=== PATIENT | female | born 1960 | race Caucasian/White ===

== ENCOUNTER 2019-04-25 14:38 | Emergency (ER) | payer BC, SELFPAY ==
[2019-04-25] VITALS (9 sets, daily range): BP systolic 90–115; BP diastolic 60–79; PULSE 54–77; RESP 15–20; TEMP 36.2; O2SAT 97–99
--- NOTE | 2019-04-25 15:04 | ED.OVERDOSE ---
HPI - Overdose General Chief Complaint: Overdose Stated Complaint: od Time Seen by Provider: 04/25/19 14:47 Source: patient Mode of arrival: EMS Limitations: no limitations History of Present Illness HPI Narrative: A 59 y/o female pt presents to the ED, via EMS, with c/o intentional overdose. Approximately 12 hours ago pt notes taking a handful of Xanax x 0.5mg, and Losartan x 15. Pt states that she has been from her since July 2018 and now lives with her mother. She states that her would frequently call her overweight and state that he is no longer attracted to her . Pt notes having depression on and off since her separation from her . She reports that last night her began texting her, stating that he wants to be single . She notes that she felt tired of it and attempted to to take her life today by overdosing on her medications. Pt denies wanting to hurt others, hearing voices, or any other self harm. She notes having suicidal ideation in the past, but denies every having a suicide attempt prior to today. Pt reports having some wine while watching a movie on [employer] last night, but denies alcohol abuse. She notes a PMHx of depression, anxiety, and HTN. Pt denies hx of smoking or drug use. Pt denies CP, ABD or SOB. lt ovary removed, tubal lit, lumpectomy on melinda breast. complaint: intentional overdose Onset (ago): hour(s) (12) Intent: suicide attempt How Overdose Was Discovered: called 911 Context: Intentional Overdose: relationship problems Associated symptoms: depression and other (anxiety) Related Data Allergies Allergy/AdvReac Type Severity Reaction Status Date / Time Penicillins Allergy Mild HIVES, Unverified 02/23/12 18:10 SWELLING Review of Systems Review of Systems: All systems reviewed & are unremarkable except as noted in HPI and below Cardiovascular: Cardiovascular: Denies chest pain and Denies dyspnea Gastrointestinal: Gastrointestinal: Denies abdominal pain Psychiatric: Psychiatric: Reports anxiety, Reports depression, Denies auditory hallucinations, Reports homicidal ideation, Reports suicidal ideation and Reports other (suicide attempt by overdose) [facility] Past Medical History Medical History (Updated 04/25/19 @ 22:08 by Tucker Marie, [facility]) Anxiety Arthritis Degenerative disc disease Depression Hypertension Surgical History Surgical History (Updated 04/25/19 @ 22:08 by JESSICA Lyons) History of tubal ligation Social History Social History (Updated 04/25/19 @ 22:08 by JESSICA Lyons) Substance use: never Living arrangements: with family Exam Narrative: Exam Narrative: GENERAL: Anxious-appearing, well-nourished, and in no acute distress. HEAD: Normocephalic, atraumatic. EYES: PERRL and EOMI. ENT: Mucous membranes moist. CHEST: Clear to auscultation. No respiratory distress. HEART: Regular rate and rhythm. Normal peripheral pulses. ABDOMEN: Soft, nontender, nondistended. EXTREMITIES: Normal range of motion. No edema. SKIN: Warm, dry, no rash. NEURO: No focal deficits. Alert and oriented x3. PSYCH: Depressed and tearful, suicidal. Not homicidal. Not responding to internal stimuli. Course Reevaluation(s) Reevaluation #1: Patient medically cleared. CRISIS here evaluating the patient. Poison control says patient is outside the window of toxicity from medications. Date: 04/25/19 Time: 19:51 Reevaluation #2: Accepted by Dr. Bassett to dick. Date: 04/25/19 Time: 21:17 Reevaluation #3: Patient's been resting comfortably throughout the ER stay. She has had some low blood pressures in the low 90s manually taken. The psych facility has been made aware this are of no concern. Patient has been up and ambulatory without issue and is asymptomatic. She is received 2 L of IV fluid. She is outside of the window for any toxicity from the hypertensive medications that she is taken. Date: 04/25/19 Time: 22:52 Vital Signs Vital s
[2019-04-25 15:06] LABS: Basophils Percent Auto 0.9 % (0.2-1.2); Eosinophils Absolute Auto 0.1 K/mm3 (0-0.3); Eosinophils Percent Auto 1.6 % (0-4.4); Hematocrit 38.7 % (37.0-47.0); Hemoglobin 12.8 g/dL (12.0-15.0); Immature Granulocyte Absolute 0.02 K/mm3 (0.00-0.031); Immature Granulocyte Percent A 0.5 % (0-0.5); Lymphocytes Absolute Auto 1.52 K/mm3 (0.9-3.2); Lymphocytes Percent Auto 34.4 % (18.3-44.2); Mean Corpuscular HGB Conc 33.1 g/dl (32-36); Mean Corpuscular Hemoglobin 26.8 pg (26-34); Mean Platelet Volume 10.2 fl (7.4-10.4); Monocytes Absolute Auto 0.4 K/mm3 (0.1-0.6); Neutrophils Absolute Auto 2.3 K/mm3 (1.3-6.7); Neutrophils Percent Auto 52.6 % (45.5-73.1); Platelet Count Result 313 k/mm3 (150-375); Red Blood Count 4.78 M/mm3 (4.2-5.4); Red Cell Distribution Width 12.1 % (11.5-14.5); White Blood Count 4.4 K/mm3 (4.5-10.0)
[2019-04-25 15:20] LABS: Alanine Aminotransferase 36 U/L (4-35); Albumin Level 4.4 g/dL (3.5-5.1); Alkaline Phosphatase 81 U/L (38-126); Aspartate Amino Transferase 33 U/L (14-36); Bilirubin,Total 0.8 mg/dL (0.2-1.3); Blood Urea Nitrogen 19 mg/dL (7-17); Calcium 9.5 mg/dL (8.4-10.2); Carbon Dioxide 28 mmol/L (22-30); Chloride 98 mmol/L (98-107); Estimated CRCL calculation 40 ml/min; Estimated Glomerular Filt Rate 46; Ethanol < 10 mg/dL (<10); Glucose 98 mg/dL (65-105); Potassium 3.1 mmol/L (3.4-5.0); Sodium 136 mmol/L (137-145)
--- NOTE | 2019-04-25 15:54 | PC.NURSE ---
Poison Control contacted, spoke with Bernie - - who stated that the pt is not at high risk for complications of overdose currently and Bernie advises to have an acetaminophen and salicylate level drawn. Levels ordered.
--- NOTE | 2019-04-25 16:13 | ECG_ITS ---
Measurements Intervals [place] Rate: 63 P: 52 HI: 149 QRS: 16 QRSD: 103 T: -14 QT: 456 QTc: 468 Interpretive Statements SINUS RHYTHM NONSPECIFIC ST & T-WAVE ABNORMALITY- ANT/INF LEADS BASELINE WANDER- I, III, AVR BORDERLINE ECG Electronically Signed On 04-26-2019 6:55:09 GLASS BULB SILVERER by Emmanuel Wise D.O.
[2019-04-25 16:42] LABS: Add Urine Microscopic? YES; Appearance Urine Clear (Clear); Bilirubin Urine Negative (Negative); Blood Urine 1+ (Negative); Color Urine Straw (Yellow); Glucose Urine UA Negative (Negative); Ketones Urine Negative (Negative); Leukocyte Esterase Ur 2+ LEU/UL (Negative); Nitrate Urine Negative (Negative); Protein Urine Negative (Negative); RBC Urine 0-2 /hpf (0-2); Specific Grav Ur 1.005 (1.001-1.035); Urobilinogen Urine Negative mg/dL (<2.0); WBC Urine 21-30 /hpf
[2019-04-25 16:51] LABS: Amphetamine Screen Urine Negative (Negative); Barbiturate Screen Urine Negative (Negative); Benzodiazepines Screen Urine Positive (Negative); Cannabinoid Screen Urine Negative (Negative); Cocaine Screen Urine Negative (Negative); Methadone Screen Urine Negative (Negative); Opiate Screen Urine Negative (Negative); Phencyclidine Screen Urine Negative (Negative)
[2019-04-25 16:58] LABS: Salicylate < 1.0 mg/dL (2-20)
[2019-04-25 16:59] LABS: Acetaminophen < 10 ug/mL (10-30)
[2019-04-25] MEDS: SODIUM CHLORIDE 0.9% IV 1,000 ML 999 ML IV CONT (16:59)
--- NOTE | 2019-04-25 17:58 | PC.NURSE ---
Talked with Bernie at Poison Control who stated that they had no further recommendations or concerns about pt, other than continuing to monitor vital signs and neuro status, after reviewing vital signs and pt condition and labs.
--- NOTE | 2019-04-25 18:06 | PC.NURSE ---
Talked to Bria, with crisis ([phone]) about pt and Bria stated that someone would be dispatched to evaluate the pt.
--- NOTE | 2019-04-25 21:44 | PC.NURSE ---
CALL RECEIVED POISON CONTROL. UPDATES GIVEN. NO FURTHER RECOMMENDATIONS
[2019-04-25] MEDS: SODIUM CHLORIDE 0.9% IV 1,000 ML 1000 ML (21:50)
--- NOTE | 2019-04-25 21:51 | PC.NURSE ---
PT BLOOD PRESSURE 90/[address] BEAVERS NOTIFIED. PT ASYMPTOMATIC. VRBO 1L NS PER DR BEAVERS. IVF INFUSING IN PATENT IV. PT TOLERATING WELL
--- NOTE | 2019-04-25 22:07 | PC.NURSE ---
CALL RECEIVED FROM NIKKI AT [facility]. REPORT GIVEN. STATES PT ROOM NUMBER IS [id number]. CALL WHEN EMS EN ROUTE
--- NOTE | 2019-04-25 22:52 | PC.NURSE ---
Called [facility] to transport patient to [facility]. ETA [phone]
[2019-04-26 00:05] VITALS: BP 93/62; PULSE 58; RESP 20; O2SAT 98
--- NOTE | 2019-04-26 01:08 | PC.NURSE ---
[facility] called to update ETA to 0230. Called [facility] to request transport. [facility] declined.
[2019-04-26 01:25] VITALS: BP 95/64; PULSE 59; RESP 18
[2019-04-26 02:39] VITALS: BP 90/58; PULSE 64; RESP 20; O2SAT 98
[2019-04-26 03:04] VITALS: BP 111/71; PULSE 66; RESP 20; O2SAT 99
[2019-04-26 03:19] VITALS: BP 111/64; PULSE 64; RESP 20; O2SAT 99
== END 2019-04-26 03:21 ==
PROVIDERS: Emergency Provider Emergency Medicine
DX: T42.4X2A Poisoning by benzodiazepines, intentional self-harm, initial encounter (principal); T46.5X2A Poisoning by other antihypertensive drugs, intentional self-harm, initial encounter; I10 Essential (primary) hypertension; M19.90 Unspecified osteoarthritis, unspecified site; F41.9 Anxiety disorder, unspecified; F32.9 Major depressive disorder, single episode, unspecified
CPT/HCPCS: 36415; 80053; 80307; 81001; 81025; 84443; 85025; 87077; 87086; 87088; 87186; 93005; 96360; 96361; 99285; J7030

== ENCOUNTER 2020-02-01 13:43 | Outpatient (CLI) | payer BC, SELFPAY ==
--- NOTE | ~2020-02-01 | US_ITS ---
EXAMINATION: US thyroid DATE: 02/01/2020 14:54 INDICATION: Thyroid nodule. TECHNIQUE: Multiple ultrasound images of the thyroid were obtained. COMPARISON: None. FINDINGS: The right thyroid lobe measures 5.0 x 1.6 x 1.3 cm. The left thyroid lobe measures 4.8 x 1.6 x 1.0 c m. In the right thyroid lobe, there is a 3 mm nodule. In the left thyroid lobe, there is a 3 mm nodu le. IMPRESSION: 1. Small thyroid nodules, likely not clinically significant. No follow-up is needed. Reviewed, dictated and finalized at location B. USION MANAGER IMPRESSION: 1. Small thyroid nodules, likely not clinically significant. No follow-up is ne eded.
== END 2020-02-01 13:44 | disposition home or self-care (01) ==
LOC: ANHIMG 13:56
PROVIDERS: PCP Family Medicine; Visit Provider Nurse Practitioner
DX: E04.2 Nontoxic multinodular goiter (principal)
CPT/HCPCS: 76536

== ENCOUNTER 2021-10-18 10:39 | Outpatient (CLI) | payer OTHER, SELFPAY ==
[2021-10-18 12:02] LABS: Basophils Absolute Auto 0.1 K/mm3 (0.0-0.1); Basophils Percent Auto 1.1 % (0.2-1.2); Eosinophils Absolute Auto 0.1 K/mm3 (0-0.3); Eosinophils Percent Auto 2.4 % (0-4.4); Immature Granulocyte Absolute 0.01 K/mm3 (0.00-0.031); Immature Granulocyte Percent A 0.2 % (0-0.5); Lymphocytes Absolute Auto 1.92 K/mm3 (0.9-3.2); Lymphocytes Percent Auto 35.6 % (18.3-44.2); Mean Corpuscular HGB Conc 32.5 g/dl (32-36); Mean Corpuscular Hemoglobin 26.9 pg (26-34); Mean Corpuscular Volume 82.6 fl (80-100); Mean Platelet Volume 10.4 fl (7.4-10.4); Monocytes Absolute Auto 0.4 K/mm3 (0.1-0.6); Neutrophils Absolute Auto 2.9 K/mm3 (1.3-6.7); Neutrophils Percent Auto 53.7 % (45.5-73.1); Platelet Count Result 294 k/mm3 (150-375); Red Blood Count 4.84 M/mm3 (4.2-5.4); Red Cell Distribution Width 12.4 % (11.5-14.5); White Blood Count 5.4 K/mm3 (4.5-10.0)
[2021-10-18 12:03] LABS: Appearance Urine Clear (Clear); Bilirubin Urine Negative (Negative); Color Urine Yellow (Yellow); Glucose Urine UA Negative (Negative); Ketones Urine Negative (Negative); Leukocyte Esterase Ur 1+ LEU/UL (Negative); Nitrate Urine Negative (Negative); Protein Urine Negative (Negative); Urobilinogen Urine 0.2 mg/dL (<2.0)
[2021-10-18 12:09] LABS: Mucus Urine Rare /lpf; Squamous Epithelial Cell Urine Occasional /hpf (Few); Transitional Epi Cells Urine Rare /hpf (None Seen); WBC Urine 0-3 /hpf
[2021-10-18 12:17] LABS: Alanine Aminotransferase 37 U/L (6-35); Albumin Level 4.6 g/dL (3.5-5.1); Alkaline Phosphatase 68 U/L (38-126); Anion Gap 8 mmol/L (8-16); Aspartate Amino Transferase 40 U/L (14-36); Bilirubin,Total 0.6 mg/dL (0.2-1.3); Blood Urea Nitrogen 18 mg/dL (7-17); Calcium 9.6 mg/dL (8.4-10.2); Carbon Dioxide 30 mmol/L (22-30); Chloride 95 mmol/L (98-107); Cholesterol 202 mg/dL (0-200); Estimated Glomerular Filt Rate > 60; Glucose 97 mg/dL (65-110); HDL Direct 46 mg/dL; Potassium 3.4 mmol/L (3.4-5.0); Sodium 133 mmol/L (137-145); Triglycerides 122 mg/dL (<150)
[2021-10-18 12:30] LABS: Add Urine Microscopic? YES; Blood Urine Trace-Intact (Negative)
[2021-10-18 12:43] LABS: LDL Cholesterol Direct 106 mg/dL
[2021-10-18 12:46] LABS: Vitamin D 25 Hydroxy 43.1 ng/mL
== END 2021-10-18 10:40 | disposition home or self-care (01) ==
LOC: ANHLAB 10:43
PROVIDERS: PCP Family Medicine; Visit Provider Family Medicine
DX: Z00.00 Encounter for general adult medical examination without abnormal findings (principal); E55.9 Vitamin D deficiency, unspecified; Z13.1 Encounter for screening for diabetes mellitus; I10 Essential (primary) hypertension; E78.5 Hyperlipidemia, unspecified; E04.1 Nontoxic single thyroid nodule; Z79.899 Other long term (current) drug therapy
CPT/HCPCS: 36415; 80048; 80061; 80076; 81001; 82306; 84443; 85025

== ENCOUNTER 2021-12-10 00:40 | Day surgery (SDC) | payer OTHER, SELFPAY ==
[2021-11-26 13:51] VITALS: BMI 25.0
--- NOTE | 2021-12-08 10:03 | PM.HPGS ---
History of Present Illness History of Present Illness Consent: Risks, benefits, and alternatives have been discussed and questions answered. Patient agrees to proceed with procedure. Chief complaint: neoplasm screening Narrative: Josee Taylor is a 61 year old female Who was referred for colon cancer screening. She has a family history of colon cancer. Her father and paternal grandmother had colon cancer. Review of Systems Review of Systems: All systems reviewed & are unremarkable except as noted in HPI and below PMFSH Past Medical History Medical History Anxiety Arthritis Degenerative disc disease Depression Hyperlipidemia Hypertension Surgical History Surgical History History of tubal ligation Social History Social History Smoking status: Never smoker Alcohol intake: current Drinks per week: 2 Substance use: never Substance use type: does not use Living arrangements: with family Spiritual care concerns: No Meds Home Medications and Allergies Home Medications Medication Instructions Recorded Confirmed Type alprazolam 0.5 mg tablet 0.5 mg PO DAILY 11/26/21 12/10/21 History escitalopram oxalate 20 mg tablet 20 mg PO DAILY 11/26/21 12/10/21 History losartan 100 1 tablet PO DAILY 11/26/21 12/10/21 History mg-hydrochlorothiazide 25 mg tablet simvastatin 20 mg tablet 20 mg PO DAILY 11/26/21 12/10/21 History Allergies Allergy/AdvReac Type Severity Reaction Status Date / Time Penicillins Allergy Mild HIVES, Verified 12/10/21 09:09 SWELLING Exam Const: General: alert Orientation/consciousness: patient oriented x3 Resp: Auscultation: clear to auscultation bilaterally Cardio: Rhythm: regular rhythm GI: GI Palp: Yes Soft to palpation and No Tenderness to palpation present (GI) Neuro: General: patient oriented x3 Assessment and Plan Assessment and plan (1) Colon cancer screening: Code(s): Z12.11 - Encounter for screening for malignant neoplasm of colon Status: Acute Assessment and Plan: Colonoscopy with possible biopsy or polypectomy or cautery or injection of substances.
--- NOTE | 2021-12-10 09:05 | WPDANESEPPF ---
Anes - Initial Pre Proc Eval Procedure: Operation Date: 12/10/21 10:00 Proposed Procedures p Screening Colonoscopy - Juan Luis Reyna MD Date/Time: 12/10/21 09:05 Surgeon: Juan Luis Reyna MD Pre Op Diagnosis: neoplasm screening Patient Data Age: 61 Gender: F Height: 1.63 m Weight: 66 kg Allergies Allergy/AdvReac Type Severity Reaction Status Date / Time Penicillins Allergy Mild HIVES, Verified 12/10/21 09:09 SWELLING Home Medications Medication Instructions Recorded Confirmed Type alprazolam 0.5 mg tablet 0.5 mg PO DAILY 11/26/21 12/10/21 History escitalopram oxalate 20 mg tablet 20 mg PO DAILY 11/26/21 12/10/21 History losartan 100 1 tablet PO DAILY 11/26/21 12/10/21 History mg-hydrochlorothiazide 25 mg tablet simvastatin 20 mg tablet 20 mg PO DAILY 11/26/21 12/10/21 History Patient hx anesthesia problems: none Family hx anesthesia problems: none Results Review: All pre-operative results and documents have been reviewed as part of the pre-operative evaluation. [facility] Past Medical History Medical History (Updated 12/10/21 @ 09:06 by John Redmond DO) Anxiety Arthritis Degenerative disc disease Depression Hyperlipidemia Hypertension Surgical History Surgical History (Updated 04/25/19 @ 22:08 by JESSICA Lyons) History of tubal ligation Social History Social History (Updated 04/25/19 @ 22:08 by JESSICA Lyons) Smoking status: Never smoker Alcohol intake: current Drinks per week: 2 Substance use: never Substance use type: does not use Living arrangements: with family Spiritual care concerns: No Anes - Eval Final PreProcedure Day of Procedure 12/10/21 09:05 Patient weight: normal Heart: regular rate and rhythm Lungs: clear to auscultation and normal air movement Airway: Mallampati scale class II Neurological: alert and oriented Last oral intake: >/= 8 hours ASA classification: II Emergent: no Anesthetic plan: proceed Anesthesia type and monitoring: general GIVS and standard monitoring Results Review: All pre-operative results and documents have been reviewed as part of the pre-operative evaluation. Informed Consent: The patient's anesthetic plan and its attendant risks and benefits were discussed with the patient/family/POA. Questions were solicited and answers provided to the satisfaction of the patient/family/POA.
[2021-12-10 09:11] VITALS: BP 125/89; PULSE 77; RESP 20; TEMP 36.1; O2SAT 100; BMI 24.3
[2021-12-10] MEDS: LACTATED RINGERS 1,000 ML 150 ML IV CONT (09:14)
[2021-12-10 10:07] VITALS: BP 105/69; PULSE 66; RESP 17; O2SAT 99
[2021-12-10 10:17] VITALS: BP 113/77; PULSE 61; RESP 18; O2SAT 100
[2021-12-10 10:27] VITALS: BP 131/89; PULSE 58; RESP 15; O2SAT 100
== END 2021-12-10 10:32 | disposition home or self-care (01) ==
PROVIDERS: PCP Family Medicine; Visit Provider Internal Medicine Gastroenterology
PROC: 0DJD8ZZ Inspection of Lower Intestinal Tract, Via Natural or Artificial Opening Endoscopic (ICD-10-PCS; CPT 45378; principal; 2021-12-10 10:00)
DX: Z12.11 Encounter for screening for malignant neoplasm of colon (principal); F41.9 Anxiety disorder, unspecified; M19.90 Unspecified osteoarthritis, unspecified site; F32.A Depression, unspecified; I10 Essential (primary) hypertension; E78.5 Hyperlipidemia, unspecified
CPT/HCPCS: 45378; J2704; J7120

== ENCOUNTER 2022-01-22 13:17 | Outpatient (CLI) | payer OTHER, SELFPAY ==
--- NOTE | ~2022-01-22 | XR_ITS ---
EXAMINATION: XR chest 2V 01/22/2022 13:40 INDICATION: Left chest wall pain PROCEDURE: 2 view chest COMPARISON: 10/05/2020 FINDINGS: The lungs are clear. The cardiomediastinal silhouette is within normal limits. There are no pleural effusions. There is no pneumothorax suspected. IMPRESSION: 1: NO ACUTE CARDIOPULMONARY DISEASE. Reviewed, dictated and finalized at location A. S ASSEMBLER
== END 2022-01-22 13:18 | disposition home or self-care (01) ==
LOC: ANHIMG 13:29
PROVIDERS: PCP Family Medicine
DX: R07.89 Other chest pain (principal)
CPT/HCPCS: 71046

== ENCOUNTER 2022-05-10 10:49 | Outpatient (CLI) | payer OTHER, SELFPAY | END 2022-05-10 10:50 | disposition home or self-care (01) | LOC: ANHAUDIO 10:50 | PROVIDERS: PCP Family Medicine; Visit Provider Otolaryngology | DX: H90.3 Sensorineural hearing loss, bilateral (principal); H93.A2 Pulsatile tinnitus, left ear | CPT/HCPCS: 92557; 92567 ==

== ENCOUNTER 2022-05-17 10:21 | Outpatient (CLI) | payer OTHER, SELFPAY ==
--- NOTE | ~2022-05-17 | CT_ITS ---
EXAMINATION: CTA brain DATE: 05/17/2022 10:53 INDICATION: Left-sided pulsatile tinnitus. TECHNIQUE: Computed tomographic angiography (CTA) of the head was performed without and with 100 mL O mnipaque-350 intravenous contrast. Automated exposure control and iterative reconstruction technique were employed. The dose-length product was 1041.41 mGy-cm. Maximum intensity projection 3D reconstru ctions were created. Volume-rendered 3D reconstructions of the intracranial arteries were created by the technologist on a separate workstation. COMPARISON: None. FINDINGS: There are scattered areas of low attenuation in the cerebral white matter. There is no intr acranial hemorrhage, acute infarction, or abnormal intracranial mass lesion. The ventricles are bucky l in size. The orbits are normal. The mastoid air cells are normal. The bilateral jugular bulbs are h igh riding. The paranasal sinuses are clear. Left vertebral artery is dominant. There is no significa nt stenosis of basilar artery or the posterior cerebral arteries. The posterior communicating arterie s are normal. There is no significant stenosis of the intracranial arterial internal carotid arteries or anterior or middle cerebral arteries. Anterior communicating artery is normal. There is no aneury sm. IMPRESSION: 1. Mild nonspecific cerebral white matter disease, which likely represents chronic small vessel ische antonieta disease. 2. High riding bilateral jugular bulbs. 3. No aneurysm or significant intracranial arterial stenosis. Reviewed, dictated and finalized at location E. IMPRESSION: 1. Mild nonspecific cerebral white matter disease, which likely represents tube dispatcher melani small vessel ischemic disease. 2. High riding bilateral jugular bulbs. 3. No aneurysm or significant intracranial arterial stenosis.
[2022-05-17 10:46] LABS: Estimated Glomerular Filt Rate > 60
== END 2022-05-17 10:22 | disposition home or self-care (01) ==
PROVIDERS: PCP Family Medicine; Visit Provider Otolaryngology
DX: H93.A2 Pulsatile tinnitus, left ear (principal); R90.82 White matter disease, unspecified
CPT/HCPCS: 70496; Q9967

== ENCOUNTER 2022-07-11 15:59 | Emergency (ER) | payer OTHER, SELFPAY ==
--- NOTE | 2022-07-11 16:08 | ED.FEMALEGU ---
HPI - Female Genitourinary General Chief complaint: Urogenital-Female Stated complaint: Poss UTI Time Seen by Provider: 07/11/22 16:56 Source: patient and RN notes reviewed Mode of arrival: ambulatory Limitations: no limitations History of Present Illness HPI Narrative: 62-year-old female presents with concern for urinary tract infection. She reports 1 week history of burning with urination, cloudy urine, malodorous urine, frequency. She reports she has a history of urinary tract infections and was hospitalized a year and a half ago for a kidney infection. She reports chills, suprapubic pressure. MD elicited complaint: UTI Related Data Home Medications Medication Instructions Recorded Confirmed alprazolam 0.5 mg tablet 0.5 mg PO PRN PRN anxiety 11/26/21 07/11/22 escitalopram oxalate 20 mg tablet 20 mg PO DAILY 11/26/21 07/11/22 losartan 100 1 tablet PO DAILY 11/26/21 07/11/22 mg-hydrochlorothiazide 25 mg tablet simvastatin 20 mg tablet 20 mg PO DAILY 11/26/21 07/11/22 Allergies Allergy/AdvReac Type Severity Reaction Status Date / Time Penicillins Allergy Mild HIVES, Verified 07/11/22 16:42 SWELLING Sulfa (Sulfonamide Allergy Mild Hives Verified 07/11/22 16:42 Antibiotics) Review of Systems Review of Systems: CONSTITUTIONAL: Denies malaise, chills, sweats, or fever. CARDIOVASCULAR: Denies chest pain, palpitations, or edema. RESPIRATORY: Denies cough or dyspnea. GASTROINTESTINAL: Denies abdominal pain, nausea, vomiting, diarrhea GENITOURINARY: Reports dysuria, frequency, urgency, suprapubic pressure. Denies flank pain or hematuria. SKIN: Denies rash or itching. MUSCULOSKELETAL: Denies back pain or myalgia. All systems reviewed & are unremarkable except as noted in HPI and below PMFSH Past Medical History Medical History Anxiety Arthritis Degenerative disc disease Depression Hyperlipidemia Hypertension Surgical History Surgical History History of tubal ligation Social History Social History Smoking status: Never smoker Alcohol intake: current Drinks per week: 2 Substance use: never Substance use type: does not use Lack of Transportation: No Lack of Food: Never True Current Housing: I Have Housing Concerned About Future Housing: No Difficulty Paying Gas/Electric Bills: No Difficulty Paying for Meds: No Currently Unemployed: No Education: High School Diploma/GED Difficulty w/ Childcare or Family Care: No Living arrangements: with family Spiritual care concerns: No Comments At time of signature, agree with nursing past medical, surgical, social and family history. There is no relevant family history pertinent to the presenting complaint Exam Narrative: GENERAL: Well-appearing, well-nourished, and in no acute distress. HEAD: Normocephalic. EYES: PERRLA, conjunctivae clear. NECK: Supple. No lymphadenopathy CHEST: Clear to auscultation. No respiratory distress. HEART: Regular rate and rhythm. ABDOMEN: Soft, nontender upon palpation, nondistended, normal active bowel sounds, no palpable or pulsatile masses, no guarding. No CVA tenderness SKIN: Warm, dry, no rash. NEURO: Alert and oriented x3. PSYCH: Normal mood and affect Course Course Emergency Course: Patient is aware of diagnosis, understands and agrees to treatment plan. Anticipatory guidance given. Patient agrees to follow-up as directed and is aware of reasons to seek care at the emergency department. Portions of this record may have been created with voice recognition software Level of Care: Express Care Visit Vital Signs Vital signs: Vital Signs Temperature 97.6 F 07/11/22 16:10 Pulse Rate 73 07/11/22 16:10 Respiratory Rate 18 07/11/22 16:10 Blood Pressure 126/75 07/11/22 16:10 Pulse Oximetry 100
[2022-07-11 16:10] VITALS: BP 126/75; PULSE 73; RESP 18; TEMP 36.4; O2SAT 100
== END 2022-07-11 17:03 | disposition home or self-care (01) ==
PROVIDERS: Emergency Provider Nurse Practitioner; PCP Family Medicine
DX: N39.0 Urinary tract infection, site not specified (principal); M19.90 Unspecified osteoarthritis, unspecified site; E78.5 Hyperlipidemia, unspecified; I10 Essential (primary) hypertension; F41.9 Anxiety disorder, unspecified; F32.A Depression, unspecified
CPT/HCPCS: 81003; 87077; 87086; 87186; 99213; G0463

== ENCOUNTER 2022-12-15 19:10 | Emergency (ER) | payer OTHER, SELFPAY ==
[2022-12-15 19:14] VITALS: BP 148/82; PULSE 78; RESP 14; TEMP 36.4; O2SAT 100
[2022-12-15 19:36] LABS: Appearance Urine Clear (Clear); Bilirubin Urine Negative (Negative); Blood Urine Negative (Negative); Color Urine Yellow (Yellow); Glucose Urine UA Negative (Negative); Ketones Urine Negative (Negative); Leukocyte Esterase Ur Negative LEU/UL (Negative); Nitrate Urine Negative (Negative); Protein Urine Negative (Negative); Specific Grav Ur 1.005 (1.001-1.035); Urobilinogen Urine 0.2 mg/dL (<2.0)
[2022-12-15 19:38] LABS: Add Urine Microscopic? NO
[2022-12-15 19:42] LABS: Basophils Absolute Auto 0.1 K/mm3 (0.0-0.1); Basophils Percent Auto 0.8 % (0.2-1.2); Eosinophils Absolute Auto 0.1 K/mm3 (0-0.3); Hematocrit 41.6 % (37.0-47.0); Hemoglobin 13.5 g/dL (12.0-15.0); Immature Granulocyte Absolute 0.02 K/mm3 (0.00-0.031); Immature Granulocyte Percent A 0.3 % (0-0.5); Lymphocytes Absolute Auto 2.24 K/mm3 (0.9-3.2); Lymphocytes Percent Auto 34.5 % (18.3-44.2); Mean Corpuscular HGB Conc 32.5 g/dl (32-36); Mean Corpuscular Hemoglobin 26.8 pg (26-34); Mean Corpuscular Volume 82.7 fl (80-100); Mean Platelet Volume 9.7 fl (7.4-10.4); Monocytes Absolute Auto 0.5 K/mm3 (0.1-0.6); Monocytes Percent Auto 7.4 % (2.6-8.5); Neutrophils Absolute Auto 3.6 K/mm3 (1.3-6.7); Platelet Count Result 327 k/mm3 (150-375); Red Blood Count 5.03 M/mm3 (4.2-5.4); Red Cell Distribution Width 12.3 % (11.5-14.5); White Blood Count 6.5 K/mm3 (4.5-10.0)
[2022-12-15 19:52] LABS: Anion Gap 7 mmol/L (8-16); Blood Urea Nitrogen 17 mg/dL (7-17); Calcium 9.9 mg/dL (8.4-10.2); Carbon Dioxide 31 mmol/L (22-30); Chloride 98 mmol/L (98-107); Estimated CRCL calculation 56 ml/min; Estimated Glomerular Filt Rate > 60; Glucose 89 mg/dL (65-110); Potassium 3.5 mmol/L (3.4-5.0); Sodium 136 mmol/L (137-145)
--- NOTE | 2022-12-15 19:53 | ED.FEMALEGU ---
HPI - Female Genitourinary General Chief complaint: Urogenital-Female Stated complaint: possible uti Time Seen by Provider: 12/15/22 19:25 Source: patient Mode of arrival: ambulatory Limitations: no limitations History of Present Illness HPI Narrative: This is a 62-year-old female that presents to the emergency department for low back pain. Ongoing over the last week. Associated with intermittent dysuria. Reports history of UTIs and was concerned that she possibly had 1 today. Denies fevers or vomiting. Related Data Home Medications Medication Instructions Recorded Confirmed alprazolam 0.5 mg tablet 0.5 mg PO PRN PRN anxiety 11/26/21 07/11/22 escitalopram oxalate 20 mg tablet 20 mg PO DAILY 11/26/21 07/11/22 losartan 100 1 tablet PO DAILY 11/26/21 07/11/22 mg-hydrochlorothiazide 25 mg tablet simvastatin 20 mg tablet 20 mg PO DAILY 11/26/21 07/11/22 tizanidine 2 mg tablet 2 mg PO 09/18/22 Allergies Allergy/AdvReac Type Severity Reaction Status Date / Time Penicillins Allergy Mild HIVES, Verified 12/15/22 19:10 SWELLING Sulfa (Sulfonamide Allergy Mild Hives Verified 12/15/22 19:10 Antibiotics) Review of Systems Review of Systems: CONSTITUTIONAL: Denies fever GASTROINTESTINAL: Denies abdominal pain, nausea, vomiting GENITOURINARY: Reports dysuria. Denies hematuria. All systems reviewed & are unremarkable except as noted in HPI and below PMFSH Past Medical History Medical History (Updated 12/15/22 @ 20:45 by Aggie Herrera PA-C) Anxiety Arthritis Degenerative disc disease Depression Hyperlipidemia Hypertension Screening for breast cancer Surgical History Surgical History (Updated 09/18/22 @ 15:35 by Makenzie Bobo CMA) H/O breast augmentation History of tubal ligation Social History Social History Smoking status: Never smoker Alcohol intake: current Drinks per week: 2 Substance use: never Substance use type: does not use Lack of Transportation: No Lack of Food: Never True Current Housing: I Have Housing Concerned About Future Housing: No Difficulty Paying Gas/Electric Bills: No Difficulty Paying for Meds: No Currently Unemployed: No Education: High School Diploma/GED Difficulty w/ Childcare or Family Care: No Living arrangements: with family Spiritual care concerns: No Exam Narrative: GENERAL: Well-appearing, well-nourished, and in no acute distress. HEAD: Normocephalic, atraumatic. EYES: EOMI. CHEST: Clear to auscultation. No respiratory distress. No wheezes rales or rhonchi HEART: Regular rate and rhythm. No murmur heard. Normal peripheral pulses. ABDOMEN: Soft, nontender, nondistended, normal active bowel sounds. No CVA tenderness EXTREMITIES: Normal range of motion. No edema. SKIN: Warm, dry, no rash. NEURO: No focal deficits. Alert and oriented x3. Normal gait PSYCH: Normal mood and affect Course Course Emergency Course: Patient was updated on workup and agrees with plan of care Vital Signs Vital signs: Vital Signs Temperature 97.5 F L 12/15/22 19:14 Pulse Rate 78 12/15/22 19:14 Respiratory Rate 14 12/15/22 19:14 Blood Pressure 148/82 H 12/15/22 19:14 Pulse Oximetry 100 12/15/22 19:14 Oxygen Delivery Room Air 12/15/22 19:14 Temperature 97.5 F L 12/15/22 19:14 Pulse Rate 78 12/15/22 19:14 Respiratory Rate 14 12/15/22 19:14 Blood Pressure 148/82 H 12/15/22 19:14 Pulse Oximetry 100 12/15/22 19:14 Oxygen Delivery Room Air 12/15/22 19:14 MDM - Female Genitourinary MDM Narrative Medical decision making narrative: Patient presents to the ER for low back pain. Ongoing over the last week. Reported intermittent dysuria. She is afebrile and nontoxic appearing CBC without leukocytosis. Metabolic panel with normal kidney function. Urine without evidence of infection. Patient was updated on work-up. Agrees with plan of ca
== END 2022-12-15 21:16 | disposition home or self-care (01) ==
PROVIDERS: Emergency Provider Physician Assistant; PCP Family Medicine
DX: M54.50 Low back pain, unspecified (principal); I10 Essential (primary) hypertension; E78.5 Hyperlipidemia, unspecified; M19.90 Unspecified osteoarthritis, unspecified site; F32.A Depression, unspecified; F41.9 Anxiety disorder, unspecified
CPT/HCPCS: 36415; 80048; 81003; 85025; 99283

== ENCOUNTER 2023-05-05 11:04 | Outpatient (CLI) | payer OTHER, SELFPAY ==
[2023-05-05 11:34] LABS: Basophils Absolute Auto 0.1 K/mm3 (0.0-0.1); Basophils Percent Auto 1.5 % (0.2-1.2); Eosinophils Absolute Auto 0.1 K/mm3 (0-0.3); Hematocrit 40.2 % (37.0-47.0); Hemoglobin 13.3 g/dL (12.0-15.0); Immature Granulocyte Absolute 0.02 K/mm3 (0.00-0.031); Immature Granulocyte Percent A 0.4 % (0-0.5); Lymphocytes Absolute Auto 1.37 K/mm3 (0.9-3.2); Lymphocytes Percent Auto 29.4 % (18.3-44.2); Mean Corpuscular HGB Conc 33.1 g/dl (32-36); Mean Corpuscular Hemoglobin 27.1 pg (26-34); Mean Platelet Volume 10.2 fl (7.4-10.4); Monocytes Absolute Auto 0.4 K/mm3 (0.1-0.6); Monocytes Percent Auto 7.9 % (2.6-8.5); Neutrophils Absolute Auto 2.7 K/mm3 (1.3-6.7); Neutrophils Percent Auto 57.8 % (45.5-73.1); Platelet Count Result 285 k/mm3 (150-375); White Blood Count 4.7 K/mm3 (4.5-10.0)
[2023-05-05 11:44] LABS: Alanine Aminotransferase 35 U/L (6-35); Albumin Level 4.5 g/dL (3.5-5.1); Alkaline Phosphatase 62 U/L (38-126); Anion Gap 5 mmol/L (8-16); Aspartate Amino Transferase 37 U/L (14-36); Bilirubin,Total 0.3 mg/dL (0.2-1.3); Blood Urea Nitrogen 13 mg/dL (7-17); Calcium 9.5 mg/dL (8.4-10.2); Carbon Dioxide 29 mmol/L (22-30); Chloride 100 mmol/L (98-107); Cholesterol 169 mg/dL (0-200); Estimated Glomerular Filt Rate > 60; Glucose 101 mg/dL (65-110); HDL Direct 53 mg/dL; Potassium 3.3 mmol/L (3.4-5.0); Sodium 134 mmol/L (137-145); Triglycerides 107 mg/dL (<150)
[2023-05-05 11:55] LABS: LDL Cholesterol Direct 98 mg/dL
[2023-05-05 13:36] LABS: Vitamin D 25 Hydroxy 55.1 ng/mL
== END 2023-05-05 11:05 | disposition home or self-care (01) ==
LOC: ANHLAB 11:06
PROVIDERS: PCP Family Medicine; Visit Provider Family Medicine
DX: E78.5 Hyperlipidemia, unspecified (principal); I10 Essential (primary) hypertension; Z79.899 Other long term (current) drug therapy; E55.9 Vitamin D deficiency, unspecified
CPT/HCPCS: 36415; 80048; 80061; 80076; 82306; 85025

== ENCOUNTER 2024-02-14 11:02 | Emergency (ER) | payer OTHER, SELFPAY ==
[2024-02-14 11:15] VITALS: BP 142/87; PULSE 94; RESP 18; TEMP 36.8; O2SAT 100
--- NOTE | 2024-02-14 12:21 | ED.EAR ---
HPI - Ear Problem General Chief complaint: Ear Stated complaint: clogged ears and fuzzy head Source: patient Mode of arrival: ambulatory Limitations: no limitations History of Present Illness HPI Narrative: 63-year-old female presents to [facility] with complaints of 3 day history of sore throat, nasal congestion and dry cough. Patient has been taking [id number] decongestants, Advil and using saline rinses with little relief. Patient denies fever, body aches, chills, nausea vomiting or diarrhea. Patient is nonsmoker. Patient denies recent travel. Patient denies sick contacts MD Complaint: other (Ear pressure) Location: bilateral Relieving factors: nothing Exacerbating factors: nothing Discharge from ear: Reports no Related Data Home Medications ?Medication ?Instructions ?Recorded ?Confirmed ?Last Taken ?Type alprazolam 0.5 mg tablet 0.5 mg PO PRN PRN anxiety 11/26/21 07/11/22 12/09/21 History escitalopram oxalate 20 mg tablet 20 mg PO DAILY 11/26/21 07/11/22 12/09/21 History losartan 100 1 tablet PO DAILY 11/26/21 07/11/22 12/09/21 History mg-hydrochlorothiazide 25 mg tablet simvastatin 20 mg tablet 20 mg PO DAILY 11/26/21 07/11/22 12/09/21 History Allergies Allergy/AdvReac Type Severity Reaction Status Date / Time Penicillins Allergy Mild HIVES, Verified 02/14/24 11:35 SWELLING Sulfa (Sulfonamide Allergy Mild Hives Verified 02/14/24 11:35 Antibiotics) Review of Systems Constitutional: Constitutional: Denies chills, Denies fatigue, Denies fever(s) and Denies weakness ENT: Denies dizziness, Reports nasal congestion and Denies sore throat Respiratory: Respiratory: Reports cough, Denies dyspnea and Denies wheezing Gastrointestinal: Gastrointestinal: Denies diarrhea, Denies nausea and Denies vomiting Integumentary/Breasts: Skin/Breast: Denies rash Neurologic: Denies syncope and Denies headache(s) [facility] Past Medical History Medical History Screening for breast cancer Hyperlipidemia Degenerative disc disease Arthritis Hypertension Anxiety Depression Surgical History Surgical History H/O breast augmentation History of tubal ligation Social History Social History Smoking status: Never smoker Alcohol intake: current Drinks per week: 2 Substance use: never Substance use type: does not use Lack of Transportation: No Lack of Food: Never True Current Housing: I Have Housing Concerned About Future Housing: No Difficulty Paying Gas/Electric Bills: No Difficulty Paying for Meds: No Currently Unemployed: No Education: High School Diploma/GED Difficulty w/ Childcare or Family Care: No Living arrangements: with family Spiritual care concerns: No Comments At time of signature, I agree with nursing past medical, surgical, social and family history. There is no relevant family history pertinent to the presenting complaint. Exam Const: General: healthy appearing and no acute distress Nutritional Appearance: well nourished Orientation/consciousness: patient oriented x3 Limitations: no limitations HENMT: Head: normal to inspection Ears: external ears normal and TM's normal bilaterally Face/Nose/Sinus: Normal external nose present and Normal nares present Mouth: Yes Normal oral and palatal mucosa present Throat: posterior oropharynx normal and uvula midline Other: Mild wax noted to bilateral ear canals, mild nasal congestion Eyes: Conjunctivae: conjunctivae normal Neck: Neck: normal visual inspection Resp: Effort & Inspection: normal respiratory effort Auscultation: clear to auscultation bilaterally, no crackles, no rales, no rhonchi and no wheezes Cardio: Rate: regular rate Rhythm: regular rhythm Heart sounds: no murmurs Skin: General skin exam: normal color Rashes: no rashes Neuro: General: patient oriented x3 Speech: normal speech Extrem: General: normal to inspection Psych: Affect: normal affect Attitude: cooperative Course Course Level of Care: Express Care Visit Vital Signs Vital signs: Vital Signs Temperature 36.8 C 02/14/24 11:15 Pulse Rate 94 02/14/24 11:15 Respiratory Rate 18 02/14/24 11:15 Blood Pressure 142/87 H 02/14/24 11:15 Pulse Oximetry 100 02/14/24 11:15 Oxygen Delivery Room Air 02/14/24 11:15 Temperature 36.8 C 02/14/24 11:15 Pulse Rate 94 02/14/24 11:15 Respiratory Rate 18 02/14/24 11:15 Blood Pressure 142/87 H 02/14/24 11:15 Pulse Oximetry 100 02/14/24 11:15 Oxygen Delivery Room Air 02/14/24 11:15 Medical Decision Making MDM Narrative Medical decision making narrative: Instructed patient's symptoms are likely viral at this time. Educated patient to take medications as prescribed follow-up with primary care provider if symptoms do not improve Vital Signs Vital Signs: Vital Signs Temperature 36.8 C 02/14/24 11:15 Pulse Rate 94 02/14/24 11:15 Respiratory Rate 18 02/14/24 11:15 Blood Pressure 142/87 H 02/14/24 11:15 Pulse Oximetry 100 02/14/24 11:15 Oxygen Delivery Room Air 02/14/24 11:15 Temperature 36.8 C 02/14/24 11:15 Pulse Rate 94 02/14/24 11:15 Respiratory Rate 18 02/14/24 11:15 Blood Pressure 142/87 H 02/14/24 11:15 Pulse Oximetry 100 02/14/24 11:15 Oxygen Delivery Room Air 02/14/24 11:15 Critical Care Time Critical Care Time Critical Care Time: No Discharge Plan Discharge Clinical Impression: Viral infection Patient Disposition: Home, Self-Care Condition: Stable Instructions: Viral Syndrome (ED) Patient Language: Prydeinig Prescriptions: New loratadine [Claritin] 10 mg tablet 10 mg PO DAILY Qty: 30 0RF benzonatate 100 mg capsule 100 mg PO BID PRN (Reason: cough) Qty: 14 0RF fluticasone propionate [Flonase Allergy Relief] 50 mcg/actuation spray,suspension 1 spray intranasal BID Qty: 16 0RF Rx Instructions: administer into each nostril prednisone 20 mg tablet 40 mg PO DAILY 5 Days Qty: 10 0RF No Action losartan-hydrochlorothiazide 100-25 mg tablet 1 tablet PO DAILY alprazolam 0.5 mg tablet 0.5 mg PO PRN PRN (Reason: anxiety) simvastatin 20 mg tablet 20 mg PO DAILY escitalopram oxalate 20 mg tablet 20 mg PO DAILY Follow-up/Referrals: UNKNOWN,DOCTOR [Primary Care Provider] - Time of Disposition: 12:28
--- OUTSIDE RECORDS SUMMARY | 2024-02-21 15:02 | XMS_ITS | Clinical Summary ---
Author Organization [facility] Address [address] [place] [address]. 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 Name Role Phone Unavailable Primary Care Provider Unavailabl e Social History Tobacco Use Types Packs/Day Years Used Date Smoking Tobacco: Never Assessed Comments Unknown Sex and Gender Information Value Date Recorded Sex Assigned at Not on file Legal Sex Female 9:11 PM CDT Gender Identity Not on file Sexual Orientation Not on file Plan of Treatment Health Maintenance Due Date Last Done Comments Cervical Cancer Screening Pa p Smear (Age 30 to 64) Every 3 Years 1962 Colorectal Cancer Screening Colonoscopy (10 Years) 1962 Annual Physical 1965 Hepatitis C 02/17/1980 DTaP, Tdap and Td Vaccines ( 1 - Tdap) 1981 Cervical Cancer Screening Pa p with HPV Testing (Age 30 to 64) Every 5 Years 02/17/1992 Cervical Cancer Screening with HPV 02/17/1992 Mammogram Screening 2002 Zoster Vaccines (1 of 2) 02/17/2012 COVID-19 Vaccine (2023-2 5 season) 2023 Influenza Adult (#1) 2023 RSV Immunization or 60+ Years (1 - 1-dose 75+ series) 2037 Meningococcal Vaccine Aged Out No yan aria eligible based on patient's age to complete this topic Pneumococcal Vaccine: Pediat rics (0 to 5 Years) and At-Risk Patients (6 to 64 Years) Aged Out No longer eligible b ased on patient's age to complete this topic RSV Immunizations Under 20 Months Aged Out No longer eligible based on patient's age to complete this topic
--- OUTSIDE RECORDS SUMMARY | 2024-02-21 15:02 | XMS_ITS | Encounter Summary ---
Author Organization [facility] Address [address] [place] [address] Care Team Providers Care Cyber Analyst Name Role Phone Dante Avelar Primary Care Provider [phone] Reason for Referral * Diagnostic Imaging (Routine) - Closed Specialty Diagnoses / Procedures Referred By Contac t Referred To Contact Diagnoses Acute bilateral low back pain with left-sided sciatica Procedures X-ray lumbar spine complete 4+ views Amy Degroot NP [address] [facility] [address] [place] [address] Phone: tel: fax: [address] [phone] Referral ID Status Reason Start Date Expiration Date Visits Re quested Visits Authorized [id number] Closed 06/26/2022 07/26/2023 1 1 Reason for Visit * Diagnostic Imaging (Routine) - Closed Specialty Diagnoses / Procedures Referred By Contac t Referred To Contact Diagnoses Acute bilateral low back pain with left-sided sciatica Procedures X-ray lumbar spine complete 4+ views Amy Degroot NP [address] [facility] [address] [place] [address] Phone: tel: fax: [address] [phone] Referral ID Status Reason Start Date Expiration Date Visits Re quested Visits Authorized [id number] Closed 06/26/2022 07/26/2023 1 1 Encounter Details Date Type Department Care Team (Latest Contact Info) Description 06/26/2022 3:13 PM CDT - 06/26/2022 11:59 PM CDT Hospital Encounter [facility] [address] [place] [address] Acute bilateral low back pain, unspecified whether sciatica present Discharge Disposition: Discharge to home or self care Social History Tobacco Use Types Packs/Day Years Used Date Smoking Tobacco: Never Smokeless Tobacco: Never Alcohol Use Standard Drinks/Week Comments Yes 0 (1 standard drink = 0.6 oz pur e alcohol) AUDIT-C Answer Date Recorded Frequency of Alcohol Consumption 2-4 times a fri10/14/2018 Average Number of Drinks Not on file 019 Frequency of Binge Drinking Not on file 09/25 PHQ-2 Answer Date Recorded PHQ-2 Score 0 10/14/2018 Comments Unknown Sex and Gender Information Value Date Recorded Sex Assigned at Not on file Legal Sex Female 12:21 PM CDT Gender Identity Not on file Sexual Orientation Straight 05/17/2022 5: 28 PM CDT 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 file Not on file Not on [employer] Not on file Not on file Not on file documented as of this encounter Medications at Time of Discharge escitalopram (LEXAPRO) 20 mg tablet Take 1 tablet (20 mg total) by mouth daily 06/19/2022 losartan-hydroch lorothiazide (HYZAAR) 100-25 mg per tablet TAKE 1 TABLET DAILY 90 tablet 4 10/27/2018 simvastatin (ZOCOR) 10 mg tablet TAKE 1 TABLET NIGHTLY 30 tablet 11 07/21/2019 ALPRAZolam (XANAX) 0.5 mg tablet Take 1 tablet (0.5 mg total) by mouth 2 (two) times a day 06/20/2022 gabapentin (NEURONTIN) 300 mg capsule TAKE 2 CAPSULES AT BEDTIME 180 capsule 11/24/2019 predniSONE (DELTASONE) 10 mg tablet Prednisone 10 mg - Take 6 tablets, decrease by 1 tablet daily till finished #21 21 tablet 06/26/2022 propranoloL (INDERAL) 20 mg tabletIndication s:Hot flashes TAKE 1 TABLET TWICE A DAY 180 tablet 3 07/05/2019 tiZANidine (ZANAFLEX) 2 mg tablet Take one TID PRN 45 tablet 06/26/2022 3 documented as of this encounter Discharge Disposition Disposition Code Departure Means Destination Discharge to home or self care documented in this encounter Plan of Treatment Not on file documented as of this encounter Procedures Procedure Name Priority Date/Time Associated Diagnosis Comments XR SPINE LUMBAR COMPLETE 4 OR MORE VIEWS Schedule Routine, Read Routine (OP Routine) 06/26/2022 3:16 PM CDT Acute bilateral low back pain, unspecified whether sciatica present documented in this encounter Results * X-ray lumbar spine complete 4+ views (06/26/2022 3:16 PM CDT) Anatomical Region Laterality Modality Spine N/A Computed Radiogr aphy 06/26/2022 3:32 PM CDT Impressions 06/26/2022 3:32 PM CDT 1. ??Unchanged mild to moderate lumbar levoscoliosis with multilevel lumbar degenerative disc disease, moderate to severe from L3 to S1. Electronically signed by: Lilliana Bañuelos M.D. Narrative 06/26/2022 3:32 PM CDT EXAMINATION: XR SPINE LUMBAR 4 OR MORE VIEWS HISTORY: Lumbar spondylosis. FINDINGS: 4 radiographs the lumbar spine are submitted for interpretation. There is mild to moderate lumbar levoscoliosis with apex at L3. There is left lateral listhesis of L3 on L4. ??Mild retrolisthesis listhesis of L1 on L2. ??The spinous hypomobile with bending. Moderate lower lumbar facet arthropathy. ??There is multilevel lumbar degenerative disc disease, greatest and moderate to severe from L3 to S1. Procedure Note Lilliana Bañuelos MD - 06/26/2022 EXAMINATION: XR SPINE LUMBAR 4 OR MORE VIEWS HISTORY: Lumbar spondylosis. FINDINGS: 4 radiographs the lumbar spine are submitted for interpretation. There is mild to moderate lumbar levoscoliosis with apex at L3. There is left lateral listhesis of L3 on L4. Mild retrolisthesis listhesis of L1 on L2. The spinous hypomobile with bending. Moderate lower lumbar facet arthropathy. There is multilevel lumbar degenerative disc disease, greatest and moderate to severe from L3 to S1. IMPRESSION: 1. Unchanged mild to moderate lumbar levoscoliosis with multilevel lumbar degenerative disc disease, moderate to severe from L3 to S1. Electronically signed by: Lilliana Bañuelos M.D. Amy Degroot GEOGRAPHY INSTRUCTOR IMG XR PROCEDURES Final Resul t documented in this encounter Visit Diagnoses Diagnosis Acute bilateral low back pain, unspecified whether sciatica present documented in this encounter Care Teams Cyber Analyst Relationship Specialty Start Date End Date Dante Avelar PA [facility] [address] [address] PCP - General Family Medicine 10/15/21 documented as of this encounter
--- OUTSIDE RECORDS SUMMARY | 2024-02-21 15:02 | XMS_ITS | Encounter Summary ---
Author Organization [facility] Address [address] [place] [address] Phone Care Team Providers Care Dial Mounter Name Role Phone Dante Avelar Primary Care Provider [phone]- [phone] Reason for Referral * Diagnostic Imaging (Routine) - Closed Specialty Diagnoses / Procedures Referred By Contac t Referred To Contact Diagnoses Acute bilateral low back pain with left-sided sciatica Procedures X-ray lumbar spine complete 4+ views Amy Degroot NP [address] [facility] [address] [place] [address] Phone: tel: fax: [address] [phone] Referral ID Status Reason Start Date Expiration Date Visits Re quested Visits Authorized [id number] Closed 06/26/2022 07/26/2023 1 1 Encounter Details Date Type Department Care Team (Late st Contact Info) Description 06/26/2022 3:00 PM CDT Office Visit [facility] Orthopaedic Surgery [address] [facility] [address] [place] [address] Amy Degroot NP [address] [facility] [address] [place] [address] Acute bilateral low back pain with left-sided sciatica (Primary Dx) Social History Tobacco Use Types Packs/Day Years [...] 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 Josee Elena 1960 Acute bilateral low back pain with left-sided sciatica [M54.42] TO DO: Apply ice alternating heat 20 minute intervals 6 day prednisone taper Tizanidine 2 milligram tablet may take 1 up to 3 times a day as needed. This medication may cause sedation. Take 1st dose at bedtime. Call with update in 1-2 weeks [facility] Address: [address] [place] [address] Secure [phone] Email: [email or web address] If your symptoms should worsen, you can reach your Provider through the office at during regular business hours M-F from 8:00 a.m. to 4:30 p.m. After 4:30 p.m. or on weekends, please call the Physician / Exchange at . If your symptoms worsen and you are unable to reach anyone at either of the numbers provided, you should seek further medical attention in the ER or with your primary care provider. Amy Degroot NP documented in this encounter Progress Notes * Amy Degroot NP - 06/26/2022 3:00 PM CDT RETURN PATIENT VISIT INTERVAL HISTORY Josee Elena is a 62 y.o. who presents today for recurrent lumbar radiculopathy. She was last seen in July of 2019 and had a left L5-S1 transforaminal epidural steroid injection 2019 with improvement of symptoms. She describes last 1-2 months recurrence of her low back painwith radiation in the left S1 distribution with associated weakness and intermittent paresthesia. She does feel use of an inversion table as helpful. PHYSICAL EXAMINATION CONSTITUTIONAL: Well-appearing, in no apparent distress EYES: No scleral icterus or conjunctival hemorrhage CARDIOVASCULAR: Skin warm and well-perfused, no peripheral edema RESPIRATORY: Breathing unlabored without accessory muscle use PSYCHIATRIC: Alert, cooperative, appropriate mood and affect SKIN: No lesions or rashes on exposed skin MUSCULOSKELETAL: Gait without deviation. Lumbar flexion does not reproduce pain but when arises from flexion pain is produced. Pain with lumbar rotation. Reports stiffness with extension. No focal tenderness over lumbar spinous processes or paraspinal muscles. Bilateral hip flexion, knee flexion/extension, ankle dorsiflexion and EHL strength is 5/5. Able to heel and toe walk without weakness. NEUROLOGIC: 2+ bilateral patellar and Achilles deep tendon reflexes. Sensation intact to the bilateral lower extremities. Negative sit slump. Negative Babinski. No clonus. REVIEW OF IMAGING/STUDIES Four views lumbar spine are taken reviewed with her today. My independent interpretation: Moderate levoscoliosis with multilevel disc degeneration most severeL 3-S1. IMPRESSION/DIAGNOSIS Left S1 radiculopathy in the setting of lumbar spinal stenosis TREATMENT/PLAN History, exam, imaging findings and working diagnosis are reviewed with the patient today. In reviewing x-ray, she is concerned with the scoliosis and is interested in learning more about ways to slow progression. We discussed consider meeting with Carmen Espinoza for treatment with the Schroth method. She may consider meeting with her and information provided for contact. She will need scoliosis x-rays before scheduling appointment. Apply ice alternating heat 20 minute intervals 6 day prednisone taper Tizanidine 2 milligram tablet may take 1 up to 3 times a day as needed. This medication may cause sedation. Take 1st dose at bedtime. Call with update in 1-2 weeks Amy Degroot RN, ANP-BC Nurse Practitioner [facility] Orthopedics Division of Physical Medicine and Rehabilitation In collaboration with Dr. Mcintyre This document was created using speech voice recognition software. Grammatical errors, random word insertions, pronoun errors and incomplete sentences are an occasional consequence of this system due to software limitations, ambient noise and hardware issues. Any formal questions or concerns about content, text or information contained within the body of this dictation should be directly addressed to the provider for clarification. documented in this encounter Plan of Treatment Not on file documented as of this encounter Results * X-ray lumbar spine [...] signed by: Lilliana Bañuelos M.D. Amy Degroot PIPE FITTER HELPER IMG XR PROCEDURES Final Resul t documented in this encounter Visit Diagnoses Diagnosis Acute bilateral low back pain with left-sided sciatica- Primary Acute bilateral low back pain, unspecified whether sciatica present documented in this encounter Discontinued Medications Medication Sig Discontinue Reason Start Date End Da te FLUoxetine (PROzac) 20 mg capsule 06/15/2019 06/26/2022 documented as of this encounter Historical Medications * This list may reflect changes made after this encounter. escitalopram (LEXAPRO) 20 mg tablet Take 1 tablet (20 mg total) by mouth daily 06/19/2022 ALPRAZolam (XANAX) 0.5 mg tablet Take 1 tablet (0.5 mg total) by mouth 2 (two) times a day 06/20/2022 added in this encounter Care Teams Dial Mounter Relationship Specialty Start Date End Date Dante Avelar PA [facility] [address] [address] PCP - General Family Medicine 10/15/21 documented as of this encounter
--- OUTSIDE RECORDS SUMMARY | 2024-02-21 15:02 | XMS_ITS | Clinical Summary ---
Author Organization [facility] Address [address] [place] [address] Care Team Providers Care Corporate Services Manager Name Role Phone Dante Avelar Primary Care Provider [phone] Allergies Active Allergy Reactions Criticality Noted Date Comments Erythromycin Rash Medium 05/14/2018 Rash Penicillin V Potassium Swelling Medium 05/14/2018 swelling in feet Penicillins Swelling Medium 07/18/2017 Sulfa (Sulfonamide Antibiotics) Hives,Itching Medium 07/18/2017 Red and itching all over Medications losartan-hydroc hlorothiazide (HYZAAR) 100-25 mg per tablet TAKE 1 TABLET DAILY 90 tablet 4 9 Active propranoloL (INDERAL) 20 mg tabletIndicatio ns:Hot flashes TAKE 1 TABLET TWICE A DAY 180 tablet 3 0 Active Additional Information Patient not taking.Reported on 06/26/2022 simvastatin (ZOCOR) 10 mg tablet TAKE 1 TABLET NIGHTLY 30 tablet 11 0 Active gabapentin (NEURONTIN) 300 mg capsule TAKE 2 CAPSULES AT BEDTIME 180 capsule 0 Active Additional Information Patient not taking.Reported on 06/26/2022 ALPRAZolam (XANAX) 0.5 mg tablet Take 1 tablet (0.5 mg total) by mouth 2 (two) times a day 3 Active escitalopram (LEXAPRO) 20 mg tablet Take 1 tablet (20 mg total) by mouth daily 3 Active predniSONE (DELTASONE) 10 mg tablet Prednisone 10 mg - Take 6 tablets, decrease by 1 tablet daily till finished #21 21 tablet 3 Active tiZANidine (ZANAFLEX) 2 mg tablet TAKE 1 TABLET BY MOUTH THREE TIMES A DAY NEEDED 90 tablet 2 3 Active Active Problems Problem Noted Date Diagnosed Date Well adult exam 04/06/2019 Assessment & Plan (04/06/2019 10:50 AM AUTO SERVICE REPRESENTATIVE): -Check in 1 year. Recommend Pap smears at least every 3 years starting at age 21, unless otherwise indicated. recommend flu shot yearly. Recommend heart healthy diet and 30 minutes of exercise daily. Recommend mammogram yearly starting at 40 y/o. Colon cancer screening starting at 50. Dyslipidemia 03/11/2018 Assessment & Plan (04/06/2019 10:51 AM AUTO SERVICE REPRESENTATIVE): Recommend Continue statin therapy. NO myalgias, or concerns with statin therapy at this time. Recommend heart healthy diet and exercise 30 minutes a day Recommend weight loss Situational anxiety 02/19/2018 Assessment & Plan (04/06/2019 10:51 AM AUTO SERVICE REPRESENTATIVE): Uses,risks,se's discussed Lumbosacral radiculopathy 09/17/2017 Chronic pain of right knee 09/17/2017 Overweight (BMI 25.0-29.9) 08/12/2017 Assessment & Plan (04/06/2019 10:51 AM AUTO SERVICE REPRESENTATIVE): BMI Follow-up includes: nutrition counseling, exercise counseling and education provided. Low back pain 07/18/2017 Primary osteoarthritis of right knee 07/01/2017 Essential tremor 12/06/2015 Hyperlipidemia 12/06/2015 Assessment & Plan (04/06/2019 10:51 AM AUTO SERVICE REPRESENTATIVE): Recommend Continue statin therapy. NO myalgias, or concerns with statin therapy at this time. Recommend heart healthy diet and exercise 30 minutes a day Recommend weight loss HTN (hypertension) 11/20/2015 Assessment & Plan (04/06/2019 10:50 AM AUTO SERVICE REPRESENTATIVE): DASH diet. CCT. Recommend diet and exercise. Recommend compliance with medications. Immunizations Name Administration Dates Next Due Hep B Vaccine 01/25/2004,12/07/2003 Surgical History Surgery Date Site/Laterality Comments BLADDER REPAIR 02/24/2007 - 02/24/2008 FL UPPER GI AIR CONTRAST W KUB 09/30/2017 Left FL UPPER GI AIR CONTRAST W KUB 05/22/2018 Left TUBAL LIGATION BREAST LUMPECTOMY 1980s Bilateral FL UPPER GI AIR CONTRAST W KUB 09/21/2019 Left FL UPPER GI AIR CONTRAST W KUB 10/28/2019 Left Medical History Medical History Date Comments Hypercholesteremia Hypertension Depression Family History Medical History Relation Name Comments Hypertension Brother 1 Family history of hypertension - (Added by TW Conv) Lung disease Brother 2 Family history of lung disease - (Added by TW Conv) Diabetes Brother 3 Family history of diabetes mellitus - (Added by TW Conv) Arthritis Father Family history of arthritis - (Added by TW Conv) Hypertension Father Family history of hypertension - (Added by TW Conv) Kidney disease Father Family histor y of kidney disease - (Added by TW Conv) Lung disease Father Family history of lung disease - (Added by TW Conv) Scoliosis Father Family history of scoliosis - (Added by TW Conv) Arthritis Mother Family history of arthritis - (Added by TW Conv) Heart disease Mother Family history of cardiac disorder - (Added by TW Conv) Hypertension Mother Family history of hypertension - (Added by TW Conv) Hypertension Son Family history of hypertension - (Added by TW Conv) Relation Name Status Comments Brother 1 Brother 2 Brother 3 Father Mother Alive Son Social History Tobacco Use Types Packs/Day Years [...] Answer Date Recorded PHQ-2 Score 0 10/14/2018 Personal Safety Answer Date Recorded Getting School Help Needed Not on file 05/10 Comments Unknown Sex and Gender Information Value Date Recorded Sex Assigned at Not on file Legal Sex Female 12:21 PM CDT Gender Identity Not on file Sexual Orientation Straight 05/17/2022 5: 28 PM CDT 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 Not on file Not on file Obstetrics History Last Filed Vital Signs Vital Sign Reading Time Taken Comments Blood Pressure 155/95 10/28/2019 2:11 PM CDT Pulse 94 10/28/2019 2:11 PM CDT Temperature 36.7 ??C (98.1 ??F) 05/03/2019 1:22 PM CD T Respiratory Rate 16 10/28/2019 12:58 PM CDT Oxygen Saturation 97% 10/28/2019 2:11 PM CDT Inhaled Oxygen Concentration - - Weight 68 kg (150 lb) 09/10/2019 10:13 AM CDT Height 162.6 cm (5' 4 ) 09/10/2019 10:13 AM CDT Body Mass Index 25.75 09/10/2019 10:13 AM CDT Plan of Treatment Health Maintenance Due Date Last Done Comments Breast Cancer Screening-Mammogram 1962 Cervical Cancer Screening 1962 Colon Cancer Screening-Colonoscopy 1960 Hepatitis C Screening 1962 DTaP/Tdap/Td Vaccine (1 - Tdap) 1973 Zoster Vaccine (1 of 2) 02/17/2012 Depression Screening 08/27/2019 08/26/2018 Regular Well Visit/Exam 18-64 03/15/2020 03/15/2019 Influenza Vaccine (#1) 2023 Pneumococcal vaccine <65 Aged Out No longer eligible based on patient's age to complete this topic Insurance [facility] CHOICE [facility]US [facility] H[facility]/PPO Address: [address] [address] [place] [address] [facility] CHOICE [place] [facility] CHOICE [facility]US [facility] HMO/PPO Address: [address] [address] [place] [address] Care Teams Corporate Services Manager Relationship Specialty Start Date End Date Dante Avelar PA [address] [place], [place] [id number] PCP - General Family Medicine 10/15/21
--- OUTSIDE RECORDS SUMMARY | 2024-02-21 15:02 | XMS_ITS | Encounter Summary ---
Author Organization [facility] Address [address] [place] [address]. [place] [id number] [place] [address] Care Team Providers Care Tube Builder Airplane Name Role Phone Unavailable Primary Care Provider Unavailabl e Encounter Details Date Type Department Care Team (Latest Contact Info) Description 07/11/2017 Abstract [facility] Social History Tobacco Use Types Packs/Day Years Used Date Smoking Tobacco: Never Assessed Comments Unknown Sex and Gender Information Value Date Recorded Sex Assigned at Not on file Legal Sex Female 9:11 PM CDT Gender Identity Not on file Sexual Orientation Not on file documented as of this encounter Plan of Treatment Not on file documented as of this encounter Visit Diagnoses Not on filedocumented in this encounter
--- OUTSIDE RECORDS SUMMARY | 2024-02-21 15:02 | XMS_ITS | Encounter Summary ---
Author Organization [facility] Address [address] [place] [address] Care Team Providers Care Resolute Professional Name Role Phone Jose Martin Diamond MD Primary Care Provi [facility] Encounter Details Date Type Department Care Team (Late st Contact Info) Description 10/15/2020 [facility] Only [facility] [address] [facility] [address] [facility] [place] [address] Dalton Ann MD [address] [facility] [address] [place] [address] Social History Tobacco Use Types Packs/Day Years [...] 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
--- OUTSIDE RECORDS SUMMARY | 2024-02-21 15:02 | XMS_ITS | Referral Summary ---
Author Organization [facility] Address [address] [place] [address] Care Team Providers Care Basketballs And Footballs Reverser Name Role Phone Dante Avelar Primary Care Provider Allergies Active Allergy Reactions Criticality Noted Date [...] 04/06/2019 Assessment & Plan (04/06/2019 10:50 AM EMPLOYEE RELATIONS REPRESENTATIVE): -Check in 1 year. Recommend Pap smears at least every 3 years starting at age 21, unless otherwise indicated. recommend flu shot yearly. Recommend heart healthy diet and 30 minutes of exercise daily. Recommend mammogram yearly starting at 40 y/o. Colon cancer screening starting at 50. Dyslipidemia 03/11/2018 Assessment & Plan (04/06/2019 10:51 AM EMPLOYEE RELATIONS REPRESENTATIVE): Recommend Continue statin therapy. NO myalgias, or concerns with statin therapy at this time. Recommend heart healthy diet and exercise 30 minutes a day Recommend weight loss Situational anxiety 02/19/2018 Assessment & Plan (04/06/2019 10:51 AM EMPLOYEE RELATIONS REPRESENTATIVE): Uses,risks,se's discussed Lumbosacral radiculopathy 09/17/2017 Chronic pain of right knee 09/17/2017 Overweight (BMI 25.0-29.9) 08/12/2017 Assessment & Plan (04/06/2019 10:51 AM EMPLOYEE RELATIONS REPRESENTATIVE): BMI Follow-up includes: nutrition counseling, exercise counseling and education provided. Low back pain 07/18/2017 Primary osteoarthritis of right knee 07/01/2017 Essential tremor 12/06/2015 Hyperlipidemia 12/06/2015 Assessment & Plan (04/06/2019 10:51 AM EMPLOYEE RELATIONS REPRESENTATIVE): Recommend Continue statin therapy. NO myalgias, or concerns with statin therapy at this time. Recommend heart healthy diet and exercise 30 minutes a day Recommend weight loss HTN (hypertension) 11/20/2015 Assessment & Plan (04/06/2019 10:50 AM EMPLOYEE RELATIONS REPRESENTATIVE): DASH diet. CCT. Recommend diet and exercise. Recommend compliance with medications. 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 Not on file Not on file Last Filed Vital Signs Vital Sign Reading [...] 09/10/2019 10:13 AM CDT Plan of Treatment Not on file Insurance [facility] CHOICE [facility]US [facility] H[facility]/PPO Address: [address] [address] [place] [address] [facility] [employer] [place] [facility] CHOICE [facility]/PPO Address: [address] [address] [place] [address] Care Teams Basketballs And Footballs Reverser Relationship Specialty Start Date End Date Dante Avelar PA [address] [facility] [address] [place] [address] PCP - General Family Medicine 10/15/21
--- OUTSIDE RECORDS SUMMARY | 2024-02-21 15:02 | XMS_ITS | Encounter Summary ---
Author Organization [facility] Address [address] [place] [address] Care Team Providers Care Granulator Operator Name Role Phone Jose Martin Diamond MD Primary Care Provi [facility] Encounter Details Date Type Department Care Team (Late st Contact Info) Description 10/11/2020 Orders Only [facility] [address] [facility] [address] [place] [facility] [place] [address] Dalton Ann MD [address] [facility] [address] [place] [address] Social History Tobacco Use Types [...] 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 e documented as of this encounter Plan of Treatment Not on file documented as of this encounter Procedures Procedure Name Priority Date/Time Associated Diagnosis Comments SCAN - LABS 10/11/2020 10:06 AM CDT SCAN - LABS 10/11/2020 7:32 AM CDT documented in this encounter Results * SCAN - LABS (10/11/2020 10:06 AM CDT) us Daltno Ann MD Final Result * SCAN - LABS (10/11/2020 7:32 AM CDT) us Dalton Ann MD Final Result documented in this encounter Visit Diagnoses Not on filedocumented in this encounter Care Teams Granulator Operator Relationship Specialty Start Date End Date Jose Martin Diamond MD [address] [place] [address] PCP - General 07/11/17 10/14/21 documented as of this encounter
--- OUTSIDE RECORDS SUMMARY | 2024-02-21 15:02 | XMS_ITS | Encounter Summary ---
Author Organization [facility] Address [address] [place] [address] Care Team Providers Care Apple Press Operator Name Role Phone Jose Martin Diamond MD Primary Care Provi [facility] Encounter Details Date Type Department Care Team (Late st Contact Info) Description 10/10/2020 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 documented as of this encounter Plan of Treatment Not on file documented as of this encounter Procedures Procedure Name Priority Date/Time Associated Diagnosis Comments SCAN - LABS 10/10/2020 7:34 AM CDT documented in this encounter Results * SCAN - LABS (10/10/2020 7:34 AM CDT) Dalton Ann MD Final Result documented in this encounter Visit Diagnoses Not on filedocumented in this encounter Care Teams Apple Press Operator Relationship Specialty Start Date End Date Jose Martin Diamond MD [address] [address] PCP - General 07/11/17 10/14/21 documented as of this encounter
--- OUTSIDE RECORDS SUMMARY | 2024-02-21 15:02 | XMS_ITS | Encounter Summary ---
Author Organization [facility] Address [address] [place] [address]. [place] [address] Care Team Providers Care Cooler Supervisor Name Role Phone Unavailable Primary Care Provider Unavailabl e Encounter Details Date Type Department Care Team (Latest Contact Info) Description 12/30/2017 Scan [facility] , Generic ConversionMD Social History Tobacco Use Types Packs/Day Years [...]
--- OUTSIDE RECORDS SUMMARY | 2024-02-21 15:03 | XMS_ITS | Encounter Summary ---
Author Organization [facility] Address [address] [place] [address] Phone Care Team Providers Care Braiding Operator Name Role Phone Jose Martin Diamond MD Primary Care [facility] Reason for Referral * Diagnostic Imaging (Routine) - Closed Specialty Diagnoses / Procedures Referred By Sandie servin Referred To Contact Radiology Diagnoses Lumbosacral radiculopathy Procedures IR Transforaminal Epidural Injection Lumbar Sacral 1 Level Left Amy Degroot NP [address] [address] Phone: tel: fax: [address] [address] Referral ID Status Reason Start Date Expiration Date Visits Re quested Visits Authorized [id number] Closed 09/20/2019 11/19/2019 1 1 Encounter Details Date Type Department Care Team (Late st Contact Info) Description 09/15/2019 Orders Only [facility] [address] [place] [address] [address]st [address] [place] [address] Loser, [place], RMA Lumbosacral radiculopathy (Primary Dx) Social History Tobacco Use Types [...] 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 ??Please refer to the physician's procedure / OR operative note. us Amy Degroot NP IMG IR PROCEDURES Final Resul t [facility] documented in this encounter Visit Diagnoses Diagnosis Lumbosacral radiculopathy- Primary Thoracic or lumbosacral neuritis or radiculitis, unspecified Lumbosacral radiculopathy- Primary Thoracic or lumbosacral neuritis or radiculitis, unspecified documented in this encounter Care Teams Braiding Operator Relationship Specialty Start Date End Date Jose Martin Diamond MD [address] [address] PCP - General 07/11/17 10/14/21 documented as of this encounter
--- OUTSIDE RECORDS SUMMARY | 2024-02-21 15:03 | XMS_ITS | Encounter Summary ---
Author Organization [facility] Address [address] [place] [address] Phone Care Team Providers Care Wall Man Name Role Phone Jose Martin Diamond MD Primary Care Provi [facility] Encounter Details Date Type Department Care Team (Late st Contact Info) Description 10/21/2019 Telephone [facility] Orthopaedic Surgery [address] [facility] 2nd [address] [place] [address] Amy Degroot NP [address] [facility] [address] [place], [place] [id number] Social History Tobacco Use Types Packs/Day Years [...] 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 Informed patient that her injection has been denied and Amy is currently out of the office until next week. Informed patient that Amy will do the Peer to peer next week once she is back then we can move forward with rescheduling th injection once it has been approved. Patient stated her understanding and will call as needed. documented in this encounter Plan of Treatment Not on file documented as of this encounter Visit Diagnoses Not on filedocumented in this encounter Care Teams Wall Man Relationship Specialty Start Date End Date Jose Martin Diamond MD [address] [address] PCP - General 07/11/17 10/14/21 documented as of this encounter
--- OUTSIDE RECORDS SUMMARY | 2024-02-21 15:03 | XMS_ITS | Encounter Summary ---
Author Organization [facility] Address [address] [facility] [address] [place] [address] Care Team Providers Care Program Advisor Name Role Phone Jose Martin Diamond MD Primary Care Provi [facility] Reason for Visit * Reason Onset Date Comments [facility]- livalo not covered-send alterna tive 02/04/2019 Encounter Details Date Type Department Care Team (Late st Contact Info) Description 02/04/2019 Telephone [facility] Family Medicine [address] [place] [address] Jade Peralta [facility]- livalo not covered-send alternative Social History Tobacco Use Types Packs/Day Years [...] 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 T OFFICE DIRECTOR * Telephone Encounter - Dante Avelar PA - 02/04/2019 3:10 PM FRONT OFFICE DIRECTOR Simvastatin 10mg 1 po q hs #30/5 refills T OFFICE DIRECTOR * Telephone Encounter - Jade Peralta - 02/04/2019 1:13 PM CST FAX FROM [employer]- livalo not covered-send alternative: atorvastatin, pravastatin, rosuvastatin, simvastatin-along with directions, quantity and strength. T OFFICE DIRECTOR documented in this encounter Plan of Treatment Not on file documented as of this encounter Visit Diagnoses Not on filedocumented in this encounter Discontinued Medications Medication Sig Discontinue Reason Start Date End Da te LIVALO 4 mg tablet TAKE 1 TABLET DAILY Other 11/02/2018 9 documented as of this encounter Care Teams Program Advisor Relationship Specialty Start Date End Date Jose Martin Diamond MD [address] [address] PCP - General 07/11/17 10/14/21 documented as of this encounter
--- OUTSIDE RECORDS SUMMARY | 2024-02-21 15:03 | XMS_ITS | Encounter Summary ---
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 Referral in que. E COMMERCE DIRECTOR documented in this encounter Plan of Treatment Not on file documented as of this encounter Visit Diagnoses Not on filedocumented in this encounter Care Teams Silver Spray Worker Relationship Specialty Start Date End Date Jose Martin Diamond MD [address] [address] PCP - General 07/11/17 10/14/21 documented as of this encounter
--- OUTSIDE RECORDS SUMMARY | 2024-02-21 15:03 | XMS_ITS | Encounter Summary ---
Author Organization [facility] Address [address] [place] [address] Care Team Providers Care Radio Communication Coordinator Name Role Phone Jose Martin Diamond MD Primary Care Provi [facility] Reason for Referral * Consultation (Routine) - Closed Specialty Diagnoses / Procedures Referred By Sandie servin Referred To Contact Neurology Diagnoses Excessive daytime sleepiness Laureano Jane MD PhD [address] [facility] [address] [place] [address] Phone: tel: fax: [facility] Neuro Sleep [address] 6th [address] [place] [address] Phone: tel: fax: Referral ID Status Reason Start Date Expiration Date V isits Requested Visits Authorized [id number] Closed Specialty Services Required 01/06/2019 07/17/2020 1 1 Question Answer Please select the performing region: [facility] (All Locations) [167] # of visits: 1 Comments Sleep Evaluation MAINTENANCE TECHNICIAN Reason for Visit * Consultation (Routine) - Closed Specialty Diagnoses / Procedures Referred By Sandie servin Referred To Contact Neurology Diagnoses Tremors of nervous system Milana Prakash NP Phone: tel: fax: [facility] [address] [place] [address] Phone: tel: fax: Referral ID Status Reason Start Date Expiration Date V isits Requested Visits Authorized [id number] Closed Specialty Services Required 10/14/2018 04/24/2020 1 1 Encounter Details Date Type Department Care Team (Late st Contact Info) Description 01/06/2019 12:00 PM TIRE MAINTENANCE TECHNICIAN Office Visit [facility] [address] [place] [address] Laureano Jane MD PhD [address] 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 Not on file Not on rohit e documented as of this encounter Last Filed Vital Signs Vital Sign Reading Time Taken Comments Blood Pressure 138/80 01/06/2019 11:58 AM TIRE MAINTENANCE TECHNICIAN Pulse 78 01/06/2019 11:58 AM TIRE MAINTENANCE TECHNICIAN Temperature - - Respiratory Rate 16 01/06/2019 11:58 AM TIRE MAINTENANCE TECHNICIAN Oxygen Saturation - - Inhaled Oxygen Concentration - - Weight 74.4 kg (164 lb) 01/06/2019 11:58 AM TIRE MAINTENANCE TECHNICIAN Height 162.6 cm (5' 4 ) 01/06/2019 11:58 AM TIRE MAINTENANCE TECHNICIAN Body Mass Index 28.15 01/06/2019 11:58 AM TIRE MAINTENANCE TECHNICIAN documented in this encounter Progress Notes * Laureano Jane MD PhD - 01/06/2019 12:00 PM CST NEW PATIENT CONSULT Patient ID: Josee Blakely is a 58 y.o. female. This is a consult requested by Milana Prakash, * Reason for the consultation: Tremors Chief Complaint Tremors HPI: This is a 58-year-old right-handed woman referred for neurologic consultation due to a history of tremors in her hands. She has noticed this since she was in her 20s. It occurs primarily with activity such as holding an object. At times it affects putting on makeup. It does not interfere with eating at this point. It has not affected her handwriting. There has been no change in her gait or balance. The tremor is worse with stress or fatigue. There is a family history of a similar but worse tremor in her older brother. She does not recall either her parents are any of her grandparents with tremor. Family members and coworkers have pointed out the tremor to her and made her self-conscious about it. Her , from whom she is now , has also noted that she frequently jerks her legs are twitches in her sleep. She is not aware of any uncomfortable sensations are compulsion to moveher legs when she is sedentary she does feel excessively tired throughout the day.. PMH: Past Medical History: Diagnosis Date ??? Depression ??? Hypercholesteremia ??? Hypertension Past Surgical History: Procedure Laterality Date ??? BLADDER REPAIR 2007 ??? UPPER GI AIR CONTRAST W KUB Left 09/30/2017 ??? UPPER GI AIR CONTRAST W KUB Left 05/22/2018 MEDICATIONS: Current Outpatient Medications: ??? ALPRAZolam (XANAX) 0.5 mg tablet, TAKE 1 TABLET BY MOUTH THREE TIMES A DAY, Disp: 90 tablet, Rfl: 0 ??? FLUoxetine (PROzac) 40 mg capsule, Take 40 mg by mouth daily , Disp: , Rfl: ??? LIVALO 4 mg tablet, TAKE 1 TABLET DAILY, Disp: 90 tablet, Rfl: 4 ??? losartan-hydrochlorothiazide (HYZAAR) 100-25 mg per tablet, TAKE 1 TABLET DAILY, Disp: 90 tablet, Rfl: 4 ??? propranolol (INDERAL) 20 mg tablet, Take 1 tablet (20 mg total) by mouth 2 (two) times a day, Disp: 90 tablet, Rfl: 3 SOCIALHX: reports that she has never smoked. She has never used smokeless tobacco. She reports current alcohol use. She reports that she does not use drugs. FHX: Family History Problem Relation Age of Onset ??? Arthritis Mother Family history of arthritis - (Added by TW Conv) ??? Hypertension Mother Family history of hypertension - (Added by TW Conv) ??? Heart disease Mother Family history of cardiac disorder - (Added by TW Conv) ??? Arthritis Father Family history of arthritis - (Added by TW Conv) ??? Hypertension Father Family history of hypertension - (Added by TW Conv) ??? Scoliosis Father Family history of scoliosis - (Added by TW Conv) ??? Kidney disease Father Family history of kidney disease - (Added by TW Conv) ??? Lung disease Father Family history of lung disease - (Added by TW Conv) ??? Hypertension Brother Family history of hypertension - (Added by TW Conv) ??? Hypertension Son Family history of hypertension - (Added by TW Conv) ??? Lung disease Brother Family history of lung disease - (Added by TW Conv) ??? Diabetes Brother Family history of diabetes mellitus - (Added by TW Conv) ROS: Review of Systems Constitutional: Positive for fatigue and unexpected weight change. HENT: Positive for tinnitus. Negative for ear pain and trouble swallowing. Eyes: Negative for pain. Respiratory: Negative for shortness of breath and wheezing. Cardiovascular: Positive for palpitations. Negative for chest pain. Gastrointestinal: Positive for abdominal pain. Negative for constipation and nausea. Genitourinary: Negative for dysuria and frequency. Musculoskeletal: Positive for arthralgias and myalgias. Negative for back pain. Skin: Negative for rash. Neurological: Per HPI Hematological: Bruises/bleeds easily. Psychiatric/Behavioral: The patient is nervous/anxious. BP 138/80 (BP Location: Right arm, Patient Position: Sitting) Pulse 78 Resp 16 Ht 162.6 cm (5' 4 ) Wt 74.4 kg (164 lb) BMI 28.15 kg/m?? GENERAL EXAMINATION: Well-appearing. NEUROLOGIC EXAMINATION: MENTAL STATUS: Attention, concentration and fund of knowledge normal. AFFECT: Anxious LANGUAGE: Fluent. No dysarthria CRANIAL NERVES: II: Pupils equal round and reactive to light. Sharp discs. Visual belle: full to finger confrontation. III, IV, & : Extraocular movements full without nystagmus. V: Facial sensation intact to soft touch and pinprick. VII: Facial muscles symmetric. VIII: Hearing grossly intact. IX & X: Palate rises symmetrically. XI: Normal shoulder shrug. XII: Tongue protrudes to the midline. MOTOR: Drift: None seen. Fine finger movements: performed symmetrically. Bulk and strength: Normal proximally and distally. Muscle tone: Normal Involuntary movements: Very slight tremor noted in the upper extremities with postural maintenance.No resting tremor. SENSORY: Light touch: Normal Pinprick: Normal Vibration: Normal Proprioception: Normal. COORDINATION: Mlqsvn-jrku-[id number] testing performed without dysmetria. Rapid alternating movements of the hands performed symmetrically.. DEEP TENDON REFLEXES: 1+ brachioradialis, 1+biceps and 1+triceps. 2+ knees and 1+ ankles. PLANTAR RESPONSES: Flexor bilaterally. TURNER'S: GAIT: Normal stride, arm swing and turns. Able to stand on toes and heels. Romberg negative. Tandemis mildly unsteady. VASCULAR: No carotid bruits. HEART: Regular rate and rhythm. EXTREMITIES: SPINE: LABORATORY & DIAGNOSTIC STUDIES REVIEWED: ASSESSMENT/PLAN: 1. The patient's history and examination findings are most consistent with a benign essential tremor. Propranolol 20 milligrams daily has helped but now that she understands that this is a benign tremor she says she may not take medication at all. I think that is a reasonable choice for her. 2. Excessive daytime sleepiness. She may have an periodic limb movement disorder or possibly obstructive sleep apnea. I have recommended referral for formal sleep evaluation. 3. Follow-up with me on an as-needed basis. Diagnoses and all orders for this visit: Essential tremor (Primary) Tremors of nervous system Comments: Most likely essential tremors, pt requesting referral to neurology. Orders: - Ambulatory referral to Neurology Excessive daytime sleepiness Dictation completed by Levlr Direct software. Manual Machinist variances may occur. Laureano Jane M.D., Ph.D. MAINTENANCE TECHNICIAN documented in this encounter Miscellaneous Notes * Addendum Note - Heather Ramirez MA - 01/06/2019 12:00 PM CSTAddended by: HEATHER RAMIREZ on: 01/06/2019 02:13 PM Modules accepted: Orders MAINTENANCE TECHNICIAN documented in this encounter Plan of Treatment Scheduled Referrals Name Type Priority Associated Diagnoses Order Schedule Ambulatory referral to Neurology Outpatient Referral Routine Excessive daytime sleepiness Ordered: 01/06/2019 documented as of this encounter Visit Diagnoses Diagnosis Essential tremor- Primary Tremors of nervous system Excessive daytime sleepiness documented in this encounter Discontinued Medications Medication Sig Discontinue Reason Start Date End Da te gabapentin (NEURONTIN) 300 mg capsule TAKE ONE CAPSULE BY MOUTH AT BEDTIME. IF TOLERATED AFTER 5 DAYS MAY INCREASE TO 2 CAPSULES AT BEDTIME. STOP MUSCLE RELAXER 12/11/2017 01/06/2019 documented as of this encounter Orders Outpatient Referral Count Last Ordered Date st Ordered Date AMB REFERRAL TO NEUROLOGY 1 01/06/2019 documented in this encounter Care Teams Radio Communication Coordinator Relationship Specialty Start Date End Date Jose Martin Diamond MD [address] [facility] [address] [address] PCP - General 07/11/17 10/14/21 documented as of this encounter
--- OUTSIDE RECORDS SUMMARY | 2024-02-21 15:03 | XMS_ITS | Encounter Summary ---
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 Not on rohit e documented as of this encounter Plan of Treatment Not on file documented as of this encounter Procedures Procedure Name Priority Date/Time Associated Diagnosis Comments SCAN - LABS 04/26/2019 documented in this encounter Results * SCAN - LABS (04/26/2019) us Provider Scanning Final Result documented in this encounter Visit Diagnoses Not on filedocumented in this encounter Care Teams Experimental Mechanic Relationship Specialty Start Date End Date Jose Martin Diamond MD [address] [place] [address] PCP - General 07/11/17 10/14/21 documented as of this encounter
--- OUTSIDE RECORDS SUMMARY | 2024-02-21 15:03 | XMS_ITS | Encounter Summary ---
Author Organization [facility] Address [address] [place] [address] Phone Care Team Providers Care Cable Installation Technician Name Role Phone Jose Martin Diamond MD Primary Care Provi [facility] Encounter Details Date Type Department Care Team (Late st Contact Info) Description 04/22/2019 Telephone 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 ??I need to reschedule my appointment for a Friday afternoon when possible! ??Very sorry! Thank You Josee Blakely [facility] for pt 04/22/19 to call and eleonora her appt. IERGE RECEPTIONIST documented in this encounter Plan of Treatment Not on file documented as of this encounter Visit Diagnoses Not on filedocumented in this encounter Care Teams Cable Installation Technician Relationship Specialty Start Date End Date Jose Martin Diamond MD [address] [address] PCP - General 07/11/17 10/14/21 documented as of this encounter
--- OUTSIDE RECORDS SUMMARY | 2024-02-21 15:03 | XMS_ITS | Encounter Summary ---
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 Not on rohit e documented as of this encounter Plan of Treatment Not on file documented as of this encounter Procedures Procedure Name Priority Date/Time Associated Diagnosis Comments MEASLES IGG ANTIBODY Routine 06/16/2020 12:06 PM CDT RUBELLA IGG Routine 06/16/2020 12:06 PM CDT VARICELLA ZOSTER ANTIBODY, IGG Routine 06/16/2020 12:06 PM CDT MUMPS IGG ANTIBODY Routine 06/16/2020 12 :06 PM CDT documented in this encounter Results * Varicella Zoster (VZV) IgG Blood (06/16/2020 12:06 PM CDT) Pathologist [facility] VZV IgG Reactive Nonreactive [facility] Comment:IgG antibodies to Va ricella Zoster virus detected.?? This may indicate that the patient was exposed to Varicella Zoster through??infection or vaccination. Blood specimen (specimen) 06/16/2020 12:06 PM CDT 06/16/2020 6:39 PM CDT Nacho Madrigal MD LAB MICROBIOLOGY - GENERAL OR DERABLES Final Result Performing Organization Address City/[facility] Co de Phone Number [facility] [place] [address] * (ABNORMAL) Rubeola antibody IgG (06/16/2020 12:06 PM CDT) Pathologist [facility] Measles IgG Positive(A ) Negative [facility] Blood specimen (specimen) 06/16/2020 12:06 PM CDT 06/16/2020 6:39 PM CDT Nacho Madrigal MD LAB MICROBIOLOGY - GENERAL OR DERABLES Final Result [facility] [place] [address] * Rubella IgG (06/16/2020 12:06 PM CDT) Pathologist [facility] Rubella IgG Reactive [facility] Comment: Interpretive Data Nonreactive: ??No detectable antibody to rubella. Such individuals are presumed to be uninfected with rubella and to be susceptible to primary infection. Equivocal: Presence or absence of detectable antibody to rubella cannot be determined and test should be repeated. ?? Reactive: Indicates the presence of detectable antibody to rubella. ??Indicative of current or past infection or vaccination. Current Interpretive Data was last revised on 2020. Blood specimen (specimen) 06/16/2020 12:06 PM CDT 06/16/2020 6:39 PM CDT Nacho Madrigal MD LAB MICROBIOLOGY - GENERAL OR DERABLES Final Result Performing Organization Address City/[facility] Co de Phone Number [facility] [place] [address] * (ABNORMAL) Mumps antibody, IgG (06/16/2020 12:06 PM CDT) Mumps IgG Positive( A) Negative [facility] Comment: Interpretive Data Negative: No detectable IgG antibody to mumps. Such individuals are presumed to be uninfected with the mumps and to be susceptible to primary infection. Equivocal: Presence or absence of the Mumps IgG antibody cannot be determined. Positive: Indicates presence of detectable IgG antibody to mumps. Indicative of current or previous infection or vaccination. The individual may be at risk of transmitting mumps infection, but is not necessarily currently contagious. Current interpretive data was last revised on 2016. Blood specimen (specimen) 06/16/2020 12:06 PM CDT 06/16/2020 6:39 PM CDT Nacho Madrigal MD LAB MICROBIOLOGY - GENERAL OR DERABLES Final Result Performing Organization Address City/[facility] Co de Phone Number [facility] [place] [address] documented in this encounter Visit Diagnoses Not on filedocumented in this encounter Care Teams Wood Tool Maker Relationship Specialty Start Date End Date Jose Martin Diamond MD [address] [facility] [address] [address] PCP - General 07/11/17 10/14/21 documented as of this encounter
--- OUTSIDE RECORDS SUMMARY | 2024-02-21 15:03 | XMS_ITS | Encounter Summary ---
Author Organization [facility] Address [address] [place] [address] Care Team Providers Care Sound Editor Name Role Phone Jose Martin Diamond MD Primary Care Provi jasmyn Reason for Visit * Reason Comments Anxiety Encounter Details Date Type Department Care Team (Late st Contact Info) Description 06/24/2019 2:00 PM CDT Telemedicine [facility] Family Medicine [address] [place] [address] Dante Avelar PA [address] [place] [address] Anxiety (Primary Dx) Social History Tobacco Use Types [...] 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 file Not on rohit e documented as of this encounter Last Filed Vital Signs Vital Sign Reading Time Taken Comments Blood Pressure - - Pulse - - Temperature - - Respiratory Rate - - Oxygen Saturation - - Inhaled Oxygen Concentration - - Weight - - Height 162.6 cm (5' 4 ) 06/24/2019 2:13 PM CDT Body Mass Index - - documented in this encounter Ordered Prescriptions Prescription Sig Dispense Quantity Refills Last Filled Start Date End Date busPIRone (BUSPAR) 5 mg tabletIndications: Generalized Anxiety Disorder Take 1 tablet (5 mg total) by mouth 2 (two) times a day 60 tablet 06/24/2019 07/20/2019 documented in this encounter Progress Notes * Dante Avelar PA - 06/24/2019 2:00 PM CDT Images from the original note were not included. CHIEF COMPLAINT: Chief Complaint Patient presents with ??? Anxiety SUBJECTIVE: She is a 59 y.o. female who presents today to discuss anxiety. Patient states that she has struggled with anxiety for over 20 years. Patient states that she feels safe in her bedroom, and if she doesn't have to deal with anything. Patient gets overwhelmed with everything. When she goes out in public she starts sweating, and she will have issues sleeping, because she will have ears ringing/heart pounding. Patient states that she was put on lexapro, and atarax, without much relief. Patient has never taking Buspar before. Current Outpatient Medications: ??? FLUoxetine (PROzac) 20 mg capsule, , Disp: , Rfl: ??? gabapentin (NEURONTIN) 300 mg capsule, TAKE 1 CAPSULE AT BEDTIME, IF TOLERATED MAY INCREASE TO 2 AT BEDTIME AFTER 5 DAYS, Disp: 180 capsule, Rfl: 1 ??? losartan-hydrochlorothiazide (HYZAAR) 100-25 mg per tablet, TAKE 1 TABLET DAILY, Disp: 90 tablet, Rfl: 4 ??? simvastatin (ZOCOR) 10 mg tablet, Take 1 tablet (10 mg total) by mouth nightly, Disp: 30 tablet, Rfl: 5 ??? busPIRone (BUSPAR) 5 mg tablet, Take 1 tablet (5 mg total) by mouth 2 (two) times a day, Disp: 60 tablet, Rfl: 0 Patient Active Problem List Diagnosis ??? Lumbosacral radiculopathy ??? Chronic pain of right knee ??? Overweight (BMI 25.0-29.9) ??? Dyslipidemia ??? Essential tremor ??? HTN (hypertension) ??? Hyperlipidemia ??? Low back pain ??? Primary osteoarthritis of right knee ??? Situational anxiety ??? Well adult exam Review of Systems Constitutional: Negative for chills and fever. HENT: Negative for congestion, ear pain and sore throat. Respiratory: Negative for cough, shortness of breath and wheezing. Cardiovascular: Negative for chest pain and leg swelling. Gastrointestinal: Negative for abdominal pain, constipation, diarrhea, nausea and vomiting. Genitourinary: Negative for dysuria and urgency. Musculoskeletal: Negative for arthralgias and back pain. Skin: Negative for rash. Neurological: Negative for dizziness, weakness and light-headedness. Hematological: Negative for adenopathy. Psychiatric/Behavioral: The patient is nervous/anxious. Vitals Ht 162.6 cm (5' 4 ) BMI 28.15 kg/m?? Physical Exam Assessment/Plan Diagnoses and all orders for this visit: Anxiety (Primary) - busPIRone (BUSPAR) 5 mg tablet; Take 1 tablet (5 mg total) by mouth 2 (two) times a day uses,risks,se's discussed F/u in 4 weeks. RICKIE Murphy 1. The patient indicates understanding of these issues and agrees with the plan. 2. The patient is given an After Visit Summary sheet that lists all of their medications with directions, their allergies, orders placed during this encounter, immunization dates, and follow- up instructions. 3. I reviewed the patient's medical information and medical history 4. I reconciled the patient's medication list and prepared and supplied needed refills. 5. I have reviewed the past medical, family, and social history sections including the medications and allergies listed in the above medical record This was a telemedicine visit with Josee christie which took place via telephone. Duringthe visit, I was located office and the patient was located home. The session started at 1426 and ended at 1440 . The patient has been informed that the visit may not be secure and acknowledged the information. I have explained the option of participating in a telephone or video visit during the [facility]- public [facility] emergency to the patient. After being given an opportunity to ask questions about and discuss this type of visit, the patient verbally consented to proceeding with the telephone/video visit.The patient understands that this service replaces an office visit and they may be billed and/or responsible for any applicable copayments. RICKIE Murphy documented in this encounter Plan of Treatment Not on file documented as of this encounter Visit Diagnoses Diagnosis Anxiety- Primary Anxiety state, unspecified documented in this encounter Discontinued Medications Medication Sig Discontinue Reason Start Date End Da te escitalopram (LEXAPRO) 10 mg tablet Take 1 tablet (10 mg total) by mouth daily 05/06/2019 06/24/2019 traZODone (DESYREL) 50 mg tabletIndications:Insomn ia, unspecified type Take 1 tablet (50 mg total) by mouth nightly as needed for sleep 05/03/2019 06/24/2019 hydrOXYzine (ATARAX) 25 mg tablet TAKE 1 TABLET BY MOUTH THREE TIMES A DAY 05/31/2019 06/24/2019 documented as of this encounter Historical Medications * This list may reflect changes made after this encounter. Medication Sig Dispense Quantity Refills Last Filled Start D ate End Date FLUoxetine (PROzac) 20 mg capsule 06/15/2019 06/26/2022 added in this encounter Care Teams Sound Editor Relationship Specialty Start Date End Date Jose Martin Diamond MD [address] [address] PCP - General 07/11/17 10/14/21 documented as of this encounter
--- OUTSIDE RECORDS SUMMARY | 2024-02-21 15:03 | XMS_ITS | Encounter Summary ---
Author Organization [facility] Address [address] [place] [address] Phone Care Team Providers Care Easement Man Name Role Phone Jose Martin Diamond MD Primary Care [facility] Encounter Details Date Type Department Care Team (Late st Contact Info) Description 04/17/2020 Telephone [facility] Orthopaedic Surgery [address] [place] [address] Amy Degroot NP [address] [facility] [address] [place] [address] Social History Tobacco Use Types Packs/Day Years [...] 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 RETTE BOOK MAKER * Telephone Encounter - Amy Degroot NP - 04/17/2020 8:03 AM CST REC: Tizanidine 4 mg Take one tablet tid as needed. #60 RETTE BOOK MAKER documented in this encounter Plan of Treatment Not on file documented as of this encounter Visit Diagnoses Not on filedocumented in this encounter Care Teams Easement Man Relationship Specialty Start Date End Date Jose Martin Diamond MD [address] [address] PCP - General 07/11/17 10/14/21 documented as of this encounter
--- OUTSIDE RECORDS SUMMARY | 2024-02-21 15:03 | XMS_ITS | Encounter Summary ---
Author Organization [facility] Healthcare Address [address] [place] [address] Care Team Providers Care Car Stower Name Role Phone Jose Martin Diamond MD Primary Care [facility] Reason for Referral * Diagnostic Imaging (Routine) - Closed Specialty Diagnoses / Procedures Referred By Contac t Referred To Contact Diagnoses Spinal stenosis, lumbar region, with neurogenic claudication Procedures XR Spine Lumbar 4 or More Views Amy Degroot NP [address] [facility] [address] [place] [address] Phone: tel: fax: [address] [phone] Referral ID Status Reason Start Date Expiration Date Visits Re quested Visits Authorized [id number] Closed 08/24/2019 03/04/2021 1 1 Reason for Visit * Diagnostic Imaging (Routine) - Closed Specialty Diagnoses / Procedures Referred By Contac t Referred To Contact Diagnoses Spinal stenosis, lumbar region, with neurogenic claudication Procedures XR Spine Lumbar 4 or More Views Amy Degroot NP [address] [facility] [address] [place] [address] Phone: tel: fax: [address] [phone] Referral ID Status Reason Start Date Expiration Date Visits Re quested Visits Authorized [id number] Closed 08/24/2019 03/04/2021 1 1 Encounter Details Date Type Department Care Team (Latest Contact Info) Description 08/24/2019 9:19 AM CDT - 08/24/2019 11:59 PM CDT Hospital Encounter [facility] Radiology at [facility] Medicine [address] [place] [address] Marcela Polo DO [address] [place] [address] Amy Degroot NP [address] [facility] [address] [place] [address] Spinal stenosis, lumbar region, with neurogenic claudication Discharge Disposition: Discharge to home or self [...] 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 30 tablet 0 09/11/19 20 FLUoxetine (PROzac) 20 mg capsule 0 06/27/19 23 gabapentin (NEURONTIN) 300 mg capsule TAKE 1 CAPSULE AT BEDTIME, IF TOLERATED MAY INCREASE TO 2 AT BEDTIME AFTER 5 DAYS 180 capsule 1 0 11/24/19 20 predniSONE (DELTASONE) 10 mg tabletIndications: Lumbosacral radiculopathy Take 6 tablets decrease by 1 tablet daily 21 tablet 0 09/21/19 20 documented as of this encounter Discharge Disposition Disposition Code Departure Means Destination Discharge to home or self care documented in this encounter Plan of Treatment Not on file documented as of this encounter Procedures Procedure Name Priority Date/Time Associated Diagnosis Comments XR SPINE LUMBAR COMPLETE 4 OR MORE VIEWS Schedule Routine, Read Routine (OP Routine) 08/24/2019 9:25 AM CDT Spinal stenosis, lumbar region, with neurogenic claudication documented in this encounter Results * XR Spine Lumbar 4 or More Views (08/24/2019 9:25 AM CDT) Anatomical Region Laterality Modality Spine N/A Computed Radiogr aphy 08/24/2019 9:32 AM CDT Impressions 08/24/2019 9:32 AM CDT Mild lumbar spine levoscoliosis and multilevel degenerative disc disease worst and severe L3-L4. Electronically signed by: Tulio Chavez M.D. Narrative 08/24/2019 9:32 AM CDT EXAMINATION: Lumbar spine 4 views HISTORY: Lower back pain FINDINGS: AP, lateral, and flexion-extension radiographs of the lumbar spine were performed without comparison. There is mild lumbar levoscoliosis. There is no lumbar spine compression deformity. No listhesis develops with flexion and extension. There is multilevel lumbar spine degenerative disc disease worst and severe L3-L4. Facet osteoarthritis is noted. Procedure Note Tulio Chavez MD PhD - 08/24/2019 EXAMINATION: Lumbar spine 4 views HISTORY: Lower back pain FINDINGS: AP, lateral, and flexion-extension radiographs of the lumbar spine were performed without comparison. There is mild lumbar levoscoliosis. There is no lumbar spine compression deformity. No listhesis develops with flexion and extension. There is multilevel lumbar spine degenerative disc disease worst and severe L3-L4. Facet osteoarthritis is noted. IMPRESSION: Mild lumbar spine levoscoliosis and multilevel degenerative disc disease worst and severe L3-L4. Electronically signed by: Tulio Chavez M.D. Amy Degroot NP IMG XR PROCEDURES Final Resul t documented in this encounter Visit Diagnoses Diagnosis Spinal stenosis, lumbar region, with neurogenic claudication documented in this encounter Care Teams Car Stower Relationship Specialty Start Date End Date Jose Martin Diamond MD [address] [address] PCP - General 07/11/17 10/14/21 documented as of this encounter
--- OUTSIDE RECORDS SUMMARY | 2024-02-21 15:03 | XMS_ITS | Encounter Summary ---
Author Organization [facility] Healthcare Address [address] [place] [address] Care Team Providers Care Senior Accountant Analyst Name Role Phone Jose Martin Diamond MD Primary Care 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 e documented as of this encounter Medications at Time of Discharge losartan-hydrochl orothiazide (HYZAAR) 100-25 mg per tablet TAKE 1 TABLET DAILY 90 tablet 4 10/27/2018 ALPRAZolam (XANAX) 0.5 mg tabletIndications :Situational anxiety TAKE 1 TABLET BY MOUTH THREE TIMES A DAY 90 tablet 04/08/2019 05/03/2019 FLUoxetine (PROzac) 40 mg capsule TAKE 1 CAPSULE DAILY 90 capsule 4 01/25/2019 05/06/2019 simvastatin (ZOCOR) 10 mg tablet Take 1 tablet (10 mg total) by mouth nightly 30 tablet 5 02/04/2019 07/21/2019 documented as of this encounter Discharge Disposition Disposition Code Departure Means Destination Discharge to home or self care documented in this encounter Plan of Treatment Not on file documented as of this encounter Visit Diagnoses Not on filedocumented in this encounter Care Teams Senior Accountant Analyst Relationship Specialty Start Date End Date Jose Martin Diamond MD [address] [address] PCP - General 07/11/17 10/14/21 documented as of this encounter
--- OUTSIDE RECORDS SUMMARY | 2024-02-21 15:03 | XMS_ITS | Encounter Summary ---
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
--- OUTSIDE RECORDS SUMMARY | 2024-02-21 15:03 | XMS_ITS | Encounter Summary ---
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 Referral closed. R VESSEL CAPTAIN documented in this encounter Plan of Treatment Not on file documented as of this encounter Visit Diagnoses Not on filedocumented in this encounter Care Teams Bag Liner Relationship Specialty Start Date End Date Jose Martin Diamond MD [address] [facility] [address] [address] [address] PCP - General 07/11/17 10/14/21 documented as of this encounter
--- OUTSIDE RECORDS SUMMARY | 2024-02-21 15:03 | XMS_ITS | Encounter Summary ---
Author Organization [facility] Address [address] [facility] [place] [address] Care Team Providers Care Windows Migration Technician Name Role Phone Jose Martin Diamond MD Primary Care Pro[facility] Reason for Visit * Reason Onset Date Comments Buspar 08/06/2019 Encounter Details Date Type Department Care Team (Late st Contact Info) Description 08/06/2019 Telephone [facility] Family Medicine [address] [place] [address] Jose Martin Diamond MD [address] [address] Buspar Social History Tobacco Use Types Packs/Day Years [...] 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 * Telephone Encounter - Dante Avelar PA - 08/06/2019 12:21 PM CDT Increase prozac to 40mg 1 po q daily #30/ 5 refills * Telephone Encounter - Alistair Peña MA - 08/06/2019 10:53 AM CDT Pt is wanting to replace the Buspar with an alternative. Pt says she can schedule an appt if need be, she does an appt next month. documented in this encounter Plan of Treatment Not on file documented as of this encounter Visit Diagnoses Not on filedocumented in this encounter Discontinued Medications Medication Sig Discontinue Reason Start Date End Da te busPIRone (BUSPAR) 5 mg tabletIndications:Anxiet y TAKE 1 TABLET BY MOUTH TWICE A DAY 07/20/2019 08/06/2019 documented as of this encounter Care Teams Windows Migration Technician Relationship Specialty Start Date End Date Jose Martin Diamond MD [address] [place] [address] PCP - General 07/11/17 10/14/21 documented as of this encounter
--- OUTSIDE RECORDS SUMMARY | 2024-02-21 15:03 | XMS_ITS | Encounter Summary ---
Author Organization [facility] Address [address] [facility] [address] [place] [address] Care Team Providers Care Hvac/R Service Technician Name Role Phone Jose Martin Diamond MD Primary Care Provi [facility] Reason for Visit * Reason Onset Date Comments Left Knee XR 03/18/2019 Encounter Details Date Type Department Care Team (Late st Contact Info) Description 03/18/2019 Telephone [facility] Family Medicine [address] [place] [address] Jose Martin Diamond MD [address] [address] Left Knee XR Social History Tobacco Use Types Packs/Day Years [...] 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 Pt will hold off on being referred to Ortho at this time but will call us back if she decides to go that route. DING MACHINE OPERATOR * Telephone Encounter - Alistair Peña MA - 03/18/2019 1:06 PM BRAIDING MACHINE OPERATOR ----- Message from RICKIE Murphy sent at 03/18/2019 9:21 AM BRAIDING MACHINE OPERATOR ----- Mild medial arthritis, if pain persists, recommend ortho referral DING MACHINE OPERATOR documented in this encounter Plan of Treatment Not on file documented as of this encounter Visit Diagnoses Not on filedocumented in this encounter Care Teams Hvac/R Service Technician Relationship Specialty Start Date End Date Jose Martin Diamond MD [address] [address] PCP - General 07/11/17 10/14/21 documented as of this encounter
--- OUTSIDE RECORDS SUMMARY | 2024-02-21 15:03 | XMS_ITS | Encounter Summary ---
Author Organization [facility] Address [address] [place] [address] Phone Care Team Providers Care Emt Dispatcher Name Role Phone Jose Martin Diamond MD Primary Care [facility] Encounter Details Date Type Department Care Team (Late st Contact Info) Description 03/18/2019 Telephone [facility] Orthopaedic Surgery [address] [place] [address] Amy Degroot NP [address] [facility] [address] [place], [place] [id number] Social History Tobacco Use Types Packs/Day Years [...] 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 1:30 PM ??30 mins. ??Amy Degroot, PRESS MACHINE FEEDER ? [facility] Patient Comments: Pain in left knee. ??I had x-rays taken at [facility], [address] [place] [id number] on February ordered by my GP. SOFTWARE DEVELOPER documented in this encounter Plan of Treatment Not on file documented as of this encounter Visit Diagnoses Not on filedocumented in this encounter Care Teams Emt Dispatcher Relationship Specialty Start Date End Date Jose Martin Diamond MD [address] [address] PCP - General 07/11/17 10/14/21 documented as of this encounter
--- OUTSIDE RECORDS SUMMARY | 2024-02-21 15:03 | XMS_ITS | Encounter Summary ---
Author Organization [facility] Address [address] [place] [address] Phone Care Team Providers Care Learning And Development Specialist Name Role Phone Jose Martin Diamond MD Primary Care Provi [facility] Reason for Referral * (Routine) - Closed Specialty Diagnoses / Procedures Referred By Contac t Referred To Contact Diagnoses Arthritis of knee Acute pain of left knee Procedures Large Joint Injection: L knee Amy Degroot NP [address] [facility] [address] [address] [place] [address] Phone: tel: fax: [facility] (All Locations) Referral ID Status Reason Start Date Expiration Date Visits Re quested Visits Authorized [id number] Closed 04/01/2019 10/10/2020 1 1 RESEARCH ENGINEER Encounter Details Date Type Department Care Team (Late st Contact Info) Description 04/01/2019 1:30 PM AUTO RESEARCH ENGINEER Office Visit [facility] Orthopaedic Surgery [address] [place] [address] Amy Degroot NP [address] [facility] [address] [place] [address] Arthritis of knee (Primary Dx); Acute pain of left knee Social History Tobacco Use Types Packs/Day Years [...] 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 Call [phone] if you develop any redness, discharge at the injection site, fever or excessive swelling. If you have tenderness or soreness apply an ice pack for 15-20 minutes at a time 3-4 times per day. Name: MRN: Date: Date of Injection 1.) My pain immediately after the procedure improved: 0%, 25%, 50%, 75%, 100% 2.) My pain the first six hours after the injection improved: 0%, 25%, 50%, 75%, 100% 3.) My pain the first 24 hours after the injection improved: 0%, 25%, 50%, 75%, 100% 4.) My pain the first 4 days after the injection improved: 0%, 25%, 50%, 75%, 100% 5.) My pain the first week after the injection improved: 0%, 25%, 50%, 75%, 100% 6.) My pain the first 10 days after the injection improved: 0%, 25%, 50%, 75%, 100% 7.) My pain the first two weeks after the injection improved: 0%, 25%, 50%, 75%, 100% Are you currently in Physical Therapy? How many sessions have you attended Are you performing a home exercise program? Has your injection improved your ability to perform activities of daily living with less pain? Please call [phone] with Pain Diary 2 weeks after injection. RESEARCH ENGINEER documented in this encounter Progress Notes * Amy Degroot NP - 04/01/2019 1:30 PM CSTAssociated Order(s): Large Joint Injection: L knee Post-Procedure Diagnose(s): Arthritis of knee; Acute pain of left knee RETURN PATIENT VISIT INTERVAL HISTORY Josee Blakely is a 59 y.o. presents today for further evaluation of left knee pain. On e, she was bowling with her family and after she pulled a 2nd set, she developed inferior anterior knee pain. Discomfort is sharp, aching and moderate has persisted over the last month. She hashad with sounds to be moderate degree of swelling which has decreased with icing and anti-inflammatories. She still has some tightness with walking stairs and will occasionally feel the knee will buckle. REVIEW OF SYSTEMS Negative per [facility] history UPDATED MEDICAL, SURGICAL AND SOCIAL HISTORY Unchanged PHYSICAL EXAMINATION CONSTITUTIONAL: Well-appearing, in no apparent distress EYES: No scleral icterus or conjunctival hemorrhage CARDIOVASCULAR: Skin warm and well-perfused, no peripheral edema RESPIRATORY: Breathing unlabored without accessory muscle use PSYCHIATRIC: Alert, cooperative, appropriate mood and affect SKIN: No lesions or rashes on exposed skin MUSCULOSKELETAL: Left knee demonstrates mild effusion. No erythema. Negative Joy's. No pain or laxity with varus or valgus stress applied at 0 or 30??. Negative Maria Eugenia's. Tender palpation overthe medial joint line. Knee flexion/extension strength is 5/5. NEUROLOGIC: Sensation intact to the left lower extremity. REVIEW OF IMAGING/STUDIES Reviewed x-ray report from March 15, 2019-demonstrates mild medial compartment osteoarthritis -images are not available for review today. IMPRESSION/DIAGNOSIS Left knee pain the setting of mild medial compartment osteoarthritis TREATMENT/PLAN I discussed history, exam and x-ray findings and working diagnosis. We discussed treatment options including continued icing, physical therapy, nonsteroidal anti-inflammatories or intra-articular steroid injection. She had a injection in her right knee years ago which was very effective and would like to proceed with injection today. Reviewed injection precautions. Recommend continue icing. She will call me in 2 weeks with pain diary/ response to the injection. She voices agree with this plan. All questions were answered at the time. Large Joint Injection: L knee Date/Time: 04/01/2019 1:30 PM Performed by: Amy Degroot NP Authorized by: Amy Degroot NP Large Joint Injection/Aspiration: Consent Given by: Patient Supporting Documentation: Indications: Pain Procedure Details: Location: Knee Site: L knee Needle Size: 25 G Approach: Anteromedial Medications: 2 mL bupivacaine 0.25 % (2.5 mg/mL); 4 mL lidocaine 10 mg/mL (1 %); 40 mg triamcinolone 40 mg/mL Patient tolerance: Patient tolerated the procedure well with no immediate complications Attempted aspiration of fluid from the superior lateral patella position however no synovial fluid obtained. Aborted knee injection from this approach and proceeded with steroid need injection anterior medial. Amy Degroot RN, ANP-BC Nurse Practitioner [facility] Orthopedics Division of Physical Medicine and Rehabilitation In collaboration with Dr. Neilsen Portions of this note were dictated using [email or web address] Direct speech recognition software. Please excuse any industrial machine assembler errors. RESEARCH ENGINEER documented in this encounter Plan of Treatment Not on file documented as of this encounter Procedures Procedure Name Priority Date/Time Associated Diagnosis Comments [place] ARTHROCENTESIS ASPIR&/INJ MAJOR JT/BURSA W/O US Routine 04/01/2019 1:30 PM AUTO RESEARCH ENGINEER Arthritis of knee Acute pain of left knee documented in this encounter Results * [place] ARTHROCENTESIS ASPIR&/INJ MAJOR JT/BURSA W/O US (04/01/2019 1:30 PM AUTO RESEARCH ENGINEER) Narrative Amy Degroot NP - 04/01/2019 1:30 PM AUTO RESEARCH ENGINEER Amy Degroot NP ? 04/01/2019 ??6:26 PM Large Joint Injection: L knee Date/Time: 04/01/2019 1:30 PM Performed by: Amy Degroot NP Authorized by: Amy A. Mikayla, CONVERTING OPERATOR Large Joint Injection/Aspiration: ??Consent Given by: ??Patient Supporting Documentation: ??Indications: ??Pain Procedure Details: ??Location: ??Knee ??Site: ??L knee ??Needle Size: ??25 G ??Approach: ??Anteromedial ??Medications: ??2 mL bupivacaine 0.25 % (2.5 mg/mL); 4 mL lidocaine 10 mg/mL (1 %); 40 mg triamcinolone 40 mg/mL ??Patient tolerance: ??Patient tolerated the procedure well with no immediate complications ?? Attempted aspiration of fluid from the superior lateral patella position however no synovial fluid obtained. ??Aborted knee injection from this approach and proceeded with steroid need injection anterior medial. us Amy Degroot NP IN CLINIC/BEDSIDE ORDERABLES Final Result documented in this encounter Visit Diagnoses Diagnosis Arthritis of knee- Primary Unspecified arthropathy, lower leg Acute pain of left knee documented in this encounter Administered Medications Inactive Administered Medications - up to 3 most recent administrations Medication Order MAR Action Action Date Dose Rate Site bupivacaine (MARCAINE) 0.25 % (2.5 mg/mL) injection 2 mL 2 mL, other, One-Time Injection, Starting on Shira 04/01/19 at 1330, For 1 doseIndications:Arthritis of knee,Acute pain of left knee Given 04/01/2019 1:30 PM AUTO RESEARCH ENGINEER 2 mL lidocaine (XYLOCAINE) 10 mg/mL (1 %) injection 4 mL 4 mL, One-Time Injection, Starting on Shira 04/01/19 at 1330, For 1 dose, Indications: Administration of Local AnesthesiaIndications:Administratio n of Local Anesthesia Given 04/01/2019 1:30 PM AUTO RESEARCH ENGINEER 4 mL triamcinolone (KENALOG) 40 mg/mL injection 40 mg 40 mg, intra-articular, One-Time Injection, Starting on Shira 04/01/19 at 1330, For 1 doseIndications:Arthritis of knee,Acute pain of left knee Given 04/01/2019 1:30 PM AUTO RESEARCH ENGINEER 40 mg documented in this encounter Discontinued Medications Medication Sig Discontinue Reason Start Date End Da te propranolol (INDERAL) 20 mg tabletIndications:Hot flashes Take 1 tablet (20 mg total) by mouth 2 (two) times a day Therapy completed 11/09/2018 04/01/2019 documented as of this encounter Care Teams Learning And Development Specialist Relationship Specialty Start Date End Date Jose Martin Diamond MD [address] [address] PCP - General 07/11/17 10/14/21 documented as of this encounter
--- OUTSIDE RECORDS SUMMARY | 2024-02-21 15:03 | XMS_ITS | Encounter Summary ---
Author Organization [facility] Address [address] [place] [address] Care Team Providers Care Staff Nurse Name Role Phone Jose Martin Diamond MD Primary Care Provi jasmyn Reason for Visit * Reason Onset Date Comments pt called asking MP to send alprazolam again,pha rmacy didnt 05/04/2019 Encounter Details Date Type Department Care Team (Late st Contact Info) Description 05/04/2019 Telephone [facility] Family Medicine [address] [place] [address] Jade Peralta pt called asking MP to send alprazolam again,pharmacy didnt Social History Tobacco Use Types Packs/Day Years [...] 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 Says she just feels a little unsure of herself like can I do this? Says she thinks that she feels ok but she starts a new job on Friday and she's afraid that she'll get anxiety there. Pt. Says she will wait a few more days and then let you know how she feels. * Telephone Encounter - Prieto Ortega LPN - 05/04/2019 2:30 PM CDT LMTCB * Telephone Encounter - Dante Avelar PA - 05/04/2019 12:54 PM CDT How is the patient doing? Because I am thinking she is at day 9 of detox, and I think she is doing great. I am not sure it is a good idea to send it out for her if she is doing well * Telephone Encounter - Alistair Peña MA - 05/04/2019 10:14 AM CDT Please advise. * Telephone Encounter - Jade Peralta - 05/04/2019 10:05 AM CDT pt called asking MP to send alprazolam again,pharmacy([facility]) didnt receive it yesterday.[facility] documented in this encounter Plan of Treatment Not on file documented as of this encounter Visit Diagnoses Not on filedocumented in this encounter Care Teams Staff Nurse Relationship Specialty Start Date End Date Jose Martin Diamond MD [address] [address] PCP - General 07/11/17 10/14/21 documented as of this encounter
--- OUTSIDE RECORDS SUMMARY | 2024-02-21 15:03 | XMS_ITS | Encounter Summary ---
Author Organization [facility] Address [address] [place] [address] Phone Care Team Providers Care Shredding Machine Knife Changer Name Role Phone Jose Martin Diamond MD Primary Care Provi [facility] Reason for Referral * Diagnostic Imaging (Routine) - Closed Specialty Diagnoses / Procedures Referred By Sandie servin Referred To Contact Radiology Diagnoses Lumbosacral radiculopathy Procedures IR Transforaminal Epidural Injection Lumbar Sacral 1 Level Left Amy Degroot NP [address] [address] Phone: tel: fax: [address] [address] Referral ID Status Reason Start Date Expiration Date Visits Re quested Visits Authorized [id number] Closed 10/22/2019 11/24/2019 1 1 Encounter Details Date Type Department Care Team (Late st Contact Info) Description 10/15/2019 Orders Only [facility] Orthopaedic Surgery [address] [place] [address] 1st [address] [place] [address] Loser, Lily, RMA Lumbosacral radiculopathy (Primary Dx) [...] 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
--- OUTSIDE RECORDS SUMMARY | 2024-02-21 15:03 | XMS_ITS | Encounter Summary ---
Author Organization [facility] Address [address] [place] [address] Care Team Providers Care Food Checker Name Role Phone Jose Martin Diamond MD Primary Care Provi [facility] Reason for Referral * Diagnostic Imaging (Routine) - Closed Specialty Diagnoses / Procedures Referred By Contac t Referred To Contact Radiology Diagnoses Spinal stenosis, lumbar region, with neurogenic claudication Procedures MRI Lumbar Spine WO Contrast Amy Degroot NP [address] [facility] [address] [place] [address] Phone: tel: fax: [address] [address] Referral ID Status Reason Start Date Expiration Date Visits Re quested Visits Authorized [id number] Closed 08/24/2019 03/04/2021 1 1 Reason for Visit * Diagnostic Imaging (Routine) - Closed Specialty Diagnoses / Procedures Referred By Contac t Referred To Contact Radiology Diagnoses Spinal stenosis, lumbar region, with neurogenic claudication Procedures MRI Lumbar Spine WO Contrast Amy Degroot NP [address] [facility] [address] [place] [address] Phone: tel: fax: [address] [address] Referral ID Status Reason Start Date Expiration Date Visits Re quested Visits Authorized [id number] Closed 08/24/2019 03/04/2021 1 1 Encounter Details Date Type Department Care Team (Latest Contact Info) Description 09/10/2019 10:02 AM CDT - 09/10/2019 11:59 PM CDT Hospital Encounter [facility] Medicine [address] [place] [address] Marcela Polo DO [address] [place] [address] Amy Degroot NP [address] [facility] [address] [place] [address] Spinal stenosis, lumbar region, with neurogenic claudication [...] 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 Not [...] Procedure Name Priority Date/Time Associated Diagnosis Comments MRI LUMBAR SPINE WO CONTRAST Schedule Routine, Read Routine (OP Routine) 09/10/2019 11:05 AM CDT Spinal stenosis, lumbar region, with neurogenic claudication documented in this encounter Results * MRI Lumbar Spine WO Contrast (09/10/2019 11:05 AM CDT) Anatomical Region Laterality Modality Spine N/A Magnetic Resonan ce 09/10/2019 11:5 8 AM CDT Impressions 09/10/2019 12:16 PM CDT Severe degenerative disease at L4-L5, with disc protrusion causing severe narrowing at the L4-L5 left lateral recess and left neuroforamen, compressing the exiting L4 nerve root and descending L5 nerve root. Otherwise, multilevel degenerative changes, as detailed above. Dictated by: Paramjit Soto M.D. The radiology attending physician has personally reviewed this study, and had reviewed and/or edited this written report and agrees with it. Electronically signed by: Simona Paniagua M.D. Narrative 09/10/2019 12:16 PM CDT EXAMINATION: Magnetic resonance imaging (MRI) of the lumber spine without contrast. HISTORY: 59-year-old woman with recurrent left lower back pain radiating to the left leg in S1 distribution with associated paresthesia and weakness, which developed 4 weeks ago after accidentally arching the lower back. TECHNIQUE: Multiplanar multi-weighted MRI of the lumbar spine was performed without intravenous contrast using the standard lumbar spine protocol. COMPARISON: Lumbar spine radiograph 08/24/2019. FINDINGS: There is mild levocurvature of the lumbar spine centered at L3. There is mild retrolisthesis of L5 on S1. 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 Vertebral bodies demonstrate normal signal intensity on all sequences. There are no compression fractures. The conus medullaris terminates at the level of T12-L1. The distal spinal cord signal intensity is normal. There is mild multilevel degenerative disc disease, worst at L3-L4, L4-L5, and L5-S1. There are no annular fissures identified. Limited views of the abdomen and pelvis show no soft tissue abnormality. The aorta is normal. L1-L2: There is tiny central disc protrusion. There is no facet arthropathy. There is no neuroforaminal stenosis. There is no spinal canal stenosis. L2-L3: ??Mild disc bulge. There is mild left facet arthropathy. There is no neuroforaminal stenosis. There is no spinal canal stenosis L3-L4: ??Mild disc bulge. There is severe right moderate left facet arthropathy. There is mild right neuroforaminal stenosis. There is moderate to severe spinal canal stenosis. There is right lateral recess narrowing. L4-L5: ??There is left central disc protrusion with caudal migration compressing on the exiting L4 nerve root and descending L5 nerve root with severe narrowing of the left lateral recess. There is severe left facet arthropathy. There is severe left neuroforaminal stenosis. There is moderate spinal canal stenosis L5-S1: ??Mild disc bulge. There is mild left facet arthropathy. There is no neuroforaminal stenosis. There is no spinal canal stenosis Procedure Note Simona Tee MD - 09/10/2019 EXAMINATION: Magnetic resonance imaging (MRI) of the lumber spine without contrast. HISTORY: 59-year-old woman with recurrent left lower back pain radiating to the left leg in S1 distribution with associated paresthesia and weakness, which developed 4 weeks ago after accidentally arching the lower back. TECHNIQUE: Multiplanar multi-weighted MRI of the lumbar spine was performed without intravenous contrast using the standard lumbar spine protocol. COMPARISON: Lumbar spine radiograph 08/24/2019. FINDINGS: There is mild levocurvature of the lumbar spine centered at L3. There is mild retrolisthesis of L5 on S1. 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 Vertebral bodies demonstrate normal signal intensity on all sequences. There are no compression fractures. The conus medullaris terminates at the level of T12-L1. The distal spinal cord signal intensity is normal. There is mild multilevel degenerative disc disease, worst at L3-L4, L4-L5, and L5-S1. There are no annular fissures identified. Limited views of the abdomen and pelvis show no soft tissue abnormality. The aorta is normal. L1-L2: There is tiny central disc protrusion. There is no facet arthropathy. There is no neuroforaminal stenosis. There is no spinal canal stenosis. L2-L3: Mild disc bulge. There is mild left facet arthropathy. There is no neuroforaminal stenosis. There is no spinal canal stenosis L3-L4: Mild disc bulge. There is severe right moderate left facet arthropathy. There is mild right neuroforaminal stenosis. There is moderate to severe spinal canal stenosis. There is right lateral recess narrowing. L4-L5: There is left central disc protrusion with caudal migration compressing on the exiting L4 nerve root and descending L5 nerve root with severe narrowing of the left lateral recess. There is severe left facet arthropathy. There is severe left neuroforaminal stenosis. There is moderate spinal canal stenosis L5-S1: Mild disc bulge. There is mild left facet arthropathy. There is no neuroforaminal stenosis. There is no spinal canal stenosis IMPRESSION: Severe degenerative disease at L4-L5, with disc protrusion causing severe narrowing at the L4-L5 left lateral recess and left neuroforamen, compressing the exiting L4 nerve root and descending L5 nerve root. Otherwise, multilevel degenerative changes, as detailed above. Dictated by: Paramjit Soto M.D. The radiology attending physician has personally reviewed this study, and had reviewed and/or edited this written report and agrees with it. Electronically signed by: Simona Paniagua M.D. Amy Degroot NP IMG MRI PROCEDURES Final Resu lt documented in this encounter Visit Diagnoses Diagnosis Spinal stenosis, lumbar region, with neurogenic claudication documented in this encounter Care Teams Food Checker Relationship Specialty Start Date End Date Jose Martin Diamond MD [address] [address] PCP - General 07/11/17 10/14/21 documented as of this encounter
--- OUTSIDE RECORDS SUMMARY | 2024-02-21 15:03 | XMS_ITS | Encounter Summary ---
Author Organization [facility] Address [address] [place] [address] Care Team Providers Care Stone Repairer Name Role Phone Jose Martin Diamond MD Primary Care Provi jasmyn Reason for Visit * Reason Comments Anxiety/Depression Re-eval. 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 file Not on rohit e documented as of this encounter Last Filed Vital Signs Vital Sign Reading Time Taken Comments Blood Pressure 148/82 05/03/2019 1:22 PM CDT Pulse 60 05/03/2019 1:22 PM CDT Temperature 36.7 ??C (98.1 ??F) 05/03/2019 1:22 PM CD T Respiratory Rate 16 05/03/2019 1:22 PM CDT Oxygen Saturation 96% 05/03/2019 1:22 PM CDT Inhaled Oxygen Concentration - - Weight 74.4 kg (164 lb) 05/03/2019 1:22 PM CDT Height 162.6 cm (5' 4 ) 05/03/2019 1:22 PM CDT Body Mass Index 28.15 05/03/2019 1:22 PM CDT documented in this encounter Ordered Prescriptions Prescription Sig Dispense Quantity Refills Last Filled Start Date End Date ALPRAZolam (XANAX) 0.25 mg tabletIndications: Benzodiazepine withdrawal with complication (HCC) Take once a day for 7 days, then every other day for a total of 2 weeks 12 tablet 05/03/2019 0 ALPRAZolam (XANAX) 0.25 mg tabletIndications: Benzodiazepine withdrawal with complication (HCC) Twice a day for 7 days, and then every other day for 7 days. 12 tablet 05/03/2019 0 traZODone (DESYREL) 50 mg tabletIndications: Insomnia, unspecified type Take 1 tablet (50 mg total) by mouth nightly as needed for sleep 30 tablet 5 05/03/2019 0 documented in this encounter Progress Notes * Arik Phillip PA - 05/03/2019 1:30 PM CDT Images from the original note were not included. CHIEF COMPLAINT: Chief Complaint Patient presents with ??? Anxiety/Depression Re-eval. after seeing Dr. Serjio MACDONALD: She is a 59 y.o. female who presents today for follow up for possible overdose. Patient was in patient for 2 days at [facility]. Patient was discharged on . Patient has been 8 days without xanax. Patient states that her son is watching her. Patient has just started a new job with [employer]. Patient has been having shakiness, flu like symptoms, and she can not sleep very good. Was given trazodone in the hospital to help sleep. Patient denies any seizures. Current Outpatient Medications: ??? FLUoxetine (PROzac) 40 mg capsule, TAKE 1 CAPSULE DAILY, Disp: 90 capsule, Rfl: 4 ??? losartan-hydrochlorothiazide (HYZAAR) 100-25 mg per tablet, TAKE 1 TABLET DAILY, Disp: 90 tablet, Rfl: 4 ??? simvastatin (ZOCOR) 10 mg tablet, Take 1 tablet (10 mg total) by mouth nightly, Disp: 30 tablet, Rfl: 5 ??? ALPRAZolam (XANAX) 0.25 mg tablet, Take once a day for 7 days, then every other day for a totalof 2 weeks, Disp: 12 tablet, Rfl: 0 ??? traZODone (DESYREL) 50 mg tablet, Take 1 tablet (50 mg total) by mouth nightly as needed for sleep, Disp: 30 tablet, Rfl: 5 Patient Active Problem List Diagnosis ??? Lumbosacral [...] back pain. Skin: Negative for rash. Neurological: Positive for tremors. Negative for dizziness, weakness and light-headedness. Hematological: Negative for adenopathy. Vitals BP 148/82 (BP Location: Left arm) Pulse 60 Temp 36.7 ??C (98.1 ??F) Resp 16 Ht 162.6 cm (5' 4 ) Wt 74.4 kg (164 lb) SpO2 96% BMI 28.15 kg/m?? Physical Exam Vitals signs and nursing note reviewed. Constitutional: Appearance: She is well-developed. HENT: Head: Normocephalic and atraumatic. Neck: Musculoskeletal: Normal range of motion and neck supple. Cardiovascular: Rate and Rhythm: Normal rate and regular rhythm. Heart sounds: Normal heart sounds. Pulmonary: Effort: Pulmonary effort is normal. Breath sounds: Normal breath sounds. Skin: General: Skin is warm and dry. Neurological: Mental Status: She is alert and oriented to person, place, and time. Psychiatric: Behavior: Behavior normal. Assessment/Plan Diagnoses and all orders for this visit: Insomnia, unspecified type (Primary) - traZODone (DESYREL) 50 mg tablet; Take 1 tablet (50 mg total) by mouth nightly as needed for sleep Uses,risks,se's discussed F/u in 2 weeks Benzodiazepine withdrawal with complication (CMS/HCC) - ALPRAZolam (XANAX) 0.25 mg tablet; Take once a day for 7 days, then every other day for a total of 2 weeks Only use if needed. F/u in 2 weeks Patient needs a taper. Doing well right now, 8 days without seizures, HR is stable RICKIE Murphy 1. The patient indicates understanding [...] allergies listed in the above medical record documented in this encounter Miscellaneous Notes * Addendum Note - Arik Phillip PA - 05/03/2019 1:30 PM CDTAddended by: ARIK PHILLIP on: 05/03/2019 02:03 PM Modules accepted: Level of Service documented in this encounter Plan of Treatment Not on file documented as of this encounter Visit Diagnoses Diagnosis Insomnia, unspecified type- Primary Benzodiazepine withdrawal with complication (HCC) documented in this encounter Discontinued Medications Medication Sig Discontinue Reason Start Date End Da te ALPRAZolam (XANAX) 0.5 mg tabletIndications:Situati onal anxiety TAKE 1 TABLET BY MOUTH THREE TIMES A DAY 04/08/2019 05/03/2019 ALPRAZolam (XANAX) 0.25 mg tabletIndications:Benzodi azepine withdrawal with complication (HCC) Twice a day for 7 days, and then every other day for 7 days. 05/03/2019 05/03/2019 ALPRAZolam (XANAX) 0.25 mg tabletIndications:Benzodi azepine withdrawal with complication (HCC) Take once a day for 7 days, then every other day for a total of 2 weeks 05/03/2019 05/03/2019 documented as of this encounter Care Teams Stone Repairer Relationship Specialty Start Date End Date Jose Martin Diamond MD [address] [address] PCP - General 07/11/17 10/14/21 documented as of this encounter
--- OUTSIDE RECORDS SUMMARY | 2024-02-21 15:03 | XMS_ITS | Encounter Summary ---
Author Organization [facility] Address [address] [place] [address] Phone Care Team Providers Care Mold Hoister Name Role Phone Jose Martin Diamond MD Primary Care Provi [facility] Reason for Referral * Diagnostic Imaging (Routine) - Closed Specialty Diagnoses / Procedures Referred By Contac t Referred To Contact Radiology Diagnoses Spinal stenosis, lumbar region, with neurogenic claudication Procedures MRI Lumbar Spine WO Contrast Amy Degroot NP [address] [facility] [address] [place] [address] Phone: tel: fax: [address] [address] Referral ID Status Reason Start Date Expiration Date Visits Re quested Visits Authorized [id number] Closed 08/24/2019 03/04/2021 1 1 * Diagnostic Imaging (Routine) - Closed Specialty Diagnoses / Procedures Referred By Contac t Referred To Contact Diagnoses Spinal stenosis, lumbar region, with neurogenic claudication Procedures XR Spine Lumbar 4 or More Views Amy Degroot NP [address] [facility] [address] [place] [address] Phone: tel: fax: [facility] [address] [place] [address] Referral ID Status Reason Start Date Expiration Date Visits Re quested Visits Authorized [id number] Closed 08/24/2019 03/04/2021 1 1 Encounter Details Date Type Department Care Team (Latest Contact Info) Description 08/24/2019 8:30 AM CDT Office Visit [facility] Orthopaedic Surgery [address] [place] [address] Amy Degroot NP [address] [place] [address] Spinal stenosis, lumbar region, with neurogenic claudication (Primary Dx) Social History Tobacco Use Types [...] 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 who presents today for recurrent left S1 radiculitis. She describes while swimming 4 weeks ago, accidentally arching the lower back developed recurrent left sided lower back pain with radiation to left leg in S1 distribution associated paresthesia sensation of weakness. She was prescribed cyclobenzaprine on August [address] Zepeda. Pain increases with lumbar extension, decreases lumbar flexion. She is having to use a cane with sense of weakness in the left lower extremity. REVIEW OF SYSTEMS Review of Systems-denies fever, chills or sweats. No change in bowel or bladder function. UPDATE MEDICAL, SURGICAL AND SOCIAL HISTORY Unchanged PHYSICAL EXAMINATION CONSTITUTIONAL: Well-appearing, in no apparent distress EYES: No scleral icterus or conjunctival hemorrhage CARDIOVASCULAR: Skin warm and well-perfused, no peripheral edema RESPIRATORY: Breathing unlabored without accessory muscle use PSYCHIATRIC: Alert, cooperative, appropriate mood and affect SKIN: No lesions or rashes on exposed skin MUSCULOSKELETAL: Gait mildly antalgic using a cane. She is able to heel and toe walk. Lumbar extension increases pain. Bilateral hip flexion, knee flexion/extension, ankle dorsiflexion EHL strength 5/5. NEUROLOGIC: Sensation intact bilateral lower extremities. 2+ bilateral patellar Achilles deep tendon reflexes. No Babinski or clonus. Negative sit slump. REVIEW OF IMAGING/STUDIES Four views lumbar spine are taken and reviewed - Mild lumbar spine levoscoliosis and multilevel degenerative disc disease worst and severe L3-L4. IMPRESSION/DIAGNOSIS Extension bias low back pain with left S1 radiculitis the setting of severe lumbar spinal stenosis TREATMENT/PLAN I discussed history, exam and x-ray findings and working diagnosis. Last lumbar MRI in June 2017, wediscussed updating lumbar MRI to proceed with left S1 TESI if the oral prednisone taper is not effective. We discussed a short course of steroid to reduce inflammation. Prednisone 60 mg the first dayand decreasing by 10 mg on subsequent days over the next 6 days. We discussed the action, side effects and perceived benefits. She will continue with cyclobenzaprine, alternating ice and heat application at 20 minutes intervals and home exercise program. We reviewed red flags. All questions were answered at this time. She voices agree with this plan. All questions were answered time. Amy Degroot RN, ANP-BC Nurse Practitioner [facility] Orthopedics Division of Physical Medicine and Rehabilitation In collaboration with Dr. Polo Portions of this note were dictated using [employer] Fluency Direct speech recognition software. Dictation is not read in detail and medication nurse variances may occur. documented in this encounter Plan of Treatment Not on file documented as of this encounter Results * MRI Lumbar Spine [...] signed by: Simona Paniagua M.D. Amy Degroot WATER TREATMENT OPERATOR IMG MRI PROCEDURES Final Resu lt * XR Spine Lumbar 4 or More [...] signed by: Tulio Chavez M.D. Amy Degroot WATER TREATMENT OPERATOR IMG XR PROCEDURES Final Resul t documented in this encounter Visit Diagnoses Diagnosis Spinal stenosis, lumbar region, with neurogenic claudication- Primary Spinal stenosis, lumbar region, with neurogenic claudication Spinal stenosis, lumbar region, with neurogenic claudication documented in this encounter Care Teams Mold Hoister Relationship Specialty Start Date End Date Jose Martin Diamond MD [address] [address] PCP - General 07/11/17 10/14/21 documented as of this encounter
--- OUTSIDE RECORDS SUMMARY | 2024-02-21 15:03 | XMS_ITS | Encounter Summary ---
Author Organization [facility] Address [address] [place] [address] Care Team Providers Care School Age Lead Teacher Name Role Phone Jose Martin Diamond MD Primary Care Provi jasmyn Reason for Referral * Diagnostic Imaging (Routine) - Closed Specialty Diagnoses / Procedures Referred By Sandie servin Referred To Contact Diagnoses Acute pain of left knee Procedures XR Knee Left 3 Vw Dante Avelar PA [address] [facility] [address] [place] [address] Phone: tel: fax: [address] [address] Referral ID Status Reason Start Date Expiration Date Visits Re quested Visits Authorized [id number] Closed 03/15/2019 09/23/2020 1 1 ERCIAL MANAGER Reason for Visit * Reason Comments Knee Pain L knee-injured while bowling Encounter Details Date Type Department Care Team (Late st Contact Info) Description 03/15/2019 2:30 PM COMMERCIAL MANAGER Office Visit [facility] Family Medicine [address] [place] [address] Dante Avelar PA [address] [place] [address] Well adult exam (Primary Dx); Essential hypertension; Mixed hyperlipidemia; Situational anxiety; Essential tremor; Dyslipidemia; Overweight (BMI 25.0-29.9); Acute pain of left knee; Screening for breast cancer Social History Tobacco Use Types Packs/Day Years [...] 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 Not on file Not on rohit e documented as of this encounter Last Filed Vital Signs Vital Sign Reading Time Taken Comments Blood Pressure 158/98 03/15/2019 2:35 PM COMMERCIAL MANAGER Pulse 66 03/15/2019 2:35 PM COMMERCIAL MANAGER Temperature 36.9 ??C (98.5 ??F) 03/15/2019 2:35 PM CS T Respiratory Rate 18 03/15/2019 2:35 PM COMMERCIAL MANAGER Oxygen Saturation 99% 03/15/2019 2:35 PM COMMERCIAL MANAGER Inhaled Oxygen Concentration - - Weight 77.1 kg (170 lb) 03/15/2019 2:35 PM COMMERCIAL MANAGER Height 162.6 cm (5' 4 ) 03/15/2019 2:35 PM COMMERCIAL MANAGER Body Mass Index 29.18 03/15/2019 2:35 PM COMMERCIAL MANAGER documented in this encounter Progress Notes * Dante Avelar PA - 03/15/2019 2:30 PM CST Images from the original note were not included. CHIEF COMPLAINT: Chief Complaint Patient presents with ??? Knee Pain L knee-injured while bowling SUBJECTIVE: She is a 59 y.o. female who presents today for annual physical. Patient is up in weight, and BP is elevated. Patient also injured her left knee, worse with stairs. Injured it bowling. Patient states that it doesn't ache at night, she is able to sleep. Patient was concerned about exercising because she didn't want to injure. Patient states that when she walks she can feel it around her knee cap. Patient states that when she bends her knee she feels tightness and anterior knee pain. CURRENT MEDICATIONS: Current Outpatient Medications Medication Sig Dispense Refill ??? ALPRAZolam (XANAX) 0.5 mg tablet TAKE 1 TABLET BY MOUTH THREE TIMES A DAY 90 tablet 0 ??? FLUoxetine (PROzac) 40 mg capsule TAKE 1 CAPSULE DAILY 90 capsule 4 ??? losartan-hydrochlorothiazide (HYZAAR) 100-25 mg per tablet TAKE 1 TABLET DAILY 90 tablet 4 ??? propranolol (INDERAL) 20 mg tablet Take 1 tablet (20 mg total) by mouth 2 (two) times a day 90 tablet 3 ??? simvastatin (ZOCOR) 10 mg tablet Take 1 tablet (10 mg total) by mouth nightly 30 tablet 5 No current facility-administered medications for this visit. ROS: Review of Systems Constitutional: Negative for chills and fever. HENT: Negative for congestion, ear pain and sore throat. Respiratory: Negative for cough, shortness of breath and wheezing. Cardiovascular: Negative for chest pain and leg swelling. Htn Gastrointestinal: Negative for abdominal pain, constipation, diarrhea, nausea and vomiting. Genitourinary: Negative for dysuria and urgency. Musculoskeletal: Positive for arthralgias. Negative for back pain. Skin: Negative for rash. Neurological: Negative for dizziness, weakness and light-headedness. Hematological: Negative for adenopathy. PHYSICAL EXAM: Vitals: 03/15/19 1435 BP: 158/98 BP Location: Left arm Pulse: 66 Resp: 18 Temp: 36.9 ??C (98.5 ??F) SpO2: 99% Weight: 77.1 kg (170 lb) Height: 162.6 cm (5' 4 ) Body mass index is 29.18 kg/m??. CONSTITUTIONAL: Patient is awake alert and oriented x3 in no acute distress. The patient is well-nourished and well-developed and, in general, well-appearing. Patient is seated on the exam table. Patient is pleasant and cooperative with the interview and exam. SKIN: No rashes, scars, or moles noted. LYMPH: No cervical, supraclavicular, or axillary lymphadenopathy bilaterally. HEENT: Head is normocephalic and atraumatic. Tympanic membranes are clear bilaterally. Oral mucosa is pink and moist, no tonsillar exudates and no oral pharyngeal lesions. NECK: No cervical lymphadenopathy noted. No thyromegaly appreciated. CHEST: No chest wall tenderness noted. Lungs are clear to auscultation bilaterally. No wheezes, rhonchi, or rales appreciated. CARDIOVASCULAR: Heart is in regular rate and rhythm. S1 and S2 are auscultated. No rubs, gallops, or murmurs appreciated. MUSCULOSKELETAL: No lower extremity edema noted bilaterally. No calf tenderness noted bilaterally. No clubbing or cyanosis noted. NEUROLOGIC: Gait was unremarkable. No focal neurologic deficits observed. PSYCH: Appropriate affect. Denies suicidal or homicidal ideation. ASSESSMENT & PLAN: Josee was seen today for knee pain. Diagnoses and all orders for this visit: Well adult exam -Check in 1 year. Recommend Pap smears at least every 3 years starting at age 21, unless otherwise indicated. recommend flu shot yearly. Recommend heart healthy diet and 30 minutes of exercise daily.Recommend mammogram yearly starting at 40 y/o. Colon cancer screening starting at 50. Essential hypertension - CBC with auto differential; Future - Comprehensive metabolic panel; Future - Lipid panel; Future - TSH reflex to free T4; Future - CBC with auto differential - Comprehensive metabolic panel - Lipid panel - TSH reflex to free T4 - DASH diet. CCT. Recommend diet and exercise. Recommend compliance with medications. Mixed hyperlipidemia - CBC with auto differential; Future - Comprehensive metabolic panel; Future - Lipid panel; Future - TSH reflex to free T4; Future - CBC with auto differential - Comprehensive metabolic panel - Lipid panel - TSH reflex to free T4 Recommend Continue statin therapy. NO myalgias, or concerns with statin therapy at this time. Recommend heart healthy diet and exercise 30 minutes a day Recommend weight loss Situational anxiety - CBC with auto differential; Future - Comprehensive metabolic panel; Future - Lipid panel; Future - TSH reflex to free T4; Future - CBC with auto differential - Comprehensive metabolic panel - Lipid panel - TSH reflex to free T4 CCT Essential tremor - CBC with auto differential; Future - Comprehensive metabolic panel; Future - Lipid panel; Future - TSH reflex to free T4; Future - CBC with auto differential - Comprehensive metabolic panel - Lipid panel - TSH reflex to free T4 CCT Dyslipidemia - CBC with auto differential; Future - Comprehensive metabolic panel; Future - Lipid panel; Future - TSH reflex to free T4; Future - CBC with auto differential - Comprehensive metabolic panel - Lipid panel - TSH reflex to free T4 Recommend Continue statin therapy. NO myalgias, or concerns with statin therapy at this time. Recommend heart healthy diet and exercise 30 minutes a day Recommend weight loss Overweight (BMI 25.0-29.9) BMI Follow-up includes: nutrition counseling, exercise counseling and education provided. Acute pain of left knee - XR Knee Left 3 Vw; Future Ck x ray Consider PT. Screening for breast cancer - SCREENING MAMMOGRAM BILATERAL W ROBERTO; Future Visit Orders: Orders Placed This Encounter Procedures ??? XR Knee Left 3 Vw Standing Status: Future Number of Occurrences: 1 Standing Expiration Date: 03/15/2020 Order Specific Question: Is the patient ? Answer: No Order Specific Question: Where should this order be performed? Answer: [facility] [[id number]] ??? SCREENING MAMMOGRAM BILATERAL W ROBERTO Standing Status: Future Standing Expiration Date: 05/13/2020 Order Specific Question: Is the patient ? Answer: No Order Specific Question: Where should this order be performed? Answer: [facility] [[id number]] ??? CBC with auto differential Standing Status: Future Number of Occurrences: 1 Standing Expiration Date: 09/12/2020 ??? Comprehensive metabolic panel Standing Status: Future Number of Occurrences: 1 Standing Expiration Date: 09/12/2020 ??? Lipid panel Standing Status: Future Number of Occurrences: 1 Standing Expiration Date: 09/12/2020 Order Specific Question: Has the patient been fasting for 8 hours or more? Answer: Yes ??? TSH reflex to free T4 Standing Status: Future Number of Occurrences: 1 Standing Expiration Date: 09/12/2020 1. The patient indicates understanding of these [...] allergies listed in the above medical record RICKIE Murphy Cosigned by Jose Martin Diamond MD at 04/06/2019 1:15 PM COMMERCIAL MANAGER ERCIAL MANAGER ERCIAL MANAGER documented in this encounter Miscellaneous Notes * Assessment & Plan Note - Dante Avelar PA - 04/06/2019 10:51 AM COMMERCIAL MANAGER Associated Problem(s): Overweight (BMI 25.0-29.9) BMI Follow-up includes: nutrition counseling, exercise counseling and education provided. ERCIAL MANAGER * Assessment & Plan Note - Dante Avelar PA - 04/06/2019 10:51 AM COMMERCIAL MANAGER Associated Problem(s): Situational anxiety Uses,risks,se's discussed ERCIAL MANAGER * Assessment & Plan Note - Dante Avelar PA - 04/06/2019 10:51 AM COMMERCIAL MANAGER Associated Problem(s): Hyperlipidemia Recommend Continue statin therapy. NO myalgias, or concerns with statin therapy at this time. Recommend heart healthy diet and exercise 30 minutes a day Recommend weight loss ERCIAL MANAGER * Assessment & Plan Note - Dante Avelar PA - 04/06/2019 10:51 AM COMMERCIAL MANAGER Associated Problem(s): Dyslipidemia Recommend Continue statin therapy. NO myalgias, or concerns with statin therapy at this time. Recommend heart healthy diet and exercise 30 minutes a day Recommend weight loss ERCIAL MANAGER * Assessment & Plan Note - Dante Avelar PA - 04/06/2019 10:50 AM COMMERCIAL MANAGER Associated Problem(s): HTN (hypertension) DASH diet. CCT. Recommend diet and exercise. Recommend compliance with medications. ERCIAL MANAGER * Assessment & Plan Note - Dante Avelar PA - 04/06/2019 10:50 AM COMMERCIAL MANAGER Associated Problem(s): Well adult exam -Check in 1 year. Recommend Pap smears at least every 3 years starting at age 21, unless otherwise indicated. recommend flu shot yearly. Recommend heart healthy diet and 30 minutes of exercise daily.Recommend mammogram yearly starting at 40 y/o. Colon cancer screening starting at 50. ERCIAL MANAGER documented in this encounter Plan of Treatment Scheduled Orders Name Type Priority Associated Diagnoses Orde r Schedule CBC with auto differential Lab Routine Essential hypertension Mixed hyperlipidemia Situational anxiety Essential tremor Dyslipidemia Expected: 09/13/2019, Expires: 09/12/2020 Comprehensive metabolic panel Lab Routine Essential hypertension Mixed hyperlipidemia Situational anxiety Essential tremor Dyslipidemia Expected: 09/13/2019, Expires: 09/12/2020 Lipid panel Lab Routine Essential hypertension Mixed hyperlipidemia Situational anxiety Essential tremor Dyslipidemia Expected: 09/13/2019, Expires: 09/12/2020 TSH reflex to free T4 Lab Routine Essential hypertension Mixed hyperlipidemia Situational anxiety Essential tremor Dyslipidemia Expected: 09/13/2019, Expires: 09/12/2020 documented as of this encounter Results * XR Knee Left 3 Vw (03/15/2019 3:54 PM COMMERCIAL MANAGER) Anatomical Region Laterality Modality Lower Extremities, Knee Left [facility] 03/16/2019 12:0 0 PM COMMERCIAL MANAGER Narrative 03/16/2019 12:01 PM COMMERCIAL MANAGER Patient Name: JOSEE PLEITEZ Hiro ?Ordering Dr: Dante Avelar PA-C ?? D.O.B: 1960 ? Exam Date: 03/15/ ?? 1554 ?? Age: 59 ?Sex: Female ? MR#: [id number] ?? Loc: ? RADIOLOGY REPORT ?? Order #[id number] ?? Radiology ? Knee LT 3 View (STANDARD) ? Signed ?? EXAM DESCRIPTION: ?Knee LT 3 View (STANDARD) ? REASON FOR STUDY: ??Left knee pain and swelling after an injury 2 weeks ago ? TECHNIQUE: ??3 radiographic views acquired of the left knee. ? COMPARISON: ??None ? FINDINGS: ? BONES/JOINTS: No acute fracture, malalignment or osseous abnormalities.There ?? is mild medial compartment osteoarthritis. ? SOFT TISSUES: Unremarkable. ? OTHER: No other significant finding. ? IMPRESSION: ??No acute osseous abnormality. ? THIS IS AN ELECTRONICALLY VERIFIED FINAL REPORT ?? 03/16/2019 12:01 PM - Electronically signed by Jarrell Vasquez ?? Jarrell Vasquez ? MA ?? D: ??03/16/2019 12:01 PM ?? T: ? Report ID: [id number] ?? Reading Location: ??[id number] ? REPORT ELECTRONICALLY SIGNED IN OTHER VENDOR SYSTEM ?? Resulting Agency Comment O Procedure Note Jarrell Vasquez MD - 03/16/2019 Patient Name: JOSEE PLEITEZ Dr: Dante Avelar PA-C DEstephaniaO.B: 1960 Exam Date: 03/15/19 1559 Age: 59 Sex: Female MR#: [id number] Loc: RADIOLOGY REPORT Order #[id number] Radiology Knee LT 3 View (STANDARD) Signed EXAM DESCRIPTION: Knee LT 3 View (STANDARD) REASON FOR STUDY: Left knee pain and swelling after an injury 2 weeksago TECHNIQUE: 3 radiographic views acquired of the left knee. COMPARISON: None FINDINGS: BONES/JOINTS: No acute fracture, malalignment or osseousabnormalities.There is mild medial compartment osteoarthritis. SOFT TISSUES: Unremarkable. OTHER: No other significant finding. IMPRESSION: No acute osseous abnormality. THIS IS AN ELECTRONICALLY VERIFIED FINAL REPORT 03/16/2019 12:01 PM - Electronically signed by Jarrell NOWAK T: Report ID: [id number] Reading Location: [place] [address] REPORT ELECTRONICALLY SIGNED IN OTHER VENDOR SYSTEM us Dante DAMIAN IMG XR PROCEDURES Final Res ult documented in this encounter Visit Diagnoses Diagnosis Well adult exam- Primary Routine general medical examination at a health care facility Essential hypertension Unspecified essential hypertension Mixed hyperlipidemia Situational anxiety Essential tremor Dyslipidemia Other and unspecified hyperlipidemia Overweight (BMI 25.0-29.9) Overweight Acute pain of left knee Acute pain of left knee documented in this encounter Care Teams School Age Lead Teacher Relationship Specialty Start Date End Date Jose Martin Diamond MD [address] [address] PCP - General 07/11/17 10/14/21 documented as of this encounter
--- OUTSIDE RECORDS SUMMARY | 2024-02-21 15:03 | XMS_ITS | Encounter Summary ---
Author Organization [facility] Address [address] [place] [address] Care Team Providers Care Public Policy Analyst Name Role Phone Jose Martin Diamond MD Primary Care Provi jasmyn Reason for Referral * Diagnostic Imaging (Routine) - Closed Specialty Diagnoses / Procedures Referred By Sandie t Referred To Contact Diagnoses Acute pain of left knee Procedures XR Knee Left 3 Vw Dante Avelar PA [address] [address] Phone: tel: fax: [address] [address] Referral ID Status Reason Start Date Expiration Date Visits Re quested Visits Authorized [id number] Closed 03/15/2019 09/23/2020 1 1 PUNCH OPERATOR Encounter Details Date Type Department Care Team (Late st Contact Info) Description 03/15/2019 3:53 PM GANG PUNCH OPERATOR Hospital Encounter [facility] OP INTERIM Jose Martin Diamond MD [address] [facility] [address] [place] [address] Acute pain of left knee Social History [...] 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 Not on rohit e documented as of this encounter Medications at Time of Discharge losartan-hydrochl orothiazide (HYZAAR) 100-25 mg per tablet TAKE 1 TABLET DAILY 90 tablet 4 10/27/2018 ALPRAZolam (XANAX) 0.5 mg tabletIndications :Situational anxiety TAKE 1 TABLET BY MOUTH THREE TIMES A DAY 90 tablet 03/08/2019 04/08/2019 FLUoxetine (PROzac) 40 mg capsule TAKE 1 CAPSULE DAILY 90 capsule 4 01/25/2019 05/06/2019 propranolol (INDERAL) 20 mg tabletIndications :Hot flashes Take 1 tablet (20 mg total) by mouth 2 (two) times a day 90 tablet 3 11/09/2018 04/01/2019 simvastatin (ZOCOR) 10 mg tablet Take 1 tablet (10 mg total) by mouth nightly 30 tablet 5 02/04/2019 07/21/2019 documented as of this encounter Plan of Treatment Not on file documented as of this encounter Procedures Procedure Name Priority Date/Time Associated Diagnosis Comments XR KNEE LEFT 3 VIEWS Schedule Routine, Read Routine (OP Routine) 03/15/2019 3:54 PM GANG PUNCH OPERATOR Acute pain of left knee documented in this encounter Results * XR Knee Left 3 Vw (03/15/2019 3:54 PM GANG PUNCH OPERATOR) Anatomical Region Laterality Modality Lower Extremities, Knee Left Radiogra phic Imaging 03/16/2019 12:0 0 PM GANG PUNCH OPERATOR Narrative 03/16/2019 12:01 PM GANG PUNCH OPERATOR Patient Name: DANIEL PLEITEZ Hiro ?Ordering Dr: Dante Avelar PA-C ?? D.O.B: 1960 ? Exam Date: 03/15/19 ?? 1554 ?? Age: 59 ?Sex: Female ? MR#: [id number] ?? Loc: ? RADIOLOGY REPORT ?? Order #[id number] ?? Radiology ? Knee LT 3 View [...] by Jarrell Vasquez ?? Jarrell Vasquez ? SC ?? D: ??03/16/2019 12:01 PM ?? T: ? Report ID: [id number] ?? Reading Location: ??[id number] ? REPORT ELECTRONICALLY SIGNED IN OTHER VENDOR SYSTEM ?? Resulting Agency Comment O Procedure Note Jarrell Vasquez MD - 03/16/2019 Patient Name: DANIEL PLEITEZ [address] Dr: Dante Avelar PA-COEstephaniaB: 1960 Exam Date: 03/15/19 1554 Age: 59 Sex: Female MR#: [id number] Loc: RADIOLOGY REPORT Order #[id number] Radiology Knee LT 3 View (STANDARD) Signed [...] signed by Jarrell NOWAK T: Report ID: [id number] Reading Location: [place] [address] REPORT ELECTRONICALLY SIGNED IN OTHER VENDOR SYSTEM us Dante DAMIAN IMG XR PROCEDURES Final Res ult documented in this encounter Visit Diagnoses Diagnosis Acute pain of left knee documented in this encounter Care Teams Public Policy Analyst Relationship Specialty Start Date End Date Jose Martin Diamond MD [address] [place] [address] PCP - General 07/11/17 10/14/21 documented as of this encounter
--- OUTSIDE RECORDS SUMMARY | 2024-02-21 15:03 | XMS_ITS | Encounter Summary ---
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 I will send a [employer] message. documented in this encounter Plan of Treatment Not on file documented as of this encounter Visit Diagnoses Not on filedocumented in this encounter Care Teams Runner Out Relationship Specialty Start Date End Date Jose Martin Diamond MD [address] [address] PCP - General 07/11/17 10/14/21 documented as of this encounter
--- OUTSIDE RECORDS SUMMARY | 2024-02-21 15:03 | XMS_ITS | Encounter Summary ---
Author Organization 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
--- OUTSIDE RECORDS SUMMARY | 2024-02-21 15:03 | XMS_ITS | Encounter Summary ---
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
--- OUTSIDE RECORDS SUMMARY | 2024-02-21 15:03 | XMS_ITS | Encounter Summary ---
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
--- OUTSIDE RECORDS SUMMARY | 2024-02-21 15:03 | XMS_ITS | Encounter Summary ---
Author Organization [facility] Healthcare Address [address] [place] [address] Care Team Providers Care Hand Shoe Cutter Name Role Phone Jose Martin Diamond MD Primary Care Provi [facility] Reason for Referral * Diagnostic Imaging (Routine) - Closed Specialty Diagnoses / Procedures Referred By Sandie t Referred To Contact Radiology Diagnoses Lumbosacral radiculopathy Procedures IR Transforaminal Epidural Injection Lumbar Sacral 1 Level Left Amy Degroot NP [address] [facility] [address] [place] [address] Phone: tel: fax: [address] [phone] Referral ID Status Reason Start Date Expiration Date Visits Re quested Visits Authorized [id number] Closed 09/20/2019 11/19/2019 1 1 Reason for Visit * Diagnostic Imaging (Routine) - Closed Specialty Diagnoses / Procedures Referred By Contac t Referred To Contact Radiology Diagnoses Lumbosacral radiculopathy Procedures IR Transforaminal Epidural Injection Lumbar Sacral 1 Level Left Amy Degroot NP [address] [facility] [address] [place] [address] Phone: tel: fax: [address] [phone] Referral ID Status Reason Start Date Expiration Date Visits Re quested Visits Authorized [id number] Closed 09/20/2019 11/19/2019 1 1 Encounter Details Date Type Department Care Team (Latest Contact Info) Description 09/21/2019 3:20 PM CDT - 09/21/2019 11:59 PM CDT Hospital Encounter [facility] Radiology at [facility] [address] [place] [address] Alex Mcintyre MD [address] [facility] [address] [place] [address] Lumbosacral radiculopathy (Primary Dx) Discharge Disposition: Discharge to home or self [...] 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 file Not on rohit e documented as of this encounter Last Filed Vital Signs Vital Sign Reading Time Taken Comments Blood Pressure 120/85 09/21/2019 4:00 PM CDT Pulse 88 09/21/2019 4:00 PM CDT Temperature - - Respiratory Rate 16 09/21/2019 4:00 PM CDT Oxygen Saturation 98% 09/21/2019 4:00 PM CDT Inhaled Oxygen Concentration - - Weight - - Height - - Body Mass Index - - documented in this encounter Medications at Time of Discharge losartan-hydroc hlorothiazide (HYZAAR) 100-25 mg per tablet TAKE 1 TABLET DAILY 90 tablet 4 10/27/2018 simvastatin (ZOCOR) 10 mg tablet TAKE 1 TABLET NIGHTLY 30 tablet 11 07/21/2019 propranoloL (INDERAL) 20 mg tabletIndicatio ns:Hot flashes TAKE 1 TABLET TWICE A DAY 180 tablet 3 07/05/2019 cyclobenzaprine (FLEXERIL) 10 mg tablet cyclobenzaprine 10 mg HS PRN (#30, no refills). 30 tablet 09/20/2019 10/17/19 20 FLUoxetine (PROzac) 20 mg capsule 06/15/2019 06/27/19 23 gabapentin (NEURONTIN) 300 mg capsule TAKE 1 CAPSULE AT BEDTIME, IF TOLERATED MAY INCREASE TO 2 AT BEDTIME AFTER 5 DAYS 180 capsule 1 05/21/2019 11/24/19 20 documented as of this encounter Discharge Disposition Disposition Code Departure Means Destination Discharge to home or self care documented in this encounter Progress Notes * Alex Mcintyre MD - 09/21/2019 3:20 PM CDT Left S1 Transforaminal Epidural Steroid Injection [facility] Department of Orthopedic Surgery Division of Physical Medicine and Rehabilitation Patient name: Josee Blakely Date of : 1960 Date of service: 09/21/2019 Josee Blakely presents to the fluoroscopy suite for a fluoroscopically guided left S1 transforaminal epidural steroid injection for conservative treatment of lumbar radicular pain. After informed consent was obtained, the patient lay in the prone position on the fluoroscopy table. The area was prepped and draped in sterile fashion. Using a 25 gauge 2 inch needle, 1-2 mL of 1% lidocaine was infused subcutaneously to anesthetize the region. Then, a 22 gauge 3.5 inch spinal needle was advanced to the superolateral S1 transforaminal space and advanced into the epidural space under fluoroscopic guidance. Confirmation into the epidural space was obtained with infusion of 1 mL of Omnipaque co ntrast, which showed epidural flow as well as nerve sheath flow. Then a combination of 2 mL of 1% lidocaine and 10 mg of 10 mg/mL dexamethasone was infused. The patient tolerated the procedure without complications. Pre and post procedure blood pressure were stable. The patient was given verbal as well as written follow-up instructions. A pain diary was given to the patient with follow-up instructions. Prior to the start of the procedure, verbal verification by the procedure participant(s) confirmed (as applicable): correct patient identity; correct site/side marked and visible; agreement on the procedure to be done; correct patient positioning; an accurate procedure consent form, relevant imagesand results correctly labeled and displayed; any safety precautions based on clinical history and/or medication use have been addressed. Fluoroscopic guidance used to assist left S1 transforaminal epidural steroid injection. Confirmation of needle placement into the epidural space via the left S1 neural foramen was obtained by injecting approximately 1 mL of Omnipaque contrast. There was no evidence of vascular uptake or subdural flow noted. I personally performed the procedure above, with the assistance of Dr. Ross, resident. Alex Mcintyre MD documented in this encounter Miscellaneous Notes * Perioperative Nursing Note - Yvonne Griffith RN - 09/21/2019 3:20 PM CDT bandaid applied to lumbar back. CDI documented in this encounter Plan of Treatment Not on file documented as of this encounter Procedures Procedure Name Priority Date/Time Associated Diagnosis Comments TRANSFORAMINAL EPIDURAL INJECTION LUMBAR SACRAL 1 LEVEL LEFT Schedule Routine, Read Routine (OP Routine) 09/21/2019 3:54 PM CDT Lumbosacral radiculopathy documented in this encounter Results * IR Transforaminal Epidural [...] or radiculitis, unspecified documented in this encounter Administered Medications Inactive Administered Medications - up to 3 most recent administrations Medication Order MAR Action Action Date Dose Rate Site dexAMETHasone (DECADRON) preservative free solution Administer over 2 Minutes, Code/trauma/sedation medication, Starting on Fri09/21/19 at 1534 Given 09/21/2019 3:34 PM CDT 10 mg iohexoL (OMNIPAQUE) 300 mg iodine/mL injection solution Code/trauma/sedation medication, Starting on Fri09/21/19 at 1534 Given 09/21/2019 3:34 PM CDT 2 mL lidocaine PF (XYLOCAINE) 10 mg/mL (1 %) preservative free injection Code/trauma/sedation medication, Starting on Fri09/21/19 at 1534, Intra-Procedure (IR), Indications: Administration of Local AnesthesiaIndications:Administratio n of Local Anesthesia Given 09/21/2019 3:34 PM CDT 4 mL documented in this encounter Discontinued Medications Medication Sig Discontinue Reason Start Date End Da te predniSONE (DELTASONE) 10 mg tabletIndications:Lumbosa cral radiculopathy Take 6 tablets decrease by 1 tablet daily Therapy completed 08/24/2019 09/21/2019 documented as of this encounter Care Teams Hand Shoe Cutter Relationship Specialty Start Date End Date Jose Martin Diamond MD [address] [address] PCP - General 07/11/17 10/14/21 documented as of this encounter
--- OUTSIDE RECORDS SUMMARY | 2024-02-21 15:03 | XMS_ITS | Encounter Summary ---
Author Organization [facility] Address [address] [place] [address] Care Team Providers Care Warehouse Checker Name Role Phone Jose Martin Diamond MD Primary Care Provi [facility] Reason for Visit * Reason Onset Date Comments Anxiety 06/22/2019 Encounter Details Date Type Department Care Team (Late st Contact Info) Description 06/22/2019 Telephone [facility] Family Medicine [address] [place] [address] Prieto Ortega LPN Anxiety Social History Tobacco Use Types Packs/Day Years [...] 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 Called and said she is having problems with her anxiety again. She is even having sweats. Per Dante, needs an appt. documented in this encounter Plan of Treatment Not on file documented as of this encounter Visit Diagnoses Not on filedocumented in this encounter Care Teams Warehouse Checker Relationship Specialty Start Date End Date Jose Martin Diamond MD [address] [address] PCP - General 07/11/17 10/14/21 documented as of this encounter
--- OUTSIDE RECORDS SUMMARY | 2024-02-21 15:03 | XMS_ITS | Encounter Summary ---
Author Organization [facility] Address [address] [place] [address] Care Team Providers Care Health Program Analyst Name Role Phone Jose Martin Diamond MD Primary Care Provi [facility] Reason for Visit * Reason Onset Date Comments Xanax withdrawel 05/06/2019 Encounter Details Date Type Department Care Team (Late st Contact Info) Description 05/06/2019 Telephone [facility] Family Medicine [address] [place] [address] Prieto Ortega LPN Xanax withdrawel Social History Tobacco Use Types Packs/Day Years [...] 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 * Telephone Encounter - Lynda Milian - 05/06/2019 4:14 PM CDT Patient would like to try it. Please send out * Telephone Encounter - Prieto Ortega LPN - 05/06/2019 3:38 PM CDT LMTCB * Telephone Encounter - Dante Avelar PA - 05/06/2019 2:05 PM CDT Switch from prozac to lexapro 10mg 1 po q daily to see if it controls her anxiety better. If she iswilling, and we can do Atarax 25mg 1 po TID for anxiety as well * Telephone Encounter - Prieto Ortega LPN - 05/06/2019 10:22 AM CDT Pt. Says she's trying to be tough. Is not asking for Xanax but wants to know if there's any medication that can get her through it. documented in this encounter Plan of Treatment Not on file documented as of this encounter Visit Diagnoses Not on filedocumented in this encounter Discontinued Medications Medication Sig Discontinue Reason Start Date End Da te FLUoxetine (PROzac) 40 mg capsule TAKE 1 CAPSULE DAILY Alternate therapy 01/25/2019 0 documented as of this encounter Care Teams Health Program Analyst Relationship Specialty Start Date End Date Jose Martin Diamond MD [address] [address] PCP - General 07/11/17 10/14/21 documented as of this encounter
--- OUTSIDE RECORDS SUMMARY | 2024-02-21 15:03 | XMS_ITS | Encounter Summary ---
Author Organization [facility] Healthcare Address [address] [place] [address] Care Team Providers Care Board Of Education Secretary Name Role Phone Jose Martin Diamond MD Primary Care Provi [facility] Reason for Referral * Diagnostic Imaging (Routine) - Closed Specialty Diagnoses / Procedures Referred By Sandie t Referred To Contact Radiology Diagnoses Lumbosacral radiculopathy Procedures IR Transforaminal Epidural Injection Lumbar Sacral 1 Level Left Amy Degroot NP [address] [facility] [address] [place] [address] Phone: tel: fax: [address] [phone] Referral ID Status Reason Start Date Expiration Date Visits Re quested Visits Authorized [id number] Closed 10/22/2019 11/24/2019 1 1 Reason for Visit * Diagnostic Imaging (Routine) - Closed Specialty Diagnoses / Procedures Referred By Contac t Referred To Contact Radiology Diagnoses Lumbosacral radiculopathy Procedures IR Transforaminal Epidural Injection Lumbar Sacral 1 Level Left Amy Degroot NP [address] [facility] [address] [place] [address] Phone: tel: fax: [address] [phone] Referral ID Status Reason Start Date Expiration Date Visits Re quested Visits Authorized [id number] Closed 10/22/2019 11/24/2019 1 1 Encounter Details Date Type Department Care Team (Latest Contact Info) Description 10/28/2019 12:43 PM CDT - 10/28/2019 11:59 PM CDT Hospital Encounter [facility] [address] [place] [address] Blair Yi MD [address] [facility] [address] [place] [address] Lumbosacral radiculopathy (Primary Dx) Discharge Disposition: Discharge [...] 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 Disposable ice pack provided documented in this encounter Medications at Time [...] HS PRN (#30, no refills). 30 tablet 10/18/2019 04/17/19 21 FLUoxetine (PROzac) 20 mg capsule 06/15/2019 06/27/19 23 gabapentin (NEURONTIN) 300 mg capsule TAKE 1 CAPSULE AT BEDTIME, IF TOLERATED MAY INCREASE TO 2 AT BEDTIME AFTER 5 DAYS 180 capsule 1 05/21/2019 11/24/19 20 documented as of this encounter Discharge Disposition Disposition Code Departure Means Destination Discharge to home or self care documented in this encounter Progress Notes * Blair Yi MD - 10/28/2019 1:20 PM CDT Left L5-S1 Transforaminal Epidural Steroid Injection [facility] Department of Orthopedic Surgery Division of Physical Medicine and Rehabilitation This procedure was scheduled for Left L4 TFESI though patient currently has pain in the distribution of the left L5 nerve root and has previously had great relief from L5 TFESIs Patient name: Josee Blakely Date of : 1960 Date of service: 10/28/2019 Josee Blakely presents to the fluoroscopy suite for a fluoroscopically guided left L5-S1 transforaminal epidural steroid injection for conservative treatment of lumbar radicular pain. After informed consent was obtained, the patient lay in the prone position on the fluoroscopy table. The areawas prepped and draped in sterile fashion. Using a 25 gauge 2 inch needle, 1-2 mL of 1% lidocaine was infused subcutaneously to anesthetize the region. Then, a 22 gauge 3.5 inch spinal needle was advanced to the posterior superior transforaminal space and advanced into the epidural space under fluoroscopic guidance. After negative aspiration confirmation into the epidural space was obtained with i nfusion of 0.5 mL of Omnipaque contrast, which showed epidural flow as well as nerve sheath flow. There was no evidence of vascular flow on DSA. Then a combination of 1 mL of 1% lidocaine and 10 mg of 10 mg/mL dexamethasone was infused. The patient tolerated the procedure without complications. Preand post procedure blood pressure were stable. The [...] addressed. Fluoroscopic guidance used to assist left L5-S1 transforaminal epidural steroid injection. Confirmation of needle placement into the epidural space via the left L5-S1 neural foramen was obtained by injecting approximately 0.5 mL of Omnipaque contrast. There was no evidence of vascular uptake or subdural flow noted. I personally performed or was present for the procedure above. Blair Yi MD documented in this encounter Plan of Treatment Not on file documented as of this encounter Procedures Procedure Name Priority Date/Time Associated Diagnosis Comments TRANSFORAMINAL EPIDURAL INJECTION LUMBAR SACRAL 1 LEVEL LEFT Schedule Routine, Read Routine (OP Routine) 10/28/2019 2:04 PM CDT Lumbosacral radiculopathy documented in this encounter Results * IR Transforaminal Epidural Injection Lumbar Sacral 1 Level Left (10/28/2019 2:04 PM CDT) Narrative RAD_P[facility] - 10/28/2019 2:04 PM CDT The images from this study are not interpreted by Radiology. ??Please refer to the physician's procedure / OR operative note. Amy Degroot PROMOTION OFFICER IMG IR PROCEDURES Final Resul t [facility] documented in this encounter Visit Diagnoses Diagnosis Lumbosacral radiculopathy- Primary Thoracic or lumbosacral neuritis or radiculitis, unspecified documented in this encounter Administered Medications Inactive Administered Medications - up to 3 most recent administrations Medication Order MAR Action Action Date Dose Rate Site dexAMETHasone (DECADRON) preservative free solution Administer over 2 Minutes, Code/trauma/sedation medication, Starting on Shira 10/28/19 at 1340 Given 10/28/2019 1:40 PM CDT 10 mg iohexoL (OMNIPAQUE) 300 mg iodine/mL injection solution Code/trauma/sedation medication, Starting on Shira 10/28/19 at 1341 Given 10/28/2019 1:41 PM CDT 0.5 mL lidocaine PF (XYLOCAINE) 10 mg/mL (1 %) preservative free injection Code/trauma/sedation medication, Starting on Shira 10/28/19 at 1340, Intra-Procedure (IR), Indications: Administration of Local AnesthesiaIndications:Administrati on of Local Anesthesia Given 10/28/2019 1:40 PM CDT 1 mL documented in this encounter Care Teams Board Of Education Secretary Relationship Specialty Start Date End Date Jose Martin Diamond MD [address] [address] PCP - General 07/11/17 10/14/21 documented as of this encounter
--- OUTSIDE RECORDS SUMMARY | 2024-02-21 15:03 | XMS_ITS | Encounter Summary ---
Author Organization [facility] Address [address] [place] [address] Care Team Providers Care Pump Tender Name Role Phone Jose Martin Diamond MD Primary Care Provi 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 Not on rohit e documented as of this encounter Plan of Treatment Not on file documented as of this encounter Procedures Procedure Name Priority Date/Time Associated Diagnosis Comments SCAN - RADIOLOGY/IMAGING 10/09/2020 11:25 AM CDT SCAN - RADIOLOGY/IMAGING 10/09/2020 10:40 AM CDT SCAN - LABS 10/09/2020 10:33 AM CDT documented in this encounter Results * SCAN - RADIOLOGY/IMAGING (10/09/2020 11:25 AM CDT) Anatomical Region Laterality Modality Other Dalton Ann MD Final Result * SCAN - RADIOLOGY/IMAGING (10/09/2020 10:40 AM CDT) Anatomical Region Laterality Modality Other us Provider Scanning Final Result * SCAN - LABS (10/09/2020 10:33 AM CDT) Dalton Ann MD Edited Result - Final documented in this encounter Visit Diagnoses Not on filedocumented in this encounter Care Teams Pump Tender Relationship Specialty Start Date End Date Jose Martin Diamond MD [address] [address] PCP - General 07/11/17 10/14/21 documented as of this encounter
--- OUTSIDE RECORDS SUMMARY | 2024-02-21 15:04 | XMS_ITS | Encounter Summary ---
Author Organization [facility] Address [address] [place] [address] Phone Care Team Providers Care Fish And Wildlife Technician Name Role Phone Jose Martin Diamond MD Primary Care Provi [facility] Reason for Referral * Diagnostic Imaging (Routine) - Closed Specialty Diagnoses / Procedures Referred By Contac t Referred To Contact Radiology Diagnoses Lumbar radiculopathy Procedures IR Transforaminal Epidural Injection Lumbar Sacral 1 Level Left Amy Degroot NP Phone: tel: fax: [facility] Referral ID Status Reason Start Date Expiration Date Visits Re quested Visits Authorized [id number] Closed 05/14/2018 11/23/2019 2 2 Encounter Details Date Type Department Care Team (Late st Contact Info) Description 05/14/2018 Orders Only [facility] Orthopa[facility] [address] [facility] [address] [place] [address] Lily Moura RMA Lumbar radiculopathy (Primary Dx) Social History Tobacco Use Types Packs/Day Years Used Date Smoking Tobacco: Never Smokeless Tobacco: Never Alcohol Use Standard Drinks/Week Comments Yes 0 (1 standard drink = 0.6 oz pur e alcohol) Comments Unknown Sex and Gender Information Value Date Recorded Sex Assigned at Not on file Legal Sex Female 12:21 PM CDT Gender Identity Not on file Sexual Orientation Straight 05/17/2022 5: 28 PM CDT 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 ??Please refer to the physician's procedure / OR operative note. Amy Degroot SPECIAL CLASS WELDER IMG IR PROCEDURES Final Resul t [facility] documented in this encounter Visit Diagnoses Diagnosis Lumbar radiculopathy- Primary Thoracic or lumbosacral neuritis or radiculitis, unspecified Lumbar radiculopathy Thoracic or lumbosacral neuritis or radiculitis, unspecified documented in this encounter Care Teams Fish And Wildlife Technician Relationship Specialty Start Date End Date Jose Martin Diamond MD [address] [address] PCP - General 07/11/17 10/14/21 documented as of this encounter
--- OUTSIDE RECORDS SUMMARY | 2024-02-21 15:04 | XMS_ITS | Encounter Summary ---
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 Name Role Phone Jose Martin Diamond MD Primary Care Provi jasmyn Reason for Visit * Reason Comments Review Medications Alprazolam Anxiety Encounter Details Date Type Department Care Team (Late st Contact Info) Description 08/26/2018 10:30 AM CDT Office Visit [facility] Family Medicine [address] [place] [address] Milana Prakash NP [address] [place] [address] Situational anxiety (Primary Dx); Mixed hyperlipidemia; Essential hypertension Social History Tobacco Use Types Packs/Day Years [...] 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 Not on file Not on rohit e documented as of this encounter Last Filed Vital Signs Vital Sign Reading Time Taken Comments Blood Pressure 126/82 08/26/2018 11:05 AM CDT Pulse 74 08/26/2018 11:05 AM CDT Temperature 36.8 ??C (98.3 ??F) 08/26/2018 11:05 AM C DT Respiratory Rate 18 08/26/2018 11:05 AM CDT Oxygen Saturation 98% 08/26/2018 11:05 AM CDT Inhaled Oxygen Concentration - - Weight 68.5 kg (151 lb) 08/26/2018 11:05 AM CDT Height 162.6 cm (5' 4 ) 08/26/2018 11:05 AM CDT Body Mass Index 25.92 08/26/2018 11:05 AM CDT documented in this encounter Progress Notes * Milana Prakash, FUDGER - 08/26/2018 10:30 AM CDT Images from the original note were not included. Patient ID: Josee Blakely is a 58 y.o. female. Chief Complaint Chief Complaint Patient presents with ??? Review Medications Alprazolam ??? Anxiety Pt here for follow up on medication. Takes xanax TID PRN, usually takes BID. No side effects. No complaints today. Current Outpatient Medications Medication Sig Dispense Refill ??? ALPRAZolam (XANAX) 0.5 mg tablet Take 1 tablet (0.5 mg total) by mouth 3 (three) times a day 90tablet 0 ??? FLUoxetine (PROzac) 40 mg capsule Take 40 mg by mouth daily ??? LIVALO 4 mg tablet 1 tablet daily ??? losartan-hydrochlorothiazide (HYZAAR) 100-25 mg per tablet 1 tablet daily ??? gabapentin (NEURONTIN) 300 mg capsule TAKE ONE CAPSULE BY MOUTH AT BEDTIME. IF TOLERATED AFTER 5 DAYS MAY INCREASE TO 2 CAPSULES AT BEDTIME. STOP MUSCLE RELAXER (Patient not taking: Reported on 08/26/2018) 60 capsule 0 No current facility-administered medications for this visit. Past Medical History: Diagnosis Date ??? Depression ??? Hypercholesteremia ??? Hypertension Review of Systems Constitutional: Negative for fatigue and fever. Respiratory: Negative for cough, shortness of breath and wheezing. Cardiovascular: Negative for chest pain and palpitations. Gastrointestinal: Negative for abdominal pain, constipation, diarrhea, nausea and vomiting. Musculoskeletal: Negative for joint swelling and myalgias. Skin: Negative for color change and rash. Neurological: Negative for syncope and headaches. Psychiatric/Behavioral: Negative for dysphoric mood. The patient is not nervous/anxious. BP 126/82 (BP Location: Right arm, Patient Position: Sitting) Pulse 74 Temp 36.8 ??C (98.3 ??F)(Oral) Resp 18 Ht 162.6 cm (5' 4 ) Wt 68.5 kg (151 lb) SpO2 98% BMI 25.92 kg/m?? Physical Exam Constitutional: She is oriented to person, place, and time. She appears well- developed and well-nourished. HENT: Head: Normocephalic and atraumatic. Eyes: Conjunctivae and EOM are normal. Neck: Normal range of motion. Neck supple. Cardiovascular: Normal rate, regular rhythm and normal heart sounds. Pulmonary/Chest: Effort normal and breath sounds normal. No respiratory distress. Abdominal: Soft. Bowel sounds are normal. She exhibits no distension. There is no tenderness. Neurological: She is alert and oriented to person, place, and time. Skin: Skin is warm and dry. Psychiatric: She has a normal mood and affect. Diagnoses and all orders for this visit: Situational anxiety (Primary) Comments: Stable on xanax Mixed hyperlipidemia Comments: Continue current meds, recheck lipids in 6 months. Orders: - Lipid panel; Future Essential hypertension Comments: Stable, continue current meds. Orders: - Comprehensive metabolic panel; Future - Microalbumin, urine, random; Future Orders Placed This Encounter Procedures ??? Comprehensive metabolic panel Standing Status: Future Number of Occurrences: 1 Standing Expiration Date: 02/27/2020 ??? Lipid panel Standing Status: Future Number of Occurrences: 1 Standing Expiration Date: 02/27/2020 ??? Microalbumin, urine, random Standing Status: Future Number of Occurrences: 1 Standing Expiration Date: 02/27/2020 1. The patient indicates understanding of these [...] allergies listed in the above medical record Milana Prakash NP documented in this encounter Plan of Treatment Not on file documented as of this encounter Procedures Procedure Name Priority Date/Time Associated Diagnosis Comments ALBUMIN, RANDOM URINE WITHOUT CREATININE Routine 03/09/2019 12:46 PM [employer] Essential hypertension LIPID PANEL Routine 03/09/2019 12:46 PM [employer] Mixed hyperlipidemia COMPREHENSIVE METABOLIC PANEL Routine 03/09/2019 12:46 PM [employer] Essential hypertension documented in this encounter Results * Microalbumin, urine, random (03/09/2019 12:46 PM [employer]) Microalbumin, ur 0.5 See Note: mg/dL [facility] [place] Comment: Reference Range: Reference Range Not established [facility] [place] Comment: The ADA defines abnormalities in albumin excretion as follows: Category ? Result (mcg/mg creatinine) Normal ?<30 Microalbuminuria ? 30-299 Clinical albuminuria ?? > OR = 300 The ADA recommends that at least two of three specimens collected within a 3-6 month period be abnormal before considering a patient to be within a diagnostic category. Urine 03/09/2019 12:4 6 PM [employer] 03/09/2019 12:46 PM [employer] Narrative [facility] - 03/10/2019 11:22 AM [employer] FASTING:YES FASTING: YES Resulting Agency Comment Performing Organization Information: ?Site ID: [place] ?Name: [facility] ?Address: [address] [id number] ?Director: Ahsan Enriquez D.O., MPH us Milana Prakash NP LAB URINE ORDERABLES Fi nal Result [facility] [place] * (ABNORMAL) Lipid panel (03/09/2019 12:46 PM [employer]) Cholesterol 220(H) <200 mg/dL [facility] [place] HDL 52 >50 mg/dL [facility] Triglycerides 129 <150 mg/dL [facility] LDL 143(H) mg/dL (calc) [facility] Comment: Reference range: <100 Desirable range <100 mg/dL for primary prevention; ?? <70 mg/dL for patients with CHD or diabetic patients with > or = 2 CHD risk factors. LDL-C is now calculated using the Porter calculation, which is a validated novel method providing better accuracy than the Friedewald equation in the estimation of LDL-C. Negrito SS et al. RAVEN. 2013;310(19): 9915-8438 (http://education.[employer]/faq/HJW233) Chol/HDL ratio 4.2 <5.0 (calc) [facility] [place] Non-HDL, (LDL+VLDL) 168(H) <130 mg/dL (calc) [facility] Comment: For patients with diabetes plus 1 major ASCVD risk factor, treating to a non-HDL-C goal of <100 mg/dL (LDL-C of <70 mg/dL) is considered a therapeutic option. Blood specimen (specimen) 03/09/2019 12:46 PM [employer] 03/09/2019 12:46 PM [employer] Narrative [facility] - 03/10/2019 11:22 AM [employer] FASTING:YES FASTING: YES Resulting Agency Comment Performing Organization Information: ?Site ID: [place] ?Name: [employer] ?Address: [address] [place] [address] [place] [id number] ?Director: Ahsan Enriquez D.O., MPH us Milana Prakash FUDGER LAB BLOOD ORDERABLES Fi nal Result [facility] [place], [place] * (ABNORMAL) Comprehensive metabolic panel (03/09/2019 12:46 PM [employer]) Glucose 82 65 - 99 mg/dL [facility] Comment: ? Fasting reference interval BUN 20 7 - 25 mg/dL [facility] [place] Creatinine 1.12(H) 0.50 - 1.05 mg/dL [facility] [place] Comment: For patients >49 years of age, the reference limit for Creatinine is approximately 13% higher for people identified as -Macedonian. eGFR NON-AFR. GUINEAN 54(L) > OR = 60 mL/min/1. 73m2 [facility] [place] EGFR 63 > OR = 60 mL/min/1. 73m2 [facility] [place] BUN/creat ratio 18 6 - 22 (calc) [facility] [place] Sodium 140 135 - 146 mmol/L [facility] [place] Potassium, pl 4.4 3.5 - 5.3 mmol/L [facility] [place] Chloride 104 98 - 110 mmol/L [facility] [place] CO2 28 20 - 32 mmol/L [facility] [place] Calcium 9.7 8.6 - 10.4 mg/dL [facility] [place] Protein, sr 6.9 6.1 - 8.1 g/dL [facility] [place] Albumin 4.3 3.6 - 5.1 g/dL [facility] [place] GLOBULIN 2.6 1.9 - 3.7 g/dL (calc) [facility] [place] Alb/glob ratio 1.7 1.0 - 2.5 (calc) [facility] [place] Bilirubin, total 0.4 0.2 - 1.2 mg/dL [facility] [place] Alk phos 81 33 - 130 U/L [facility] [place] AST 20 10 - 35 U/L [facility] [place] ALT (SGPT) 20 6 - 29 U/L [facility] [place] Blood specimen (specimen) 03/09/2019 12:46 PM [employer] 03/09/2019 12:46 PM [employer] Narrative [facility] - 03/10/2019 11:22 AM [employer] FASTING:YES FASTING: YES Resulting Agency Comment Performing Organization Information: ?Site ID: [place] ?Name: [employer] ?Address: [address] [id number] ?Director: Ahsan Enriquez D.O., MPH Milana Prakash NP LAB BLOOD ORDERABLES Fi nal Result [facility] [place] documented in this encounter Visit Diagnoses Diagnosis Situational anxiety- Primary Mixed hyperlipidemia Essential hypertension Unspecified essential hypertension documented in this encounter Discontinued Medications Medication Sig Discontinue Reason Start Date End Da te valsartan (DIOVAN) 80 mg tablet daily Other 06/29/2017 08/26/2018 documented as of this encounter Historical Medications * This list may reflect changes made after this encounter. 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
--- OUTSIDE RECORDS SUMMARY | 2024-02-21 15:04 | XMS_ITS | Encounter Summary ---
Author Organization [facility] Address [address] [place] [address] Care Team Providers Care Sap Bi Architect Name Role Phone Jose Martin Diamond MD Primary Care [facility] Reason for Referral * Consultation (Routine) - Closed Specialty Diagnoses / Procedures Referred By Sandie srevin Referred To Contact Neurology Diagnoses Tremors of nervous system Milana Prakash NP Phone: tel: fax: [facility] [address] [place] [address] Phone: tel: fax: Referral ID Status Reason Start Date Expiration Date V isits Requested Visits Authorized [id number] Closed Specialty Services Required 10/14/2018 04/24/2020 1 1 Question Answer Please select the performing region: [facility] [[id number]] Please select the performing department: [facility] 105 [[id number]] # of visits: 1 Reason for Visit * Reason Comments Weight Gain with some hot flashe s Tremors Encounter Details Date Type Department Care Team (Late st Contact Info) Description 10/14/2018 3:45 PM CDT Office Visit [facility] Family Medicine [address] [place] [address] Milana Prakash NP [address] [id number] Fatigue, unspecified type (Primary Dx); Hot flashes; Tremors of nervous system Social History Tobacco Use Types Packs/Day Years [...] 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 Not on rohit e documented as of this encounter Last Filed Vital Signs Vital Sign Reading Time Taken Comments Blood Pressure 150/90 10/14/2018 3:53 PM CDT Pulse 92 10/14/2018 3:53 PM CDT Temperature 36.8 ??C (98.2 ??F) 10/14/2018 3:53 PM CD T Respiratory Rate 18 10/14/2018 3:53 PM CDT Oxygen Saturation - - Inhaled Oxygen Concentration - - Weight 69.9 kg (154 lb) 10/14/2018 3:53 PM CDT Height 162.6 cm (5' 4 ) 10/14/2018 3:53 PM CDT Body Mass Index 26.43 10/14/2018 3:53 PM CDT documented in this encounter Patient Instructions * Patient Instructions* Milana Prakash NP - 10/14/2018 3:45 PM CDT Patient Education Essential Tremor FLOODPLAIN MANAGER: An essential tremor is uncontrolled muscle shaking that has no known cause. Your healthcare provider can diagnose essential tremor based on your signs and symptoms. Other tests may be used to make sure another condition is not causing the tremors. Essential tremors can happen at any age but are most common after 40 years of age. Common signs and symptoms of essential tremor: Signs and symptoms may be mild or severe. You may have tremors when you try to hold still or when you move. Any of the following may get worse slowly, over time: ?? Hands or arms shake, especially when you hold or reach for objects ?? Voice quivers when you speak ?? Legs shake when you stand still ?? Trouble controlling your hands or arms, holding objects, or writing ?? Trouble doing daily activities such as brushing your teeth or shaving ?? Head nodding or shaking you cannot control ?? Shaking brought on or made worse by stress, fatigue, or chemicals such as caffeine ?? A feeling of shaking or trembling inside, even if your body does not shake Contact your healthcare provider if: ?? You have new or worsening symptoms. ?? You have questions or concerns about your condition or care. Treatment may not be needed. If your tremors are severe or keep you from doing daily activities, the following may help: ?? Medicines may be given to control tremors so you can do your normal activities more easily. Medicines will not completely control or stop the tremors, but they may help. ?? Deep brain stimulation is a procedure used if other treatments do not control your tremors. Electric stimulation is given to parts of the brain that control movement. The stimulation stops those parts of the brain from working. ?? Surgery may be used if your tremors are severe and medicines have not helped. Surgery may be used to destroy part of your thalamus. The thalamus is a part of the brain that control movement and coordination. Manage your symptoms: ?? Go to occupational therapy as directed. An occupational therapist can help you find new ways to do your daily activities. For example, you may learn to use wrist weights during activities such as brushing your teeth. The weights can help steady your arms and hands. ?? Use assistive devices as directed. Weighted utensils can help you control your movements as you eat. Adaptive equipment, such as a trackball mouse, for the computer can help make computers easier to use. It may also help to install voice recognition software on your computer. The software allowsyou to talk instead of using the keyboard to type. Electric appliances such as can openers and toothbrushes can make daily living activities easier. Ask your healthcare provider or occupational therapist for more information on assistive devices. ?? Wear clothing that is easy to put on and take off. Examples include shoes that do not need lacesand shirts without buttons. You can also get a device to help you get buttons through the button holes. ?? Do not have caffeine. Caffeine can make tremors worse. ?? Do not smoke. Nicotine and other chemicals in cigarettes and cigars can make tremors worse. Ask your healthcare provider for information if you currently smoke and need help to quit. E-cigarettes or smokeless tobacco still contain nicotine. Talk to your healthcare provider before you use these products. ?? Manage stress. Stress can trigger tremors or make them worse. Find ways to manage stress, such as deep breathing, listening to music, or getting a massage. Talk to your healthcare provider if you need help to control anxiety. ?? Ask about medicines. Some medicines can make tremors worse. An example is cold medicines. Talk to your healthcare provider about all the medicines you take. ?? Keep a record of your tremors. Include when the tremors happened, and how long they lasted. Listanything you think might have triggered the tremors or made them stop. It might be helpful to include any foods or drinks you had that contained caffeine or were unusual for you. Bring the record with you to your follow-up appointments. Follow up with your healthcare provider as directed: You may be referred to a neurologist (peer support specialist). Write down your questions so you remember to ask them during your visits. ?? 2017 [employer] Information is for End User's use only and may not be sold, redistributed or otherwise used for commercial purposes. All illustrations and images included in CareNotes?? are the copyrighted property of [employer], [employer] ???. or [employer]. The above information is an nurse first aid only. It is not intended as medical advice for individual conditions or treatments. Talk to your doctor, nurse or pharmacist before following any medical regimen to see if it is safe and effective for you. Patient Education Tremors FLOODPLAIN MANAGER: A tremor is a movement you cannot control that occurs in a rhythm. Tremors most commonly occur in the hands. Other common places include the head or face, trunk, or legs. Your voice can also have a tremor and sound shaky when you speak. A tremor may be caused by a nerve problem, too much thyroid hormone, or by certain medicines, caffeine, or alcohol. Tremors may be temporary or permanent. The tremor may go away and return, or worsen with stress. Tremors can happen at any age, but they are more common in later years. Contact your healthcare provider if: ?? You have a new or worsening tremor. ?? You have tremors that make it difficult to do your regular activities. ?? You have questions or concerns about your condition or care. Treatment may include medicines to help control some kinds of tremors. You may not need treatment if your tremor is mild. You may need treatment for a condition that can cause tremors, such as a thyroid disorder. Your healthcare provider may stop or change a medicine that may be causing tremors. Donot stop or change any medicine unless your doctor tells you to. Tremors may also be controlled by surgery if no other treatment works. Manage your symptoms: ?? Do not have caffeine or other chemicals that affect your nerves. Limit or do not have caffeine. Caffeine can make tremors worse. Talk to your healthcare provider about herbal medicines, teas, and supplements. They may also increase tremors. Do not use illegal drugs. ?? Go to physical and occupational therapy as directed. A physical therapist can teach you exercises to help reduce the tremor and improve muscle control. You may be shown how to hold the body part during a tremor to help control the movement. The therapist can also help you build strength and balance. An occupational therapist can show you how to use adaptive devices to help you move more easily. ?? Use objects that will help you control movements. You may have more hand control if you add a watch or bracelet to your wrist. It may be easier for you to drink from a straw, or to fill your cup only half full. Cups with lids, such as travel mugs, can also help you drink with more control. Heavyeating utensils can help you eat more easily. A button fastener can help you button clothing if tremors in your hands make this difficult. ?? Set a regular sleep schedule. Lack of sleep can make tremors worse. Try to go to bed at the sametime each night and wake up at the same time each morning. Follow up with your healthcare provider as directed: Write down your questions so you remember to ask them during your visits. ?? 2017 [employer] Information is for End User's use only and may not be sold, redistributed or otherwise used for commercial purposes. All illustrations and images included in CareNotes?? are the copyrighted property of [employer], [employer] ???. or [employer]. The above information is an nurse first aid only. It is not intended as medical advice for individual conditions or treatments. Talk to your doctor, nurse or pharmacist before following any medical regimen to see if it is safe and effective for you. documented in this encounter Ordered Prescriptions Prescription Sig Dispense Quantity Refills Last Filled Start Date End Date propranolol (INDERAL) 20 mg tabletIndications: Hot flashes Take 1 tablet (20 mg total) by mouth 2 (two) times a day 60 tablet 5 10/14/2018 11/09/2018 documented in this encounter Progress Notes * Milana Prakash NP - 10/14/2018 3:45 PM CDT Images from the original note were not included. Patient ID: Josee Blakely is a 58 y.o. female. Chief Complaint Chief Complaint Patient presents with ??? Weight Gain with some hot flashes ??? Tremors Pt c/o fatigue, lack of energy, tremors, hot flashes, weight gain for a while. States symptoms are worsening. Pt states she had L ovary removed about 5 years ago due to a lesion that turned out to bebenign and periods stopped at this time. Pt reports other family members have tremors as well. Current Outpatient Medications Medication Sig Dispense Refill [...] Hypercholesteremia ??? Hypertension Review of Systems Constitutional: Positive for fatigue. Negative for fever. Respiratory: Negative for cough, shortness of breath and wheezing. Cardiovascular: Negative for chest pain and palpitations. Gastrointestinal: Negative for abdominal pain, constipation, diarrhea, nausea and vomiting. Genitourinary: Negative for difficulty urinating. Musculoskeletal: Negative for joint swelling and myalgias. Skin: Negative for color change and rash. Neurological: Positive for tremors and weakness. Negative for syncope and headaches. Hematological: Negative for adenopathy. Does not bruise/bleed easily. Psychiatric/Behavioral: Negative for dysphoric mood. The patient is not nervous/anxious. BP 150/90 (BP Location: Right arm) Pulse 92 Temp 36.8 ??C (98.2 ??F) Resp 18 Ht 162.6 cm (5' 4 ) Wt 69.9 kg (154 lb) BMI 26.43 kg/m?? Physical Exam Constitutional: She is oriented [...] and oriented to person, place, and time. Mild tremors to bilat hands noted. Gait is smooth, normal with no cogwheeling or rigidity. Skin: Skin is warm and dry. Psychiatric: She has a normal mood and affect. Diagnoses and all orders for this visit: Fatigue, unspecified type (Primary) - CBC with auto differential; Future - Iron profile w/ IBC; Future - Ferritin; Future - Hemoglobin A1c; Future - TSH reflex to free T4; Future - Vitamin B12; Future - Vitamin D 25 hydroxy; Future - Comprehensive metabolic panel; Future Hot flashes - CBC with auto differential; Future - Iron profile w/ IBC; Future - Ferritin; Future - Hemoglobin A1c; Future - TSH reflex to free T4; Future - Vitamin B12; Future - Vitamin D 25 hydroxy; Future - propranolol (INDERAL) 20 mg tablet; Take 1 tablet (20 mg total) by mouth 2 (two) times a day - Comprehensive metabolic panel; Future Tremors of nervous system - Ambulatory referral to Neurology; Future Orders Placed This Encounter Procedures ??? CBC with auto differential Standing Status: Future Number of Occurrences: 1 Standing Expiration Date: 10/15/2019 ??? Iron profile w/ IBC Standing Status: Future Number of Occurrences: 1 Standing Expiration Date: 10/15/2019 ??? Ferritin Standing Status: Future Number of Occurrences: 1 Standing Expiration Date: 10/15/2019 ??? Hemoglobin A1c Standing Status: Future Number of Occurrences: 1 Standing Expiration Date: 10/15/2019 ??? TSH reflex to free T4 Standing Status: Future Number of Occurrences: 1 Standing Expiration Date: 10/15/2019 ??? Vitamin B12 Standing Status: Future Number of Occurrences: 1 Standing Expiration Date: 10/15/2019 ??? Vitamin D 25 hydroxy Standing Status: Future Number of Occurrences: 1 Standing Expiration Date: 10/15/2019 ??? Comprehensive metabolic panel Standing Status: Future Number of Occurrences: 1 Standing Expiration Date: 10/15/2019 ??? Ambulatory referral to Neurology Standing Status: Future Standing Expiration Date: 10/15/2019 Referral Priority: Routine Referral Type: Consultation Referral Reason: Specialty Services Required Referral Location: [facility] Requested Specialty: Neurology Number of Visits Requested: 1 1. The patient indicates understanding of these [...] Ambulatory referral to Neurology Outpatient Referral Routine Tremors of nervous system Expected: 10/28/2018 (Approximate), Expires: 10/15/2019 documented as of this encounter Procedures Procedure Name Priority Date/Time Associated Diagnosis Comments THYROID FUNCTION CASCADE Routine 10/15/2018 12:37 PM CDT Fatigue, unspecified type Hot flashes IRON PROFILE W/ IBC Routine 10/15/2018 1 2:37 PM CDT Fatigue, unspecified type Hot flashes CBC WITH AUTO DIFFERENTIAL Routine 10/15/2018 12:37 PM CDT Fatigue, unspecified type Hot flashes VITAMIN D 25 HYDROXY Routine 10/15/2018 12:37 PM CDT Fatigue, unspecified type Hot flashes HEMOGLOBIN A1C Routine 10/15/2018 12:37 PM CDT Fatigue, unspecified type Hot flashes FERRITIN Routine 10/15/2018 12:37 PM CDT Fatigue, unspecified type Hot flashes VITAMIN B12 Routine 10/15/2018 12:37 PM CDT Fatigue, unspecified type Hot flashes COMPREHENSIVE METABOLIC PANEL Routine 10/15/2018 12:37 PM CDT Fatigue, unspecified type Hot flashes documented in this encounter Results * Comprehensive metabolic panel (10/15/2018 12:37 PM CDT) [facility] Glucose 89 65 - 99 mg/dL [facility] [place] Comment: ? Fasting reference interval BUN 16 7 - 25 mg/dL [facility] [place] Creatinine 0.98 0.50 - 1.05 mg/dL [facility] [place] Comment: For patients >49 years of age, the reference limit for Creatinine is approximately 13% higher for people identified as -Turkmen. eGFR NON-AFR. MACANESE 64 > OR = 60 mL/min/1 .73m2 [facility] [place] EGFR 75 > OR = 60 mL/min/1 .73m2 [facility] [place] BUN/creat ratio NOT APPLICABLE (calc) [facility] [place] Sodium 139 135 - 146 mmol/L [facility] [place] Potassium, pl 4.3 3.5 - 5.3 mmol/L [facility] [place] Chloride 100 98 - 110 mmol/L [facility] [place] CO2 29 20 - 32 mmol/L [facility] [place] Calcium 10.4 8.6 - 10.4 mg/dL [facility] [place] Protein, sr 7.9 6.1 - 8.1 g/dL [facility] [place] Albumin 5.1 3.6 - 5.1 g/dL [facility] [place] GLOBULIN 2.8 1.9 - 3.7 g/dL (calc) [facility] [place] Alb/glob ratio 1.8 1.0 - 2.5 (calc) [facility] [place] Bilirubin, total 0.5 0.2 - 1.2 mg/dL [facility] [place] Alk phos 84 33 - 130 U/L [facility] [place] AST 27 10 - 35 U/L [facility] [place] ALT (SGPT) 23 6 - 29 U/L [facility] [place] Blood specimen (specimen) 10/15/2018 12:37 PM CDT 10/15/2018 12:38 PM CDT Narrative Resulting Agency Comment Performing Organization Information: ?Site ID: [place] ?Name: [facility] ?Address: [address] [place] [address] [place] [address] ?Director: Ahsan Enriquez D.O., MPH Milana Prakash GRAPHICS COORDINATOR LAB BLOOD ORDERABLES Fi nal Result [facility] [place] * Vitamin D 25 hydroxy (10/15/2018 12:37 PM CDT) Vitamin D 25-OH 37 30 - 100 ng/mL [facility] [place] Comment: Vitamin D Status ? 25-OH Vitamin D: Deficiency: ?<20 ng/mL Insufficiency: ? 20 - 29 ng/mL Optimal: ? > or = 30 ng/mL For 25-OH Vitamin D testing on patients on D2-supplementation and patients for whom quantitation of D2 and D3 fractions is required, the QuestAssureD(TM) 25-OH VIT D, (D2,D3), LC/MS/MS is recommended: order code 99462 (patients >2yrs). For more information on this test, go to: http://education.Varioptic/faq/IMM494 (This link is being provided for informational/educational purposes only.) Blood specimen (specimen) 10/15/2018 12:37 PM CDT 10/15/2018 12:38 PM CDT Narrative Resulting Agency Comment Performing Organization Information: ?Site ID: [place] ?Name: [facility] ?Address: [facility] [place] [address] ?Director: Ahsan Enriquez D.O., MPH Milana Prakash NP LAB BLOOD ORDERABLES Fi nal Result Performing Organization Address [facility] Co de Phone Number [facility] - [place] * Vitamin B12 (10/15/2018 12:37 PM CDT) [facility] Vitamin B12 647 200 - 1,100 pg/mL [facility] - [place] Blood specimen (specimen) 10/15/2018 12:37 PM CDT 10/15/2018 12:38 PM CDT Narrative Resulting Agency Comment Performing Organization Information: ?Site ID: [place] ?Name: [facility] ?Address: [address] [place] [address] ?Director: Ahsan Enriquez D.O., MPH Milana Prakash NP LAB BLOOD ORDERABLES Fi nal Result Performing Organization Address [facility]/ZIP Co de Phone Number [facility] LLANOS - [place] * TSH reflex to free T4 (10/15/2018 12:37 PM CDT) Pathologist [facility] TSH 2.55 0.40 - 4.50 mIU/L [facility]AN[facility] Blood specimen (specimen) 10/15/2018 12:37 PM CDT 10/15/2018 12:38 PM CDT Narrative Resulting Agency Comment Performing Organization Information: ?Site ID: [place] ?Name: [facility] ?Address: [facility] [place] [address] ?Director: Ahsan Enriquez D.O., MPH Milana Prakash GRAPHICS COORDINATOR LAB BLOOD ORDERABLES Fi nal Result [facility] [place] * Hemoglobin A1c (10/15/2018 12:37 PM CDT) [facility] Hgb A1C 5.5 <5.7 % of total Hgb [facility] Comment: For the purpose of screening for the presence of diabetes: <5.7% ? Consistent with the absence of diabetes 5.7-6.4% ?Consistent with increased risk for diabetes ?(prediabetes) > or =6.5% ??Consistent with diabetes This assay result is consistent with a decreased risk of diabetes. Currently, no consensus exists regarding use of hemoglobin A1c for diagnosis of diabetes in children. According to [place] Diabetes Association (ADA) guidelines, hemoglobin A1c <7.0% represents optimal control in non- diabetic patients. Different metrics may apply to specific patient populations. Standards of Medical Care in Diabetes(ADA). ?? Blood specimen (specimen) 10/15/2018 12:37 PM CDT 10/15/2018 12:38 PM CDT Narrative Resulting Agency Comment Performing Organization Information: ?Site ID: [place] ?Name: [facility] ?Address: [facility] [place] [address] ?Director: Ahsan Enriquez D.O. MPH Milana Prakash GRAPHICS COORDINATOR LAB BLOOD ORDERABLES Fi nal Result [facility] [place] * Ferritin (10/15/2018 12:37 PM CDT) Ferritin 71 16 - 232 ng/mL [facility] [place] Blood specimen (specimen) 10/15/2018 12:37 PM CDT 10/15/2018 12:38 PM CDT Narrative Resulting Agency Comment Performing Organization Information: ?Site ID: [place] ?Name: [facility] [place] ?Address: [facility] [place] [address] ?Director: Ahsan Enriquez D.O., MPH Milana Prakash GRAPHICS COORDINATOR LAB BLOOD ORDERABLES Fi nal Result Performing Organization Address [facility] Co de Phone Number [facility] - [place] * Iron profile w/ IBC (10/15/2018 12:37 PM CDT) Iron 124 45 - 160 mcg/dL [facility] [place] TIBC 444 250 - 450 mcg/dL (calc) [facility] [place] Iron saturation 28 16 - 45 % (calc) [facility] [place] Blood specimen (specimen) 10/15/2018 12:37 PM CDT 10/15/2018 12:38 PM CDT Narrative Resulting Agency Comment Performing Organization Information: ?Site ID: [place] ?Name: [facility] [place] ?Address: [facility] [place] [address] ?Director: Ahsan Enriquez D.O. MPH Milana Prakash GRAPHICS COORDINATOR LAB BLOOD ORDERABLES Fi nal Result Performing Organization Address City/[facility]/ZIP Co de Phone Number [place] * (ABNORMAL) CBC with auto differential (10/15/2018 12:37 PM CDT) WBC 6.2 3.8 - 10.8 Thousand/u L [facility] [place] RBC, POC 5.19(H) 3.80 - 5.10 Million/uL [facility] [place] Hgb 14.1 11.7 - 15.5 g/dL [facility] [place] Hct 42.4 35.0 - 45.0 % [facility] [place] MCV 81.7 80.0 - 100.0 fL [facility] [place] MCH 27.2 27.0 - 33.0 pg [facility] [place] MCHC 33.3 32.0 - 36.0 g/dL [facility] [place] Rdw 12.9 11.0 - 15.0 % [facility] [place] Platelets 372 140 - 400 Thousand/u L [facility] [place] MPV 10.5 7.5 - 12.5 fL [facility] [place] Neutrophils, abs 4,222 1,500 - 7,800 cells/uL [facility] [place] Lymphocytes, abs 1,333 850 - 3,900 cells/uL [facility] [place] Monocyte abs 515 200 - 950 cells/uL [facility] [place] Eosinophils, abs 68 15 - 500 cells/uL [facility] [place] Basophils, abs 62 0 - 200 cells/uL [facility] [place] Neutrophils 68.1 % [facility] [place] Lymphocyte pct 21.5 % [facility] [place] Monocytes 8.3 % [facility] [place] Eosinophils 1.1 % [facility] [place] Basophils 1.0 % [facility] [place] Blood specimen (specimen) 10/15/2018 12:37 PM CDT 10/15/2018 12:38 PM CDT Narrative Resulting Agency Comment Performing Organization Information: ?Site ID: [place] ?Name: [facility] ?[facility] [address] [place] [address] ?Director: Ahsan Enriquez D.O., MPH Milana Prakash GRAPHICS COORDINATOR LAB BLOOD ORDERABLES Fi nal Result [facility] [place] documented in this encounter Visit Diagnoses Diagnosis Fatigue, unspecified type- Primary Hot flashes Tremors of nervous system documented in this encounter Care Teams Sap Bi Architect Relationship Specialty Start Date End Date Jose Martin Diamond MD [address] [place] [address] PCP - General 07/11/17 10/14/21 documented as of this encounter
--- OUTSIDE RECORDS SUMMARY | 2024-02-21 15:04 | XMS_ITS | Encounter Summary ---
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 Historical Provider [facility] HAYES RAMOS Final Result documented in this encounter Visit Diagnoses Not on filedocumented in this encounter Care Teams Assurance Services Manager Health Care Relationship Specialty Start Date End Date Jose Martin Diamond MD [address] [place] [address] PCP - General 07/11/17 10/14/21 Dante Avelar PA [address] [place] [address] PCP - General Family Medicine 10/15/21 documented as of this encounter
--- OUTSIDE RECORDS SUMMARY | 2024-02-21 15:04 | XMS_ITS | Encounter Summary ---
Author Organization [facility] Address [address] [place] [address] Phone Care Team Providers Care It Operations Manager Name Role Phone Jose Martin Diamond MD Primary Care [facility] Encounter Details Date Type Department Care Team (Latest Contact Info) Description 05/14/2018 11:30 AM CDT Office Visit [facility] Orthopaedic Surgery [address]st [address] [place] [address] Amy Degroot NP [address] [facility] [address] [place] [address] Lumbosacral radiculopathy (Primary Dx) Social History Tobacco [...] 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 Zepeda 05/22/2018 at [facility] LOCATION: -[facility] [place] [address] *Please note that the time above is your registration time. If you are more than 15 minutes late, you will be asked to reschedule. Prior to the procedure: ALL INJECTIONS: Allergies to x-ray contrast dye or local anesthetics: Please call our office if you have any history of an allergy to local anesthetics, x-ray contrast dye, shellfish or strawberries. EPIDURAL SPINAL INJECTIONS: Blood thinning medications: If you are taking any of the following medications, they will need to be stopped. Please check withyour prescribing physician prior to stopping. Medication When to stop prior to injection Comments NSAIDS 5 days May use acetaminophen Plavix 7 days Need approval of prescribing physician to stop Coumadin 5 days Need approval of prescribing physician to stop. INR needs to be checked within 24 hours prior to injection. Pradaxa 5 days Need approval of prescribing physician to stop Xarelto 3 days Need approval of prescribing physician to stop Eliquis 4 days Need approval of prescribing physician to stop Aspirin 5 days Need approval of prescribing physician to stop Driving: Plan to have someone drive you if you are having an epidural injection. The anesthetic may cause temporary numbness in your legs. About the procedure: EPIDURAL SPINAL INJECTIONS: A mixture of a cortisone (Dexamethasone) and local anesthetic (Lidocaine) will be injected into thespace around the nerves (epidural space). The anesthetic typically numbs the area for 30-45 minutes, and may provide some immediate relief. The cortisone medication usually takes 3-5 days to start totake effect and up to two weeks to get the full benefit. JOINT INJECTIONS: Blood thinning medications: It is not a requirement to stop your blood thinners/anti-coagulants prior to your joint injection, however, there is an increased incident of bleeding into the joint. *Please check with your prescribing physician for their recommendations prior to your injection. A mixture of injectable cortisone medication (Kenalog, Celestone or Dexamethasone) and an anesthetic (Lidocaine and/or Marcaine) is injected into the joint. The anesthetic numbs the area for 4-6 hours, which may provide some immediate relief. The cortisone medication usually takes 3-5 days to startto take effect and up to two weeks to get the full benefit. After the procedure: You may resume ANY medications immediately after the procedure, including anti- inflammatories and blood thinners / anti-coagulants. You will be given written discharge instructions after your procedure. Should you have any questions regarding your procedure, please call our office at [phone]. Please follow up with your Pain Diary 2 weeks after your injection. documented in this encounter Progress Notes * Amy Degroot, SILVER PLATER - 05/14/2018 11:30 AM CDT RETURN PATIENT VISIT INTERVAL HISTORY Josee Blakely is a 58 y.o. who presents today for follow-up. She has lumbar spinal stenosis and had 100% relief of her left leg pain after left L5-S1 T RU and September 2017. She was walking up to 2 miles a day without leg pain. Last month she has been able to walk a mile before the pain returns in the left leg in the L5 distribution. She has some discomfort in the right. She is taking ibuprofen. Discontinued gabapentin. No recent trauma. No leg weakness or numbness. REVIEW OF SYSTEMS Review of Systems-denies bowel or bladder changes. UPDATE MEDICAL, SURGICAL AND SOCIAL HISTORY Unchanged PHYSICAL EXAMINATION CONSTITUTIONAL: Well-appearing, in no apparent distress EYES: No scleral icterus or conjunctival hemorrhage CARDIOVASCULAR: Skin warm and well-perfused, no peripheral edema RESPIRATORY: Breathing unlabored without accessory muscle use PSYCHIATRIC: Alert, cooperative, appropriate mood and affect SKIN: No lesions or rashes on exposed skin MUSCULOSKELETAL: Gait without deviation. She is able to heel and toe walk without difficulty. Bilateral hip flexion, knee flexion/extension, ankle dorsiflexion EHL strength is 5/5. NEUROLOGIC: Negative sit slump REVIEW OF IMAGING/STUDIES None IMPRESSION/DIAGNOSIS Non Bias low back pain with left greater than right L5-S1 radiculitis in the setting of lumbar spinal stenosis. TREATMENT/PLAN Placed on schedule for left L5-S1 TESI. She will call 2 weeks with response. All questions were answered at this time. She voices agree with the plan. Amy Degroot RN, ANP-BC Nurse Practitioner [facility] Orthopedics Division of Physical Medicine and Rehabilitation In collaboration with Dr. Nielsen Portions of this note were dictated using Compar[employer] Direct speech recognition software. Please excuse any behavioral health professional errors. documented in this encounter Plan of Treatment Not on file documented as of this encounter Visit Diagnoses Diagnosis Lumbosacral radiculopathy- Primary Thoracic or lumbosacral neuritis or radiculitis, unspecified documented in this encounter Discontinued Medications Medication Sig Discontinue Reason Start Date End Da te amoxicillin-clavulanate (AUGMENTIN) 875-125 mg per tablet TK 1 T PO Q 12 H FOR 7 DAYS Therapy completed 06/20/2017 05/14/2018 atorvastatin (LIPITOR) 40 mg tablet TK 1 T PO QD Therapy completed 08/14/2017 05/14/2018 cyclobenzaprine (FLEXERIL) 10 mg tablet TK 1 T PO TID FOR 14 DAYS PRN Therapy completed 09/10/2017 05/14/2018 gabapentin (NEURONTIN) 300 mg capsule Take 1 at HS, if tolerated may increas to 2 HS after 5 days. Therapy completed 12/15/2017 05/14/2018 meloxicam (MOBIC) 7.5 mg tablet TK 1 T PO QD Therapy completed 09/10/2017 05/14/2018 nitrofurantoin (MACRODANTIN) 100 mg capsule TK ONE C PO BID FOR 3 DAYS PRN FOR UTI Therapy completed 09/15/2017 05/14/2018 nitrofurantoin (MACRODANTIN) 50 mg capsule TK 1 C PO HS Therapy completed 06/25/2017 05/14/2018 nitrofurantoin monohydrate (MACROBID) 100 mg capsule TK 1 C PO Q 12 H WF FOR 7 DAYS Therapy completed 06/10/2017 05/14/2018 predniSONE (DELTASONE) 10 mg tablet TK 6 TS PO DAY ONE THEN DECREASE BY 1 T QD UNTIL FINISHED Therapy completed 07/18/2017 05/14/2018 documented as of this encounter Care Teams It Operations Manager Relationship Specialty Start Date End Date Jose Martin Diamond MD [address] [address] PCP - General 07/11/17 10/14/21 documented as of this encounter
--- OUTSIDE RECORDS SUMMARY | 2024-02-21 15:04 | XMS_ITS | Encounter Summary ---
Author Organization [facility] Address [address] [place] [address] Phone Care Team Providers Care Curriculum And Assessment Director Name Role Phone Jose Martin Diamond MD Primary Care 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 * Telephone Encounter - Amy Degroot NP - 05/08/2018 2:43 PM CDT RPV to eval / arrange injection * Telephone Encounter - Humphrey Ireland B.A. - 05/08/2018 11:31 AM CDT Pt requesting an INJ. Last INJ, 09/30, Left L5-S1 TESI. Pt is at [phone] documented in this encounter Plan of Treatment Not on file documented as of this encounter Visit Diagnoses Not on filedocumented in this encounter Care Teams Curriculum And Assessment Director Relationship Specialty Start Date End Date Jose Martin Diamond MD [address] [address] PCP - General 07/11/17 10/14/21 documented as of this encounter
--- OUTSIDE RECORDS SUMMARY | 2024-02-21 15:04 | XMS_ITS | Encounter Summary ---
Author Organization [facility] Address [address] [place] [address] Care Team Providers Care Extractor Operator Helper Name Role Phone Jose Martin Diamond MD Primary Care Provi [facility] Reason for Visit * Reason Onset Date Comments [facility]hy [place] 06/16/2018 Encounter Details Date Type Department Care Team (Late st Contact Info) Description 06/16/2018 Telephone [facility] Family Medicine [address] [facility] [place] [address] Jade Peralta to [place] Social History Tobacco Use Types Packs/Day Years [...] 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 Not on rohit e documented as of this encounter Ordered Prescriptions Prescription Sig Dispense Quantity Refills Last Filled Start Date End Date ALPRAZolam (XANAX) 0.5 mg tablet Take 1 tablet (0.5 mg total) by mouth 3 (three) times a day 90 tablet 06/16/2018 07/23/2018 documented in this encounter Miscellaneous Notes * Telephone Encounter - Dante Avelar PA - 06/16/2018 4:09 PM CDT Script sent out * Telephone Encounter - Jade Peralta - 06/16/2018 3:20 PM CDT Alprazolam 0.5 Tablet Refill 30 days 90 This is what is in [facility] * Telephone Encounter - Dante Avelar PA - 06/16/2018 2:39 PM CDT Yes how many does she usually get a month * Telephone Encounter - Alistair Peña MA - 06/16/2018 2:10 PM CDT Okay for refill? * Telephone Encounter - Jade Peralta - 06/16/2018 1:52 PM CDT Pt leaving for cruise this Friday, will need to coal picker refill of xanax 06-18-18, LF 05-22-18. Send to [place]. Alprazolam 0.5 Tablet #90 documented in this encounter Plan of Treatment Not on file documented as of this encounter Visit Diagnoses Not on filedocumented in this encounter Discontinued Medications Medication Sig Discontinue Reason Start Date End Da te ALPRAZolam (XANAX) 0.5 mg tablet daily Reorder 09/02/2017 06/16/2018 documented as of this encounter Care Teams Extractor Operator Helper Relationship Specialty Start Date End Date Jose Martin Diamond MD [address] [address] PCP - General 07/11/17 10/14/21 documented as of this encounter
--- OUTSIDE RECORDS SUMMARY | 2024-02-21 15:04 | XMS_ITS | Encounter Summary ---
Author Organization [facility] Address [address] [place] [address] Care Team Providers Care Print Production Coordinator Name Role Phone Jose Martin Diamond MD Primary Care Pro[facility] Reason for Visit * Reason Onset Date Comments fax request from for 90 day supply of propran olol 11/09/2018 Encounter Details Date Type Department Care Team (Late st Contact Info) Description 11/09/2018 Telephone [facility] Family Medicine [address] [place] [address] Jade Peralta fax request from for 90 day supply of propranolol Social History Tobacco Use Types Packs/Day Years [...] 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 * Telephone Encounter - Jade Peralta - 11/09/2018 1:12 PM CDT fax request from for 90 day supply of propranolol documented in this encounter Plan of Treatment Not on file documented as of this encounter Visit Diagnoses Diagnosis Hot flashes documented in this encounter Discontinued Medications Medication Sig Discontinue Reason Start Date End Da te propranolol (INDERAL) 20 mg tabletIndications:Hot flashes Take 1 tablet (20 mg total) by mouth 2 (two) times a day Reorder 10/14/2018 11/09/2018 documented as of this encounter Care Teams Print Production Coordinator Relationship Specialty Start Date End Date Jose Martin Diamond MD [address] [address] PCP - General 07/11/17 10/14/21 documented as of this encounter
--- OUTSIDE RECORDS SUMMARY | 2024-02-21 15:04 | XMS_ITS | Encounter Summary ---
Author Organization [facility] Address [address] [place] [address] Care Team Providers Care Chemist Food Name Role Phone Jose Martin Diamond MD Primary Care Provi [facility] Reason for Referral * Diagnostic Imaging (Routine) - Closed Specialty Diagnoses / Procedures Referred By Contac t Referred To Contact Radiology Diagnoses Lumbar radiculopathy Procedures IR Transforaminal Epidural Injection Lumbar Sacral 1 Level Left Amy Degroot NP Phone: tel: fax: [facility] Referral ID Status Reason Start Date Expiration Date Visits Re quested Visits Authorized [id number] Closed 05/14/2018 11/23/2019 2 2 Reason for Visit * Diagnostic Imaging (Routine) - Closed Specialty Diagnoses / Procedures Referred By Contac t Referred To Contact Radiology Diagnoses Lumbar radiculopathy Procedures IR Transforaminal Epidural Injection Lumbar Sacral 1 Level Left Amy Degroot NP Phone: tel: fax: [facility] Referral ID Status Reason Start Date Expiration Date Visits Re quested Visits Authorized [id number] Closed 05/14/2018 11/23/2019 2 2 Encounter Details Date Type Department Care Team (Latest Contact Info) Description 05/22/2018 2:20 PM CDT - 05/22/2018 11:59 PM CDT Hospital Encounter [facility] Radiology at [facility] [address] [place] [address] [place] [address] [place] [address] Lumbar radiculopathy Discharge Disposition: Discharge to home or self [...] 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 documented as of this encounter Last Filed Vital Signs Vital Sign Reading Time Taken Comments Blood Pressure 130/84 05/22/2018 3:10 PM CDT Pulse 65 05/22/2018 3:10 PM CDT Temperature - - Respiratory Rate 14 05/22/2018 3:10 PM CDT Oxygen Saturation 98% 05/22/2018 3:10 PM CDT Inhaled Oxygen Concentration - - Weight - - Height - - Body Mass Index - - documented in this encounter Medications at Time of Discharge ALPRAZolam (XANAX) 0.5 mg tablet daily 0 09/02/2017 9 FLUoxetine (PROzac) 40 mg capsule Take 40 mg by mouth daily 07/05/2017 9 gabapentin (NEURONTIN) 300 mg capsule TAKE ONE CAPSULE BY MOUTH AT BEDTIME. IF TOLERATED AFTER 5 DAYS MAY INCREASE TO 2 CAPSULES AT BEDTIME. STOP MUSCLE RELAXER 60 capsule 12/11/2017 9 valsartan (DIOVAN) 80 mg tablet daily 06/29/2017 9 documented as of this encounter Discharge Disposition Disposition Code Departure Means Destination Discharge to home or self care documented in this encounter Plan of Treatment Not on file documented as of this encounter Procedures Procedure Name Priority Date/Time Associated Diagnosis Comments TRANSFORAMINAL EPIDURAL INJECTION LUMBAR SACRAL 1 LEVEL LEFT Schedule Routine, Read Routine (OP Routine) 05/22/2018 3:02 PM CDT Lumbar radiculopathy documented in this encounter Results * IR Transforaminal Epidural Injection Lumbar Sacral 1 Level Left (05/22/2018 3:02 PM CDT) Narrative [facility] - 05/22/2018 3:02 PM CDT The images from this study are not interpreted by Radiology. ??Please refer to the physician's procedure / OR operative note. us Amy Degroot MILITARY TECHNOLOGY SPECIALIST IMG IR PROCEDURES Final Resul t [facility] documented in this encounter Visit Diagnoses Diagnosis Lumbar radiculopathy Thoracic or lumbosacral neuritis or radiculitis, unspecified documented in this encounter Administered Medications Inactive Administered Medications - up to 3 most recent administrations Medication Order MAR Action Action Date Dose Rate Site dexamethasone (DECADRON) preservative free solution Administer over 2 Minutes, Code/trauma/sedation medication, Starting on Fri05/22/18 at 1456 Given 05/22/2018 2:56 PM CDT 10 mg iohexol (OMNIPAQUE) 300 mg iodine/mL injection solution Code/trauma/sedation medication, Starting on Fri05/22/18 at 1456 Given 05/22/2018 2:56 PM CDT 1 mL lidocaine PF (XYLOCAINE) 10 mg/mL (1 %) preservative free injection Code/trauma/sedation medication, Starting on Fri05/22/18 at 1452, Intra-Procedure (IR), Indications: Administration of Local AnesthesiaIndications:Administratio n of Local Anesthesia Given 05/22/2018 2:52 PM CDT 4 mL documented in this encounter Care Teams Chemist Food Relationship Specialty Start Date End Date Jose Martin Diamond MD [address] [address] PCP - General 07/11/17 10/14/21 documented as of this encounter
--- OUTSIDE RECORDS SUMMARY | 2024-02-21 15:04 | XMS_ITS | Encounter Summary ---
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
--- OUTSIDE RECORDS SUMMARY | 2024-02-21 15:04 | XMS_ITS | Encounter Summary ---
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
--- OUTSIDE RECORDS SUMMARY | 2024-02-21 15:04 | XMS_ITS | Encounter Summary ---
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 us Historical Provider Final Res ult * SCAN - LABS (02/19/2018 12:00 AM LANGUAGE THERAPIST) Narrative 02/19/2018 12:00 AM LANGUAGE THERAPIST Ordered by an unspecified provider. Historical Provider Final Res ult * CARDIOLOGY REPORT (02/19/2018 12:00 AM LANGUAGE THERAPIST) Anatomical Region Laterality Modality Other Narrative 02/19/2018 12:00 AM LANGUAGE THERAPIST Ordered by an unspecified provider. Historical Provider CV CARDIAC SERVICES PROCE DURES Final Result documented in this encounter Visit Diagnoses Not on filedocumented in this encounter Care Teams Lead Infrastructure Architect Relationship Specialty Start Date End Date Jose Martin Diamond MD [address] [place] [address] PCP - General 07/11/17 10/14/21 Dante Avelar PA [address] [place] [address] PCP - General Family Medicine 10/15/21 documented as of this encounter
--- OUTSIDE RECORDS SUMMARY | 2024-02-21 15:04 | XMS_ITS | Encounter Summary ---
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 us Historical Provider CV CARDIAC SERVICES PROCE DURES Final Result * CARDIOLOGY REPORT (04/01/2018 12:00 AM DIRECTOR EXPERIMENTAL MEDICINE) Anatomical Region Laterality Modality Other Narrative 04/01/2018 12:00 AM DIRECTOR EXPERIMENTAL MEDICINE Ordered by an unspecified provider. us Historical Provider CV CARDIAC SERVICES PROCE DURES Final Result documented in this encounter Visit Diagnoses Not on filedocumented in this encounter Care Teams Card Services Specialist Relationship Specialty Start Date End Date Jose Martin Diamond MD [address] [place] [address] PCP - General 07/11/17 10/14/21 Dante Avelar PA [address] [place] [address] PCP - General Family Medicine 10/15/21 documented as of this encounter
--- OUTSIDE RECORDS SUMMARY | 2024-02-21 15:05 | XMS_ITS | Encounter Summary ---
Author Organization [facility] Healthcare Address [address] [place] [address] Care Team Providers Care Announcer Name Role Phone Unavailable Primary Care Provider Unavailabl e Encounter Details Date Type Department Care Team (Latest Contact Info) Description 02/04/2017 9:58 AM [employer] Hospital Encounter [facility] Dante Avelar, PA [address] [address] Hyperglycemia; Personal history of urinary infection Social History Tobacco Use Types Packs/Day Years Used Date Smoking Tobacco: Never Assessed Comments Unknown Sex and Gender Information Value Date Recorded Sex Assigned at Not on file Legal Sex Female 12:21 PM CDT Gender Identity Not on file Sexual Orientation Straight 05/17/2022 5: 28 PM CDT documented as of this encounter Plan of Treatment Not on file documented as of this encounter Procedures Procedure Name Priority Date/Time Associated Diagnosis Comments HEMOGLOBIN A1C Routine 02/04/2017 10:10 AM [employer] MICROBIOLOGY SPECIMEN REPORT (CONVERTED) Routine 02/04/2017 10:05 AM [employer] URINALYSIS AND REFLEX TO MICROSCOPIC AND CULTURE Routine 02/04/2017 10:05 AM [employer] documented in this encounter Results * Hemoglobin A1c (02/04/2017 10:10 AM [employer]) Hemoglobin A1c % 5.4 4.8 - 5.9 % 02/04/2017 5:28 PM [employer] [facility] HISTORICAL RESULTS Comment: [place] [employer] recommends that the goal of therapy should be an A1C hemoglobin of <7%. Reevaluate the treatment regimen in patients with an A1C >8%. 02/04/2017 10:1 0 AM [employer] 02/04/2017 5:07 PM [employer] Dante [facility] BLOOD ORDERABLES Final Result [facility] HISTORICAL RESULTS * Microbiology Specimen Report (Converted) (02/04/2017 10:05 AM [employer]) 02/04/2017 10:0 5 AM [employer] 02/04/2017 4:50 PM [employer] Narrative [facility] HISTORICAL RESULTS - 02/04/2017 10:05 AM [employer] Microbiology Specimen Report (Converted) SPECIMEN [id number] ?? COLLECTED: 2017-02-04 10:05:00 PT ?? REQ#: [id number] REQUESTING DR: Dante Avelar ?? SOURCE: URINE ?? SP DESC: CLEAN CATC --- PROCEDURE --- ?--- RESULT --- ?? CULTURE URINE ??(Final) ??- ??Performed at [facility] ?* COLONY COUNT: 20,000 CFU/ml ?* MIXED GRAM POSITIVE ORGANISMS ?? * Organism 1 - ESCHERICHIA COLI [E COLI] ?* COLONY COUNT: >100,000 CFU/ml ?* SEE SUSCEPTIBILITY REPORT BELOW ? [E COLI] ? M.I.C. ?RX AMOXICILLIN/CLAVULANIC ACID ?4 ? S AMPICILLIN ? >=32 ?R AMPICILLIN/SULBACTAM ? 16 ?I CEFAZOLIN ?<=4 ? S CEFEPIME ? <=1 ? S CEFTRIAXONE ?<=1 ? S CIPROFLOXACIN ?>=4 ? R ERTAPENEM ?<=0.5 ? S GENTAMICIN ? <=1 ? S IMIPENEM ? <=0.25 ?S LEVOFLOXACIN ? >=8 ? R NITROFURANTOIN ? <=16 ?S PIPERACILLIN/TAZOBACTAM ?<=4 ? S TRIMETHOPRIM/SULFAMETHOXAZOLE ??<=20 ?S TOBRAMYCIN ? <=1 ? S ??S=Susceptible ?? I=Intermediate ?? S=Resistant ??SDD=Susceptible Dose Dependent ?? N/R=No Report ?SILVA =Beta Lactamase - [facility] ? [address] [place] [address] ? [place] [address] ? Basim Dior MD Procedure Note 05/16/2018 Microbiology Specimen Report (Converted) SPECIMEN [id number] COLLECTED: 2017-02-04 10:05:00 PT REQ#:[id number] REQUESTING DR: Dante Avelar SOURCE: URINE SP DESC: CLEAN CATC --- PROCEDURE --- --- RESULT --- CULTURE URINE (Final) - Performed at [facility] * COLONY COUNT: 20,000 CFU/ml * MIXED GRAM POSITIVE ORGANISMS * Organism 1 - ESCHERICHIA COLI [E COLI] * COLONY COUNT: >100,000 CFU/ml * SEE SUSCEPTIBILITY REPORT BELOW [E COLI] M.I.C. RX AMOXICILLIN/CLAVULANIC ACID 4 S AMPICILLIN >=32 R AMPICILLIN/SULBACTAM 16 I CEFAZOLIN <=4 S CEFEPIME <=1 S CEFTRIAXONE <=1 S CIPROFLOXACIN >=4 R ERTAPENEM <=0.5 S GENTAMICIN <=1 S IMIPENEM <=0.25 S LEVOFLOXACIN >=8 R NITROFURANTOIN <=16 S PIPERACILLIN/TAZOBACTAM <=4 S TRIMETHOPRIM/SULFAMETHOXAZOLE <=20 S TOBRAMYCIN <=1 S S=Susceptible I=Intermediate S=Resistant SDD=Susceptible Dose Dependent N/R=No Report SILVA =[place] [address] Basim Dior MD Dante [facility] BLOOD ORDERABLES Final Result [facility] HISTORICAL RESULTS * (ABNORMAL) Urinalysis reflex to microscopic and culture (02/04/2017 10:05 AM [employer]) Ur Collection Type CLEAN CATCH Ur Culture Indicated? C&S INDICATED Comment:Culture report to bailey mendoza. Urine Color YELLOW YELLOW Urine Clarity CLOUDY CLEAR Urine Glucose (UA) NORMAL NORMAL mg/dL Urine Bilirubin NEGATIVE NEGATIVE mg/dl Urine Ketones NEGATIVE NEGATIVE mg/dL Ur Specific [place] 1.021 1.005 - 1.025 Urine Blood 0.2(H) NEGATIVE mg/dl Urine pH 6.0 5.0 - 8.0 Urine Protein NEGATIVE NEGATIVE mg/dL Urine Urobilinogen NORMAL NORMAL mg/dL Urine Nitrite POSITIVE(H) NEGATIVE Ur Leukocyte Esterase 500(H) NEGATIVE Tati/ul Ur Microscopic Review Indicated or Ordered Urine RBC 2 0 - 2 /HPF Urine WBC 88 0 - 2 /HPF Urine Bacteria Rare /HPF Urine Mucus RARE /LPF Ur Squamous Epith Cells Rare /HPF Calcium Oxalate Crystal Few /HPF 02/04/2017 5:04 PM [employer] [facility] HISTORICAL RESULTS 02/04/2017 10:0 5 AM [employer] 02/04/2017 4:50 PM [employer] Narrative [facility] HISTORICAL RESULTS - 02/04/2017 5:04 PM [employer] us Dante [facility] MICROBIOLOGY - GENERAL ORDERABLES Final Result [facility] HISTORICAL RESULTS documented in this encounter Visit Diagnoses Diagnosis Hyperglycemia Other abnormal glucose Personal history of urinary infection documented in this encounter
--- OUTSIDE RECORDS SUMMARY | 2024-02-21 15:05 | XMS_ITS | Encounter Summary ---
Author Organization [facility] Healthcare Address [address] [place] [address] Care Team Providers Care Rn Long Term Care Name Role Phone Jose Martin Diamond MD Primary Care Provi [facility] Encounter Details Date Type Department Care Team (Latest Contact Info) Description 01/30/2018 11:51 AM [employer] Hospital Encounter 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 IF TOLERATED AFTER 5 DAYS MAY INCREASE TO 2 CAPSULES AT BEDTIME. STOP MUSCLE RELAXER 60 capsule 12/11/2017 9 gabapentin (NEURONTIN) 300 mg capsule Take 1 at HS, if tolerated may increas to 2 HS after 5 days. 180 capsule 12/15/2017 9 meloxicam (MOBIC) 7.5 mg tablet TK 1 T PO QD 2 09/10/2017 9 nitrofurantoin (MACRODANTIN) 100 mg capsule TK ONE C PO BID FOR 3 DAYS PRN FOR UTI 5 09/15/2017 9 nitrofurantoin (MACRODANTIN) 50 mg capsule TK 1 C PO HS 1 06/25/2017 9 nitrofurantoin monohydrate (MACROBID) 100 mg capsule TK 1 C PO Q 12 H WF FOR 7 DAYS 0 06/10/2017 9 predniSONE (DELTASONE) 10 mg tablet TK 6 TS PO DAY ONE THEN DECREASE BY 1 T QD UNTIL FINISHED 0 07/18/2017 9 valsartan (DIOVAN) 80 mg tablet daily 06/29/2017 9 documented as of this encounter Plan of Treatment Not on file documented as of this encounter Procedures Procedure Name Priority Date/Time Associated Diagnosis Comments THYROID FUNCTION CASCADE Routine 01/30/2018 12:00 PM [employer] HEMOGLOBIN A1C Routine 01/30/2018 12:00 PM [employer] LIPID PANEL Routine 01/30/2018 12:00 PM [employer] COMPREHENSIVE METABOLIC PANEL Routine 01/30/2018 12:00 PM [employer] documented in this encounter Results * TSH reflex to free T4 (01/30/2018 12:00 PM [employer]) TSH W REFLEX TO FT4 1.94 0.27 - 4.20 uIU/mL 01/30/2018 3:52 PM [employer] HISTORICAL RESULTS 01/30/2018 12:0 0 PM [employer] 01/30/2018 3:20 PM [employer] Narrative [facility] HISTORICAL RESULTS - 01/30/2018 3:52 PM [employer] 13 HOURS PC Dante [facility] BLOOD ORDERABLES Final Result [facility] HISTORICAL RESULTS * Hemoglobin A1c (01/30/2018 12:00 PM [employer]) Pathologist [facility] Hemoglobin A1c % 5.4 4.0 - 5.6 % 01/30/2018 3:58 PM [employer] [facility] HISTORICAL RESULTS Comment: ADA 2016 GUIDELINES: ??Initial Diagnostic Criteria ? HbA1c Result: ?Interpretation: ?<5.7% ? Normal ?5.7-6.4% ?At risk for diabetes mellitus ?>=6.5% ?Consistent with diabetes mellitus ??Diabetes monitoring ? Target value (ADA Recommended) ?? <7% 01/30/2018 12:0 0 PM [employer] 01/30/2018 3:20 PM [employer] Narrative [facility] HISTORICAL RESULTS - 01/30/2018 3:58 PM [employer] 13 HOURS PC Dante [facility] BLOOD ORDERABLES Final Result [facility] HISTORICAL RESULTS * (ABNORMAL) Lipid panel (01/30/2018 12:00 PM [employer]) Pathologist [facility] Triglycerides 177(H) 0 - 149 mg/dL 01/30/2018 3:48 PM [employer] HISTORICAL RESULTS Comment: National Lipid Association/NCEP Guidelines: ?? Normal ?< 150 mg/dL ?? Borderline high ?? 150-199 mg/dL ?? High ?200-499 mg/dL ?? Very High ? >=500 mg/dL Cholesterol 216(H) 0 - 199 mg/dL 01/30/2018 3:48 PM [employer] HISTORICAL RESULTS Comment: National Lipid Association/NCEP Guidelines: Desirable ? < 200 mg/dL Borderline high: ??200-239 mg/dL High Risk: ?>=240 mg/dL HDL Cholesterol 49 mg/dL 8 3:48 PM [employer] HISTORICAL RESULTS Comment: Reference Ranges: ? Males: >=40 mg/dL ? Females: >=50 mg/dL LDL Cholesterol, Calc 132(H) 0 - 129 mg/dL 01/30/2018 3:48 PM [employer] [facility] HISTORICAL RESULTS Comment: National Lipid Association/NCEP Guidelines: ??Optimal ? < 100 mg/dL ??Near Optimal ?100-129 mg/dL ??Borderline high 130-159 mg/dL ??High ?>=160 mg/dL Cholesterol/HDL Ratio 4.4 01/30/2018 3:48 PM [employer] [facility] HISTORICAL RESULTS Comment: Optimal ??< 3.5:1 High ? > 5:1 01/30/2018 12:0 0 PM [employer] 01/30/2018 3:20 PM [employer] [facility] Narrative [facility] HISTORICAL RESULTS - 01/30/2018 3:48 PM [employer] 13 HOURS PC us Dante [facility] BLOOD ORDERABLES Final Result [facility] HISTORICAL RESULTS * Comprehensive metabolic panel (01/30/2018 12:00 PM [employer]) Sodium 141 135 - 145 mmol/L 01/30/2018 3:48 PM [employer] [facility] HISTORICAL RESULTS Potassium 4.5 3.3 - 5.1 mmol/L Chloride 102 96 - 108 mmol/L Carbon Dioxide 27 22 - 32 mmol/L Anion Gap 12 7 - 16 Glucose 92 70 - 100 mg/dL BUN 17 6 - 20 mg/dL Creatinine 1.1 0.5 - 1.1 mg/dL Comment: NOTE: Estimated GFR (Cockroft-Gault) will NOT be calculated unless patient Height and Weight were entered. Also, Kidney Disease Stage (GFR) and Estimated GFR (Cockroft-Gault) will NOT be calculated if Creatinine result is <0.2. Kidney Disease Stage 55 mL/MIN Comment: NOTE; ??The GFR is an estimated value using the creatinine, sex, age, and race of the patient. THE Estimated Kidney Disease GFR is validated for AGES 18-70 YEARS STAGE ?mL/Min ?DESCRIPTION ??1 ?90 mL/min or more ?Normal or elevated GFR ??2 ? 60-89 mL/min ?Mildly decreased GFR ??3 ? 30-59 mL/min ?Moderately decreased GFR ??4 ? 15-29 mL/min ?Severely decreased GFR ??5 ? <15 mL/min ? Kidney failure or on dialysis @ Calcium 9.8 8.6 - 10.0 mg/dL 01/30/2018 3:48 PM [employer] [facility] HISTORICAL RESULTS Total Protein 7.4 6.4 - 8.3 g/dL 01/30/2018 3:48 PM [employer] [facility] HISTORICAL RESULTS Albumin 4.7 3.5 - 5.2 g/dL 01/30/2018 3:48 PM [employer] [facility] HISTORICAL RESULTS Globulin 2.7 2.3 - 3.5 gm/dL 01/30/2018 3:48 PM [employer] [facility] HISTORICAL RESULTS Albumin/Globulin Ratio 1.7 1.1 - 1.8 01/30/2018 3:48 PM [employer] [facility] HISTORICAL RESULTS Total Bilirubin 0.4 0.0 - 1.2 mg/dL 01/30/2018 3:48 PM [employer] [facility] HISTORICAL RESULTS AST 32 0 - 32 U/L 01/30/2018 3:48 PM [employer] [facility] HISTORICAL RESULTS ALT 26 0 - 33 U/L 01/30/2018 3:48 PM [employer] [facility] HISTORICAL RESULTS Alkaline Phosphatase 75 35 - 104 U/L 01/30/2018 12:0 0 PM [employer] [facility] 01/30/2018 3:20 PM [employer] [facility] Narrative [facility] HISTORICAL RESULTS - 01/30/2018 3:48 PM [employer] [facility] 13 HOURS PC us Dante [facility] BLOOD ORDERABLES Final Result [facility] HISTORICAL RESULTS documented in this encounter Visit Diagnoses Diagnosis Hyperlipidemia Other and unspecified hyperlipidemia Essential (primary) hypertension Unspecified essential hypertension documented in this encounter Care Teams Rn Long Term Care Relationship Specialty Start Date End Date Jose Martin Diamond MD [address] [address] PCP - General 07/11/17 10/14/21 documented as of this encounter
--- OUTSIDE RECORDS SUMMARY | 2024-02-21 15:05 | XMS_ITS | Encounter Summary ---
Author Organization [facility] Address [address] [place] [address] Phone Care Team Providers Care School Cafeteria Cook Head Name Role Phone Jose Martin Diamond MD Primary Care [facility] Encounter Details Date Type Department Care Team (Late st Contact Info) Description 09/12/2017 Telephone [facility] Orthopaedic Surgery [address] [place] [id number] Amy Degroot, SCALEMAN [address] [facility] [address] [place], [place] [id number] Social History Tobacco Use Types Packs/Day Years Used Date Smoking Tobacco: Never Comments Unknown Sex and Gender Information Value Date Recorded Sex Assigned at Not on file Legal Sex Female 12:21 PM CDT Gender Identity Not on file Sexual Orientation Straight 05/17/2022 5: 28 PM CDT documented as of this encounter Miscellaneous Notes * Telephone Encounter - Lily Moura MA - 10/09/2017 8:31 AM CDT I LVM on identifiable [phone] for Josee regarding Amy's message, updated PT order & mailed to her home address, she will lorraine 2 weeks after her injection (next week) * Telephone Encounter - Amy Degroot NP - 10/08/2017 4:44 PM CDT OK to update PT order and continue. Call at 2 weeks post injection * Telephone Encounter - Humphrey Ireland B.A. - 10/08/2017 12:20 PM CDT Pt states had INJ 09/30. States is helping but still feeling a pinching sensation in the left buttocks going down to the foot. Pt expressed understanding that the INJ could take 2 weeks. Pt can be reached at [phone]. * Telephone Encounter - Lily Moura MA - 09/15/2017 9:32 AM CDT I [facility] [phone] on identifiable VM for Josee to call to schedule RPV with Amy Degroot. * Telephone Encounter - Amy Degroot NP - 09/15/2017 8:25 AM CDT REC: RPV to consider scheduling injection * Telephone Encounter - Lily Moura MA - 09/12/2017 9:27 AM CDT I will send to Amy for review. * Telephone Encounter - Pallavi Bobo - 09/12/2017 8:30 AM CDT Check up appointment after 6 visit of physical therapy. May need more therapy, pain is back in leftbutt check radiating down her left leg again. Patient phone is [phone] documented in this encounter Plan of Treatment Not on file documented as of this encounter Visit Diagnoses Not on filedocumented in this encounter Care Teams School Cafeteria Cook Head Relationship Specialty Start Date End Date Jose Martin Diamond MD [address] [facility] [address] [address] PCP - General 07/11/17 10/14/21 documented as of this encounter
--- OUTSIDE RECORDS SUMMARY | 2024-02-21 15:05 | XMS_ITS | Encounter Summary ---
Author Organization [facility] Healthcare Address [address] [place] [address] Care Team Providers Care Gunite Nozzle Operator Name Role Phone Unavailable Primary Care Provider Unavailabl e Encounter Details Date Type Department Care Team (Latest Contact Info) Description 06/17/2017 11:32 AM CDT Hospital Encounter [facility] Dante Avelar, [place] [address] [facility] [address] [place], [place] [address] Urinary tract infection; Pain in right knee; Primary osteoarthritis of right knee Social History Tobacco Use Types Packs/Day Years Used Date Smoking Tobacco: Never Assessed Comments Unknown Sex and Gender Information Value Date Recorded Sex Assigned at Not on file Legal Sex Female 12:21 PM CDT Gender Identity Not on file Sexual Orientation Straight 05/17/2022 5: 28 PM CDT documented as of this encounter Medications at Time of Discharge nitrofurantoin monohydrate (MACROBID) 100 mg capsule TK 1 C PO Q 12 H WF FOR 7 DAYS 0 06/10/2017 05/14/2018 documented as of this encounter Plan of Treatment Not on file documented as of this encounter Procedures Procedure Name Priority Date/Time Associated Diagnosis Comments XR KNEE RIGHT 3 VIEWS Routine 06/17/2017 11:33 AM CDT MICROBIOLOGY SPECIMEN REPORT (CONVERTED) Routine 06/17/2017 10:30 AM CDT documented in this encounter Results * XR Knee Right 3 Views (06/17/2017 11:33 AM CDT) Anatomical Region Laterality Modality Lower Extremities, Knee Right [facility] 06/17/2017 11:3 3 AM CDT Impressions 06/17/2017 7:53 PM CDT ??Mild osteoarthritis without acute finding. THIS IS AN ELECTRONICALLY VERIFIED FINAL REPORT 06/17/2017 7:50 PM - Electronically signed by Norman Dexter D.O. KH: PILAR D: ??06/17/2017 7:50 PM T: ??06/17/2017 7:50 PM Report ID: [id number] Reading Location: ??[id number] [EOD] Narrative 06/17/2017 7:53 PM CDT EXAM DESCRIPTION: Knee RT 3 View (STANDARD) COMPLETED DATE/TIME: ??06/17/2017 12:02 pm REASON FOR STUDY: ??ACUTE PAIN OF RT KNEE.. PAIN SINCE LAST YEAR.. THE RT KNEE LOCKS UP ON THE, PATIENT; SWELLING FOR THE LAST COUPLE MONTHS TECHNIQUE: ??AP, sunrise and lateral radiographic views acquired of the right knee. COMPARISON: ??None FINDINGS: BONES/JOINTS: No acute fracture seen. ??Marginal osteophytes are present about the patellofemoral, medial and lateral compartments. ??There is no dislocation. Possible intra-articular body is seen. SOFT TISSUES: Unremarkable. OTHER: No other significant finding. Procedure Note Provider, MD Yuri - 07/12/2020 EXAM DESCRIPTION: Knee RT 3 View (STANDARD) COMPLETED DATE/TIME: 06/17/2017 12:02 pm REASON FOR STUDY: ACUTE PAIN OF RT KNEE.. PAIN SINCE LAST YEAR.. THE RTKNEE LOCKS UP ON THE, PATIENT; SWELLING FOR THE LAST COUPLE MONTHS TECHNIQUE: AP, sunrise and lateral radiographic views acquired of theright knee. COMPARISON: None FINDINGS: BONES/JOINTS: No acute fracture seen. Marginal osteophytes are presentabout the patellofemoral, medial and lateral compartments. There is nodislocation. Possible intra-articular body is seen. SOFT TISSUES: Unremarkable. OTHER: No other significant finding. IMPRESSION: Mild osteoarthritis without acute finding. THIS IS AN ELECTRONICALLY VERIFIED FINAL REPORT 06/17/2017 7:50 PM - Electronically signed by Norman Dexter D.O. KH: PILAR Report ID: [id number] Reading Location: [place] [address] [EOD] Dante DAMIAN IMG XR PROCEDURES Final Res ult * Microbiology Specimen Report (Converted) (06/17/2017 10:30 AM CDT) 06/17/2017 10:3 0 AM CDT 06/17/2017 5:02 PM CDT [facility] HISTORICAL RESULTS - 06/17/2017 10:30 AM CDT Microbiology Specimen Report (Converted) SPECIMEN [id number] ?? COLLECTED: 2017-06-17 10:30:00 NDS ?? REQ#: [id number] REQUESTING DR: Dante Avelar ?? SOURCE: URINE ?? SP DESC: CLEAN CATC --- PROCEDURE --- ?--- RESULT --- ?? CULTURE URINE ??(Final) ??- ??Performed at [facility] ?* COLONY COUNT: 3,000 CFU/ml ?* MIXED GRAM POSITIVE ORGANISMS ?? * Organism 1 - KLEB PNEUMONIAE SSP PNEUMONIAE [KLE PNEUMO] ?* COLONY COUNT: >100,000 CFU/ml ?* SEE SUSCEPTIBILITY REPORT BELOW ? [KLE PNEUMO] ? M.I.C. ?RX AMOXICILLIN/CLAVULANIC ACID ?<=2 ? S AMPICILLIN ? >=32 ?R AMPICILLIN/SULBACTAM ? 4 ? S CEFAZOLIN ?<=4 ? S CEFEPIME ? <=1 ? S CEFTRIAXONE ?<=1 ? S CIPROFLOXACIN ?0.5 ? S ERTAPENEM ?<=0.5 ? S GENTAMICIN ? <=1 ? S IMIPENEM ? <=0.25 ?S LEVOFLOXACIN ? 1 ? S NITROFURANTOIN ? 256 ? R PIPERACILLIN/TAZOBACTAM ?16 ?S TRIMETHOPRIM/SULFAMETHOXAZOLE ??<=20 ?S TOBRAMYCIN ? <=1 ? S ??S=Susceptible ?? I=Intermediate ?? S=Resistant ??SDD=Susceptible Dose Dependent ?? N/R=No Report ?SILVA =Beta Lactamase - [facility] ? [address] ? [place] [address] ? Basim Dior MD Procedure Note 05/16/2018 Microbiology Specimen Report (Converted) SPECIMEN [id number] COLLECTED: 2017-06-17 10:30:00 NDS REQ#:[id number] REQUESTING DR: Dante Avelar SOURCE: URINE SP DESC: CLEAN CATC --- PROCEDURE --- --- RESULT --- CULTURE URINE (Final) - Performed at [facility] * COLONY COUNT: 3,000 CFU/ml * MIXED GRAM POSITIVE ORGANISMS * Organism 1 - KLEB PNEUMONIAE SSP PNEUMONIAE [KLE PNEUMO] * COLONY COUNT: >100,000 CFU/ml * SEE SUSCEPTIBILITY REPORT BELOW [KLE PNEUMO] M.I.C. RX AMOXICILLIN/CLAVULANIC ACID <=2 S AMPICILLIN >=32 R AMPICILLIN/SULBACTAM 4 S CEFAZOLIN <=4 S CEFEPIME <=1 S CEFTRIAXONE <=1 S CIPROFLOXACIN 0.5 S ERTAPENEM <=0.5 S GENTAMICIN <=1 S IMIPENEM <=0.25 S LEVOFLOXACIN 1 S NITROFURANTOIN 256 R PIPERACILLIN/TAZOBACTAM 16 S TRIMETHOPRIM/SULFAMETHOXAZOLE <=20 S TOBRAMYCIN <=1 S S=Susceptible I=Intermediate S=Resistant SDD=Susceptible Dose Dependent N/R=No Report SILVA =[place] [address] Basim Dior MD Dante DAMIAN LAB BLOOD ORDERABLES Final Result [facility] HISTORICAL RESULTS documented in this encounter Visit Diagnoses Diagnosis Urinary tract infection Urinary tract infection, site not specified Pain in right knee Primary osteoarthritis of right knee documented in this encounter
--- OUTSIDE RECORDS SUMMARY | 2024-02-21 15:05 | XMS_ITS | Encounter Summary ---
Author Organization [facility] Address [address] [place] [address] Phone Care Team Providers Care Mold Filler Plastic Dolls Name Role Phone Jose Martin Diamond MD [facility] Reason for Visit * Reason Onset Date Comments Med Refill 12/12/2017 Encounter Details Date Type Department Care Team (Late st Contact Info) Description 12/12/2017 Telephone [facility] Orthopaedic Surgery [address] [place] [address] Amy Degroot, EXECUTIVE COMPENSATION ANALYST [address] [facility] [address] [place], [place] [id number] Med Refill Social History Tobacco Use Types Packs/Day Years [...] 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 * Telephone Encounter - Amy Degroot NP - 12/12/2017 5:18 PM CDT Ok to refill for 90 days with 1 refill * Telephone Encounter - Rachael Hankins CPhT - 12/12/2017 11:21 AM CDT Pt requesting Gabapentin 300 mg Rx [facility] [phone] documented in this encounter Plan of Treatment Not on file documented as of this encounter Visit Diagnoses Not on filedocumented in this encounter Care Teams Mold Filler Plastic Dolls Relationship Specialty Start Date End Date Jose Martin Diamond MD [address] [place] [address] PCP - General 07/11/17 10/14/21 documented as of this encounter
--- OUTSIDE RECORDS SUMMARY | 2024-02-21 15:05 | XMS_ITS | Encounter Summary ---
Author Organization 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 Name Role Phone Jose Martin Diamond MD Primary Care [facility] Encounter Details Date Type Department Care Team (Latest Contact Info) Description 08/07/2017 9:55 AM CDT Hospital Encounter [facility] Dante Avelar, [place] [address] [facility] [address] [place], [place] [address] Essential (primary) hypertension; Hyperlipidemia; Hyperglycemia; Essential tremor Social History Tobacco Use Types Packs/Day Years Used Date Smoking Tobacco: Never Comments Unknown Sex and Gender Information Value Date Recorded Sex Assigned at Not on file Legal Sex Female 12:21 PM CDT Gender Identity Not on file Sexual Orientation Straight 05/17/2022 5: 28 PM CDT documented as of this encounter Medications at Time of Discharge amoxicillin-clavu lanate (AUGMENTIN) 875-125 mg per tablet TK 1 T PO Q 12 H FOR 7 DAYS 0 06/20/2017 9 FLUoxetine (PROzac) 40 mg capsule Take 40 mg by mouth daily 07/05/2017 9 nitrofurantoin (MACRODANTIN) 50 mg capsule TK [...] Associated Diagnosis Comments THYROID FUNCTION CASCADE Routine 08/07/2017 10:06 AM CDT HEMOGLOBIN A1C Routine 08/07/2017 10:06 AM CDT LIPID PANEL Routine 08/07/2017 10:06 AM CDT COMPREHENSIVE METABOLIC PANEL Routine 08/07/2017 10:06 AM CDT ALBUMIN, RANDOM URINE WITHOUT CREATININE Routine 08/07/2017 10:01 AM CDT documented in this encounter Results * TSH reflex to free T4 (08/07/2017 10:06 AM CDT) TSH W REFLEX TO FT4 1.63 0.27 - 4.20 uIU/mL 08/07/2017 5:35 PM CDT [facility] HISTORICAL RESULTS 08/07/2017 10:0 6 AM CDT 08/07/2017 4:58 PM CDT Narrative [facility] HISTORICAL RESULTS - 08/07/2017 5:35 PM CDT 12 HRS PC us Dante DAMIAN LAB BLOOD ORDERABLES Final Result [facility] HISTORICAL RESULTS * Hemoglobin A1c (08/07/2017 10:06 AM CDT) Hemoglobin A1c % 5.4 4.0 - 5.6 % 08/08/2017 12:29 AM CDT [facility] HISTORICAL RESULTS Comment: ADA 2016 GUIDELINES: ??Initial Diagnostic Criteria ? HbA1c Result: ?Interpretation: ?<5.7% ? Normal ?5.7-6.4% ?At risk for diabetes mellitus ?>=6.5% ?Consistent with diabetes mellitus ??Diabetes monitoring ? Target value (ADA Recommended) ?? <7% 08/07/2017 10:0 6 AM CDT 08/07/2017 4:58 PM CDT Narrative [facility] HISTORICAL RESULTS - 08/08/2017 12:29 AM CDT 12 HRS PC us Dante [facility]IAN LAB BLOOD ORDERABLES Final Result [facility] HISTORICAL RESULTS * (ABNORMAL) Lipid panel (08/07/2017 10:06 AM CDT) Triglycerides 83 0 - 149 mg/dL 08/07/2017 5:29 PM T [facility] HISTORICAL RESULTS Comment: National Lipid Association/NCEP Guidelines: ?? Normal ?< 150 mg/dL ?? Borderline high ?? 150-199 mg/dL ?? High ?200-499 mg/dL ?? Very High ? >=500 mg/dL Cholesterol 244(H) 0 - 199 mg/dL 08/07/2017 5:29 PM T [facility] HISTORICAL RESULTS Comment: National Lipid Association/NCEP Guidelines: Desirable ? < 200 mg/dL Borderline high: ??200-239 mg/dL High Risk: ?>=240 mg/dL HDL Cholesterol 49 mg/dL 8 5:29 PM T [facility] HISTORICAL RESULTS Comment: Reference Ranges: ? Males: >=40 mg/dL ? Females: >=50 mg/dL LDL Cholesterol, Calc 178(H) 0 - 129 mg/dL 08/07/2017 5:29 PM T [facility] HISTORICAL RESULTS Comment: National Lipid Association/NCEP Guidelines: ??Optimal ? < 100 mg/dL ??Near Optimal ?100-129 mg/dL ??Borderline high 130-159 mg/dL ??High ?>=160 mg/dL Cholesterol/HDL Ratio 5.0 08/07/2017 5:29 PM T [facility] HISTORICAL RESULTS Comment: Optimal ??< 3.5:1 High ? > 5:1 08/07/2017 10:0 6 AM CDT 08/07/2017 4:58 PM CDT Narrative [facility] HISTORICAL RESULTS - 08/07/2017 5:29 PM CDT 12 HRS PC us Dante DAMIAN LAB BLOOD ORDERABLES Final Result [facility] HISTORICAL RESULTS * (ABNORMAL) Comprehensive metabolic panel (08/07/2017 10:06 AM CDT) Sodium 139 135 - 145 mmol/L 08/07/2017 5:29 PM T [facility] HISTORICAL RESULTS Potassium 4.6 3.3 - 5.1 mmol/L 08/07/2017 5:[address] [facility] HISTORICAL RESULTS Chloride 100 96 - 108 mmol/L 08/07/2017 5:[address] [facility] HISTORICAL RESULTS Carbon Dioxide 26 22 - 32 mmol/L 08/07/2017 5:[address] [facility] HISTORICAL RESULTS Anion Gap 13 7 - 16 08/07/2017 5:[address] [facility] HISTORICAL RESULTS Glucose 93 70 - 100 mg/dL 08/07/2017 5:[address] [facility] HISTORICAL RESULTS BUN 20 6 - 20 mg/dL 08/07/2017 5:[address] [facility] HISTORICAL RESULTS Creatinine 1.2(H) 0.5 - 1.1 mg/dL 08/07/2017 5:[address] [facility] HISTORICAL RESULTS Comment: NOTE: Estimated GFR (Cockroft-Gault) will NOT be calculated unless patient Height and Weight were entered. Also, Kidney Disease Stage (GFR) and Estimated GFR (Cockroft-Gault) will NOT be calculated if Creatinine result is <0.2. Kidney Disease Stage 50 mL/MIN 08/07/2017 5:[address] [facility] HISTORICAL RESULTS Comment: NOTE; ??The GFR is an estimated [...] Kidney failure or on dialysis @ Calcium 9.5 8.6 - 10.0 mg/dL 08/07/2017 5:[address] [facility] HISTORICAL RESULTS Total Protein 6.7 6.4 - 8.3 g/dL 08/07/2017 5:[address] [facility] HISTORICAL RESULTS Albumin 4.4 3.5 - 5.2 g/dL 08/07/2017 5:[address] [facility] HISTORICAL RESULTS Globulin 2.3 2.3 - 3.5 gm/dL 08/07/2017 5:[address] [facility] HISTORICAL RESULTS Albumin/Globulin Ratio 1.9(H) 1.1 - 1.8 08/07/2017 5:[address] [facility] HISTORICAL RESULTS Total Bilirubin 0.3 0.0 - 1.2 mg/dL 08/07/2017 5:[address] [facility] HISTORICAL RESULTS AST 29 0 - 32 U/L 08/07/2017 5:[address] [facility] HISTORICAL RESULTS ALT 32 0 - 33 U/L 08/07/2017 5:[address] [facility] HISTORICAL RESULTS Alkaline Phosphatase 60 35 - 104 U/L 08/07/2017 5:29 PM T [facility] HISTORICAL RESULTS 08/07/2017 10:0 6 AM CDT 08/07/2017 4:58 PM CDT Narrative [facility] HISTORICAL RESULTS - 08/07/2017 5:29 PM CDT 12 HRS PC Dante [facility]IAN LAB BLOOD ORDERABLES Final Result Performing Organization Address [facility] de Phone Number [facility] HISTORICAL RESULTS * (ABNORMAL) Microalbumin, urine, random (08/07/2017 10:01 AM CDT) Ur Random Creatinine 116.0 mg/dL 08/07/2017 5:38 PM T [facility] HISTORICAL RESULTS Comment: Reference Range First morning urine: Females 28 - 217 mg/dLRandom Specimen: ??No reference ranges U Random Total Protein 17(H) 0 - 12 mg/dL 08/07/2017 5:38 PM T [facility] HISTORICAL RESULTS Ur Random Microalbumin 30.1(H) 0.0 - 19.9 mg/L 08/07/2017 5:[address] [facility] HISTORICAL RESULTS Comment: [place] Diabetes Association Guidelines Microalbuminuria: 30-300 ug albumin /mg creatinine Clinical Albuminuria: >300 ug albumin /mg creatinine Microalb/Creat Ratio 25.9(H) 0.0 - 19.9 ug/mg 08/07/2017 5:38 PM T [facility] HISTORICAL RESULTS 08/07/2017 10:0 1 AM CDT 08/07/2017 4:57 PM CDT us Dante [facility]IAN LAB URINE ORDERABLES Final Result Performing Organization Address [facility] Co de Phone Number [facility] HISTORICAL RESULTS documented in this encounter Visit Diagnoses Diagnosis Essential (primary) hypertension Unspecified essential hypertension Hyperlipidemia Other and unspecified hyperlipidemia Hyperglycemia Other abnormal glucose Essential tremor documented in this encounter Care Teams Sewing Machine Repairer Relationship Specialty Start Date End Date Jose Martin Diamond MD [address] [place] [address] PCP - General 07/11/17 10/14/21 documented as of this encounter
--- OUTSIDE RECORDS SUMMARY | 2024-02-21 15:05 | XMS_ITS | Encounter Summary ---
Author Organization [facility] Address [address] [place] [address] Phone Care Team Providers Care Pilot Name Role Phone Jose Martin Diamond MD [facility] Encounter Details Date Type Department Care Team (Latest Contact Info) Description 09/17/2017 9:00 AM CDT Office Visit [facility] Orthopaedic Surgery [address] [place] [address] Amy Degroot NP [address] [place] [address] Lumbosacral radiculopathy (Primary Dx); Chronic pain of right knee Social History Tobacco Use [...] 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 Zepeda on 09/30/2017 at 9am Left L5-S1 TESI LOCATION: [address], [address] *Please note that the time above is [...] your procedure, please call our office at [phone]. Please follow up with your Pain Diary 2 weeks after your injection. documented in this encounter Progress Notes * Amy Degroot NP - 09/17/2017 9:00 AM CDT RETURN PATIENT VISIT INTERVAL HISTORY Josee Taylor is a 57 y.o. who I last saw July 18, 2017. She presents in follow-up todayfor follow-up. Completed a prednisone taper and 6 sessions of physical therapy. She also uses inversion table overall feels about 25% improvement. She has persistent pain in the left leg with a senseof weakness particularly with stairs. She is taking 800 milligrams of Advil twice a day. Discomfortstill as stabbing, burning and aching with paresthesias in the left L5-S1 distribution. Denies bowel or bladder changes. She was seen previously by another provider for her right knee over the last couple years. She has had a locking sensation when she is sleeping in the knee is at about a 45 degree angle. She describes discomfort is at the medial patellofemoral joint line. She has pain with transitions. REVIEW OF SYSTEMS Negative per 36 point orthopedic questionaire. PHYSICAL EXAMINATION CONSTITUTIONAL: Well-appearing, in no apparent distress EYES: No scleral icterus or conjunctival hemorrhage CARDIOVASCULAR: Skin warm and well-perfused, no peripheral edema RESPIRATORY: Breathing unlabored without accessory muscle use PSYCHIATRIC: Alert, cooperative, appropriate mood and affect SKIN: No lesions or rashes on exposed skin MUSCULOSKELETAL: Lumbar range of motion provokes pain with flexion and extension. The extension increases paresthesia in the S1 distribution. She is able to heel and toe walk. Bilateral hip flexion, knee flexion/extension, ankle dorsiflexion EHL strength is 5/5. Right knee exam demonstrates patellacrepitus. Range of motion 0-120 degrees. No erythema, heat or effusion. Negative Maria Eugenia's. Negative Joy's. No laxity or pain with varus or valgus stress applied at 0 or 30??. NEUROLOGIC: Positive sit slump on the left. Sensation intact bilateral lower extremities. REVIEW OF IMAGING/STUDIES None IMPRESSION/DIAGNOSIS Non biased low back pain with left L5-S1 radiculitis in the setting of lumbar spinal stenosis Right knee pain TREATMENT/PLAN I discussed history and exam. Recommend left L5-S1 T RU. Injection procedure, risk and proceed benefits were discussed and she would like to proceed. Recommend trial of gabapentin, starting 300 mg at bedtime, if tolerated for 5 days, increase to 600 mg at bedtime. Discussed the action, side effects and perceived benefits. Discontinue muscle relaxer. Recommend directed physical therapy to improve strength and flexibility of the VMO / Quad with closed kinetic chain exercises, not to exceed 30 degrees of flexion. Release ITB / lateral retinaculum. Modalities as needed. Core, hip abductor/extensor strengthening. Recommend 20 minutes, 2- 3 times a day with flares and then in a routine fashion after activity that may exacerbate pain. Call the office 2 weeks after injection with an update. Amy Degroot RN, ANP-BC Nurse Practitioner [facility] Orthopedics Division of Physical Medicine and Rehabilitation In collaboration with Dr. Chacorta Mcintyre / Dr. Christian Portions of this note were dictated using M*Modal Fluency Direct speech recognition software. Please excuse any climate change analyst errors. documented in this encounter Plan of Treatment Not on file documented as of this encounter Visit Diagnoses Diagnosis Lumbosacral radiculopathy- Primary Thoracic or lumbosacral neuritis or radiculitis, unspecified Chronic pain of right knee documented in this encounter Historical Medications * This list may reflect changes made after this encounter. nitrofurantoin (MACRODANTIN) 100 mg capsule TK ONE C PO BID FOR 3 DAYS PRN FOR UTI 5 09/15/2017 9 valsartan (DIOVAN) 80 mg tablet daily 06/29/2017 9 predniSONE (DELTASONE) 10 mg tablet TK 6 TS PO DAY ONE THEN DECREASE BY 1 T QD UNTIL FINISHED 0 07/18/2017 9 nitrofurantoin monohydrate (MACROBID) 100 mg capsule TK 1 C PO Q 12 H WF FOR 7 DAYS 0 06/10/2017 9 nitrofurantoin (MACRODANTIN) 50 mg capsule TK 1 C PO HS 1 06/25/2017 9 meloxicam (MOBIC) 7.5 mg tablet TK 1 T PO QD 2 09/10/2017 9 FLUoxetine (PROzac) 40 mg capsule Take 40 mg by mouth daily 07/05/2017 9 atorvastatin (LIPITOR) 40 mg tablet TK 1 T PO QD 0 08/14/2017 9 amoxicillin-clavu lanate (AUGMENTIN) 875-125 mg per tablet TK 1 T PO Q 12 H FOR 7 DAYS 0 06/20/2017 9 ALPRAZolam (XANAX) 0.5 mg tablet daily 0 09/02/2017 9 cyclobenzaprine (FLEXERIL) 10 mg tablet TK 1 T PO TID FOR 14 DAYS PRN 5 09/10/2017 9 added in this encounter Care Teams Pilot Relationship Specialty Start Date End Date Jose Mratin Diamond MD [address] [address] PCP - General 07/11/17 10/14/21 documented as of this encounter
--- OUTSIDE RECORDS SUMMARY | 2024-02-21 15:05 | XMS_ITS | Encounter Summary ---
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 Hardwood Flooring Name Role Phone Jose Martin Diamond MD Primary Care Provi [facility] Reason for Referral * Diagnostic Imaging (Routine) - Closed Specialty Diagnoses / Procedures Referred By Contac t Referred To Contact Radiology Diagnoses Lumbar radiculopathy Procedures IR Transforaminal Epidural Injection Lumbar Sacral 1 Level Left Amy Degroot NP Phone: tel: fax: [facility] Referral ID Status Reason Start Date Expiration Date Visits Re quested Visits Authorized [id number] Closed 09/30/2017 09/30/2017 1 1 Reason for Visit * Diagnostic Imaging (Routine) - Closed Specialty Diagnoses / Procedures Referred By Contac t Referred To Contact Radiology Diagnoses Lumbar radiculopathy Procedures IR Transforaminal Epidural Injection Lumbar Sacral 1 Level Left Amy Degroot NP Phone: tel: fax: [facility] Referral ID Status Reason Start Date Expiration Date Visits Re quested Visits Authorized [id number] Closed 09/30/2017 09/30/2017 1 1 Encounter Details Date Type Department Care Team (Latest Contact Info) Description 09/30/2017 9:01 AM CDT - 09/30/2017 11:59 PM CDT Hospital Encounter [facility] Radiology at [facility] [address] [place] [address] Amy Degroot NP [address] [place] [address] [place] [address] [place] [address] Lumbar radiculopathy Discharge Disposition: Discharge to home [...] 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 ??Please refer to the physician's procedure / OR operative note. Amy Degroot EYEGLASS CUTTER IMG IR PROCEDURES Final Resul t [facility] documented in this encounter Visit Diagnoses Diagnosis Lumbar radiculopathy Thoracic or lumbosacral neuritis or radiculitis, unspecified documented in this encounter Administered Medications Inactive Administered Medications - up to 3 most recent administrations Medication Order MAR Action Action Date Dose Rate Site dexamethasone (DECADRON) preservative free injection 10 mg 10 mg, intramuscular, Administer over 1 Minutes, Once, On Fri09/30/17 at 1000, For 1 dose Given 09/30/2017 9:21 AM CDT 10 mg Other (Comment) iohexol (OMNIPAQUE) 300 mg iodine/mL injection solution Code/trauma/sedation medication, Starting on Fri09/30/17 at 0920 Given 09/30/2017 9:20 AM CDT 2 mL lidocaine PF (XYLOCAINE) 10 mg/mL (1 %) preservative free injection Code/trauma/sedation medication, Starting on Fri09/30/17 at 0920, Intra-Procedure (IR), Indications: Administration of Local AnesthesiaIndications:Admini stration of Local Anesthesia Given 09/30/2017 9:20 AM CDT 4 mL documented in this encounter Care Teams Carpenter Helper Hardwood Flooring Relationship Specialty Start Date End Date Jose Martin Diamond MD [address] [address] PCP - General 07/11/17 10/14/21 documented as of this encounter
--- OUTSIDE RECORDS SUMMARY | 2024-02-21 15:05 | XMS_ITS | Encounter Summary ---
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; Personal history of nicotine dependence Social History Tobacco Use Types Packs/Day Years [...] 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 Not on file Not on rohit e documented as of this encounter Last Filed Vital Signs Vital Sign Reading Time Taken Comments Blood Pressure 139/84 02/19/2018 12:20 PM BICYCLE INSPECTOR Pulse 63 02/19/2018 12:20 PM BICYCLE INSPECTOR Temperature 36.6 ??C (97.9 ??F) 02/19/2018 12:[address] Respiratory Rate - - Oxygen Saturation 98% 02/19/2018 12:20 PM BICYCLE INSPECTOR Inhaled Oxygen Concentration - - Weight 72 kg (158 lb 11.7 oz) 02/19/2018 12:20 P M BICYCLE INSPECTOR Height - - Body Mass Index 27.25 02/19/2018 10:15 AM BICYCLE INSPECTOR documented in this encounter Medications at Time [...] Procedure Name Priority Date/Time Associated Diagnosis Comments TROPONIN I Routine 02/19/2018 3:27 PM BICYCLE INSPECTOR TNI WITH LIPID PANEL Routine 02/19/2018 12:36 PM BICYCLE INSPECTOR CBC WITH AUTO DIFFERENTIAL Routine 02/19/2018 12:36 PM BICYCLE INSPECTOR COMPREHENSIVE METABOLIC PANEL Routine 02/19/2018 12:36 PM BICYCLE INSPECTOR XR CHEST PA LATERAL 2 VIEWS Routine 02/19/2018 12:00 AM BICYCLE INSPECTOR documented in this encounter Results * Troponin I (02/19/2018 3:27 PM BICYCLE INSPECTOR) Troponin I < 0.300 0.000 - 0.300 ng/mL 02/19/2018 4:04 PM BICYCLE INSPECTOR [facility] [employer] HISTORICAL RESULTS Comment: Reference using MARLYN Chemiluminescence ? Negative: Repeat in 4-6 hours as indicated. 02/19/2018 3:27 PM BICYCLE INSPECTOR 02/19/2018 3:32 PM BICYCLE INSPECTOR Jacinta Sarmiento AIR BRAKE RIGGER LAB BLOOD ORDERABLES Final R esult [facility] HISTORICAL RESULTS * (ABNORMAL) TNI with LIPID PANEL (02/19/2018 12:36 PM BICYCLE INSPECTOR) Troponin I < 0.300 0.000 - 0.300 ng/mL 02/19/2018 1:05 PM BICYCLE INSPECTOR [facility] [employer] HISTORICAL RESULTS Comment: Reference using MARLYN Chemiluminescence ? Negative: Repeat in 4-6 hours as indicated. Triglycerides 148 0 - 149 mg/dL 02/19/2018 1:07 PM BICYCLE INSPECTOR [facility] [employer] HISTORICAL RESULTS Comment: National Lipid Association/NCEP Guidelines: ?? Normal ?< 150 mg/dL ?? Borderline high ?? 150-199 mg/dL ?? High ?200-499 mg/dL ?? Very High ? >=500 mg/dL Cholesterol 244(H) 0 - 199 mg/dL Comment: National Lipid Association/NCEP Guidelines: Desirable ? < 200 mg/dL Borderline high: ??200-239 mg/dL High Risk: ?>=240 mg/dL HDL Cholesterol 63 mg/dL 8 1:07 PM [facility] HISTORICAL RESULTS Comment: Reference Ranges: ? Males: >=40 mg/dL ? Females: >=50 mg/dL LDL Cholesterol, Calc 151(H) 0 - 129 mg/dL Comment: National Lipid Association/NCEP Guidelines: ??Optimal ? < 100 mg/dL ??Near Optimal ?100-129 mg/dL ??Borderline high 130-159 mg/dL ??High ?>=160 mg/dL Cholesterol/HDL Ratio 3.9 Comment: Optimal ??< 3.5:1 High ? > 5:1 02/19/2018 12:3 6 PM BICYCLE INSPECTOR 02/19/2018 12:41 PM BICYCLE INSPECTOR us Jacinta Sarmiento AIR BRAKE RIGGER LAB BLOOD ORDERABLES Final R esult [facility] HISTORICAL RESULTS * (ABNORMAL) Comprehensive metabolic panel (02/19/2018 12:36 PM BICYCLE INSPECTOR) Sodium 139 135 - 145 mmol/L Potassium 3.8 3.3 - 5.1 mmol/L Chloride 103 96 - 108 mmol/L Carbon Dioxide 20(L) 22 - 32 mmol/L Anion Gap 16 7 - 16 Glucose 107(H) 70 - 100 mg/dL BUN 17 6 - 20 mg/dL Creatinine 1.0 0.5 - 1.1 mg/dL Comment: NOTE: Estimated GFR (Cockroft-Gault) will NOT be calculated unless patient Height and Weight were entered. Also, Kidney Disease Stage (GFR) and Estimated GFR (Cockroft-Gault) will NOT be calculated if Creatinine result is <0.2. Kidney Disease Stage 61 mL/MIN Comment: NOTE; ??The GFR is an [...] Kidney failure or on dialysis @ Calcium 9.9 8.6 - 10.0 mg/dL Total Protein 7.2 6.4 - 8.3 g/dL Albumin 4.7 3.5 - 5.2 g/dL Globulin 2.5 2.3 - 3.5 gm/dL Albumin/Globulin Ratio 1.9(H) 1.1 - 1.8 Total Bilirubin 0.4 0.0 - 1.2 mg/dL AST 32 0 - 32 U/L ALT 31 0 - 33 U/L Alkaline Phosphatase 83 35 - 104 U/L 02/19/2018 12:3 6 PM BICYCLE INSPECTOR 02/19/2018 12:41 PM BICYCLE INSPECTOR us Jacinta Sarmiento AIR BRAKE RIGGER LAB BLOOD ORDERABLES Final R esult [facility] HISTORICAL RESULTS * (ABNORMAL) CBC with auto differential (02/19/2018 12:36 PM BICYCLE INSPECTOR) WBC 5.5 3.8 - 9.9 X10 3/ul RBC 4.78 3.90 - 5.20 x10 6/ul Hemoglobin 13.0 11.9 - 15.5 g/dL Hct 38.3 35.6 - 45.5 % MCV 80.1(L) 81.3 - 96.4 fl MCH 27.2 27.1 - 33.3 pg MCHC 33.9 32.3 - 35.7 g/dl 02/19/2018 12:44 PM [facility] [employer] [facility] HISTORICAL RESULTS RDW 12.4 11.1 - 14.9 % 02/19/2018 12:44 PM [facility] [employer] [facility] HISTORICAL RESULTS Plt Count 302 150 - 400 x10 3/ul MPV 10.0 9.1 - 12.3 fl 02/19/2018 12:44 PM [facility] [employer] [facility] HISTORICAL RESULTS Neut % 52.2 % 02/19/2018 12:44 PM [facility] [employer] [facility] HISTORICAL RESULTS Immature Gran % 0.4 % 8 12:44 PM [facility] [employer] [facility] HISTORICAL RESULTS Lymph % 36.7 % 02/19/2018 12:44 PM [facility] [employer] [facility] HISTORICAL RESULTS [place] % 7.5 % 02/19/2018 12:44 PM [facility] [employer] [facility] HISTORICAL RESULTS Eos % 2.5 % 02/19/2018 12:44 PM [facility] [employer] [facility] HISTORICAL RESULTS Baso % 0.7 % 02/19/2018 12:44 PM [facility] [employer] [facility] HISTORICAL RESULTS Absolute Neuts (auto) 2.9 1.7 - 6.5 x10 3/ul 02/19/2018 12:44 PM [facility] [employer] [facility] HISTORICAL RESULTS Immature Gran # 0.0 0.0 - 0.1 x10 3/ul 02/19/2018 12:44 PM [facility] Absolute Lymphs (auto) 2.0 0.8 - 3.3 x10 3/ul 02/19/2018 12:44 PM [facility] [employer] [facility] HISTORICAL RESULTS Absolute Monos (auto) 0.4 0.2 - 0.8 x10 3/ul 02/19/2018 12:44 PM [facility] [employer] [facility] HISTORICAL RESULTS Absolute Eos (auto) 0.1 0.0 - 0.5 x10 3/ul 02/19/2018 12:44 PM [facility] [employer] [facility] HISTORICAL RESULTS Absolute Basos (auto) 0.0 0.0 - 0.1 x10 3/ul 02/19/2018 12:44 PM [facility] [employer] [facility] HISTORICAL RESULTS Nucleat RBC Rel Count 0.0 #/100WBC 02/19/2018 12:44 PM BICYCLE INSPECTOR [facility] HISTORICAL RESULTS Absolute Nucleated RBC 0.00 0.00 - 0.01 x10 3/ul 02/19/2018 12:44 PM BICYCLE INSPECTOR [facility] HISTORICAL RESULTS Absolute Neutrophils 2900 200 - 8000 /ul 02/19/2018 12:44 PM BICYCLE INSPECTOR [facility] HISTORICAL RESULTS 02/19/2018 12:3 6 PM BICYCLE INSPECTOR 02/19/2018 12:41 PM BICYCLE INSPECTOR us Jacinta Sarmiento AIR BRAKE RIGGER LAB BLOOD ORDERABLES Final R esult [facility] HISTORICAL RESULTS * XR Chest Pa Lateral 2 Views (02/19/2018 12:00 AM BICYCLE INSPECTOR) Anatomical Region Laterality Modality Body, Chest N/A Radiographic Rosey ging 02/19/2018 Impressions 02/19/2018 12:48 PM BICYCLE INSPECTOR ??No acute cardiopulmonary abnormality. THIS IS AN ELECTRONICALLY VERIFIED FINAL REPORT 02/19/2018 12:45 PM - Electronically signed by Anshul Watson M.D. D: ??02/19/2018 12:45 PM T: Report ID: [id number] Reading Location: ??[id number] [EOD] Narrative 02/19/2018 12:48 PM BICYCLE INSPECTOR EXAM DESCRIPTION: ??Chest 2 Views REASON FOR STUDY: ??Sudden onset of chest pain and dizziness with nausea today. TECHNIQUE: ??Frontal and lateral radiographic views of the chest acquired. COMPARISON: ??None. FINDINGS: LUNGS/PLEURA: No focal consolidation or pneumothorax. No pleural effusion. HEART/MEDIASTINUM: Heart size is normal. Normal mediastinal and hilar contours. HARDWARE/LINES/TUBES: None. BONES: No acute findings. OTHER: No other significant finding. Procedure Note Provider, MD Yuri - 07/12/2020 EXAM DESCRIPTION: Chest 2 Views REASON FOR STUDY: Sudden onset of chest pain and dizziness with nauseatoday. TECHNIQUE: Frontal and lateral radiographic views of the chestacquired. COMPARISON: None. FINDINGS: LUNGS/PLEURA: No focal consolidation or pneumothorax. No pleuraleffusion. HEART/MEDIASTINUM: Heart size is normal. Normal mediastinal and hilarcontours. HARDWARE/LINES/TUBES: None. BONES: No acute findings. OTHER: No other significant finding. IMPRESSION: No acute cardiopulmonary abnormality. THIS IS AN ELECTRONICALLY VERIFIED FINAL REPORT 02/19/2018 12:45 PM - Electronically signed by Anshul Watson M.D. 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
--- OUTSIDE RECORDS SUMMARY | 2024-02-21 15:05 | XMS_ITS | Encounter Summary ---
Author Organization [facility] Facility Care Team Providers Care Mold Filler And Drainer Name Role Phone Jose Martin Diamond MD Primary Care Provi [facility] Encounter Details Date Type Department Care Team (Latest Contact Info) Description 07/23/2017 Orders Only [facility] mAy Degroot, BRIQUETTE OPERATOR [address] [place] [address] Social History Tobacco Use Types Packs/Day Years [...] Name Priority Date/Time Associated Diagnosis Comments XR CONSULT OF OUTSIDE FILMS (PEDS ONLY) Routine 07/23/2017 9:07 PM CDT documented in this encounter Results * XR Interpretation Of Outside Films (07/23/2017 9:07 PM CDT) Anatomical Region Laterality Modality N/A Radiographic Rosey ging 07/23/2017 9:07 PM CDT Narrative 07/23/2017 9:30 PM CDT OUTSIDE IMAGES COAL WHEELER, FINAL REPORT ACC# ??Date Time ??Exam [id number] July 23, 2017 16:07:00 [id number] [facility] Plain Film Reference EXAMINATION: ?? Images For Reference Purposes Only IMPRESSION: ?? These images are for Reference purposes only and have not been reviewed by [facility]. There will be no report generated by a [facility]iologist. Requested By: AMY DEGROOT ??ANP ? Dictated By: ?? OUTSIDE IMAGES COAL WHEELER, ?? on Jul 23 2017 ??4:29P This document has been electronically signed by: OUTSIDE IMAGES COAL WHEELER, ??on Jul 23 2017 ??4:30P [id number] IMAGES COAL WHEELER, FINAL REPORT Attending: ??CHANA, ??YENI Requesting: ??DAMASO, ??AMY Requesting Fax: ?? Attending Fax: ?? Attending ID: ??[id number] Requesting ID: ??[id number] Report To 1 ID: ? Report To 1 Name: ??, ?? Report To 1 FAX: ?? NextGen Order #: ?? Procedure Note Miscellaneous, Not In File - 07/23/2017 OUTSIDE IMAGES COAL WHEELER, FINAL REPORT ACC# Date Time Exam [id number] July 23, 2017 16:07:00 [id number] [facility] Plain Film Reference EXAMINATION: Images For Reference Purposes Only IMPRESSION: These images are for Reference purposes only and have not been reviewed by [facility]. There will be no report generated by a [facility]iologist. Requested By: AMY DEGROOT Dictated By: OUTSIDE IMAGES COAL WHEELER, on Jul 23 2017 4:29P This document has been electronically signed by: OUTSIDE IMAGES COAL WHEELER, on Jul 23 2017 4:30P [id number] IMAGES COAL WHEELER, FINAL REPORT Attending: YENI ZAYAS Requesting: AMY DEGROOT Requesting Fax: Attending Fax: Attending ID: [id number] Requesting ID: [id number] Report To 1 ID: Report To 1 Name: , Report To 1 FAX: NextGen Order #: us Amy Degroot BRIQUETTE OPERATOR IMG XR PROCEDURES Final Resul t documented in this encounter Visit Diagnoses Not on filedocumented in this encounter Care Teams Mold Filler And Drainer Relationship Specialty Start Date End Date Jose Martin Diamond MD [address] [address] PCP - General 07/11/17 10/14/21 documented as of this encounter
--- OUTSIDE RECORDS SUMMARY | 2024-02-21 15:05 | XMS_ITS | Encounter Summary ---
Author Organization [facility] Facility Care Team Providers Care Steam Conditioning Operator Name Role Phone Jose Martin Diamond MD Primary Care Provi [facility] Encounter Details Date Type Department Care Team (Latest Contact Info) Description 07/23/2017 Orders Only [facility] Amy Degroot, TARGET NETWORK ANALYST [address] [place] [address] Social History Tobacco Use Types Packs/Day Years [...] OF OUTSIDE FILMS (PEDS ONLY) Routine 07/23/2017 9:10 PM CDT documented in this encounter Results * XR Interpretation Of Outside Films (07/23/2017 9:10 PM CDT) Anatomical Region Laterality Modality N/A Radiographic Rosey ging 07/23/2017 9:10 PM CDT Narrative 07/23/2017 9:30 PM CDT OUTSIDE IMAGES MEDTRONICS TECHNICIAN, FINAL REPORT ACC# ??Date Time ??Exam [id number] July 23, 2017 16:10:00 [id number] [facility] Neuro Reference EXAMINATION: ?? Images For Reference Purposes Only IMPRESSION: ?? These images are for Reference purposes only and have not been reviewed by [facility]. There will be no report generated by a [facility]iologist. Requested By: AMY DEGROOT ??ANP ? Dictated By: ?? OUTSIDE IMAGES MEDTRONICS TECHNICIAN, ?? on Jul 23 2017 ??4:30P This document has been electronically signed by: OUTSIDE IMAGES MEDTRONICS TECHNICIAN, ??on Jul 23 2017 ??4:30P [id number] IMAGES MEDTRONICS TECHNICIAN, FINAL REPORT Attending: ??CHANA, ??YENI Requesting: ??DAMASO, ??AMY Requesting Fax: ?? Attending Fax: ?? Attending ID: ??[id number] Requesting ID: ??[id number] Report To 1 ID: ? Report To 1 Name: ??, ?? Report To 1 FAX: ?? NextGen Order #: ?? Procedure Note Miscellaneous, Not In File - 07/23/2017 OUTSIDE IMAGES MEDTRONICS TECHNICIAN, FINAL REPORT ACC# Date Time Exam [id number] July 23, 2017 16:10:00 [id number] [facility] Neuro Reference EXAMINATION: Images For Reference Purposes Only IMPRESSION: These images are for Reference purposes only and have not been reviewed by [facility]. There will be no report generated by a [facility]iologist. Requested By: AMY DEGROOT Dictated By: OUTSIDE IMAGES MEDTRONICS TECHNICIAN, on Jul 23 2017 4:30P This document has been electronically signed by: OUTSIDE IMAGES MEDTRONICS TECHNICIAN, on Jul 23 2017 4:30P [id number] IMAGES MEDTRONICS TECHNICIAN, FINAL REPORT Attending: YENI ZAYAS Requesting: AMY DEGROOT Requesting Fax: Attending Fax: Attending ID: [id number] Requesting ID: [id number] Report To 1 ID: Report To 1 Name: , Report To 1 FAX: NextGen Order #: us Amy Degroot TARGET NETWORK ANALYST IMG XR PROCEDURES Final Resul t documented in this encounter Visit Diagnoses Not on filedocumented in this encounter Care Teams Steam Conditioning Operator Relationship Specialty Start Date End Date Jose Martin Diamond MD [address] [address] PCP - General 07/11/17 10/14/21 documented as of this encounter
--- OUTSIDE RECORDS SUMMARY | 2024-02-21 15:05 | XMS_ITS | Encounter Summary ---
Author Organization [facility] Healthcare Address [address] [place] [address] Care Team Providers Care Garage Supervisor Name Role Phone Unavailable Primary Care Provider Unavailabl e Encounter Details Date Type Department Care Team (Latest Contact Info) Description 06/20/2017 6:48 AM CDT Hospital Encounter [facility] Dante Avelar, [place] [address] [facility] [address], [place] [address] Low back pain with left-sided sciatica; Other intervertebral disc degeneration, lumbar region; Spinal stenosis of lumbar region without neurogenic claudication Social History Tobacco Use Types Packs/Day Years Used Date Smoking Tobacco: Never Assessed Comments Unknown Sex and Gender Information Value Date Recorded Sex Assigned at Not on file Legal Sex Female 12:21 PM CDT Gender Identity Not on file Sexual Orientation Straight 05/17/2022 5: 28 PM CDT documented as of this encounter Medications at Time of Discharge amoxicillin-clavul anate (AUGMENTIN) 875-125 mg per tablet TK 1 T PO Q 12 H FOR 7 DAYS 0 06/20/2017 05/14/2018 nitrofurantoin monohydrate (MACROBID) 100 mg capsule TK 1 C PO Q 12 H WF FOR 7 DAYS 0 06/10/2017 05/14/2018 documented as of this encounter Plan of Treatment Not on file documented as of this encounter Procedures Procedure Name Priority Date/Time Associated Diagnosis Comments MRI LUMBAR SPINE WO CONTRAST Routine 06/20/2017 6:50 AM CDT documented in this encounter Results * MRI Lumbar Spine WO Contrast (06/20/2017 6:50 AM CDT) Anatomical Region Laterality Modality Spine N/A Magnetic Resonan ce 06/20/2017 6:50 AM CDT Impressions 06/20/2017 11:51 AM CDT ??Multilevel disc degeneration. ??Severe spinal stenosis at L4-5 due to a broad-based central and left paramidline disc protrusion in conjunction with facet arthritis and thickening of ligaments. ??Severe left lateral recess narrowing. Moderate to severe spinal stenosis L3-4 with right lateral recess narrowing. Broad-based central disc protrusion at L1-2 with mild spinal stenosis. ?? Diffuse annular bulge with moderate to severe spinal stenosis and subarticular narrowing on the right at L3-4. ??Right foraminal narrowing without nerve root impingement. Disc degeneration other lumbar levels, as above. THIS IS AN ELECTRONICALLY VERIFIED FINAL REPORT 06/20/2017 11:48 AM - Electronically signed by Joann Kang M.D. LC: ROBERT D: ??06/20/2017 11:48 AM T: ??06/20/2017 11:48 AM Report ID: [id number] Reading Location: ??[id number] [EOD] Narrative 06/20/2017 11:51 AM CDT EXAM DESCRIPTION: ??MRI Lumbar COMPLETED DATE/TIME: ??06/20/2017 7:39 am REASON FOR STUDY: ??Left-sided low back pain with numbness and tingling in left leg to toes for 2 months duration. ??No injury or surgery. TECHNIQUE: Sagittal and Axial imaging includes T1, T2, STIR sequences. COMPARISON: ??Lumbar radiographs 06/12/2017 FINDINGS: SEGMENTATION: No transitional anatomy. The lowest well-developed disc space is labeled L5-S1. ALIGNMENT: Very mild left convexity lumbar curvature with apex roughly at L2. ?? Alignment otherwise is normal. VERTEBRAE: Vertebral bodies maintain. ??Disc degeneration along the right L3-4 disc space with Schmorl's node formation. ??Marrow signal otherwise is normal. DISC HEIGHT: Mild disc space narrowing at L3-4. ??Otherwise, disc spaces are well maintained. HARDWARE: None in the spine. CORD AND CONUS: Normal in size and signal intensity. Conus at the appropriate level. LOWER THORACIC: Incompletely imaged. No stenosis seen. INDIVIDUAL DISC LEVELS: L1-2: Small central disc protrusion L1-2 with flattening along ventral thecal sac CSF. ??No foraminal narrowing. L2-3: Normal. L3-4: Mild diffuse annular bulge with right lateral protrusion. ??Inferior foraminal narrowing on the right with severe spinal stenosis overall due to posterior ligamentous thickening and facet arthritis. ??No nerve root impingement. L4-5: Moderate diffuse annular bulge with broad-based left paramidline disc protrusion. ??Severe spinal stenosis. ??Left lateral recess narrowing. ??Severe left foraminal narrowing with mild nerve root impingement. L5-S1: Mild diffuse annular bulge with small central protrusion. ??Minimal contact of S1 nerve root sleeves. SACRUM: Visualized upper sacrum intact. VISUALIZED UPPER ABDOMEN: No significant abnormality. OTHER: . Procedure Note Provider, MD Yuri - 07/12/2020 EXAM DESCRIPTION: MRI Lumbar COMPLETED DATE/TIME: 06/20/2017 7:39 am REASON FOR STUDY: Left-sided low back pain with numbness and tingling inleft leg to toes for 2 months duration. No injury or surgery. TECHNIQUE: Sagittal and Axial imaging includes T1, T2, STIR sequences. COMPARISON: Lumbar radiographs 06/12/2017 FINDINGS: SEGMENTATION: No transitional anatomy. The lowest well-developed discspace is labeled L5-S1. ALIGNMENT: Very mild left convexity lumbar curvature with apex roughly atL2. Alignment otherwise is normal. VERTEBRAE: Vertebral bodies maintain. Disc degeneration along the rightL3-4 disc space with Schmorl's node formation. Marrow signal otherwise isnormal. DISC HEIGHT: Mild disc space narrowing at L3-4. Otherwise, disc spacesare well maintained. HARDWARE: None in the spine. CORD AND CONUS: Normal in size and signal intensity. Conus at theappropriate level. LOWER THORACIC: Incompletely imaged. No stenosis seen. INDIVIDUAL DISC LEVELS: L1-2: Small central disc protrusion L1-2 with flattening along ventralthecal sac CSF. No foraminal narrowing. L2-3: Normal. L3-4: Mild diffuse annular bulge with right lateral protrusion. Inferior foraminal narrowing on the right with severe spinal stenosis overall dueto posterior ligamentous thickening and facet arthritis. No nerve root impingement. L4-5: Moderate diffuse annular bulge with broad-based left paramidlinedisc protrusion. Severe spinal stenosis. Left lateral recess narrowing.Severe left foraminal narrowing with mild nerve root impingement. L5-S1: Mild diffuse annular bulge with small central protrusion. Minimal contact of S1 nerve root sleeves. SACRUM: Visualized upper sacrum intact. VISUALIZED UPPER ABDOMEN: No significant abnormality. OTHER: . IMPRESSION: Multilevel disc degeneration. Severe spinal stenosis at L4-5due to a broad-based central and left paramidline disc protrusion inconjunction with facet arthritis and thickening of ligaments. Severe left lateralrecess narrowing. Moderate to severe spinal stenosis L3-4 with right lateral recessnarrowing. Broad-based central disc protrusion at L1-2 with mild spinal stenosis. Diffuse annular bulge with moderate to severe spinal stenosis andsubarticular narrowing on the right at L3-4. Right foraminal narrowing without nerveroot impingement. Disc degeneration other lumbar levels, as above. THIS IS AN ELECTRONICALLY VERIFIED FINAL REPORT 06/20/2017 11:48 AM - Electronically signed by Joann Kang M.D. LC: ROBERT Report ID: [id number] Reading Location: [place] [id number] [EOD] Dante DAMIAN IMG MRI PROCEDURES Final Re sult documented in this encounter Visit Diagnoses Diagnosis Low back pain with left-sided sciatica Other intervertebral disc degeneration, lumbar region Spinal stenosis of lumbar region without neurogenic claudication documented in this encounter
--- OUTSIDE RECORDS SUMMARY | 2024-02-21 15:05 | XMS_ITS | Encounter Summary ---
Author Organization [facility] Healthcare Address [address] [place] [address] Care Team Providers Care Cyber Software Engineer Name Role Phone Unavailable Primary Care Provider Unavailabl e Encounter Details Date Type Department Care Team (Latest Contact Info) Description 12/05/2015 8:28 AM CDT Hospital Encounter [facility] Dante Avelar, [place] [address] [address] Frequency of micturition; Dysuria; Hyperlipidemia; Essential (primary) hypertension Social History Tobacco [...] Procedure Name Priority Date/Time Associated Diagnosis Comments MICROBIOLOGY SPECIMEN REPORT (CONVERTED) Routine 12/05/2015 10:06 AM CDT ALBUMIN, RANDOM URINE WITHOUT CREATININE Routine 12/05/2015 8:29 AM CDT LIPID PANEL Routine 12/05/2015 8:29 AM CDT COMPREHENSIVE METABOLIC PANEL Routine 12/05/2015 8:29 AM CDT documented in this encounter Results * Microbiology Specimen Report (Converted) (12/05/2015 10:06 AM CDT) 12/05/2015 10:0 6 AM CDT 12/05/2015 5:14 PM CDT [facility] HISTORICAL RESULTS - 12/05/2015 10:06 AM CDT Microbiology Specimen Report (Converted) SPECIMEN [id number] ?? COLLECTED: 2015-12-05 10:06:00 PT ?? REQ#: [id number] REQUESTING DR: Dante Avelar ?? SOURCE: URINE ?? SP DESC: CLEAN CATC --- PROCEDURE --- ?--- RESULT --- ?? CULTURE URINE ??(Final) ??- ??Performed at [facility] ?* COLONY COUNT: 10,000 CFU/ml ?* MIXED GRAM POSITIVE ORGANISMS ?? * Organism 1 - ESCHERICHIA COLI [E COLI] ?* COLONY COUNT: >100,000 CFU/ml ?* SEE SUSCEPTIBILITY REPORT BELOW ? [E COLI] ? M.I.C. ?RX AMOXICILLIN/CLAVULANIC ACID ?4 ? S AMPICILLIN ? >=32 ?R AMPICILLIN/SULBACTAM ? 16 ?I CEFAZOLIN ?<=4 ? S CEFEPIME ? <=1 ? S CEFTRIAXONE ?<=1 ? S CIPROFLOXACIN ?<=0.25 ?S ERTAPENEM ?<=0.5 ? S GENTAMICIN ? <=1 ? S IMIPENEM ? <=0.25 ?S LEVOFLOXACIN ? 1 ? S NITROFURANTOIN ? <=16 ?S PIPERACILLIN/TAZOBACTAM ?<=4 ? S TRIMETHOPRIM/SULFAMETHOXAZOLE ??>=320 ? R TOBRAMYCIN ? <=1 ? S ??S=Susceptible ?? I=Intermediate ?? S=Resistant ??SDD=Susceptible Dose Dependent ?? N/R=No Report ?SILVA =[facility]am[facility] - [facility] ? [address] ? [place] [address] ? Basim Dior MD Procedure Note 05/16/2018 Microbiology Specimen Report (Converted) SPECIMEN [id number] COLLECTED: 2015-12-05 10:06:00 PT REQ#:[id number] REQUESTING DR: Dante Avelar SOURCE: URINE SP DESC: CLEAN CATC --- PROCEDURE --- --- RESULT --- CULTURE URINE (Final) - Performed at [facility] * COLONY COUNT: 10,000 CFU/ml * MIXED GRAM POSITIVE ORGANISMS * Organism 1 - ESCHERICHIA COLI [E COLI] * COLONY COUNT: >100,000 CFU/ml * SEE SUSCEPTIBILITY REPORT BELOW [E COLI] M.I.C. RX AMOXICILLIN/CLAVULANIC ACID 4 S AMPICILLIN >=32 R AMPICILLIN/SULBACTAM 16 I CEFAZOLIN <=4 S CEFEPIME <=1 S CEFTRIAXONE <=1 S CIPROFLOXACIN <=0.25 S ERTAPENEM <=0.5 S GENTAMICIN <=1 S IMIPENEM <=0.25 S LEVOFLOXACIN 1 S NITROFURANTOIN <=16 S PIPERACILLIN/TAZOBACTAM <=4 S TRIMETHOPRIM/SULFAMETHOXAZOLE >=320 R TOBRAMYCIN <=1 S S=Susceptible I=Intermediate S=Resistant SDD=Susceptible Dose Dependent N/R=No Report SILVA =[place] [address] Basim Dior MD Dante DAMIAN LAB BLOOD ORDERABLES Final Result [facility] HISTORICAL RESULTS * (ABNORMAL) Microalbumin, urine, random (12/05/2015 8:29 AM CDT) Ur Random Creatinine 21.0 mg/dL Comment: Reference Range First morning urine: Females 28 - 217 mg/dLRandom Specimen: ??No reference ranges U Random Total Protein 14(H) 0 - 12 mg/dL 12/05/2015 5:25 PM T [facility] HISTORICAL RESULTS Ur Random Microalbumin 61.7(H) 0.0 - 19.9 mg/L 12/05/2015 5:25 PM T [facility] HISTORICAL RESULTS Comment: Citizen Of [place] Diabetes Association Guidelines Microalbuminuria: 30-300 ug albumin /mg creatinine Clinical Albuminuria: >300 ug albumin /mg creatinine Microalb/Creat Ratio 293.8(H) 0.0 - 19.9 ug/mg 12/05/2015 8:29 AM CDT 12/05/2015 4:42 PM CDT Dante DAMIAN LAB URINE ORDERABLES Final Result Performing Organization Address [facility] de Phone Number [facility] HISTORICAL RESULTS * (ABNORMAL) Lipid panel (12/05/2015 8:29 AM CDT) Triglycerides 63 0 - 199 mg/dL Comment:12 hr pc highly lainey mmended for Triglyceride Cholesterol 226(H) 0 - 199 mg/dL Comment: Borderline: ??200-239 High Risk: ?? >239 HDL Cholesterol 62(H) 40 - 60 mg/dL Comment: Major Risk ?< 40 mg/dL Moderate Risk ?40-60 mg/dL Negative Risk ?? > 60 mg/dL LDL Cholesterol, Calc 151(H) 0 - 130 mg/dL Comment:High Risk > 159 mg/d L Cholesterol/HDL Ratio 3.6 Comment: Cholesterol / HDL Ratio 3.5:1 or less is desirable. Cholesterol / HDL Ratio greater than 5:1 is considered higher risk for developing heart disease. 12/05/2015 8:29 AM CDT 12/05/2015 4:42 PM CDT us Dante DAMIAN LAB BLOOD ORDERABLES Final Result Performing Organization Address [facility] Co de Phone Number [facility] HISTORICAL RESULTS * (ABNORMAL) Comprehensive metabolic panel (12/05/2015 8:29 AM CDT) [facility] Sodium 140 135 - 145 mmol/L Potassium 4.4 3.3 - 5.1 mmol/L Chloride 99 96 - 108 mmol/L Carbon Dioxide 30 22 - 32 mmol/L Anion Gap 11 7 - 16 Glucose 79 70 - 100 mg/dL BUN 20 6 - 20 mg/dL Creatinine 0.9 0.5 - 1.1 mg/dL Comment: NOTE: Estimated GFR (Cockroft-Gault) will NOT be calculated unless patient Height and Weight were entered. Also, Kidney Disease Stage (GFR) and Estimated GFR (Cockroft-Gault) will NOT be calculated if Creatinine result is <0.2. Kidney Disease Stage 70 mL/MIN Comment: NOTE; ??The GFR is an [...] Kidney failure or on dialysis @ Calcium 9.3 8.6 - 10.0 mg/dL 12/05/2015 5:34 PM T [facility] HISTORICAL RESULTS Total Protein 6.8 6.4 - 8.3 g/dL 12/05/2015 5:34 PM T [facility] HISTORICAL RESULTS Albumin 4.6 3.5 - 5.2 g/dL 12/05/2015 5:34 PM T [facility] HISTORICAL RESULTS Globulin 2.2(L) 2.3 - 3.5 gm/dL 12/05/2015 5:34 PM T [facility] HISTORICAL RESULTS Albumin/Globulin Ratio 2.1(H) 1.1 - 1.8 12/05/2015 5:34 PM T [facility] HISTORICAL RESULTS Total Bilirubin 0.3 0.0 - 1.2 mg/dL 12/05/2015 5:34 PM T [facility] [employer] [facility] HISTOR[facility] RESULTS AST 33(H) 0 - 32 U/L 12/05/2015 5:34 PM T [facility] HISTORICAL RESULTS ALT 25 0 - 33 U/L 12/05/2015 5:34 PM [facility] Alkaline Phosphatase 63 35 - 104 U/L 12/05/2015 5:34 PM [facility]ULTS 12/05/2015 8:29 AM CDT 12/05/2015 4:42 PM CDT Dante DAMIAN LAB BLOOD ORDERABLES Final Result [facility] HISTORICAL RESULTS documented in this encounter Visit Diagnoses Diagnosis Frequency of micturition Urinary frequency Dysuria Hyperlipidemia Other and unspecified hyperlipidemia Essential (primary) hypertension Unspecified essential hypertension documented in this encounter
--- OUTSIDE RECORDS SUMMARY | 2024-02-21 15:05 | XMS_ITS | Encounter Summary ---
Author Organization [facility] Healthcare Address [address] [place] [address] Care Team Providers Care Imagery Intelligence Name Role Phone Unavailable Primary Care Provider Unavailabl e Encounter Details Date Type Department Care Team (Latest Contact Info) Description 01/30/2017 7:07 AM VBA DEVELOPER Hospital Encounter [facility] Dante Avelar, [place] [address] [address] Essential (primary) hypertension; Hyperlipidemia Social History Tobacco Use Types Packs/Day Years [...] Associated Diagnosis Comments THYROID FUNCTION CASCADE Routine 01/30/2017 7:14 AM VBA DEVELOPER CHOLESTEROL, LDL, DIRECT Routine 01/30/2017 7:14 AM VBA DEVELOPER LIPID PANEL Routine 01/30/2017 7:14 AM VBA DEVELOPER COMPREHENSIVE METABOLIC PANEL Routine 01/30/2017 7:14 AM VBA DEVELOPER documented in this encounter Results * (ABNORMAL) Cholesterol, LDL, direct (01/30/2017 7:14 AM VBA DEVELOPER) LDL Cholesterol Measurd 139(H) 0 - 99 mg/dL Comment: Reference Ranges: Optimal ?0 - 99 ??mg/dL Near Optimal/Above Optimal ?? 100-129 mg/dL Borderline High ?130-159 mg/dL High ? 160-189 mg/dL Very High ? >=190 ??mg/dL 01/30/2017 7:14 AM VBA DEVELOPER 01/30/2017 4:51 PM VBA DEVELOPER [facility] HISTORICAL RESULTS - 01/30/2017 6:24 PM VBA DEVELOPER 12 HRS FASTING ?? Dante DAMIAN LAB BLOOD ORDERABLES Final Result Performing Organization Address [facility] de Phone Number [facility] HISTORICAL RESULTS * TSH reflex to free T4 (01/30/2017 7:14 AM VBA DEVELOPER) Pathologist [facility] TSH W REFLEX TO FT4 2.48 0.27 - 4.20 uIU/mL 01/30/2017 7:14 AM VBA DEVELOPER 01/30/2017 4:51 PM [facility] HISTORICAL RESULTS - 01/30/2017 5:55 PM VBA DEVELOPER 12 HRS FASTING ?? Dante DAMIAN LAB BLOOD ORDERABLES Final Result Performing Organization Address [facility] de Phone Number [facility] HISTORICAL RESULTS * (ABNORMAL) Lipid panel (01/30/2017 7:14 AM VBA DEVELOPER) Pathologist [facility] Triglycerides 440(H) 0 - 199 mg/dL Comment: LDL (measured) to follow due to Triglycerides >250 mg/dL 12 hr pc highly recommended for Triglyceride Cholesterol 222(H) 0 - 199 mg/dL Comment: Borderline: ??200-239 High Risk: ?? >239 HDL Cholesterol 45 40 - 60 mg/dL Comment: Major Risk ?< 40 mg/dL Moderate Risk ?40-60 mg/dL Negative Risk ?? > 60 mg/dL Cholesterol/HDL Ratio 4.9 Comment: Cholesterol / HDL Ratio 3.5:1 or less is desirable. Cholesterol / HDL Ratio greater than 5:1 is considered higher risk for developing heart disease. 01/30/2017 7:14 AM VBA DEVELOPER 01/30/2017 4:51 PM [facility] Narrative [facility] HISTORICAL RESULTS - 01/30/2017 5:51 PM VBA DEVELOPER 12 HRS FASTING ?? us Dante DAMIAN LAB BLOOD ORDERABLES Final Result [facility] HISTORICAL RESULTS * (ABNORMAL) Comprehensive metabolic panel (01/30/2017 7:14 AM VBA DEVELOPER) Sodium 136 135 - 145 mmol/L Potassium 4.6 3.3 - 5.1 mmol/L Chloride 96 96 - 108 mmol/L Carbon Dioxide 26 22 - 32 mmol/L Anion Gap 14 7 - 16 Glucose 124(H) 70 - 100 mg/dL BUN 19 6 - 20 mg/dL Creatinine 1.0 0.5 - 1.1 mg/dL 01/30/2017 5:51 PM [facility] HISTORICAL RESULTS Comment: NOTE: Estimated GFR (Cockroft-Gault) will NOT be calculated unless patient Height and Weight were entered. Also, Kidney Disease Stage (GFR) and Estimated GFR (Cockroft-Gault) will NOT be calculated if Creatinine result is <0.2. Kidney Disease Stage 61 mL/MIN 01/30/2017 5:51 PM [facility] HISTORICAL RESULTS Comment: NOTE; ??The GFR is [...] Kidney failure or on dialysis @ Calcium 9.4 8.6 - 10.0 mg/dL 01/30/2017 5:51 PM [facility] HISTORICAL RESULTS Total Protein 7.0 6.4 - 8.3 g/dL 01/30/2017 5:51 PM [employer] [facility] HISTORICAL RESULTS Albumin 4.4 3.5 - 5.2 g/dL 01/30/2017 5:51 PM [employer] [facility] HISTORICAL RESULTS Globulin 2.6 2.3 - 3.5 gm/dL 01/30/2017 5:51 PM [employer] [facility] HISTORICAL RESULTS Albumin/Globulin Ratio 1.7 1.1 - 1.8 01/30/2017 5:51 PM [employer] [facility] HISTORICAL RESULTS Total Bilirubin 0.2 0.0 - 1.2 mg/dL 01/30/2017 5:51 PM VBA DEVELOPER [facility] HISTORICAL RESULTS AST 33(H) 0 - 32 U/L 01/30/2017 5:51 PM VBA DEVELOPER [facility] HISTORICAL RESULTS ALT 29 0 - 33 U/L 01/30/2017 5:51 PM VBA DEVELOPER [facility] HISTORICAL RESULTS Alkaline Phosphatase 74 35 - 104 U/L 01/30/2017 5:51 PM VBA DEVELOPER [facility] HISTORICAL RESULTS 01/30/2017 7:14 AM VBA DEVELOPER 01/30/2017 4:51 PM VBA DEVELOPER Narrative [facility] HISTORICAL RESULTS - 01/30/2017 5:51 PM VBA DEVELOPER 12 HRS FASTING ?? us Dante DAMIAN LAB BLOOD ORDERABLES Final Result [facility] HISTORICAL RESULTS documented in this encounter Visit Diagnoses Diagnosis Essential (primary) hypertension Unspecified essential hypertension Hyperlipidemia Other and unspecified hyperlipidemia documented in this encounter
--- OUTSIDE RECORDS SUMMARY | 2024-02-21 15:05 | XMS_ITS | Encounter Summary ---
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 CARRIER documented in this encounter Plan of Treatment Not on file documented as of this encounter Visit Diagnoses Not on filedocumented in this encounter Care Teams Word Processor Relationship Specialty Start Date End Date Jose Martin Diamond MD [address] [address] PCP - General 07/11/17 10/14/21 documented as of this encounter
--- OUTSIDE RECORDS SUMMARY | 2024-02-21 15:05 | XMS_ITS | Encounter Summary ---
Author Organization [facility] Care Team Providers Care Market Stall Vendor Name Role Phone Jose Martin Diamond MD Primary Care Provi jasmyn Dante Avelar Primary Care Provider [phone] Encounter Details Date Type Department Care Team (Latest Contact Info) Description 05/16/2015 Orders Only [facility] CLINCONV ProviderYuri MD [address] [place] [id number] Social History Tobacco Use Types Packs/Day Years [...] Date/Time Associated Diagnosis Comments SCAN - LABS 05/24/2015 12:00 AM CDT documented in this encounter Results * SCAN - LABS (05/24/2015 12:00 AM CDT) Narrative 05/24/2015 12:00 AM CDT Ordered by an unspecified provider. Historical Provider Final Res ult documented in this encounter Visit Diagnoses Not on filedocumented in this encounter Care Teams Market Stall Vendor Relationship Specialty Start Date End Date Jose Martin Diamond MD [address] [place] [address] PCP - General 07/11/17 10/14/21 Dante Avelar PA [address] [place] [address] PCP - General Family Medicine 10/15/21 documented as of this encounter
--- OUTSIDE RECORDS SUMMARY | 2024-02-21 15:05 | XMS_ITS | Encounter Summary ---
Author Organization [facility] Facility Care Team Providers Care Hvac Lead Name Role Phone Jose Martin Diamond MD Primary Care [facility] Encounter Details Date Type Department Care Team (Latest Contact Info) Description 07/23/2017 Orders Only [facility] CLINCONV Amy Degroot, DIRECTOR SPECIAL EDUCATION [address] [place] [address] Social History Tobacco Use Types Packs/Day Years [...] OF OUTSIDE FILMS (PEDS ONLY) Routine 07/23/2017 9:13 PM CDT documented in this encounter Results * XR Interpretation Of Outside Films (07/23/2017 9:13 PM CDT) Anatomical Region Laterality Modality N/A Radiographic Rosey ging 07/23/2017 9:13 PM CDT Narrative 07/23/2017 9:30 PM CDT OUTSIDE IMAGES BUSINESS PROCESS MANAGER, FINAL REPORT ACC# ??Date Time ??Exam [id number] July 23, 2017 16:13:00 [id number] [facility] Plain Film Reference EXAMINATION: ?? Images For Reference Purposes Only IMPRESSION: ?? These images are for Reference purposes only and have not been reviewed by [facility] Radiology. There will be no report generated by a [facility] Radiologist. Requested By: AMY DEGROOT ??ANP ? Dictated By: ?? OUTSIDE IMAGES BUSINESS PROCESS MANAGER, ?? on Jul 23 2017 ??4:30P This document has been electronically signed by: OUTSIDE IMAGES BUSINESS PROCESS MANAGER, ??on Jul 23 2017 ??4:30P [id number] IMAGES BUSINESS PROCESS MANAGER, FINAL REPORT Attending: ??CHANA, ??YENI Requesting: ??DAMASO, ??AMY Requesting Fax: ?? Attending Fax: ?? Attending ID: ??[id number] Requesting ID: ??[id number] Report To 1 ID: ? Report To 1 Name: ??, ?? Report To 1 FAX: ?? NextGen Order #: ?? Procedure Note Miscellaneous, Not In File - 07/23/2017 OUTSIDE IMAGES BUSINESS PROCESS MANAGER, FINAL REPORT ACC# Date Time Exam [id number] July 23, 2017 16:13:00 [id number] [facility] Plain Film Reference EXAMINATION: Images For Reference Purposes Only IMPRESSION: These images are for Reference purposes only and have not been reviewed by [facility] Radiology. There will be no report generated by a [facility] Radiologist. Requested By: AMY DEGROOT Dictated By: OUTSIDE IMAGES BUSINESS PROCESS MANAGER, on Jul 23 2017 4:30P This document has been electronically signed by: OUTSIDE IMAGES BUSINESS PROCESS MANAGER, on Jul 23 2017 4:30P [id number] IMAGES BUSINESS PROCESS MANAGER, FINAL REPORT Attending: YENI ZAYAS Requesting: AMY DEGROOT Requesting Fax: Attending Fax: Attending ID: [id number] Requesting ID: [id number] Report To 1 ID: Report To 1 Name: , Report To 1 FAX: NextGen Order #: [id number] Amy Degroot DIRECTOR SPECIAL EDUCATION IMG XR PROCEDURES Final Resul t documented in this encounter Visit Diagnoses Not on filedocumented in this encounter Care Teams Hvac Lead Relationship Specialty Start Date End Date Jose Martin Diamond MD [address] [address] PCP - General 07/11/17 10/14/21 documented as of this encounter
--- OUTSIDE RECORDS SUMMARY | 2024-02-21 15:05 | XMS_ITS | Encounter Summary ---
Author Organization [facility] Healthcare Address [address] [place] [address] Care Team Providers Care Habitat Conservation Planner Name Role Phone Unavailable Primary Care Provider Unavailabl e Encounter Details Date Type Department Care Team (Latest Contact Info) Description 06/10/2017 2:23 PM CDT Hospital Encounter [facility] Dante Avelar, [place] [address] [address] Urinary tract infection Social History Tobacco Use Types Packs/Day [...] as of this encounter Visit Diagnoses Diagnosis Urinary tract infection Urinary tract infection, site not specified documented in this encounter
--- OUTSIDE RECORDS SUMMARY | 2024-02-21 15:05 | XMS_ITS | Encounter Summary ---
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 She is going on vacation next Friday. Patient phone is [phone] TESTER documented in this encounter Plan of Treatment Not on file documented as of this encounter Visit Diagnoses Not on filedocumented in this encounter Care Teams Inspector Ball Points Relationship Specialty Start Date End Date Jose Martin Diamond MD [address] [address] PCP - General 07/11/17 10/14/21 documented as of this encounter
--- OUTSIDE RECORDS SUMMARY | 2024-02-21 15:05 | XMS_ITS | Encounter Summary ---
Author Organization [facility] Healthcare Address [address] [place] [address] Care Team Providers Care Warehouse Pricing And Inventory Clerk Name Role Phone Unavailable Primary Care Provider Unavailabl e Encounter Details Date Type Department Care Team (Latest Contact Info) Description 07/19/2016 7:12 AM CDT Hospital Encounter [facility] Dante Avelar, [place] [address] [address] Essential (primary) hypertension; Hyperlipidemia Social History Tobacco [...] Comments ALBUMIN, RANDOM URINE WITHOUT CREATININE Routine 07/19/2016 9:20 AM CDT THYROID FUNCTION [place] Routine 07/19/2016 7:16 AM CDT LIPID PANEL Routine 07/19/2016 7:16 AM CDT COMPREHENSIVE METABOLIC PANEL Routine 07/19/2016 7:16 AM CDT documented in this encounter Results * Microalbumin, urine, random (07/19/2016 9:20 AM CDT) Pathologist [facility] Ur Random Creatinine 87.0 mg/dL 07/19/2016 4:19 PM T [facility] HISTORICAL RESULTS Comment: Reference Range First morning urine: Females 28 - 217 mg/dLRandom Specimen: ??No reference ranges U Random Total Protein 6 0 - 12 mg/dL 07/19/2016 4:19 PM T [facility] HISTORICAL RESULTS Ur Random Microalbumin < 12.0 0.0 - 19.9 mg/L 07/19/2016 4:20 PM T [facility] HISTORICAL RESULTS Comment: Microalbumin is <12. Microalb/creat will not be calculated [place] [employer] Guidelines Microalbuminuria: 30-300 ug albumin /mg creatinine Clinical Albuminuria: >300 ug albumin /mg creatinine 07/19/2016 9:20 AM CDT 07/19/2016 3:35 PM CDT Dante DAMIAN LAB URINE ORDERABLES Final Result Performing Organization Address [facility] Co de Phone Number [facility] HISTORICAL RESULTS * TSH reflex to free T4 (07/19/2016 7:16 AM CDT) [facility] TSH W REFLEX TO FT4 2.12 0.27 - 4.20 uIU/mL 07/19/2016 4:11 PM CDT [facility] HISTORICAL RESULTS 07/19/2016 7:16 AM CDT 07/19/2016 3:23 PM CDT Narrative [facility] HISTORICAL RESULTS - 07/19/2016 4:11 PM CDT PT FASTING FOR 12HRS Dante DAMIAN LAB BLOOD ORDERABLES Final Result [facility] HISTORICAL RESULTS * (ABNORMAL) Lipid panel (07/19/2016 7:16 AM CDT) [facility] Triglycerides 99 0 - 199 mg/dL 07/19/2016 4:06 PM T [facility] HISTORICAL RESULTS Comment:12 hr pc highly lainey mmended for Triglyceride Cholesterol 266(H) 0 - 199 mg/dL 07/19/2016 4:06 PM T [facility] HISTORICAL RESULTS Comment: Borderline: ??200-239 High Risk: ?? >239 HDL Cholesterol 58 40 - 60 mg/dL 07/19/2016 4:06 PM T [facility] HISTORICAL RESULTS Comment: Major Risk ?< 40 mg/dL Moderate Risk ?40-60 mg/dL Negative Risk ?? > 60 mg/dL LDL Cholesterol, Calc 188(H) 0 - 130 mg/dL 07/19/2016 4:06 PM T [facility] HISTORICAL RESULTS Comment:High Risk > 159 mg/d L Cholesterol/HDL Ratio 4.6 07/19/2016 4:06 PM T [facility] HISTORICAL RESULTS Comment: Cholesterol / HDL Ratio 3.5:1 or less is desirable. Cholesterol / HDL Ratio greater than 5:1 is considered higher risk for developing heart disease. 07/19/2016 7:16 AM CDT 07/19/2016 3:23 PM CDT Narrative [facility] HISTORICAL RESULTS - 07/19/2016 4:06 PM CDT PT FASTING FOR 12HRS us Dante DAMIAN LAB BLOOD ORDERABLES Final Result [facility] HISTORICAL RESULTS * (ABNORMAL) Comprehensive metabolic panel (07/19/2016 7:16 AM CDT) Sodium 140 135 - 145 mmol/L 07/19/2016 4:06 PM T [facility] HISTORICAL RESULTS Potassium 3.9 3.3 - 5.1 mmol/L 07/19/2016 4:06 PM T [facility] HISTORICAL RESULTS Chloride 101 96 - 108 mmol/L 07/19/2016 4:06 PM T [facility] HISTORICAL RESULTS Carbon Dioxide 25 22 - 32 mmol/L 07/19/2016 4:06 PM T [facility] HISTORICAL RESULTS Anion Gap 14 7 - 16 07/19/2016 4:06 PM T [facility] HISTORICAL RESULTS Glucose 91 70 - 100 mg/dL 07/19/2016 4:06 PM T [facility] HISTORICAL RESULTS BUN 21(H) 6 - 20 mg/dL Creatinine 1.1 0.5 [...] Kidney failure or on dialysis @ Calcium 9.6 8.6 - 10.0 mg/dL Total Protein 7.1 6.4 - 8.3 g/dL Albumin 4.6 3.5 - 5.2 g/dL Globulin 2.5 2.3 - 3.5 gm/dL Albumin/Globulin Ratio 1.8 1.1 - 1.8 07/19/2016 4:06 PM CDT [facility] HISTORICAL RESULTS Total Bilirubin 0.2 0.0 - 1.2 mg/dL 07/19/2016 4:06 PM CDT [facility] HISTORICAL RESULTS AST 27 0 - 32 U/L 07/19/2016 4:06 PM CDT [facility] HISTORICAL RESULTS ALT 21 0 - 33 U/L 07/19/2016 4:06 PM T [facility] HISTORICAL RESULTS Alkaline Phosphatase 60 35 - 104 U/L 07/19/2016 4:06 PM T [facility] HISTORICAL RESULTS 07/19/2016 7:16 AM CDT 07/19/2016 3:23 PM CDT Narrative [facility] HISTORICAL RESULTS - 07/19/2016 4:06 PM CDT PT FASTING FOR 12HRS us Dante DAMIAN LAB BLOOD ORDERABLES Final Result [facility] HISTORICAL RESULTS documented in this encounter Visit Diagnoses Diagnosis Essential (primary) hypertension Unspecified essential hypertension Hyperlipidemia Other and unspecified hyperlipidemia documented in this encounter
--- OUTSIDE RECORDS SUMMARY | 2024-02-21 15:05 | XMS_ITS | Encounter Summary ---
Author Organization [facility] Address [address] [place] [address] Phone Care Team Providers Care Finisher Map And Chart Name Role Phone Jose Martin Diamond MD Primary Care [facility]vi [facility] Reason for Referral * Diagnostic Imaging (Routine) - Closed Specialty Diagnoses / Procedures Referred By Contac t Referred To Contact Radiology Diagnoses Lumbar radiculopathy Procedures IR Transforaminal Epidural Injection Lumbar Sacral 1 Level Left Amy Degroot NP Phone: tel: fax: [facility] Referral ID Status Reason Start Date Expiration Date Visits Re quested Visits Authorized [id number] Closed 09/30/2017 09/30/2017 1 1 Encounter Details Date Type Department Care Team (Late st Contact Info) Description 09/17/2017 Orders Only [facility] Orthopaedic Surgery [address] [facility] [address] [place] [address] Lily Moura RMA Lumbar radiculopathy (Primary Dx) [...] 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 ??Please refer to the physician's procedure / OR operative note. Amy Degroot PATIENT REGISTRATION REPRESENTATIVE IMG IR PROCEDURES Final Resul t [facility] documented in this encounter Visit Diagnoses Diagnosis Lumbar radiculopathy- Primary Thoracic or lumbosacral neuritis or radiculitis, unspecified Lumbar radiculopathy Thoracic or lumbosacral neuritis or radiculitis, unspecified documented in this encounter Care Teams Finisher Map And Chart Relationship Specialty Start Date End Date Jose Martin Diamond MD [address] [facility] [address] [address] PCP - General 07/11/17 10/14/21 documented as of this encounter
--- OUTSIDE RECORDS SUMMARY | 2024-02-21 15:05 | XMS_ITS | Encounter Summary ---
Author Organization [facility] Healthcare Address [address] [place] [address] Care Team Providers Care Cooker Meal Name Role Phone Unavailable Primary Care Provider Unavailabl e Encounter Details Date Type Department Care Team (Late st Contact Info) Description 02/20/2017 7:09 AM NETWORK CONTROL OPERATORS SUPERVISOR Hospital Encounter [facility] OP Jose Martin Diamond MD [address] [address] Cystitis without hematuria Social History Tobacco Use Types Packs/Day Years [...] Procedure Name Priority Date/Time Associated Diagnosis Comments URINALYSIS AND REFLEX TO MICROSCOPIC AND CULTURE Routine 02/20/2017 7:15 AM NETWORK CONTROL OPERATORS SUPERVISOR documented in this encounter Results * (ABNORMAL) Urinalysis reflex to microscopic and culture (02/20/2017 7:15 AM NETWORK CONTROL OPERATORS SUPERVISOR) Ur Collection Type CLEAN CATCH 02/20/2017 4:49 PM NETWORK CONTROL OPERATORS SUPERVISOR [facility] HISTORICAL RESULTS Ur Culture Indicated? C&S NOT INDICATED 02/20/2017 4:49 PM NETWORK CONTROL OPERATORS SUPERVISOR [facility] HISTORICAL RESULTS Urine Color YELLOW YELLOW Urine Clarity CLEAR CLEAR Urine Glucose (UA) NORMAL NORMAL mg/dL Urine Bilirubin NEGATIVE NEGATIVE mg/dl Urine Ketones NEGATIVE NEGATIVE mg/dL Ur Specific Mccoy 1.010 1.005 - 1.025 02/20/2017 4:49 PM NETWORK CONTROL OPERATORS SUPERVISOR [facility] HISTORICAL RESULTS Urine Blood 0.2(H) NEGATIVE mg/dl Urine pH 6.0 5.0 - 8.0 Urine Protein NEGATIVE NEGATIVE mg/dL Urine Urobilinogen NORMAL NORMAL mg/dL Urine Nitrite POSITIVE(H) NEGATIVE Ur Leukocyte Esterase NEGATIVE NEGATIVE Tati/ul Ur Microscopic Review Indicated or Ordered Urine RBC 2 0 - 2 /HPF Urine WBC 2 0 - 2 /HPF Ur Squamous Epith Cells Rare /HPF 02/20/2017 7:1 5 AM NETWORK CONTROL OPERATORS SUPERVISOR 02/20/2017 4:40 PM [facility] us Jose Martin Diamond MD LAB MICROBIOLOGY - GENERAL ORDERABLES Final Result [facility] HISTORICAL RESULTS documented in this encounter Visit Diagnoses Diagnosis Cystitis without hematuria documented in this encounter
--- OUTSIDE RECORDS SUMMARY | 2024-02-21 15:05 | XMS_ITS | Encounter Summary ---
Author Organization [facility] Healthcare Address [address] [place] [address] Care Team Providers Care Barrel Polisher Name Role Phone Unavailable Primary Care Provider Unavailabl e Encounter Details Date Type Department Care Team (Latest Contact Info) Description 06/12/2017 10:26 AM CDT Hospital Encounter [facility] Dante Avelar, [place] [address] [facility] [address] [place] [address] Radiculopathy of lumbar region; Spondylosis of lumbar region without myelopathy or radiculopathy Social History Tobacco Use Types Packs/Day Years [...] Date/Time Associated Diagnosis Comments XR SPINE LUMBAR 2 OR 3 VIEWS Routine 06/12/2017 10:30 AM CDT documented in this encounter Results * XR Spine Lumbar 2 or 3 Views (06/12/2017 10:30 AM CDT) Anatomical Region Laterality Modality Spine N/A Radiographic Rosey ging 06/12/2017 10:3 0 AM CDT Impressions 06/12/2017 2:28 PM CDT ??Lumbar spondylosis greatest at L3-4 and L5-S1, without acute osseous abnormality. ??Mild levoconvex curvature Given persistence of radicular symptoms, MRI may be of benefit in further evaluation THIS IS AN ELECTRONICALLY VERIFIED FINAL REPORT 06/12/2017 2:25 PM - Electronically signed by Nadiya Angel M.D. TB: TB D: ??06/12/2017 2:25 PM T: ??06/12/2017 2:25 PM Report ID: [id number] Reading Location: ??[id number] [EOD] Narrative 06/12/2017 2:28 PM CDT EXAM DESCRIPTION: ??Lumbar Spine 2 or 3 View COMPLETED DATE/TIME: ??06/12/2017 10:52 am REASON FOR STUDY: ??LUMBAR RADICULOPATHY PER ORDERING PA. PT STATES LOWER BACK STIFFNESS, PAIN RADIATING DOWN LEFT LEG X 2 MONTHS. NO TRAUMA. TECHNIQUE: ??Three radiographic views acquired of the lumbar spine. COMPARISON: ??None FINDINGS: ALIGNMENT: There are 5 hyu-qkw-llqrbob lumbar vertebral bodies. ??There is levoconvex curvature noted on the AP view. ??In the lateral projection, alignment is anatomic. SEGMENTATION: Normal. ??No transitional anatomy. VERTEBRAE: Vertebral body heights are well maintained. ??Facet degenerative changes are present from L3 through S1. DISCS: There is disc space narrowing at L3-4 and at L5-S1. ??Disc space heights are otherwise relatively well maintained. OTHER: The visualized lower thoracic spine is unremarkable. ??The pedicles are intact. ??The SI joints reveal symmetric degenerative changes. Procedure Note Provider, MD Yuri - 07/12/2020 EXAM DESCRIPTION: Lumbar Spine 2 or 3 View COMPLETED DATE/TIME: 06/12/2017 10:52 am REASON FOR STUDY: LUMBAR RADICULOPATHY PER ORDERING PA. PT STATES LOWERBACK STIFFNESS, PAIN RADIATING DOWN LEFT LEG X 2 MONTHS. NO TRAUMA. TECHNIQUE: Three radiographic views acquired of the lumbar spine. COMPARISON: None FINDINGS: ALIGNMENT: There are 5 mgo-gau-ynlmkez lumbar vertebral bodies. There is levoconvex curvature noted on the AP view. In the lateral projection, alignment is anatomic. SEGMENTATION: Normal. No transitional anatomy. VERTEBRAE: Vertebral body heights are well maintained. Facet degenerative changes are present from L3 through S1. DISCS: There is disc space narrowing at L3-4 and at L5-S1. Disc spaceheights are otherwise relatively well maintained. OTHER: The visualized lower thoracic spine is unremarkable. The pediclesare intact. The SI joints reveal symmetric degenerative changes. IMPRESSION: Lumbar spondylosis greatest at L3-4 and L5-S1, without acute osseous abnormality. Mild levoconvex curvature Given persistence of radicular symptoms, MRI may be of benefit in further evaluation THIS IS AN ELECTRONICALLY VERIFIED FINAL REPORT 06/12/2017 2:25 PM - Electronically signed by Nadiya Angel M.D. TB: TB Report ID: [id number] Reading Location: [id number] [EOD] us Dante DAMIAN IMG XR PROCEDURES Final Res ult documented in this encounter Visit Diagnoses Diagnosis Radiculopathy of lumbar region Spondylosis of lumbar region without myelopathy or radiculopathy documented in this encounter
--- OUTSIDE RECORDS SUMMARY | 2024-02-21 15:08 | XMS_ITS | Continuity of Care Document ---
Author Organization [facility] Address [address] [place] [address] [address] [place] [address] Phone Care Team Providers Care Baster Hand Name Role Phone Subramanian OD, Dalton Unavailable Unavailable Procedures Procedure Date Cntct Lens Hydrophilic Toric Or Prism Ba llast Medical Tax Eye Exam & Treatment Refraction Contact Lens Hydrophilic, Spherical [facility] [employer] CL Replacement - Vistak[employer] Disp W/BW Soft [employer] Blog[employer] Eye Exam & Treatment Refraction CL Replacement - [employer]ist[employer] Disp W/BW [employer] No Charge Contact Lens Check No Charge Contact Lens Check Eye Exam & Treatment CL Replacement - [employer]istak[employer] Disp W/BW [employer] Medical No Charge Contact Lens Check Eye Exam & Treatment CL Replacement - Vistakon Disp W/BW Soft [employer] [facility] Advance Directives Directive Yes / No Effective Date File Name No Information Encounters Encounter Description Practice Location Reason(s) For Visit Diagnoses Date Provider Providers Copied on Encounter [facility], [address], [place], [place], [id number], [place] tel:[phone] SEC [facility] No Information 0-201 0 Subramanian OD Dalton. [address] [facility] , [address], [place], [address], [place]. tel:[phone] [facility], [address], [place], [place], [id number], [place] tel:[phone] SEC [facility] No Information Oct-3 0-201 0 Subramanian OD Dalton. [address] , [address], [place], [place], [facility], . tel:[phone] [facility], [address] [place] [address] [address], [place], [place], [address], [place] tel:[phone] [facility] [place] No Information Himanshu-1 3-201 0 Subramanian OD Dalton. [address] , [address], [place], [place], [facility], . tel:[phone] [facility], [address] [place] [address] [address], [place], [place], [id number], [place] tel:[phone] [facility] No Information Sep-0 8-200 9 Subramanian OD Dalton. [address] , [address], [place], [facility], [place]. tel:[phone] [facility], [address] [place] [address] [address], [place], [place], [id number], [place] tel:[phone] [facility] No Information Aug-2 5-200 9 Subramanian OD Dalton. [address] , [address], [place], [facility], [place]. tel:[phone] [facility], [address] [place] [address] [address], [place], [place], [address], [place] tel:[phone] SEC [facility] No Information Aug-0 6-200 8 Subramanian OD Dalton. [address] , [address], [place], [facility], . tel:[phone] [facility], [address] [place] [address] [address], [place], [place], [address], [place] tel:[phone] SEC [facility] No Information Tawanda-1 6-200 8 Subramanian OD Dalton. [facility] [address] , [address], [place], [facility], [place]. tel:[phone] [facility], [address] [place] [address] [address], [place], [place], [address], [place] tel:[phone] SEC [facility] No Information Tawanda-0 9-200 8 Subramanian OD Dalton. [facility] [address] , [address], [place], [facility], [place]. tel:[phone] [facility], [address] [place] [address] [address], [place], [place], [id number], [place] tel:[phone] [facility] No Information Eyal-1 8-200 8 Subramanian OD Dalton. [address] [place], [place] [address] Center , [address], [place], [facility], [place]. tel:[phone] [facility], [address] [place] [address] [address], [place], [place], [address], [place] tel:[phone] [facility] No Information Tawanda-0 6-200 7 Subramanian OD Dalton. [address] [place], [place] [address]ate Center , [address], [place], [facility], [place]. tel:[phone] [facility], [address] [place] [address] [address], [place], [place], [address], [place] tel:[phone] SEC [facility] No Information Eyal-2 0-200 7 Subramanian OD Dalton. [address] [place], [place] [address]ate Center , [address], [place], [facility], [place]. tel:[phone] [facility], [address] [place] [address] [address], [place], [place], [address], [place] tel:[phone] SEC [facility] No Information 3-200 7 Subramanian OD Dalton. [address] [facility] , [address], [place], [address], [place]. tel:[phone] Family History Family Member Type Diagnosis Age At Onset No Information Payers Payer name Insurance type Covered green party ID Authoriza tion(s) No Information Social History Type Description Quantity Date Captured Comments Sex Female Smoking Status No Information Chief Complaint And Reason For Visit No Information Reason For Referral Reason For Referral No Information History Of Present Illness Encounter Date Complaint History Of Prese nt Illness No Information Functional Status Date Functional Assessmen t No Information Instructions Date Instruction Additional Infor mation No Information Assessments Type Assessment Date No Information Patient Care Teams Name Effective Dates (start - stop) Status Members No Information
--- OUTSIDE RECORDS SUMMARY | 2024-02-21 15:23 | XMS_ITS | Continuity of Care Document ---
Author Organization [facility] Address [address] [place] [address] [address] [place] [address] Phone Care Team Providers Care Lacquer Maker Name Role Phone Subramanian OD, Dalton Unavailable Unavailable Procedures Procedure Date Cntct Lens Hydrophilic Toric Or Prism Ba llast Medical Tax Eye Exam & Treatment Refraction Contact Lens Hydrophilic, Spherical [facility] tapviva CL Replacement - Vistakon Disp W/BW Soft Drip In tapviva Eye Exam & Treatment Refraction CL Replacement - Vistak[employer] Disp W/BW Soft Drip In tapviva No Charge Contact Lens Check No Charge Contact Lens Check Eye Exam & Treatment CL Replacement - Vistakon Disp W/BW Soft Drip In Medical No Charge Contact Lens Check Eye Exam & Treatment CL Replacement - Vistakon Disp W/BW Soft Drip In [facility] Advance Directives Directive Yes / No Effective Date File Name No Information Encounters Encounter Description Practice Location Reason(s) For Visit Diagnoses Date Provider Providers Copied on Encounter [facility], [address], [place], [place], [address], [place] tel:[phone] [facility] No Information 0-201 0 Subramanian OD Dalton. [address] [facility] [address] , [address], [place], [address], [place]. tel:[phone] [facility], [address], [place], [place], [address], [place] tel:[phone] SEC [facility] No Information Oct-3 0-201 0 Subramanian OD Dalton. [address] , [address], [place], [place], [facility], . tel:[phone] [facility], [address] [place] [address] [address], [place], [place], [address], [place] tel:[phone] SEC [facility] [place] No Information Himanshu-1 3-201 0 Subramanian OD Dalton. [address] , [address], [place], [facility], . tel:[phone] [facility], [address] [place] [address] [address], [place], [place], [address], [place] tel:[phone] SEC [facility] No Information Sep-0 8-200 9 Subramanian OD Dalton. [address] , [address], [place], [facility], [place]. tel:[phone] [facility], [address] [place] [address] [address], [place], [place], [address], [place] tel:[phone] SEC [facility] No Information Aug-2 5-200 9 Subramanian OD Dalton. [address] , [address], [place], [facility], [place]. tel:[phone] [facility], [address] [place] [address] [address], [place], [place], [address], [place] tel:[phone] SEC [facility] No Information Aug-0 6-200 8 Subramanian OD Dalton. [address] , [address], [place], [facility], . tel:[phone] [facility], [address] [place] [address] [address], [place], [place], [address], [place] tel:[phone] SEC [facility] No Information Tawanda-1 6-200 8 Subramanian OD Dalton. [facility] [address] , [address], [place], [facility], [place]. tel:[phone] [facility], [address] [place] [address] [address], [place], [place], [address], [place] tel:[phone] SEC [facility] No Information Tawanda-0 9-200 8 Subramanain OD Dalton. [facility] [address] , [address], [place], [facility], [place]. tel:[phone] [facility], [address] [place] [address] [address], [place], [place], [address], [place] tel:[phone] [facility] No Information Eyal-1 8-200 8 Subramanian OD Dalton. [address] [place], [place] [address]ate Center , [address], [place], [facility], [place]. tel:[phone] [facility], [address] [place] [address] [address], [place], [place], [address], [place] tel:[phone] SEC [facility] No Information Tawanda-0 6-200 7 Subramanian OD Dalton. [address] [place], [place] [address]ate Center , [address], [place], [facility], [place]. tel:[phone] [facility], [address] [place] [address] [address], [place], [place], [address], [place] tel:[phone] SEC [facility] No Information Eyal-2 0-200 7 Subramanian OD Dalton. [address] [place], [place] [address]ate Center , [address], [place], [facility], [place]. tel:[phone] [facility], [address] [place] [address] [address], [place], [place], [address], [place] tel:[phone] SEC [facility] No Information 3-200 7 Subramanian OD Dalton. [address] [facility] , [address], [place], [address], [place]. tel:[phone] Family History Family Member Type Diagnosis Age [...]
--- OUTSIDE RECORDS SUMMARY | 2024-02-21 15:23 | XMS_ITS | Encounter Summary ---
Author Organization [facility] Address [address] [place] [address]. [place] [address] Care Team Providers Care Shell Maker Lockstitch Name Role Phone Unavailable Primary Care Provider Unavailabl e Encounter Details Date Type Department Care Team (Latest Contact Info) Description 12/30/2017 Scan [facility] , Generic ConversionMD Social History [...]
--- OUTSIDE RECORDS SUMMARY | 2024-02-21 15:23 | XMS_ITS | Encounter Summary ---
Author Organization [facility] Address [address] [place] [address]. [place] [id number] [place] [address] Care Team Providers Care Field Services Director Name Role Phone Unavailable Primary Care Provider Unavailabl e Encounter Details Date Type Department Care Team (Latest Contact Info) Description 07/11/2017 Abstract [facility] Social History Tobacco Use Types [...]
--- OUTSIDE RECORDS SUMMARY | 2024-02-21 15:23 | XMS_ITS | Clinical Summary ---
Author Organization [facility] Address [address] [place] [address]. [place], [place] [address] [place] [address] Care Team Providers Care Supervisor Park Workers Name Role Phone Unavailable Primary Care Provider [...]
--- OUTSIDE RECORDS SUMMARY | 2024-02-21 15:23 | XMS_ITS | Encounter Summary ---
Author Organization [facility] Address [address] [place] [address] Phone Care Team Providers Care Engineering Group Leader Name Role Phone Dante Avelar Primary Care Provider [phone] Reason for Referral * Diagnostic Imaging (Routine) - Closed Specialty Diagnoses / Procedures Referred By Contac t Referred To Contact Diagnoses Acute bilateral low back pain with left-sided sciatica Procedures X-ray lumbar spine complete 4+ views Amy Degroot NP [address] [facility] [address] [place] [address] Phone: tel: fax: [address] [address] Referral ID Status Reason Start Date Expiration Date Visits Re quested Visits Authorized [id number] Closed 06/26/2022 07/26/2023 1 1 Encounter Details Date Type Department Care Team (Late st Contact Info) Description 06/26/2022 3:00 PM CDT Office Visit [facility] [address] [facility] 1st Floor [address] [place] [address] Amy Degroot NP [address] [facility] [address] [place] [address] Acute bilateral low back pain with left-sided [...] 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 Amy Degroot PARKING ENFORCEMENT SPECIALIST IMG XR PROCEDURES Final Resul t documented [...] 06/20/2022 added in this encounter Care Teams Engineering Group Leader Relationship Specialty Start Date End Date Dante Avelar PA [facility] [address] [address] PCP - General Family Medicine 10/15/21 documented as of this encounter
--- OUTSIDE RECORDS SUMMARY | 2024-02-21 15:23 | XMS_ITS | Clinical Summary ---
Author Organization [facility] Address [address] [place] [address] Care Team Providers Care Director Of Manufacturing Operations Name Role Phone Dante Avelar Primary Care Provider [phone] Allergies Active Allergy Reactions Criticality Noted Date [...] 04/06/2019 Assessment & Plan (04/06/2019 10:50 AM HEAD LOFT WORKER): -Check in 1 year. Recommend Pap smears at least every 3 years starting at age 21, unless otherwise indicated. recommend flu shot yearly. Recommend heart healthy diet and 30 minutes of exercise daily. Recommend mammogram yearly starting at 40 y/o. Colon cancer screening starting at 50. Dyslipidemia 03/11/2018 Assessment & Plan (04/06/2019 10:51 AM HEAD LOFT WORKER): Recommend Continue statin therapy. NO myalgias, or concerns with statin therapy at this time. Recommend heart healthy diet and exercise 30 minutes a day Recommend weight loss Situational anxiety 02/19/2018 Assessment & Plan (04/06/2019 10:51 AM HEAD LOFT WORKER): Uses,risks,se's discussed Lumbosacral radiculopathy 09/17/2017 Chronic pain of right knee 09/17/2017 Overweight (BMI 25.0-29.9) 08/12/2017 Assessment & Plan (04/06/2019 10:51 AM HEAD LOFT WORKER): BMI Follow-up includes: nutrition counseling, exercise counseling and education provided. Low back pain 07/18/2017 Primary osteoarthritis of right knee 07/01/2017 Essential tremor 12/06/2015 Hyperlipidemia 12/06/2015 Assessment & Plan (04/06/2019 10:51 AM HEAD LOFT WORKER): Recommend Continue statin therapy. NO myalgias, or concerns with statin therapy at this time. Recommend heart healthy diet and exercise 30 minutes a day Recommend weight loss HTN (hypertension) 11/20/2015 Assessment & Plan (04/06/2019 10:50 AM HEAD LOFT WORKER): DASH diet. CCT. Recommend diet and exercise. 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
--- OUTSIDE RECORDS SUMMARY | 2024-02-21 15:23 | XMS_ITS | Encounter Summary ---
Author Organization [facility] Address [address] [place] [address] Care Team Providers Care Manager Hospice Name Role Phone Jose Martin Diamond MD Primary Care [facility] Encounter Details Date Type Department Care Team (Late st Contact Info) Description 10/15/2020 [facility] Only [facility] [address] [facility] [address] [place] [place] [address] Dalton Ann MD [address] [facility] [address] [place] [address] Social History Tobacco Use Types [...] 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
--- OUTSIDE RECORDS SUMMARY | 2024-02-21 15:23 | XMS_ITS | Encounter Summary ---
Author Organization [facility] Address [address] [place] [address] Care Team Providers Care Street Light Mechanic Name Role Phone Dante Avelar Primary Care Provider [phone] Reason for Referral * Diagnostic Imaging (Routine) - Closed Specialty Diagnoses / Procedures Referred By Contac t Referred To Contact Diagnoses Acute bilateral low back pain with left-sided sciatica Procedures X-ray lumbar spine complete 4+ views Amy Degroot NP [address] [facility] [address] [place] [address] Phone: tel: fax: [address] [address] Referral ID Status Reason Start Date Expiration Date Visits Re quested Visits Authorized [id number] Closed 06/26/2022 07/26/2023 1 1 Reason for Visit * Diagnostic Imaging (Routine) - Closed Specialty Diagnoses / Procedures Referred By Contac t Referred To Contact Diagnoses Acute bilateral low back pain with left-sided sciatica Procedures X-ray lumbar spine complete 4+ views Amy Degroot NP [address] [facility] [address] [place] [address] Phone: tel: fax: [address] [address] Referral ID Status Reason Start Date Expiration Date Visits Re quested Visits Authorized [id number] Closed 06/26/2022 07/26/2023 1 1 Encounter Details Date Type Department Care Team (Latest Contact Info) Description 06/26/2022 3:13 PM CDT - 06/26/2022 11:59 PM CDT Hospital Encounter [facility] Radiology at [facility] [address] [place] [address] Acute bilateral low back pain, unspecified whether [...] 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 Amy Degroot SHEARER SCREEN MEASURER AND TRIMMER IMG XR PROCEDURES Final Resul t documented in this encounter Visit Diagnoses Diagnosis Acute bilateral low back pain, unspecified whether sciatica present documented in this encounter Care Teams Street Light Mechanic Relationship Specialty Start Date End Date Dante Avelar PA [facility] [address] [address] PCP - General Family Medicine 10/15/21 documented as of this encounter
--- OUTSIDE RECORDS SUMMARY | 2024-02-21 15:23 | XMS_ITS | Referral Summary ---
Author Organization [facility] Address [address] [place] [address] Care Team Providers Care Associate Product Manager Name Role Phone Dante Avelar Primary [...] 04/06/2019 Assessment & Plan (04/06/2019 10:50 AM SKEIN YARN DYER): -Check in 1 year. Recommend Pap smears at least every 3 years starting at age 21, unless otherwise indicated. recommend flu shot yearly. Recommend heart healthy diet and 30 minutes of exercise daily. Recommend mammogram yearly starting at 40 y/o. Colon cancer screening starting at 50. Dyslipidemia 03/11/2018 Assessment & Plan (04/06/2019 10:51 AM SKEIN YARN DYER): Recommend Continue statin therapy. NO myalgias, or concerns with statin therapy at this time. Recommend heart healthy diet and exercise 30 minutes a day Recommend weight loss Situational anxiety 02/19/2018 Assessment & Plan (04/06/2019 10:51 AM SKEIN YARN DYER): Uses,risks,se's discussed Lumbosacral radiculopathy 09/17/2017 Chronic pain of right knee 09/17/2017 Overweight (BMI 25.0-29.9) 08/12/2017 Assessment & Plan (04/06/2019 10:51 AM SKEIN YARN DYER): BMI Follow-up includes: nutrition counseling, exercise counseling and education provided. Low back pain 07/18/2017 Primary osteoarthritis of right knee 07/01/2017 Essential tremor 12/06/2015 Hyperlipidemia 12/06/2015 Assessment & Plan (04/06/2019 10:51 AM SKEIN YARN DYER): Recommend Continue statin therapy. NO myalgias, or concerns with statin therapy at this time. Recommend heart healthy diet and exercise 30 minutes a day Recommend weight loss HTN (hypertension) 11/20/2015 Assessment & Plan (04/06/2019 10:50 AM SKEIN YARN DYER): DASH diet. CCT. Recommend diet and exercise. 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
--- OUTSIDE RECORDS SUMMARY | 2024-02-21 15:24 | XMS_ITS | Encounter Summary ---
Author Organization [facility] Address [address] [place] [address] Care Team Providers Care Superintendent Job Name Role Phone Jose Martin Diamond MD Primary Care Provi [facility] Encounter Details Date Type Department Care Team (Late st Contact Info) Description 10/09/2020 [facility] [address] [facility] [address] [place] [place] [address] Dalton Ann MD [address] [facility] [address] [place] [address] Social History Tobacco Use Types [...] 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
--- OUTSIDE RECORDS SUMMARY | 2024-02-21 15:24 | XMS_ITS | Encounter Summary ---
Author Organization [facility] Healthcare Address [address] [place] [address] Care Team Providers Care Slag Worker Name Role Phone Jose Martin Diamond MD Primary Care Provi [facility] Reason for Referral * Diagnostic Imaging (Routine) - Closed Specialty Diagnoses / Procedures Referred By Sandie t Referred To Contact Radiology Diagnoses Lumbosacral radiculopathy Procedures IR Transforaminal Epidural Injection Lumbar Sacral 1 Level Left Amy Degroot NP [address] [facility] [address] [place] [address] Phone: tel: fax: [address] [address] Referral ID Status Reason Start Date Expiration Date Visits Re quested Visits Authorized [id number] Closed 09/20/2019 11/19/2019 1 1 Reason for Visit * Diagnostic Imaging (Routine) - Closed Specialty Diagnoses / Procedures Referred By Contac t Referred To Contact Radiology Diagnoses Lumbosacral radiculopathy Procedures IR Transforaminal Epidural Injection Lumbar Sacral 1 Level Left Amy Degroot NP [address] [facility] [address] [place] [address] Phone: tel: fax: [address] [address] Referral ID Status Reason Start Date Expiration Date Visits Re quested Visits Authorized [id number] Closed 09/20/2019 11/19/2019 1 1 Encounter Details Date Type Department Care Team (Latest Contact Info) Description 09/21/2019 3:20 PM CDT - 09/21/2019 11:59 PM CDT Hospital Encounter [facility] Radiology at [facility] [address] [place] [address] Alex Mcintyre MD [address] [facility] [address] [place] [address] Lumbosacral radiculopathy (Primary Dx) Discharge Disposition: Discharge [...] 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 Department of Orthopedic Surgery Division of Physical [...] documented as of this encounter Care Teams Slag Worker Relationship Specialty Start Date End Date Jose Martin Diamond MD [address] [address] PCP - General 07/11/17 10/14/21 documented as of this encounter
--- OUTSIDE RECORDS SUMMARY | 2024-02-21 15:24 | XMS_ITS | Encounter Summary ---
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
--- OUTSIDE RECORDS SUMMARY | 2024-02-21 15:24 | XMS_ITS | Encounter Summary ---
Author Organization [facility] Address [address] [place] [address] Phone Care Team Providers Care Sales Training Manager Name Role Phone Jose Martin Diamond MD Primary Care Provi [facility] Encounter Details Date Type Department Care Team (Late st Contact Info) Description 10/21/2019 Telephone [facility] Orthopaedic Surgery [address] [facility] 2nd Floor [address] [place] [address] Amy Degroot NP [address] [facility] [address] [place], [place] [id number] Social History Tobacco Use Types Packs/Day Years [...] 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
--- OUTSIDE RECORDS SUMMARY | 2024-02-21 15:24 | XMS_ITS | Encounter Summary ---
Author Organization [facility] Address [address] 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
--- OUTSIDE RECORDS SUMMARY | 2024-02-21 15:24 | XMS_ITS | Encounter Summary ---
Author Organization [facility] Address [address] [facility] [address] [place] [address] Care Team Providers Care Balance Staff Staker Name Role Phone Jose Martin Diamond MD Primary Care Provi jasmyn Reason for Visit * Reason Comments Anxiety Encounter Details Date Type Department Care Team (Late st Contact Info) Description 06/24/2019 2:00 PM CDT Telemedicine [facility] Family Medicine [address] [place] [address] Dante Avelar PA [address] [place] [address] Anxiety (Primary Dx) Social History [...] 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 After being [...] 06/26/2022 added in this encounter Care Teams Balance Staff Staker Relationship Specialty Start Date End Date Jose Martin Diamond MD [address] [address] PCP - General 07/11/17 10/14/21 documented as of this encounter
--- OUTSIDE RECORDS SUMMARY | 2024-02-21 15:24 | XMS_ITS | Encounter Summary ---
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
--- OUTSIDE RECORDS SUMMARY | 2024-02-21 15:24 | XMS_ITS | Encounter Summary ---
Author Organization [facility] Address [address] [place] [address] Phone Care Team Providers Care Senior Quality Assurance Specialist Name Role Phone Jose Martin Diamond MD Primary Care Provi [facility] Encounter Details Date Type Department Care Team (Late st Contact Info) Description 04/17/2020 Telephone [facility] Orthopaedic Surgery [address] [facility] [address] [facility] 1st Floor [address] [place] [address] Amy Degroot NP [address] [facility] [address] [address] [place] [address] Social History Tobacco Use Types Packs/Day Years [...] 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 ENTARY SCHOOL PRINCIPAL * Telephone Encounter - Amy Degroot NP - 04/17/2020 8:03 AM CST REC: Tizanidine 4 mg Take one tablet tid as needed. #60 ENTARY SCHOOL PRINCIPAL documented in this encounter Plan of Treatment Not on file documented as of this encounter Visit Diagnoses Not on filedocumented in this encounter Care Teams Senior Quality Assurance Specialist Relationship Specialty Start Date End Date Jose Martin Diamond MD [address] [address] PCP - General 07/11/17 10/14/21 documented as of this encounter
--- OUTSIDE RECORDS SUMMARY | 2024-02-21 15:24 | XMS_ITS | Encounter Summary ---
Author Organization [facility] Address [address] [place] [address] Phone Care Team Providers Care Telephoner Name Role Phone Jose Martin Diamond MD Primary Care Provi [facility] Reason for Referral * Diagnostic Imaging (Routine) - Closed Specialty Diagnoses / Procedures Referred By Sandie servin Referred To Contact Radiology Diagnoses Lumbosacral radiculopathy Procedures IR Transforaminal Epidural Injection Lumbar Sacral 1 Level Left Amy Degroot NP [address] [address] Phone: tel: fax: [address] [address] Referral ID Status Reason Start Date Expiration Date Visits Re quested Visits Authorized [id number] Closed 10/22/2019 11/24/2019 1 1 Encounter Details Date Type Department Care Team (Late st Contact Info) Description 10/15/2019 Orders Only [facility] Orthopaedic Surgery [address] [place] [address] 1st Floor [address] [place] [address] Loser, Lily, RMA Lumbosacral radiculopathy (Primary Dx) [...] 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
--- OUTSIDE RECORDS SUMMARY | 2024-02-21 15:24 | XMS_ITS | Encounter Summary ---
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 This may indicate that the patient was exposed to Varicella Zoster through??infection or vaccination. Blood specimen (specimen) 06/16/2020 12:06 PM CDT 06/16/2020 6:39 PM CDT Nacho Madrigal MD LAB MICROBIOLOGY - GENERAL OR DERABLES Final Result Performing Organization Address City/[facility] Co de Phone Number [facility] Department [email or web address] [address] * (ABNORMAL) Rubeola antibody IgG (06/16/2020 12:06 PM CDT) Pathologist [facility] Measles IgG Positive(A ) Negative [facility] Blood specimen (specimen) 06/16/2020 12:06 PM CDT 06/16/2020 6:39 PM CDT Nacho Madrigal MD LAB MICROBIOLOGY - GENERAL OR DERABLES Final Result [facility] [email or web address] [address] * Rubella IgG (06/16/2020 12:06 PM CDT) Pathologist [facility] Rubella IgG Reactive [facility] Comment: Interpretive Data Nonreactive: ??No detectable antibody [...] Final Result Performing Organization Address City/[facility] Co de Phone Number [facility] Arun [facility] [email or web address] [address] * (ABNORMAL) Mumps antibody, IgG (06/16/2020 12:06 PM CDT) Mumps IgG Positive( A) Negative [facility] Comment: Interpretive Data Negative: No detectable IgG [...] Final Result Performing Organization Address City/[facility] Co de Phone Number [facility] [email or web address] [address] documented in this encounter Visit Diagnoses Not on filedocumented in this encounter Care Teams Buckle Inspector Relationship Specialty Start Date End Date Jose Martin Diamond MD [address] [facility] [address] [address] PCP - General 07/11/17 10/14/21 documented as of this encounter
--- OUTSIDE RECORDS SUMMARY | 2024-02-21 15:24 | XMS_ITS | Encounter Summary ---
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
--- OUTSIDE RECORDS SUMMARY | 2024-02-21 15:24 | XMS_ITS | Encounter Summary ---
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
--- OUTSIDE RECORDS SUMMARY | 2024-02-21 15:24 | XMS_ITS | Encounter Summary ---
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 ??I need to reschedule my appointment for a Friday afternoon when possible! ??Very sorry! Thank You Josee [facility] for pt 04/22/19 to call and eleonora her appt. TRONICS TECH documented in this encounter Plan of Treatment Not on file documented as of this encounter Visit Diagnoses Not on filedocumented in this encounter Care Teams Cookee Relationship Specialty Start Date End Date Jose Martin Diamond MD [address] [address] PCP - General 07/11/17 10/14/21 documented as of this encounter
--- OUTSIDE RECORDS SUMMARY | 2024-02-21 15:24 | XMS_ITS | Encounter Summary ---
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
--- OUTSIDE RECORDS SUMMARY | 2024-02-21 15:24 | XMS_ITS | Encounter Summary ---
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 I will send a [employer] message. documented in this encounter Plan of Treatment Not on file documented as of this encounter Visit Diagnoses Not on filedocumented in this encounter Care Teams Panman Relationship Specialty Start Date End Date Jose Martin Diamond MD [address] [address] PCP - General 07/11/17 10/14/21 documented as of this encounter
--- OUTSIDE RECORDS SUMMARY | 2024-02-21 15:24 | XMS_ITS | Encounter Summary ---
Author Organization [facility] Address [address] [place] [address] Phone Care Team Providers Care Abrasive Sawyer Name Role Phone Jose Martin Diamond MD Primary Care Provi [facility] Reason for Referral * Diagnostic Imaging (Routine) - Closed Specialty Diagnoses / Procedures Referred By Contac t Referred To Contact Radiology Diagnoses Spinal stenosis, lumbar region, with neurogenic claudication Procedures MRI Lumbar Spine WO Contrast Amy Degroot NP [address] [facility] [address] [place] [address] Phone: tel: fax: [address] [address] Referral ID Status Reason Start Date Expiration Date Visits Re quested Visits Authorized [id number] Closed 08/24/2019 03/04/2021 1 1 * Diagnostic Imaging (Routine) - Closed Specialty Diagnoses / Procedures Referred By Contac t Referred To Contact Diagnoses Spinal stenosis, lumbar region, with neurogenic claudication Procedures XR Spine Lumbar 4 or More Views Amy Degroot NP [address] [facility] [address] [place] [address] Phone: tel: fax: [facility] [address] [place] [address] Referral ID Status Reason Start Date Expiration Date Visits Re quested Visits Authorized [id number] Closed 08/24/2019 03/04/2021 1 1 Encounter Details Date Type Department Care Team (Latest Contact Info) Description 08/24/2019 8:30 AM CDT Office Visit [facility] Orthopaedic Surgery [address] [facility] 1st Floor [address] [place] [address] Amy Degroot NP [address] [facility] [address] [place] [address] Spinal stenosis, lumbar region, with neurogenic claudication [...] 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 Amy Degroot RN, ANP-BC Nurse Practitioner [facility] Orthopedics Division of Physical Medicine and Rehabilitation In collaboration with Dr. Polo Portions of this note were dictated using inexio Fluency Direct speech recognition software. Dictation is not read in detail and refrigeration service inspector variances may occur. documented in this encounter [...] signed by: Simona Paniagua M.D. Amy Degroot OPEN SOAPER TENDER IMG MRI PROCEDURES Final Resu lt * [...] signed by: Tulio Chavez M.D. Amy Degroot OPEN SOAPER TENDER IMG XR PROCEDURES Final Resul t documented in this encounter Visit Diagnoses Diagnosis Spinal stenosis, lumbar region, with neurogenic claudication- Primary Spinal stenosis, lumbar region, with neurogenic claudication Spinal stenosis, lumbar region, with neurogenic claudication documented in this encounter Care Teams Abrasive Sawyer Relationship Specialty Start Date End Date Jose Martin Diamond MD [address] [address] PCP - General 07/11/17 10/14/21 documented as of this encounter
--- OUTSIDE RECORDS SUMMARY | 2024-02-21 15:24 | XMS_ITS | Encounter Summary ---
Author Organization [facility] Address [address] [facility] [address] [place] [address] Care Team Providers Care Manager Housekeeping Name Role Phone Jose Martin Diamond MD Primary Care Provi jasmyn Reason for Visit * Reason Onset Date Comments [place] 08/06/2019 Encounter Details Date Type Department Care Team (Late st Contact Info) Description 08/06/2019 Telephone [facility] Family Medicine [address] [place] [address] Jose Martin Diamond MD [address] [address] [place] Social History Tobacco Use Types Packs/Day [...] 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
--- OUTSIDE RECORDS SUMMARY | 2024-02-21 15:24 | XMS_ITS | Encounter Summary ---
Author Organization [facility] Address [address] [place] [address] Care Team Providers Care Copy And Print Associate Name Role Phone Jose Martin Diamond MD Primary Care Provi [facility] Encounter Details Date Type Department Care Team (Late st Contact Info) Description 10/11/2020 Orders Only [facility] [address] [facility] [address] [place] [facility] [place] [address] Dalton Ann MD [address] 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 Not on rohit e documented as of this encounter Plan of Treatment Not on file documented as of this encounter Procedures Procedure Name Priority Date/Time Associated Diagnosis Comments SCAN - LABS 10/11/2020 10:06 AM CDT SCAN - LABS 10/11/2020 7:32 AM CDT documented in this encounter Results * SCAN - LABS (10/11/2020 10:06 AM CDT) us Dalton Ann MD Final Result * SCAN - LABS (10/11/2020 7:32 AM CDT) us Dalton Ann MD Final Result documented in this encounter Visit Diagnoses Not on filedocumented in this encounter Care Teams Copy And Print Associate Relationship Specialty Start Date End Date Jose Martin Diamond MD [address] [place] [address] PCP - General 07/11/17 10/14/21 documented as of this encounter
--- OUTSIDE RECORDS SUMMARY | 2024-02-21 15:24 | XMS_ITS | Encounter Summary ---
Author Organization [facility] Address [address] [place] [address] Phone Care Team Providers Care Housesmith Name Role Phone Jose Martin Diamond MD Primary Care Provi [facility] Reason for Referral * (Routine) - Closed Specialty Diagnoses / Procedures Referred By Contac t Referred To Contact Diagnoses Arthritis of knee Acute pain of left knee Procedures Large Joint Injection: L knee Amy Degroot NP [address] [facility] [address] [place] [address] Phone: tel: fax: [facility] (All Locations) Referral ID Status Reason Start Date Expiration Date Visits Re quested Visits Authorized [id number] Closed 04/01/2019 10/10/2020 1 1 CLERK Encounter Details Date Type Department Care Team (Late st Contact Info) Description 04/01/2019 1:30 PM CRIB CLERK Office Visit [facility] Orthopaedic Surgery [address] [place] [address] Amy Degroot NP [address] [facility] [address] [place] [address] Arthritis of knee (Primary Dx); Acute pain [...] 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 Call [phone] if you develop any redness, discharge at [...] daily living with less pain? Please call [phone] with Pain Diary 2 weeks after injection. CLERK documented in this encounter Progress Notes * [...] medial. Amy Degroot RN, ANP-BC Nurse Practitioner [facility] Orthopedics Division of Physical Medicine and Rehabilitation In collaboration with Dr. Nielsen Portions of this note were dictated using [employer] Direct speech recognition software. Please excuse any complex commercial litigation paralegal errors. CLERK documented in this encounter Plan of Treatment Not on file documented as of this encounter Procedures Procedure Name Priority Date/Time Associated Diagnosis Comments DE ARTHROCENTESIS ASPIR&/INJ MAJOR JT/BURSA W/O US Routine 04/01/2019 1:30 PM CRIB CLERK Arthritis of knee Acute pain of left knee documented in this encounter Results * DE ARTHROCENTESIS ASPIR&/INJ MAJOR JT/BURSA W/O US (04/01/2019 1:30 PM CRIB CLERK) Narrative Amy Degroot NP - 04/01/2019 1:30 PM CRIB CLERK Amy Degroot NP ? 04/01/2019 ??6:26 PM Large Joint Injection: L knee Date/Time: 04/01/2019 1:30 PM Performed by: Amy Degroot NP Authorized by: Amy A. Mikayla, TRACK DRESSER Large Joint Injection/Aspiration: ??Consent Given by: ??Patient [...] of left knee Given 04/01/2019 1:30 PM CRIB CLERK 2 mL lidocaine (XYLOCAINE) 10 mg/mL (1 %) injection 4 mL 4 mL, One-Time Injection, Starting on Shira 04/01/19 at 1330, For 1 dose, Indications: Administration of Local AnesthesiaIndications:Administratio n of Local Anesthesia Given 04/01/2019 1:30 PM CRIB CLERK 4 mL triamcinolone (KENALOG) 40 mg/mL injection 40 mg 40 mg, intra-articular, One-Time Injection, Starting on Shira 04/01/19 at 1330, For 1 doseIndications:Arthritis of knee,Acute pain of left knee Given 04/01/2019 1:30 PM CRIB CLERK 40 mg documented in this encounter Discontinued Medications Medication Sig Discontinue Reason Start Date End Da te propranolol (INDERAL) 20 mg tabletIndications:Hot flashes Take 1 tablet (20 mg total) by mouth 2 (two) times a day Therapy completed 11/09/2018 04/01/2019 documented as of this encounter Care Teams Housesmith Relationship Specialty Start Date End Date Jose Martin Diamond MD [address] [address] PCP - General 07/11/17 10/14/21 documented as of this encounter
--- OUTSIDE RECORDS SUMMARY | 2024-02-21 15:24 | XMS_ITS | Encounter Summary ---
Author Organization [facility] Address [address] [place] [address] Care Team Providers Care Information Technology Assistant Name Role Phone Jose Martin Diamond MD Primary Care Provi [facility] Reason for Referral * Diagnostic Imaging (Routine) - Closed Specialty Diagnoses / Procedures Referred By Contac t Referred To Contact Radiology Diagnoses Spinal stenosis, lumbar region, with neurogenic claudication Procedures MRI Lumbar Spine WO Contrast Amy Degroot NP [address] [facility] [address] [place] [address] Phone: tel: fax: [address] [phone] Referral ID Status Reason Start Date Expiration Date Visits Re quested Visits Authorized [id number] Closed 08/24/2019 03/04/2021 1 1 Reason for Visit * Diagnostic Imaging (Routine) - Closed Specialty Diagnoses / Procedures Referred By Contac t Referred To Contact Radiology Diagnoses Spinal stenosis, lumbar region, with neurogenic claudication Procedures MRI Lumbar Spine WO Contrast Amy Degroot NP [address] [facility] [address] [place] [address] Phone: tel: fax: [address] [address] Referral ID Status Reason Start Date Expiration Date Visits Re quested Visits Authorized [id number] Closed 08/24/2019 03/04/2021 1 1 Encounter Details Date Type Department Care Team (Latest Contact Info) Description 09/10/2019 10:02 AM CDT - 09/10/2019 11:59 PM CDT Hospital Encounter [facility] Radiology at [facility] Medicine [address] [place] [address] Marcela Polo DO [address] [place] [address] Amy Degroot NP [address] [facility] [address] [address] [place] [address] Spinal stenosis, lumbar region, with neurogenic claudication [...] 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
--- OUTSIDE RECORDS SUMMARY | 2024-02-21 15:24 | XMS_ITS | Encounter Summary ---
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
--- OUTSIDE RECORDS SUMMARY | 2024-02-21 15:24 | XMS_ITS | Encounter Summary ---
Author Organization [facility] Address [address] [place] [address] Care Team Providers Care Swimming Pool Attendant Name Role Phone Jose Martin Diamond MD Primary Care Provi [facility] Reason for Referral * Diagnostic Imaging (Routine) - Closed Specialty Diagnoses / Procedures Referred By Sandie t Referred To Contact Radiology Diagnoses Lumbosacral radiculopathy Procedures IR Transforaminal Epidural Injection Lumbar Sacral 1 Level Left Amy Degroot NP [address] [facility] [address] [place] [address] Phone: tel: fax: [address] [phone] Referral ID Status Reason Start Date Expiration Date Visits Re quested Visits Authorized [id number] Closed 10/22/2019 11/24/2019 1 1 Reason for Visit * Diagnostic Imaging (Routine) - Closed Specialty Diagnoses / Procedures Referred By Contac t Referred To Contact Radiology Diagnoses Lumbosacral radiculopathy Procedures IR Transforaminal Epidural Injection Lumbar Sacral 1 Level Left Amy Degroot NP [address] [facility] [address] [place] [address] Phone: tel: fax: [address] [phone] Referral ID Status Reason Start Date Expiration Date Visits Re quested Visits Authorized [id number] Closed 10/22/2019 11/24/2019 1 1 Encounter Details Date Type Department Care Team (Latest Contact Info) Description 10/28/2019 12:43 PM CDT - 10/28/2019 11:59 PM CDT Hospital Encounter [facility] [address] [place] [address] Blair Yi MD [address] 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 Department of Orthopedic Surgery Division of Physical [...] procedure / OR operative note. Amy Degroot WHEEL POLISHER IMG IR PROCEDURES Final Resul t [id number] [...] mL documented in this encounter Care Teams Swimming Pool Attendant Relationship Specialty Start Date End Date Jose Martin Diamond MD [address] [address] PCP - General 07/11/17 10/14/21 documented as of this encounter
--- OUTSIDE RECORDS SUMMARY | 2024-02-21 15:24 | XMS_ITS | Encounter Summary ---
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 Pt will hold off on being referred to Ortho at this time but will call us back if she decides to go that route. BURNER REPAIRER * Telephone Encounter - Alistair Peña MA - 03/18/2019 1:06 PM OIL BURNER REPAIRER ----- Message from RICKIE Murphy sent at 03/18/2019 9:21 AM OIL BURNER REPAIRER ----- Mild medial arthritis, if pain persists, recommend ortho referral BURNER REPAIRER documented in this encounter Plan of Treatment Not on file documented as of this encounter Visit Diagnoses Not on filedocumented in this encounter Care Teams Soil Chemist Relationship Specialty Start Date End Date Jose Martin Diamond MD [address] [address] PCP - General 07/11/17 10/14/21 documented as of this encounter
--- OUTSIDE RECORDS SUMMARY | 2024-02-21 15:24 | XMS_ITS | Encounter Summary ---
Author Organization [facility] Healthcare Address [address] [place] [address] Care Team Providers Care Frame Cleaner Name Role Phone Jose Martin Diamond MD Primary Care Provi [facility] Reason for Referral * Diagnostic Imaging (Routine) - Closed Specialty Diagnoses / Procedures Referred By Contac t Referred To Contact Diagnoses Spinal stenosis, lumbar region, with neurogenic claudication Procedures XR Spine Lumbar 4 or More Views Amy Degroot NP [address] [facility] [address] [place] [address] Phone: tel: fax: [address] [phone] Referral ID Status Reason Start Date Expiration Date Visits Re quested Visits Authorized [id number] Closed 08/24/2019 03/04/2021 1 1 Reason for Visit * Diagnostic Imaging (Routine) - Closed Specialty Diagnoses / Procedures Referred By Contac t Referred To Contact Diagnoses Spinal stenosis, lumbar region, with neurogenic claudication Procedures XR Spine Lumbar 4 or More Views Amy Degroot NP [address] [facility] [address] [place] [address] Phone: tel: fax: [address] [address] Referral ID Status Reason Start Date Expiration Date Visits Re quested Visits Authorized [id number] Closed 08/24/2019 03/04/2021 1 1 Encounter Details Date Type Department Care Team (Latest Contact Info) Description 08/24/2019 9:19 AM CDT - 08/24/2019 11:59 PM CDT Hospital Encounter 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
--- OUTSIDE RECORDS SUMMARY | 2024-02-21 15:24 | XMS_ITS | Encounter Summary ---
Author Organization [facility] Address [address] [place] [address] Care Team Providers Care Material Handling Equipment Stevedore Name Role Phone Jose Martin Diamond MD Primary Care Provi [facility] Encounter Details Date Type Department Care Team (Late st Contact Info) Description 10/10/2020 [facility] Only [facility] [address] [facility] [address] [place] [facility] [place] [address] Dalton Ann MD [address] [facility] [address] [place] [address] Social History Tobacco Use Types [...] 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
--- OUTSIDE RECORDS SUMMARY | 2024-02-21 15:24 | XMS_ITS | Encounter Summary ---
Author Organization [facility] Address [address] [facility] [address] [place] [address] Care Team Providers Care Mineral Surveyor Name Role Phone Jose Martin Diamond MD Primary Care Provi [facility] Reason for Visit * Reason Onset Date Comments [facility]- livalo not covered-send alterna tive 02/04/2019 Encounter Details Date Type Department Care Team (Late st Contact Info) Description 02/04/[address] 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 HAND MAINTENANCE * Telephone Encounter - Dante Avelar PA - 02/04/2019 3:10 PM DECKHAND MAINTENANCE Simvastatin 10mg 1 po q hs #30/5 refills HAND MAINTENANCE * Telephone Encounter - Jade Peralta - 02/04/2019 1:13 PM CST FAX FROM [facility]- livalo not covered-send alternative: atorvastatin, pravastatin, rosuvastatin, simvastatin-along with directions, quantity and strength. HAND MAINTENANCE documented in this encounter Plan of Treatment Not on file documented as of this encounter Visit Diagnoses Not on filedocumented in this encounter Discontinued Medications Medication Sig Discontinue Reason Start Date End Da te LIVALO 4 mg tablet TAKE 1 TABLET DAILY Other 11/02/2018 9 documented as of this encounter Care Teams Mineral Surveyor Relationship Specialty Start Date End Date Jose Martin Diamond MD [address] [address] PCP - General 07/11/17 10/14/21 documented as of this encounter
--- OUTSIDE RECORDS SUMMARY | 2024-02-21 15:24 | XMS_ITS | Encounter Summary ---
Author Organization [facility] Healthcare Address [address] [place] [address] Care Team Providers Care Closing Specialist Name Role Phone Jose Martin Diamond MD Primary Care Provi j[facility] Reason for Referral * Diagnostic Imaging (Routine) - Closed Specialty Diagnoses / Procedures Referred By Sandie t Referred To Contact Diagnoses Acute pain of left knee Procedures XR Knee Left 3 Vw Dante Avelar PA [address] [address] Phone: tel: fax: [address] [address] Referral ID Status Reason Start Date Expiration Date Visits Re quested Visits Authorized [id number] Closed 03/15/2019 09/23/2020 1 1 ET RESEARCH ANALYST Encounter Details Date Type Department Care Team (Late st Contact Info) Description 03/15/2019 3:53 PM MARKET RESEARCH ANALYST Hospital Encounter [facility]IM Jose Martin Diamond MD [address] [facility] [address] [place] [address] Acute pain of left knee Social History [...] 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 D.O.B: 1960 ? Exam Date: 03/15/19 ?? 1554 ?? Age: 59 ?Sex: Female ? MR#: [id number] ?? Loc: ? RADIOLOGY REPORT ?? Order #[id number] ?? Radiology ? Knee LT 3 View [...] by Jarrell Vasquez ?? Jarrell Vasquez ? [place] ?? D: ??03/16/2019 12:01 PM ?? T: ? Report ID: [id number] ?? Reading Location: ??[id number] ? REPORT ELECTRONICALLY SIGNED IN OTHER VENDOR SYSTEM ?? Resulting Agency Comment O Procedure Note Jarrell Vasquez MD - 03/16/2019 Patient Name: DANIEL PLEITEZ Jaguar Dr: Dante Avelar PA-COEstephaniaB: 1960 Exam Date: 03/15/19 1554 Age: 59 Sex: Female MR#: [id number] Loc: RADIOLOGY REPORT Order #[id number] Radiology Knee LT 3 View (STANDARD) Signed [...] signed by Jarrell NOWAK T: Report ID: [id number] Reading Location: [place] [address] REPORT ELECTRONICALLY SIGNED IN OTHER VENDOR SYSTEM us Dante DAMIAN IMG XR PROCEDURES Final Res ult documented in this encounter Visit Diagnoses Diagnosis Acute pain of left knee documented in this encounter Care Teams Closing Specialist Relationship Specialty Start Date End Date Jose Martin Diamond MD [address] [place] [address] PCP - General 07/11/17 10/14/21 documented as of this encounter
--- OUTSIDE RECORDS SUMMARY | 2024-02-21 15:24 | XMS_ITS | Encounter Summary ---
Author Organization [facility] Address [address] [facility] [address] [place] [address] Care Team Providers Care Technology Applications Teacher Name Role Phone Jose Martin Diamond MD Primary Care Provi jasmyn Reason for Visit * Reason Comments Anxiety/Depression Re-eval. 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 Patient was discharged on . Patient has been 8 days without xanax. Patient states that her son is watching her. Patient has just started a new job with [employer]. Patient has been having shakiness, flu like [...] documented as of this encounter Care Teams Technology Applications Teacher Relationship Specialty Start Date End Date Jose Martin Diamond MD [address] [address] PCP - General 07/11/17 10/14/21 documented as of this encounter
--- OUTSIDE RECORDS SUMMARY | 2024-02-21 15:24 | XMS_ITS | Encounter Summary ---
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 1:30 PM ??30 mins. ??Amy Degroot, MECHANICAL ENGINEERING COOP ? [facility] Patient Comments: Pain in left knee. ??I had x-rays taken at [facility], [address] [place] [phone] on February ordered by my GP. ER MACHINE documented in this encounter Plan of Treatment Not on file documented as of this encounter Visit Diagnoses Not on filedocumented in this encounter Care Teams Spa Concierge Relationship Specialty Start Date End Date Jose Martin Diamond MD [address] [address] PCP - General 07/11/17 10/14/21 documented as of this encounter
--- OUTSIDE RECORDS SUMMARY | 2024-02-21 15:24 | XMS_ITS | Encounter Summary ---
Author Organization [facility] Address [address] [place] [address] Care Team Providers Care Coppersmith Apprentice Name Role Phone Jose Martin Diamond MD Primary Care Provi 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
--- OUTSIDE RECORDS SUMMARY | 2024-02-21 15:24 | XMS_ITS | Encounter Summary ---
Author Organization [facility] Address [address] [place] [address] Phone Care Team Providers Care Printed Circuit Board Drafter Name Role Phone Jose Martin Diamond MD Primary Care Provi [facility] Reason for Referral * Diagnostic Imaging (Routine) - Closed Specialty Diagnoses / Procedures Referred By Sandie servin Referred To Contact Radiology Diagnoses Lumbosacral radiculopathy Procedures IR Transforaminal Epidural Injection Lumbar Sacral 1 Level Left Amy Degroot NP [address] [address] Phone: tel: fax: [address] [address] Referral ID Status Reason Start Date Expiration Date Visits Re quested Visits Authorized [id number] Closed 09/20/2019 11/19/2019 1 1 Encounter Details Date Type Department Care Team (Late st Contact Info) Description 09/15/2019 Orders Only [facility] Orthopaedic Surgery [address] [place] [address] 1st [address] [place] [address] Loser, Lily, RMA Lumbosacral radiculopathy (Primary Dx) [...] 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
--- OUTSIDE RECORDS SUMMARY | 2024-02-21 15:24 | XMS_ITS | Encounter Summary ---
Author Organization [facility] Address [address] [place] [address] Care Team Providers Care Digital Computer Systems Analyst Name Role Phone Jose Martin Diamond MD Primary Care Provi jasmyn Reason for Referral * Diagnostic Imaging (Routine) - Closed Specialty Diagnoses / Procedures Referred By Sandie servin Referred To Contact Diagnoses Acute pain of left knee Procedures XR Knee Left 3 Vw Dante Avelar PA [address] [facility] [address] [place] [address] Phone: tel: fax: [address] [address] Referral ID Status Reason Start Date Expiration Date Visits Re quested Visits Authorized [id number] Closed 03/15/2019 09/23/2020 1 1 OPATHY DOCTOR Reason for Visit * Reason Comments Knee Pain L knee-injured while bowling Encounter Details Date Type Department Care Team (Late st Contact Info) Description 03/15/2019 2:30 PM OSTEOPATHY DOCTOR Office Visit 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 Not on rohit e documented as of this encounter Last Filed Vital Signs Vital Sign Reading Time Taken Comments Blood Pressure 158/98 03/15/2019 2:35 PM OSTEOPATHY DOCTOR Pulse 66 03/15/2019 2:35 PM OSTEOPATHY DOCTOR Temperature 36.9 ??C (98.5 ??F) 03/15/2019 2:35 PM CS T Respiratory Rate 18 03/15/2019 2:35 PM OSTEOPATHY DOCTOR Oxygen Saturation 99% 03/15/2019 2:35 PM OSTEOPATHY DOCTOR Inhaled Oxygen Concentration - - Weight 77.1 kg (170 lb) 03/15/2019 2:35 PM OSTEOPATHY DOCTOR Height 162.6 cm (5' 4 ) 03/15/2019 2:35 PM OSTEOPATHY DOCTOR Body Mass Index 29.18 03/15/2019 2:35 PM OSTEOPATHY DOCTOR documented in this encounter Progress Notes * [...] Where should this order be performed? Answer: [facility] [[id number]] ??? SCREENING MAMMOGRAM BILATERAL W ROBERTO Standing Status: Future Standing Expiration Date: 05/13/2020 Order Specific Question: Is the patient ? Answer: No Order Specific Question: Where should this order be performed? Answer: [facility] [[id number]] ??? CBC with auto differential Standing [...] Martin Diamond MD at 04/06/2019 1:15 PM OSTEOPATHY DOCTOR OPATHY DOCTOR OPATHY DOCTOR documented in this encounter Miscellaneous Notes * Assessment & Plan Note - Dante Avelar PA - 04/06/2019 10:51 AM OSTEOPATHY DOCTOR Associated Problem(s): Overweight (BMI 25.0-29.9) BMI Follow-up includes: nutrition counseling, exercise counseling and education provided. OPATHY DOCTOR * Assessment & Plan Note - Dante Avelar PA - 04/06/2019 10:51 AM OSTEOPATHY DOCTOR Associated Problem(s): Situational anxiety Uses,risks,se's discussed OPATHY DOCTOR * Assessment & Plan Note - Dante Avelar PA - 04/06/2019 10:51 AM OSTEOPATHY DOCTOR Associated Problem(s): Hyperlipidemia Recommend Continue statin therapy. NO myalgias, or concerns with statin therapy at this time. Recommend heart healthy diet and exercise 30 minutes a day Recommend weight loss OPATHY DOCTOR * Assessment & Plan Note - Dante Avelar PA - 04/06/2019 10:51 AM OSTEOPATHY DOCTOR Associated Problem(s): Dyslipidemia Recommend Continue statin therapy. NO myalgias, or concerns with statin therapy at this time. Recommend heart healthy diet and exercise 30 minutes a day Recommend weight loss OPATHY DOCTOR * Assessment & Plan Note - Dante Avelar PA - 04/06/2019 10:50 AM OSTEOPATHY DOCTOR Associated Problem(s): HTN (hypertension) DASH diet. CCT. Recommend diet and exercise. Recommend compliance with medications. OPATHY DOCTOR * Assessment & Plan Note - Dante Avelar PA - 04/06/2019 10:50 AM OSTEOPATHY DOCTOR Associated Problem(s): Well adult exam -Check in 1 year. Recommend Pap smears at least every 3 years starting at age 21, unless otherwise indicated. recommend flu shot yearly. Recommend heart healthy diet and 30 minutes of exercise daily.Recommend mammogram yearly starting at 40 y/o. Colon cancer screening starting at 50. OPATHY DOCTOR documented in this encounter Plan of Treatment [...] Knee Left 3 Vw (03/15/2019 3:54 PM OSTEOPATHY DOCTOR) Anatomical Region Laterality Modality Lower Extremities, Knee [facility] 03/16/2019 12:0 0 PM OSTEOPATHY DOCTOR Narrative 03/16/2019 12:01 PM OSTEOPATHY DOCTOR Patient Name: JOSEE PLEITEZ Hiro ?Ordering Dr: Dante Avelar PA-C ?? D.O.B: 1960 ? Exam Date: 03/15/ ?? 1554 ?? Age: 59 ?Sex: Female ? MR#: [id number] ?? Loc: ? RADIOLOGY REPORT ?? Order #[id number] ?? Radiology ? Knee LT 3 View [...] by Jarrell Vasquez ?? Jarrell Vasquez ? MD ?? D: ??03/16/2019 12:01 PM ?? T: ? Report ID: [id number] ?? Reading Location: ??[id number] ? REPORT ELECTRONICALLY SIGNED IN OTHER VENDOR SYSTEM ?? Resulting Agency Comment O Procedure Note Jarrell Vasquez MD - 03/16/2019 Patient Name: JOSEE PLEITEZ Dr: Dante Avelar PA-C DEstephaniaO.B: 1960 Exam Date: 03/15/19 1556 Age: 59 Sex: Female MR#: [id number] Loc: RADIOLOGY REPORT Order #[id number] Radiology Knee LT 3 View (STANDARD) Signed [...] signed by Jarrell NOWAK T: Report ID: [id number] Reading Location: [place] [address] REPORT ELECTRONICALLY SIGNED IN OTHER VENDOR SYSTEM [...] knee documented in this encounter Care Teams Digital Computer Systems Analyst Relationship Specialty Start Date End Date Jose Martin Diamond MD [address] [address] PCP - General 07/11/17 10/14/21 documented as of this encounter
--- OUTSIDE RECORDS SUMMARY | 2024-02-21 15:25 | XMS_ITS | Encounter Summary ---
Author Organization [facility] Address [address] [place] [address] Care Team Providers Care Energy Engineer Name Role Phone Jose Martin Diamond MD Primary Care Provi [facility] Reason for Referral * Diagnostic Imaging (Routine) - Closed Specialty Diagnoses / Procedures Referred By Contac t Referred To Contact Radiology Diagnoses Lumbar radiculopathy Procedures IR Transforaminal Epidural Injection Lumbar Sacral 1 Level Left Amy Degroot NP Phone: tel: fax: [facility] Referral ID Status Reason Start Date Expiration Date Visits Re quested Visits Authorized [id number] Closed 09/30/2017 09/30/2017 1 1 Reason for Visit * Diagnostic Imaging (Routine) - Closed Specialty Diagnoses / Procedures Referred By Contac t Referred To Contact Radiology Diagnoses Lumbar radiculopathy Procedures IR Transforaminal Epidural Injection Lumbar Sacral 1 Level Left Amy Degroot NP Phone: tel: fax: [facility] Referral ID Status Reason Start Date Expiration Date Visits Re quested Visits Authorized [id number] Closed 09/30/2017 09/30/2017 1 1 Encounter Details Date Type Department Care Team (Latest Contact Info) Description 09/30/2017 9:01 AM CDT - 09/30/2017 11:59 PM CDT Hospital Encounter [facility] Radiology at [facility] [address] [place] [address] Amy Degroot NP [address] [place] [address] [place] [address] [place] [address] Lumbar radiculopathy Discharge Disposition: Discharge to home [...] 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 Amy Degroot CHIEF SCIENTIFIC OFFICER IMG IR PROCEDURES Final Resul t [...] mL documented in this encounter Care Teams Energy Engineer Relationship Specialty Start Date End Date Jose Martin Diamond MD [address] [address] PCP - General 07/11/17 10/14/21 documented as of this encounter
--- OUTSIDE RECORDS SUMMARY | 2024-02-21 15:25 | XMS_ITS | Encounter Summary ---
Author Organization [facility] Address [address] [place] [address] Care Team Providers Care 3Rd Grade Reading Teacher Name Role Phone Jose Martin Diamond MD Primary Care Provi jasmyn Reason for Visit * Reason Comments Review Medications Alprazolam Anxiety Encounter Details Date Type Department Care Team (Late st Contact Info) Description 08/26/2018 10:30 AM CDT Office Visit [facility] Family Medicine [address] [place] [address] Milana Prakash NP [address] [place] [address] Situational anxiety (Primary Dx); Mixed [...] 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 [...] this encounter Progress Notes * Milana Prakash, ENGRAVED ROLLER INSPECTOR - 08/26/2018 10:30 AM CDT Images from [...] URINE WITHOUT CREATININE Routine 03/09/2019 12:46 PM DEVELOPING MACHINE OPERATOR Essential hypertension LIPID PANEL Routine 03/09/2019 12:46 PM DEVELOPING MACHINE OPERATOR Mixed hyperlipidemia COMPREHENSIVE METABOLIC PANEL Routine 03/09/2019 12:46 PM DEVELOPING MACHINE OPERATOR Essential hypertension documented in this encounter Results * Microalbumin, urine, random (03/09/2019 12:46 PM DEVELOPING MACHINE OPERATOR) Microalbumin, ur 0.5 See Note: mg/dL ANJEL [...] diagnostic category. Urine 03/09/2019 12:4 6 PM DEVELOPING MACHINE OPERATOR 03/09/2019 12:46 PM DEVELOPING MACHINE OPERATOR Narrative [facility] - 03/10/2019 11:22 AM DEVELOPING MACHINE OPERATOR FASTING:YES FASTING: YES Resulting Agency Comment Performing Organization Information: ?Site ID: [place] ?Name: [facility] ?Address: [address] [address] ?Director: Ahsan Enriquez D.O., MPH us Milana Prakash NP LAB URINE ORDERABLES Fi nal Result [facility] [place] * (ABNORMAL) Lipid panel (03/09/2019 12:46 PM DEVELOPING MACHINE OPERATOR) Cholesterol 220(H) <200 mg/dL [facility] [place] HDL 52 >50 mg/dL [facility] Triglycerides 129 <150 mg/dL [facility] LDL 143(H) mg/dL (calc) [facility] Comment: Reference range: <100 Desirable range <100 mg/dL for primary prevention; ?? <70 mg/dL for patients with CHD or diabetic patients with > or = 2 CHD risk factors. LDL-C is now calculated using the Porter calculation, which is a validated novel method providing better accuracy than the Friedewald equation in the estimation of LDL-C. Negrito SS et al. RAVEN. 2013;310(19): 2613-7251 (http://education.[employer]/faq/MHW563) Chol/HDL ratio 4.2 <5.0 (calc) [facility] Non-HDL, (LDL+VLDL) 168(H) <130 mg/dL (calc) [facility] Comment: For patients with diabetes plus 1 major ASCVD risk factor, treating to a non-HDL-C goal of <100 mg/dL (LDL-C of <70 mg/dL) is considered a therapeutic option. Blood specimen (specimen) 03/09/2019 12:46 PM DEVELOPING MACHINE OPERATOR 03/09/2019 12:46 PM DEVELOPING MACHINE OPERATOR Narrative [facility] - 03/10/2019 11:22 AM DEVELOPING MACHINE OPERATOR FASTING:YES FASTING: YES Resulting Agency Comment Performing Organization Information: ?Site ID: [place] ?Name: [facility] ?Address: [address] [place] [address] [address] [address] ?Director: Ahsan Enriquez D.O., MPH us Milana Prakash ENGRAVED ROLLER INSPECTOR LAB BLOOD ORDERABLES Fi nal Result [facility] [place], [place] * (ABNORMAL) Comprehensive metabolic panel (03/09/2019 12:46 PM DEVELOPING MACHINE OPERATOR) Glucose 82 65 - 99 mg/dL [facility] Comment: ? Fasting reference interval BUN 20 7 - 25 mg/dL [facility] [place] Creatinine 1.12(H) 0.50 - 1.05 mg/dL [facility] [place] Comment: For patients >49 years of age, the reference limit for Creatinine is approximately 13% higher for people identified as -Vincentian. eGFR NON-AFR. BURKINAN 54(L) > OR = 60 mL/min/1. 73m2 [...] [place] Blood specimen (specimen) 03/09/2019 12:46 PM DEVELOPING MACHINE OPERATOR 03/09/2019 12:46 PM DEVELOPING MACHINE OPERATOR Narrative [facility] - 03/10/2019 11:22 AM DEVELOPING MACHINE OPERATOR FASTING:YES FASTING: YES Resulting Agency Comment Performing Organization Information: ?Site ID: [place] ?Name: [facility] ?Address: [address] [address] ?Director: Ahsan Enriquez D.O., MPH Milana Prakash NP LAB BLOOD ORDERABLES Fi nal Result [facility] [place] documented in this encounter Visit [...] 11/01/2018 added in this encounter Care Teams 3Rd Grade Reading Teacher Relationship Specialty Start Date End Date Jose Martin Diamond MD [address] [place] [address] PCP - General 07/11/17 10/14/21 documented as of this encounter
--- OUTSIDE RECORDS SUMMARY | 2024-02-21 15:25 | XMS_ITS | Encounter Summary ---
Author Organization [facility] Address [address] [place] [address] Phone Care Team Providers Care Bucket Operator Name Role Phone Jose Martin Diamond MD Primary Care [facility] Encounter Details Date Type Department Care Team (Latest Contact Info) Description 09/17/2017 9:00 AM CDT Office Visit [facility] Orthopaedic Surgery [address] 1st [address] [place] [address] Amy Degroot NP [address] [place] [address] Lumbosacral radiculopathy (Primary Dx); Chronic pain of [...] 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 Please follow up with your Pain Diary [...] update. Amy Degroot RN, ANP-BC Nurse Practitioner [facility] Orthopedics Division of Physical Medicine and Rehabilitation In collaboration with Dr. Chacorta Mcintyre / Dr. Christian Portions of this note were dictated using M*Modal Fluency Direct speech recognition software. Please excuse any behavior interventionist errors. documented in this encounter Plan of [...] 9 added in this encounter Care Teams Bucket Operator Relationship Specialty Start Date End Date Jose Martin Diamond MD [address] [address] PCP - General 07/11/17 10/14/21 documented as of this encounter
--- OUTSIDE RECORDS SUMMARY | 2024-02-21 15:25 | XMS_ITS | Encounter Summary ---
Author Organization [facility] Address [address] [place] [address] Care Team Providers Care Physician Aide Name Role Phone Jose Martin Diamond MD Primary Care Provi [facility] Reason for Referral * Consultation (Routine) - Closed Specialty Diagnoses / Procedures Referred By Sandie servin Referred To Contact Neurology Diagnoses Tremors of nervous system Milana Prakash NP Phone: tel: fax: [facility] [address] [place] [address] Phone: tel: fax: Referral ID Status Reason Start Date Expiration Date V isits Requested Visits Authorized [id number] Closed Specialty Services Required 10/14/2018 04/24/2020 1 1 Question Answer Please select the performing region: [facility] [[id number]] Please select the performing department: [facility] 105 [[id number]] # of visits: 1 Reason for Visit * Reason Comments Weight Gain with some hot flashe s Tremors Encounter Details Date Type Department Care Team (Late st Contact Info) Description 10/14/2018 3:45 PM CDT Office Visit [facility] Family Medicine [address] [place] [address] Milana Prakash NP [address] [id number] Fatigue, unspecified type (Primary Dx); Hot flashes; [...] 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 Write down your questions so you remember to ask them during your visits. ?? 2017 [employer] Information is for End User's use only and may not be sold, redistributed or otherwise used for commercial purposes. All illustrations and images included in CareNotes?? are the copyrighted property of [employer], S[employer]wig[employer]. or Brainlike. The above information is an biological science aide only. It is not intended as medical advice for individual conditions or treatments. Talk to your doctor, nurse or pharmacist before following any medical regimen to see if it is safe and effective for you. Patient Education Tremors SIDEWALK REPAIRER: A tremor is a movement you cannot [...] ask them during your visits. ?? 2017 [employer] Information is for End User's use only and may not be sold, redistributed or otherwise used for commercial purposes. All illustrations and images included in CareNotes?? are the copyrighted property of [employer], [employer]. or Brainlike. The above information is an biological science aide only. It is not intended as medical [...] Referral Reason: Specialty Services Required Referral Location: [facility] Requested Specialty: Neurology [...] Comprehensive metabolic panel (10/15/2018 12:37 PM CDT) [facility] Glucose 89 65 - 99 mg/dL [facility] [place] Comment: ? Fasting reference interval BUN 16 7 - 25 mg/dL [facility] [place] Creatinine 0.98 0.50 - 1.05 mg/dL [facility] [place] Comment: For patients >49 years of age, the reference limit for Creatinine is approximately 13% higher for people identified as -Cymro. eGFR NON-AFR. UGANDAN 64 > OR = 60 mL/min/1 .73m2 [...] (SGPT) 23 6 - 29 U/L [facility] [place] Blood specimen (specimen) 10/15/2018 12:37 PM CDT 10/15/2018 12:38 PM CDT Narrative Resulting Agency Comment Performing Organization Information: ?Site ID: [place] ?Name: [facility] ?Address: [address] [place] [address] [place] [address] ?Director: Ahsan Enriquez D.O., MPH Milana Prakash RESTAURANT LINE SERVER LAB BLOOD ORDERABLES Fi nal Result [facility] [place] Zapien * Vitamin D 25 hydroxy (10/15/2018 12:37 PM CDT) Vitamin D 25-OH 37 30 - 100 ng/mL [facility] [place] Comment: Vitamin D Status ? 25-OH Vitamin D: Deficiency: ?<20 ng/mL Insufficiency: ? 20 - 29 ng/mL Optimal: ? > or = 30 ng/mL For 25-OH Vitamin D testing on patients on D2-supplementation and patients for whom quantitation of D2 and D3 fractions is required, the QuestAssureD(TM) 25-OH VIT D, (D2,D3), LC/MS/MS is recommended: order code [id number] (patients >2yrs). For more information on this test, go to: http://education.Marbles: The Brain Store/faq/TFS367 (This link is being provided for informational/educational purposes only.) Blood specimen (specimen) 10/15/2018 12:37 PM CDT 10/15/2018 12:38 PM CDT Narrative Resulting Agency Comment Performing Organization Information: ?Site ID: [place] ?Name: [employer] ?Address: [facility] [place] [address] ?Director: Ahsan Enriquez D.O., MPH Milana Prakash NP LAB BLOOD ORDERABLES Fi nal Result Performing Organization Address [facility] Co de Phone Number LASHONDA [facility] [place] Matos * Vitamin B12 (10/15/2018 12:37 PM CDT) [facility] Vitamin B12 647 200 - 1,100 pg/mL [facility] - [place] Blood specimen (specimen) 10/15/2018 12:37 PM CDT 10/15/2018 12:38 PM CDT Narrative Resulting Agency Comment Performing Organization Information: ?Site ID: [place] ?Name: [facility] [employer] ?Address: [address] [place] [address] ?Director: Ahsan Enriquez D.O., MPH Milana Prakash NP LAB BLOOD ORDERABLES Fi nal Result Performing Organization Address [facility]/ZIP Co de Phone Number LASHONDA LLAN[facility] - [place] Matos * TSH reflex to free T4 (10/15/2018 12:37 PM CDT) Pathologist [facility] TSH 2.55 0.40 - 4.50 mIU/L LASHONDA LLANOS [facility] Blood specimen (specimen) 10/15/2018 12:37 PM CDT 10/15/2018 12:38 PM CDT Narrative Resulting Agency Comment Performing Organization Information: ?Site ID: [place] ?Name: Lashonda [facility]ahn ?Address: [facility] [place] [address] ?Director: Ahsan Enriquez D.O., MPH Milana Prakash [employer] SERVER LAB BLOOD ORDERABLES Fi nal Result [facility] [place] Zapien * Hemoglobin A1c (10/15/2018 12:37 PM CDT) [facility] Hgb A1C 5.5 <5.7 % of total Hgb [facility] Comment: For the purpose of screening for the presence of diabetes: <5.7% ? Consistent with the absence of diabetes 5.7-6.4% ?Consistent with increased risk for diabetes ?(prediabetes) > or =6.5% ??Consistent with diabetes This assay result is consistent with a decreased risk of diabetes. Currently, no consensus exists regarding use of hemoglobin A1c for diagnosis of diabetes in children. According to [place] Diabetes Association (ADA) guidelines, hemoglobin A1c <7.0% represents optimal control in non- diabetic patients. Different metrics may apply to specific patient populations. Standards of Medical Care in Diabetes(ADA). ?? Blood specimen (specimen) 10/15/2018 12:37 PM CDT 10/15/2018 12:38 PM CDT Narrative Resulting Agency Comment Performing Organization Information: ?Site ID: [place] ?Name: [facility]onda Hahn ?Address: [facility] [place] [address] ?Director: Ahsan Enriquez D.O. MPH Milana Prakash [employer] SERVER LAB BLOOD ORDERABLES Fi nal Result [facility] [place] Matos * Ferritin (10/15/2018 12:37 PM CDT) Ferritin 71 16 - 232 ng/mL [facility] [place] Blood specimen (specimen) 10/15/2018 12:37 PM CDT 10/15/2018 12:38 PM CDT Narrative Resulting Agency Comment Performing Organization Information: ?Site ID: [place] ?Name: [facility] ?Address: [facility] [place] [address] ?Director: Ahsan Enriquez D.O., MPH Milana Prakash [employer] SERVER LAB BLOOD ORDERABLES Fi nal Result Performing Organization Address [facility] Co de Phone Number [facility]DA [facility] - [place] Matos * Iron profile w/ IBC (10/15/2018 [...] ?Site ID: [place] ?Name: [facility] ?Address: [facility] [place] [address] ?Director: Ahsan Enriquez D.O. MPH Milana Prakash RESTAURANT [employer] SERVER LAB BLOOD ORDERABLES Fi nal Result Performing Organization Address City/[facility]/ZIP Co de Phone Number HOR[place]IO Trent * [...] Agency Comment Performing Organization Information: ?Site ID: [place] ?Name: Lashonda Hahn ?[address] [place] [address] ?Director: Ahsan Enriquez D.O., MPH Milana Prakash [employer] SERVER LAB BLOOD ORDERABLES Fi nal Result [facility] - [place] Matos documented in this encounter Visit Diagnoses Diagnosis Fatigue, unspecified type- Primary Hot flashes Tremors of nervous system documented in this encounter Care Teams Physician Aide Relationship Specialty Start Date End Date Jose Martin Diamond MD [address] [place] [address] PCP - General 07/11/17 10/14/21 documented as of this encounter
--- OUTSIDE RECORDS SUMMARY | 2024-02-21 15:25 | XMS_ITS | Encounter Summary ---
Author Organization [facility] Healthcare Address [address] [place] [address] Care Team Providers Care Evaluation Analyst Name Role Phone Jose Martin Diamond MD Primary Care Provi [facility] Encounter Details Date Type Department Care Team (Latest Contact Info) Description 01/30/2018 11:51 AM CHRONOGRAPH OPERATOR Hospital Encounter [facility] Dante Avelar, RICKIE [address] [facility] 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 Not [...] THYROID FUNCTION CASCADE Routine 01/30/2018 12:00 PM CHRONOGRAPH OPERATOR HEMOGLOBIN A1C Routine 01/30/2018 12:00 PM CHRONOGRAPH OPERATOR LIPID PANEL Routine 01/30/2018 12:00 PM CHRONOGRAPH OPERATOR COMPREHENSIVE METABOLIC PANEL Routine 01/30/2018 12:00 PM CHRONOGRAPH OPERATOR documented in this encounter Results * TSH reflex to free T4 (01/30/2018 12:00 PM CHRONOGRAPH OPERATOR) TSH W REFLEX TO FT4 1.94 0.27 - 4.20 uIU/mL 01/30/2018 3:52 PM CHRONOGRAPH OPERATOR [facility] HISTORICAL RESULTS 01/30/2018 12:0 0 PM CHRONOGRAPH OPERATOR 01/30/2018 3:20 PM CHRONOGRAPH OPERATOR Narrative [facility] HISTORICAL RESULTS - 01/30/2018 3:52 PM CHRONOGRAPH OPERATOR 13 HOURS PC Dante DAMIAN LAB BLOOD ORDERABLES Final Result [facility] HISTORICAL RESULTS * Hemoglobin A1c (01/30/2018 12:00 PM CHRONOGRAPH OPERATOR) Pathologist [facility] Hemoglobin A1c % 5.4 4.0 - 5.6 % 01/30/2018 3:58 PM CHRONOGRAPH OPERATOR [facility] HISTORICAL RESULTS Comment: ADA 2016 GUIDELINES: ??Initial Diagnostic Criteria ? HbA1c Result: ?Interpretation: ?<5.7% ? Normal ?5.7-6.4% ?At risk for diabetes mellitus ?>=6.5% ?Consistent with diabetes mellitus ??Diabetes monitoring ? Target value (ADA Recommended) ?? <7% 01/30/2018 12:0 0 PM CHRONOGRAPH OPERATOR 01/30/2018 3:20 PM CHRONOGRAPH OPERATOR Narrative [facility] HISTORICAL RESULTS - 01/30/2018 3:58 PM CHRONOGRAPH OPERATOR 13 HOURS PC Dante DAMIAN LAB BLOOD ORDERABLES Final Result [facility] HISTORICAL RESULTS * (ABNORMAL) Lipid panel (01/30/2018 12:00 PM CHRONOGRAPH OPERATOR) Pathologist [facility] Triglycerides 177(H) 0 - 149 mg/dL 01/30/2018 3:48 PM CHRONOGRAPH OPERATOR [facility] HISTORICAL RESULTS Comment: National Lipid Association/NCEP Guidelines: ?? Normal ?< 150 mg/dL ?? Borderline high ?? 150-199 mg/dL ?? High ?200-499 mg/dL ?? Very High ? >=500 mg/dL Cholesterol 216(H) 0 - 199 mg/dL 01/30/2018 3:48 PM CHRONOGRAPH OPERATOR [facility] HISTORICAL RESULTS Comment: National Lipid Association/NCEP Guidelines: Desirable ? < 200 mg/dL Borderline high: ??200-239 mg/dL High Risk: ?>=240 mg/dL HDL Cholesterol 49 mg/dL 8 3:48 PM CHRONOGRAPH OPERATOR [facility] HISTORICAL RESULTS Comment: Reference Ranges: ? Males: >=40 mg/dL ? Females: >=50 mg/dL LDL Cholesterol, Calc 132(H) 0 - 129 mg/dL 01/30/2018 3:48 PM CHRONOGRAPH OPERATOR [facility] HISTORICAL RESULTS Comment: National Lipid Association/NCEP Guidelines: ??Optimal ? < 100 mg/dL ??Near Optimal ?100-129 mg/dL ??Borderline high 130-159 mg/dL ??High ?>=160 mg/dL Cholesterol/HDL Ratio 4.4 01/30/2018 3:48 PM CHRONOGRAPH OPERATOR [facility] HISTORICAL RESULTS Comment: Optimal ??< 3.5:1 High ? > 5:1 01/30/2018 12:0 0 PM CHRONOGRAPH OPERATOR 01/30/2018 3:20 PM CHRONOGRAPH OPERATOR Narrative [facility] HISTORICAL RESULTS - 01/30/2018 3:48 PM CHRONOGRAPH OPERATOR 13 HOURS PC us Dante DAMIAN LAB BLOOD ORDERABLES Final Result [facility] HISTORICAL RESULTS * Comprehensive metabolic panel (01/30/2018 12:00 PM CHRONOGRAPH OPERATOR) Sodium 141 135 - 145 mmol/L 01/30/2018 3:48 PM CHRONOGRAPH OPERATOR [facility] HISTORICAL RESULTS Potassium 4.5 3.3 - 5.1 [...] 8.6 - 10.0 mg/dL 01/30/2018 3:48 PM CHRONOGRAPH OPERATOR [facility] HISTORICAL RESULTS Total Protein 7.4 6.4 - 8.3 g/dL 01/30/2018 3:48 PM CHRONOGRAPH OPERATOR [facility] HISTORICAL RESULTS Albumin 4.7 3.5 - 5.2 g/dL 01/30/2018 3:48 PM CHRONOGRAPH OPERATOR [facility] HISTORICAL RESULTS Globulin 2.7 2.3 - 3.5 gm/dL 01/30/2018 3:48 PM CHRONOGRAPH OPERATOR [facility] HISTORICAL RESULTS Albumin/Globulin Ratio 1.7 1.1 - 1.8 01/30/2018 3:48 PM CHRONOGRAPH OPERATOR [facility] HISTORICAL RESULTS Total Bilirubin 0.4 0.0 - 1.2 mg/dL 01/30/2018 3:48 PM CHRONOGRAPH OPERATOR [facility] HISTORICAL RESULTS AST 32 0 - 32 U/L 01/30/2018 3:48 PM CHRONOGRAPH OPERATOR [facility] HISTORICAL RESULTS ALT 26 0 - 33 U/L 01/30/2018 3:48 PM CHRONOGRAPH OPERATOR [facility] HISTORICAL RESULTS Alkaline Phosphatase 75 35 - 104 U/L 01/30/2018 12:0 0 PM CHRONOGRAPH OPERATOR 01/30/2018 3:20 PM CHRONOGRAPH OPERATOR Narrative [facility] HISTORICAL RESULTS - 01/30/2018 3:48 PM CHRONOGRAPH OPERATOR 13 HOURS PC us Dante DAMIAN LAB BLOOD ORDERABLES Final Result [facility] HISTORICAL RESULTS documented in this encounter Visit Diagnoses Diagnosis Hyperlipidemia Other and unspecified hyperlipidemia Essential (primary) hypertension Unspecified essential hypertension documented in this encounter Care Teams Evaluation Analyst Relationship Specialty Start Date End Date Jose Martin Diamond MD [address] [address] PCP - General 07/11/17 10/14/21 documented as of this encounter
--- OUTSIDE RECORDS SUMMARY | 2024-02-21 15:25 | XMS_ITS | Encounter Summary ---
Author Organization [facility] Address 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
--- OUTSIDE RECORDS SUMMARY | 2024-02-21 15:25 | XMS_ITS | Encounter Summary ---
Author Organization [facility] Facility Care Team Providers Care Plant Assigner Name Role Phone Jose Martin Diamond MD Primary Care Provi [facility] Encounter Details Date Type Department Care Team (Latest Contact Info) Description 07/23/2017 Orders Only [facility] CLINCONV Amy Degroot, INFANT ROOM TEACHER [address] [place] [address] Social History Tobacco Use Types Packs/Day Years [...] Narrative 07/23/2017 9:30 PM CDT OUTSIDE IMAGES SENIOR ACCOUNTS PAYABLE SPECIALIST, FINAL REPORT ACC# ??Date Time ??Exam [id number] July 23, 2017 16:13:00 [id number] [facility] Plain Film Reference EXAMINATION: ?? Images For Reference Purposes Only IMPRESSION: ?? These images are for Reference purposes only and have not been reviewed by [facility] Radiology. There will be no report generated by a [facility] Radiologist. Requested By: AMY DEGROOT ??ANP ? Dictated By: ?? OUTSIDE IMAGES SENIOR ACCOUNTS PAYABLE SPECIALIST, ?? on Jul 23 2017 ??4:30P This document has been electronically signed by: OUTSIDE IMAGES SENIOR ACCOUNTS PAYABLE SPECIALIST, ??on Jul 23 2017 ??4:30P [id number] IMAGES SENIOR ACCOUNTS PAYABLE SPECIALIST, FINAL REPORT Attending: ??CHANA, ??YENI Requesting: ??DAMASO, ??AMY Requesting Fax: ?? Attending Fax: ?? Attending ID: ??[id number] Requesting ID: ??[id number] Report To 1 ID: ? Report To 1 Name: ??, ?? Report To 1 FAX: ?? NextGen Order #: ?? Procedure Note Miscellaneous, Not In File - 07/23/2017 OUTSIDE IMAGES SENIOR ACCOUNTS PAYABLE SPECIALIST, FINAL REPORT ACC# Date Time Exam [id number] July 23, 2017 16:13:00 [id number] [facility] Plain Film Reference EXAMINATION: Images For Reference Purposes Only IMPRESSION: These images are for Reference purposes only and have not been reviewed by [facility]. There will be no report generated by a [facility] Radiologist. Requested By: AMY DEGROOT Dictated By: OUTSIDE IMAGES SENIOR ACCOUNTS PAYABLE SPECIALIST, on Jul 23 2017 4:30P This document has been electronically signed by: OUTSIDE IMAGES SENIOR ACCOUNTS PAYABLE SPECIALIST, on Jul 23 2017 4:30P [id number] IMAGES SENIOR ACCOUNTS PAYABLE SPECIALIST, FINAL REPORT Attending: YENI ZAYAS Requesting: AMY DEGROOT Requesting Fax: Attending Fax: Attending ID: [id number] Requesting ID: [id number] Report To 1 ID: Report To 1 Name: , Report To 1 FAX: NextGen Order #: us Amy Degroot INFANT ROOM TEACHER IMG XR PROCEDURES Final Resul t documented in this encounter Visit Diagnoses Not on filedocumented in this encounter Care Teams Plant Assigner Relationship Specialty Start Date End Date Jose Martin Diamond MD [address] [address] PCP - General 07/11/17 10/14/21 documented as of this encounter
--- OUTSIDE RECORDS SUMMARY | 2024-02-21 15:25 | XMS_ITS | Encounter Summary ---
Author Organization 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
--- OUTSIDE RECORDS SUMMARY | 2024-02-21 15:25 | XMS_ITS | Encounter Summary ---
Author Organization [facility] Healthcare Address [address] [place] [address] Care Team Providers Care Rn Managed Care Name Role Phone Jose Martin Diamond MD Primary Care Provi [facility] Encounter Details Date Type Department Care Team (Latest Contact Info) Description 08/07/2017 9:55 AM CDT Hospital Encounter [facility] Dante Avelar, PA [address] [facility] [address] [place], [place] [address] Essential (primary) hypertension; Hyperlipidemia; Hyperglycemia; Essential tremor [...] FT4 1.63 0.27 - 4.20 uIU/mL 08/07/2017 10:0 6 AM CDT 08/07/2017 4:58 PM CDT Narrative [facility] HISTORICAL RESULTS - 08/07/2017 5:35 PM CDT 12 HRS PC us Dante DAMIAN LAB BLOOD ORDERABLES Final Result [facility] HISTORICAL RESULTS * Hemoglobin A1c (08/07/2017 10:06 AM CDT) Hemoglobin A1c % 5.4 4.0 - 5.6 % Comment: ADA 2016 GUIDELINES: ??Initial Diagnostic Criteria ? HbA1c Result: ?Interpretation: ?<5.7% ? Normal ?5.7-6.4% ?At risk for diabetes mellitus ?>=6.5% ?Consistent with diabetes mellitus ??Diabetes monitoring ? Target value (ADA Recommended) ?? <7% 08/07/2017 10:0 6 AM CDT 08/07/2017 4:58 PM CDT Narrative [facility] HISTORICAL RESULTS - 08/08/2017 12:29 AM CDT 12 HRS PC us Dante DAMIAN LAB BLOOD ORDERABLES Final Result [facility] HISTORICAL RESULTS * (ABNORMAL) Lipid panel (08/07/2017 10:06 AM CDT) Triglycerides 83 0 - 149 mg/dL Comment: National Lipid Association/NCEP Guidelines: ?? Normal ?< 150 mg/dL ?? Borderline high ?? 150-199 mg/dL ?? High ?200-499 mg/dL ?? Very High ? >=500 mg/dL Cholesterol 244(H) 0 - 199 mg/dL Comment: National Lipid Association/NCEP Guidelines: Desirable ? < 200 mg/dL Borderline high: ??200-239 mg/dL High Risk: ?>=240 mg/dL HDL Cholesterol 49 mg/dL 8 5:29 PM T [facility] HISTORICAL RESULTS Comment: Reference Ranges: ? Males: >=40 mg/dL ? Females: >=50 mg/dL LDL Cholesterol, Calc 178(H) 0 - 129 mg/dL Comment: National Lipid Association/NCEP Guidelines: ??Optimal ? < 100 mg/dL ??Near Optimal ?100-129 mg/dL ??Borderline high 130-159 mg/dL ??High ?>=160 mg/dL Cholesterol/HDL Ratio 5.0 Comment: Optimal ??< 3.5:1 High ? > 5:1 08/07/2017 10:0 6 AM CDT 08/07/2017 4:58 PM CDT Narrative [facility] HISTORICAL RESULTS - 08/07/2017 5:29 PM CDT 12 HRS PC us Dante DAMIAN LAB BLOOD ORDERABLES Final Result [facility] HISTORICAL RESULTS * (ABNORMAL) Comprehensive metabolic panel (08/07/2017 10:06 AM CDT) Sodium 139 135 - 145 mmol/L Potassium 4.6 3.3 - 5.1 mmol/L 08/07/2017 5:29 PM [facility] HISTORICAL RESULTS Chloride 100 96 - 108 mmol/L 08/07/2017 5:29 PM [facility] HISTORICAL RESULTS Carbon Dioxide 26 22 - 32 mmol/L 08/07/2017 5:29 PM [facility] HISTORICAL RESULTS Anion Gap 13 7 - 16 08/07/2017 5:29 PM [facility] HISTORICAL RESULTS Glucose 93 70 - 100 mg/dL 08/07/2017 5:29 PM [facility] HISTORICAL RESULTS BUN 20 6 - 20 mg/dL 08/07/2017 5:29 PM [facility] HISTORICAL RESULTS Creatinine 1.2(H) 0.5 - 1.1 mg/dL 08/07/2017 5:29 PM [facility] HISTORICAL RESULTS Comment: NOTE: Estimated GFR (Cockroft-Gault) will NOT be calculated unless patient Height and Weight were entered. Also, Kidney Disease Stage (GFR) and Estimated GFR (Cockroft-Gault) will NOT be calculated if Creatinine result is <0.2. Kidney Disease Stage 50 mL/MIN 08/07/2017 5:29 PM [facility] HISTORICAL RESULTS Comment: NOTE; ??The GFR is [...] 8.6 - 10.0 mg/dL 08/07/2017 5:29 PM [facility] HISTORICAL RESULTS Total Protein 6.7 6.4 - 8.3 g/dL 08/07/2017 5:29 PM [facility] HISTORICAL RESULTS Albumin 4.4 3.5 - 5.2 g/dL 08/07/2017 5:29 PM [facility] HISTORICAL RESULTS Globulin 2.3 2.3 - 3.5 gm/dL 08/07/2017 5:29 PM [facility] HISTORICAL RESULTS Albumin/Globulin Ratio 1.9(H) 1.1 - 1.8 08/07/2017 5:29 PM [facility] HISTORICAL RESULTS Total Bilirubin 0.3 0.0 - 1.2 mg/dL 08/07/2017 5:29 PM [facility] HISTORICAL RESULTS AST 29 0 - 32 U/L 08/07/2017 5:29 PM [facility] HISTORICAL RESULTS ALT 32 0 - 33 U/L 08/07/2017 5:29 PM [facility] HISTORICAL RESULTS Alkaline Phosphatase 60 35 - 104 U/L 08/07/2017 10:0 6 AM CDT 08/07/2017 4:58 PM CDT Narrative [facility] HISTORICAL RESULTS - 08/07/2017 5:29 PM CDT 12 HRS PC Dante DAMIAN LAB BLOOD ORDERABLES Final Result Performing Organization Address [facility] de Phone Number [facility] HISTORICAL RESULTS * (ABNORMAL) Microalbumin, urine, random (08/07/2017 10:01 AM CDT) Ur Random Creatinine 116.0 mg/dL Comment: Reference Range First morning urine: Females 28 - 217 mg/dLRandom Specimen: ??No reference ranges U Random Total Protein 17(H) 0 - 12 mg/dL Ur Random Microalbumin 30.1(H) 0.0 - 19.9 mg/L 08/07/2017 5:38 PM [facility] HISTORICAL RESULTS Comment: [place] Diabetes Association Guidelines Microalbuminuria: 30-300 ug albumin /mg creatinine Clinical Albuminuria: >300 ug albumin /mg creatinine Microalb/Creat Ratio 25.9(H) 0.0 - 19.9 ug/mg 08/07/2017 10:0 1 AM CDT 08/07/2017 4:57 PM CDT us Dante DAMIAN LAB URINE ORDERABLES Final Result Performing Organization Address [facility] Co de Phone Number [facility] HISTORICAL RESULTS documented in this encounter Visit Diagnoses Diagnosis Essential (primary) hypertension Unspecified essential hypertension Hyperlipidemia Other and unspecified hyperlipidemia Hyperglycemia Other abnormal glucose Essential tremor documented in this encounter Care Teams Rn Managed Care Relationship Specialty Start Date End Date Jose Martin Diamond MD [address] [place] [address] PCP - General 07/11/17 10/14/21 documented as of this encounter
--- OUTSIDE RECORDS SUMMARY | 2024-02-21 15:25 | XMS_ITS | Encounter Summary ---
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
--- OUTSIDE RECORDS SUMMARY | 2024-02-21 15:25 | XMS_ITS | Encounter Summary ---
Author Organization [facility] Healthcare Address [address] [place] [address] Care Team Providers Care Young Adult Librarian Name Role Phone Jose Martin Diamond MD Primary Care Provi [facility] Encounter Details Date Type Department Care Team (Latest Contact Info) Description 02/19/2018 12:12 PM GAS METER READER - 02/19/2018 5:39 PM GAS METER READER Hospital Encounter [facility] Guero Roberts II, MD [address] [place] [address] Other chest pain; Essential (primary) hypertension; Other penitentiary (current) drug therapy; Personal history of nicotine [...] 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 documented as of this encounter Last Filed Vital Signs Vital Sign Reading Time Taken Comments Blood Pressure 139/84 02/19/2018 12:20 PM GAS METER READER Pulse 63 02/19/2018 12:20 PM GAS METER READER Temperature 36.6 ??C (97.9 ??F) 02/19/2018 12:[address] Respiratory Rate - - Oxygen Saturation 98% 02/19/2018 12:20 PM GAS METER READER Inhaled Oxygen Concentration - - Weight 72 kg (158 lb 11.7 oz) 02/19/2018 12:20 P M GAS METER READER Height - - Body Mass Index 27.25 02/19/2018 10:15 AM GAS METER READER documented in this encounter Medications at Time [...] Comments TROPONIN I Routine 02/19/2018 3:27 PM GAS METER READER TNI WITH LIPID PANEL Routine 02/19/2018 12:36 PM GAS METER READER CBC WITH AUTO DIFFERENTIAL Routine 02/19/2018 12:36 PM GAS METER READER COMPREHENSIVE METABOLIC PANEL Routine 02/19/2018 12:36 PM GAS METER READER XR CHEST PA LATERAL 2 VIEWS Routine 02/19/2018 12:00 AM GAS METER READER documented in this encounter Results * Troponin I (02/19/2018 3:27 PM GAS METER READER) Troponin I < 0.300 0.000 - 0.300 ng/mL 02/19/2018 4:04 PM GAS METER READER [facility] [employer] HISTORICAL RESULTS Comment: Reference using MARLYN Chemiluminescence ? Negative: Repeat in 4-6 hours as indicated. 02/19/2018 3:27 PM GAS METER READER 02/19/2018 3:32 PM GAS METER READER Jacinta Sarmiento CHIPS SCREEN TENDER LAB BLOOD ORDERABLES Final R esult [facility] HISTORICAL RESULTS * (ABNORMAL) TNI with LIPID PANEL (02/19/2018 12:36 PM GAS METER READER) Troponin I < 0.300 0.000 - 0.300 ng/mL 02/19/2018 1:05 PM GAS METER READER [facility] [employer] HISTORICAL RESULTS Comment: Reference using MARLYN Chemiluminescence ? Negative: Repeat in 4-6 hours as indicated. Triglycerides 148 0 - 149 mg/dL 02/19/2018 1:07 PM GAS METER READER [facility] [employer] HISTORICAL RESULTS Comment: National Lipid Association/NCEP Guidelines: ?? Normal ?< 150 mg/dL ?? Borderline high ?? 150-199 mg/dL ?? High ?200-499 mg/dL ?? Very High ? >=500 mg/dL Cholesterol 244(H) 0 - 199 mg/dL Comment: National Lipid Association/NCEP Guidelines: Desirable ? < 200 mg/dL Borderline high: ??200-239 mg/dL High Risk: ?>=240 mg/dL HDL Cholesterol 63 mg/dL 8 1:07 PM [facility] HISTORICAL RESULTS Comment: Reference Ranges: ? Males: >=40 mg/dL ? Females: >=50 mg/dL LDL Cholesterol, Calc 151(H) 0 - 129 mg/dL Comment: National Lipid Association/NCEP Guidelines: ??Optimal ? < 100 mg/dL ??Near Optimal ?100-129 mg/dL ??Borderline high 130-159 mg/dL ??High ?>=160 mg/dL Cholesterol/HDL Ratio 3.9 Comment: Optimal ??< 3.5:1 High ? > 5:1 02/19/2018 12:3 6 PM GAS METER READER 02/19/2018 12:41 PM GAS METER READER us Jacinta Sarmiento CHIPS SCREEN TENDER LAB BLOOD ORDERABLES Final R esult [facility] HISTORICAL RESULTS * (ABNORMAL) Comprehensive metabolic panel (02/19/2018 12:36 PM GAS METER READER) Sodium 139 135 - 145 mmol/L Potassium [...] - 104 U/L 02/19/2018 12:3 6 PM GAS METER READER 02/19/2018 12:41 PM GAS METER READER us Jacinta Sarmiento CHIPS SCREEN TENDER LAB BLOOD ORDERABLES Final R esult [facility] HISTORICAL RESULTS * (ABNORMAL) CBC with auto differential (02/19/2018 12:36 PM GAS METER READER) WBC 5.5 3.8 - 9.9 X10 3/ul RBC 4.78 3.90 - 5.20 x10 6/ul Hemoglobin 13.0 11.9 - 15.5 g/dL Hct 38.3 35.6 - 45.5 % MCV 80.1(L) 81.3 - 96.4 fl MCH 27.2 27.1 - 33.3 pg MCHC 33.9 32.3 - 35.7 g/dl 02/19/2018 12:44 PM [facility] [employer] [facility] HISTORICAL RESULTS RDW 12.4 11.1 - 14.9 % 02/19/2018 12:44 PM [facility] [employer] [facility] HISTORICAL RESULTS Plt Count 302 150 - 400 x10 3/ul MPV 10.0 9.1 - 12.3 fl 02/19/2018 12:44 PM [facility] [employer] [facility] HISTORICAL RESULTS Neut % 52.2 % 02/19/2018 12:44 PM [facility] [employer] [facility] HISTORICAL RESULTS Immature Gran % 0.4 % 8 12:44 PM [facility] [employer] [facility] HISTORICAL RESULTS Lymph % 36.7 % 02/19/2018 12:44 PM [facility] [employer] [facility] HISTORICAL RESULTS Coal % 7.5 % 02/19/2018 12:44 PM [facility] [employer] [facility] HISTORICAL RESULTS Eos % 2.5 % 02/19/2018 12:44 PM [facility] [employer] [facility] HISTORICAL RESULTS Baso % 0.7 % 02/19/2018 12:44 PM [facility] [employer] [facility] HISTORICAL RESULTS Absolute Neuts (auto) 2.9 1.7 - 6.5 x10 3/ul 02/19/2018 12:44 PM [facility] [employer] [facility] HISTORICAL RESULTS Immature Gran # 0.0 0.0 - 0.1 x10 3/ul 02/19/2018 12:44 PM [facility] HISTOR[facility] RES[facility] Absolute Lymphs (auto) 2.0 0.8 - 3.3 x10 3/ul 02/19/2018 12:44 PM [facility] [employer] [facility] HISTORICAL RESULTS Absolute Monos (auto) 0.4 0.2 - 0.8 x10 3/ul 02/19/2018 12:44 PM [facility] [employer] [facility] HISTORICAL RESULTS Absolute Eos (auto) 0.1 0.0 - 0.5 x10 3/ul 02/19/2018 12:44 PM [facility] [employer] [facility] HISTORICAL RESULTS Absolute Basos (auto) 0.0 0.0 - 0.1 x10 3/ul 02/19/2018 12:44 PM [facility] [employer] [facility] HISTORICAL RESULTS Nucleat RBC Rel Count 0.0 #/100WBC 02/19/2018 12:44 PM GAS METER READER [facility] HISTORICAL RESULTS Absolute Nucleated RBC 0.00 0.00 - 0.01 x10 3/ul 02/19/2018 12:44 PM GAS METER READER [facility] HISTORICAL RESULTS Absolute Neutrophils 2900 200 - 8000 /ul 02/19/2018 12:44 PM GAS METER READER [facility] HISTORICAL RESULTS 02/19/2018 12:3 6 PM GAS METER READER 02/19/2018 12:41 PM GAS METER READER us Jacinta Sarmiento CHIPS SCREEN TENDER LAB BLOOD ORDERABLES Final R esult [facility] HISTORICAL RESULTS * XR Chest Pa Lateral 2 Views (02/19/2018 12:00 AM GAS METER READER) Anatomical Region Laterality Modality Body, Chest N/A Radiographic Rosey ging 02/19/2018 Impressions 02/19/2018 12:48 PM GAS METER READER ??No acute cardiopulmonary abnormality. THIS IS AN ELECTRONICALLY VERIFIED FINAL REPORT 02/19/2018 12:45 PM - Electronically signed by Anshul Watson M.D. D: ??02/19/2018 12:45 PM T: Report ID: [id number] Reading Location: ??[id number] [EOD] Narrative 02/19/2018 12:48 PM GAS METER READER EXAM DESCRIPTION: ??Chest 2 Views REASON FOR [...] by Anshul Watson M.D. T: Report ID: [id number] Reading Location: [place] [address] [EOD] Jacinta Sarmiento CHIPS SCREEN TENDER IMG XR PROCEDURES Final Resu lt documented in this encounter Visit Diagnoses Diagnosis Other chest pain Essential (primary) hypertension Unspecified essential hypertension Other intermission coordinator (current) drug therapy Personal history of nicotine dependence documented in this encounter Care Teams Young Adult Librarian Relationship Specialty Start Date End Date Jose Martin Diamond MD [address] [address] PCP - General 07/11/17 10/14/21 documented as of this encounter
--- OUTSIDE RECORDS SUMMARY | 2024-02-21 15:25 | XMS_ITS | Encounter Summary ---
Author Organization [facility] Address [address] [place] [address] Phone Care Team Providers Care Nailer Operator Name Role Phone Jose Martin Diamond MD 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 ICIAN SCIENTIST documented in this encounter Plan of Treatment Not on file documented as of this encounter Visit Diagnoses Not on filedocumented in this encounter Care Teams Nailer Operator Relationship Specialty Start Date End Date Jose Martin Diamond MD [address] [address] PCP - General 07/11/17 10/14/21 documented as of this encounter
--- OUTSIDE RECORDS SUMMARY | 2024-02-21 15:25 | XMS_ITS | Encounter Summary ---
Author Organization [facility] Address [address] [place] [address] Phone Care Team Providers Care Ring Facer Name Role Phone Jose Martin Diamond MD [facility] Reason for Visit * Reason Onset Date Comments Med Refill 12/12/2017 Encounter Details Date Type Department Care Team (Late st Contact Info) Description 12/12/2017 Telephone [facility] Orthopaedic Surgery [address] [place] [address] Amy Degroot, TOWN JUSTICE [address] [facility] [address] [place], [place] [id number] Med Refill Social History Tobacco Use Types [...] 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
--- OUTSIDE RECORDS SUMMARY | 2024-02-21 15:25 | XMS_ITS | Encounter Summary ---
Author Organization [facility] Healthcare Address [address] [place] [address] Care Team Providers Care Outboard Motor Mechanic Name Role Phone Jose Martin Diamond MD Primary Care [facility] Reason for Referral * Diagnostic Imaging (Routine) - Closed Specialty Diagnoses / Procedures Referred By Contac t Referred To Contact Radiology Diagnoses Lumbar radiculopathy Procedures IR Transforaminal Epidural Injection Lumbar Sacral 1 Level Left Amy Degroot NP Phone: tel: fax: [facility] Referral ID Status Reason Start Date Expiration Date Visits Re quested Visits Authorized [id number] Closed 05/14/2018 11/23/2019 2 2 Reason for Visit * Diagnostic Imaging (Routine) - Closed Specialty Diagnoses / Procedures Referred By Contac t Referred To Contact Radiology Diagnoses Lumbar radiculopathy Procedures IR Transforaminal Epidural Injection Lumbar Sacral 1 Level Left Amy Degroot NP Phone: tel: fax: [facility] Referral ID Status Reason Start Date Expiration Date Visits Re quested Visits Authorized [id number] Closed 05/14/2018 11/23/2019 2 2 Encounter Details Date Type Department Care Team (Latest Contact Info) Description 05/22/2018 2:20 PM CDT - 05/22/2018 11:59 PM CDT Hospital Encounter [facility] [address] [place] [address] [place] [address] [place] [address] Lumbar radiculopathy Discharge Disposition: Discharge to home [...] 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 us Amy Degroot KILN PACKER IMG IR PROCEDURES Final Resul t [id number] [...] mL documented in this encounter Care Teams Outboard Motor Mechanic Relationship Specialty Start Date End Date Jose Martin Diamond MD [address] [address] PCP - General 07/11/17 10/14/21 documented as of this encounter
--- OUTSIDE RECORDS SUMMARY | 2024-02-21 15:25 | XMS_ITS | Encounter Summary ---
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 Historical Provider [facility] HAYES RAMOS Final Result documented in this encounter Visit Diagnoses Not on filedocumented in this encounter Care Teams Overhead Distribution Engineer Relationship Specialty Start Date End Date Jose Martin Diamond MD [address] [place] [address] PCP - General 07/11/17 10/14/21 Dante Avelar PA [address] [place] [address] PCP - General Family Medicine 10/15/21 documented as of this encounter
--- OUTSIDE RECORDS SUMMARY | 2024-02-21 15:25 | XMS_ITS | Encounter Summary ---
Author Organization [facility] Address [address] [place] [address] Phone Care Team Providers Care Assembler Radio And Electrical Name Role Phone Jose Martin Diamond MD Primary Care Provi 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 Referral in que. RAPHIC INFORMATION SYSTEMS DIRECTOR documented in this encounter Plan of Treatment Not on file documented as of this encounter Visit Diagnoses Not on filedocumented in this encounter Care Teams Assembler Radio And Electrical Relationship Specialty Start Date End Date Jose Martin Diamond MD [address] [address] PCP - General 07/11/17 10/14/21 documented as of this encounter
--- OUTSIDE RECORDS SUMMARY | 2024-02-21 15:25 | XMS_ITS | Encounter Summary ---
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 Referral closed. N EQUIPMENT SUPERVISOR documented in this encounter Plan of Treatment Not on file documented as of this encounter Visit Diagnoses Not on filedocumented in this encounter Care Teams Agricultural Education Instructor Relationship Specialty Start Date End Date Jose Martin Diamond MD [address] [address] PCP - General 07/11/17 10/14/21 documented as of this encounter
--- OUTSIDE RECORDS SUMMARY | 2024-02-21 15:25 | XMS_ITS | Encounter Summary ---
Author Organization [facility] Facility Care Team Providers Care Poultry Buyer Name Role Phone Jose Martin Diamond MD Primary Care Provi [facility] Encounter Details Date Type Department Care Team (Latest Contact Info) Description 07/23/2017 Orders Only [facility] CLINCONV Amy Degroot, RADIO INTELLIGENCE OPERATOR [address] [place] [address] Social History Tobacco Use Types Packs/Day Years [...] Narrative 07/23/2017 9:30 PM CDT OUTSIDE IMAGES REMARKETING MANAGER, FINAL REPORT ACC# ??Date Time ??Exam [id number] July 23, 2017 16:10:00 [id number] [facility] Neuro Reference EXAMINATION: ?? Images For Reference Purposes Only IMPRESSION: ?? These images are for Reference purposes only and have not been reviewed by [facility]. There will be no report generated by a [facility]. Requested By: AMY DEGROOT ??ANP ? Dictated By: ?? OUTSIDE IMAGES REMARKETING MANAGER, ?? on Jul 23 2017 ??4:30P This document has been electronically signed by: OUTSIDE IMAGES REMARKETING MANAGER, ??on Jul 23 2017 ??4:30P [id number] IMAGES REMARKETING MANAGER, FINAL REPORT Attending: ??CHANA, ??YENI Requesting: ??DAMASO, ??MAY Requesting Fax: ?? Attending Fax: ?? Attending ID: ??[id number] Requesting ID: ??[id number] Report To 1 ID: ? Report To 1 Name: ??, ?? Report To 1 FAX: ?? NextGen Order #: ?? Procedure Note Miscellaneous, Not In File - 07/23/2017 OUTSIDE IMAGES REMARKETING MANAGER, FINAL REPORT ACC# Date Time Exam [id number] July 23, 2017 16:10:00 [id number] [facility] Neuro Reference EXAMINATION: Images For Reference Purposes Only IMPRESSION: These images are for Reference purposes only and have not been reviewed by [facility]. There will be no report generated by a [facility]. Requested By: AMY DEGROOT Dictated By: OUTSIDE IMAGES REMARKETING MANAGER, on Jul 23 2017 4:30P This document has been electronically signed by: OUTSIDE IMAGES REMARKETING MANAGER, on Jul 23 2017 4:30P [id number] IMAGES REMARKETING MANAGER, FINAL REPORT Attending: YENI ZAYAS Requesting: AMY DEGROOT Requesting Fax: Attending Fax: Attending ID: [id number] Requesting ID: [id number] Report To 1 ID: Report To 1 Name: , Report To 1 FAX: NextGen Order #: us Amy Degroot RADIO INTELLIGENCE OPERATOR IMG XR PROCEDURES Final Resul t documented in this encounter Visit Diagnoses Not on filedocumented in this encounter Care Teams Poultry Buyer Relationship Specialty Start Date End Date Jose Martin Diamond MD [address] [address] PCP - General 07/11/17 10/14/21 documented as of this encounter
--- OUTSIDE RECORDS SUMMARY | 2024-02-21 15:25 | XMS_ITS | Encounter Summary ---
Author Organization [facility] Medical [facility] Address [address] [place] [address] Care Team Providers Care Field Care Coordinator Name Role Phone Jose Martin Diamond MD Primary Care Provi [facility] Reason for Referral * Consultation (Routine) - Closed Specialty Diagnoses / Procedures Referred By Sandie servin Referred To Contact Neurology Diagnoses Excessive daytime sleepiness Laureano Jane MD PhD [address] [facility] [address] [place] [address] Phone: tel: fax: [facility] Neuro Sleep [address] 6th [address] [place] [address] Phone: tel: fax: Referral ID Status Reason Start Date Expiration Date V isits Requested Visits Authorized [id number] Closed Specialty Services Required 01/06/2019 07/17/2020 1 1 Question Answer Please select the performing region: [facility] (All Locations) [167] # of visits: 1 Comments Sleep Evaluation ANICAL DETAILER Reason for Visit * Consultation (Routine) - Closed Specialty Diagnoses / Procedures Referred By Sandie servin Referred To Contact Neurology Diagnoses Tremors of nervous system Milana Prakash NP Phone: tel: fax: [facility] [address] [place] [address] Phone: tel: fax: Referral ID Status Reason Start Date Expiration Date V isits Requested Visits Authorized [id number] Closed Specialty Services Required 10/14/2018 04/24/2020 1 1 Encounter Details Date Type Department Care Team (Late st Contact Info) Description 01/06/2019 12:00 PM MECHANICAL DETAILER Office Visit [facility] [address] [place] [address] Laureano Jane MD PhD [address] [facility] [address] [place] [address] Essential tremor (Primary Dx); Tremors [...] 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 Not on rohit e documented as of this encounter Last Filed Vital Signs Vital Sign Reading Time Taken Comments Blood Pressure 138/80 01/06/2019 11:58 AM MECHANICAL DETAILER Pulse 78 01/06/2019 11:58 AM MECHANICAL DETAILER Temperature - - Respiratory Rate 16 01/06/2019 11:58 AM MECHANICAL DETAILER Oxygen Saturation - - Inhaled Oxygen Concentration - - Weight 74.4 kg (164 lb) 01/06/2019 11:58 AM MECHANICAL DETAILER Height 162.6 cm (5' 4 ) 01/06/2019 11:58 AM MECHANICAL DETAILER Body Mass Index 28.15 01/06/2019 11:58 AM MECHANICAL DETAILER documented in this encounter Progress Notes * [...] Pinprick: Normal Vibration: Normal Proprioception: Normal. COORDINATION: Vkotdm-mzps-qlauir testing performed without dysmetria. Rapid alternating movements [...] Neurology Excessive daytime sleepiness Dictation completed by [employer] Direct software. Product Planner variances may occur. Laureano Jane M.D., Ph.D. ANICAL DETAILER documented in this encounter Miscellaneous Notes * Addendum Note - Heather Ramirez MA - 01/06/2019 12:00 PM CSTAddended by: HEATHER RAMIREZ on: 01/06/2019 02:13 PM Modules accepted: Orders ANICAL DETAILER documented in this encounter Plan of Treatment [...] 01/06/2019 documented in this encounter Care Teams Field Care Coordinator Relationship Specialty Start Date End Date Jose Martin Diamond MD [address] [facility] [address] [address] PCP - General 07/11/17 10/14/21 documented as of this encounter
--- OUTSIDE RECORDS SUMMARY | 2024-02-21 15:25 | XMS_ITS | Encounter Summary ---
Author Organization [facility] Medical [facility] Address [address] [place] [address] Care Team Providers Care Agent Ticketing Gate Name Role Phone Jose Martin Diamond MD Primary Care Provi [facility] Reason for Visit * Reason Onset Date Comments ruthy [facility] 06/16/2018 Encounter Details Date Type Department Care Team (Late st Contact Info) Description 06/16/2018 Telephone [facility] Family Medicine [address] [place] [address] Jade Peralta to [facility] Social History Tobacco Use Types Packs/Day Years [...] 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 Send to [facility]. Alprazolam 0.5 Tablet #90 documented in this encounter Plan of Treatment Not on file documented as of this encounter Visit Diagnoses Not on filedocumented in this encounter Discontinued Medications Medication Sig Discontinue Reason Start Date End Da te ALPRAZolam (XANAX) 0.5 mg tablet daily Reorder 09/02/2017 06/16/2018 documented as of this encounter Care Teams Agent Ticketing Gate Relationship Specialty Start Date End Date Jose Martin Diamond MD [address] [facility] [address] [address] PCP - General 07/11/17 10/14/21 documented as of this encounter
--- OUTSIDE RECORDS SUMMARY | 2024-02-21 15:25 | XMS_ITS | Encounter Summary ---
Author Organization [facility] Address [address] [place] [address] Phone Care Team Providers Care Paper Folder Name Role Phone Jose Martin Diamond MD Primary Care [facility] Encounter Details Date Type Department Care Team (Latest Contact Info) Description 05/14/2018 11:30 AM CDT Office Visit [facility] Orthopaedic Surgery [address] [facility] [address] [facility] [address] 1st Floor [address] [place] [address] Amy Degroot NP [address] [place] [address] Lumbosacral radiculopathy (Primary Dx) Social History Tobacco [...] 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 Zepeda 05/22/2018 at [facility] LOCATION: -[facility]- [address] [place] [address] *Please note that the time above is [...] your procedure, please call our office at [phone]. Please follow up with your Pain Diary 2 weeks after your injection. documented in this encounter Progress Notes * Amy Degroot, SKIN WASHER - 05/14/2018 11:30 AM CDT RETURN PATIENT [...] plan. Amy Degroot RN, ANP-BC Nurse Practitioner [facility] Orthopedics Division of Physical Medicine and Rehabilitation In collaboration with Dr. Nielsen Portions of this note were dictated using [employer] Direct speech recognition software. Please excuse any resistor testing machine operator errors. documented in this encounter Plan of [...] documented as of this encounter Care Teams Paper Folder Relationship Specialty Start Date End Date Jose Martin Diamond MD [address] [address] PCP - General 07/11/17 10/14/21 documented as of this encounter
--- OUTSIDE RECORDS SUMMARY | 2024-02-21 15:25 | XMS_ITS | Encounter Summary ---
Author Organization [facility] Address [address] [place] [address] Phone Care Team Providers Care Chute Boss Name Role Phone Jose Martin Diamond MD Primary Care Provi [facility] Reason for Referral * Diagnostic Imaging (Routine) - Closed Specialty Diagnoses / Procedures Referred By Contac t Referred To Contact Radiology Diagnoses Lumbar radiculopathy Procedures IR Transforaminal Epidural Injection Lumbar Sacral 1 Level Left Amy Degroot NP Phone: tel: fax: [facility] Referral ID Status Reason Start Date Expiration Date Visits Re quested Visits Authorized [id number] Closed 09/30/2017 09/30/2017 1 1 Encounter Details Date Type Department Care Team (Late st Contact Info) Description 09/17/2017 Orders Only [facility] Orthopaedic Surgery [address] [facility] 1st Floor [address] [place] [address] Lily Moura RMA Lumbar radiculopathy (Primary Dx) [...] 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 Amy Degroot GOLD WHEEL BLOCKER AND POLISHER IMG IR PROCEDURES Final Resul t [facility] documented in this encounter Visit Diagnoses Diagnosis Lumbar radiculopathy- Primary Thoracic or lumbosacral neuritis or radiculitis, unspecified Lumbar radiculopathy Thoracic or lumbosacral neuritis or radiculitis, unspecified documented in this encounter Care Teams Chute Boss Relationship Specialty Start Date End Date Jose Martin Diamond MD [address] [facility] [address] [address] PCP - General 07/11/17 10/14/21 documented as of this encounter
--- OUTSIDE RECORDS SUMMARY | 2024-02-21 15:25 | XMS_ITS | Encounter Summary ---
Author Organization [facility] Address [address] [place] [address] Phone Care Team Providers Care Nutrition Specialist Name Role Phone Jose Martin Diamond MD Primary Care [facility] Encounter Details Date Type Department Care Team (Late st Contact Info) Description 09/12/2017 Telephone [facility] Orthopaedic Surgery [address] [place] [address] Amy Degroot, BUILDING SPECIALIST [address] [facility] [address] [place], [place] [id number] Social History Tobacco Use Types Packs/Day Years [...] 8:31 AM CDT I LVM on identifiable [phone] for Josee regarding Amy's message, updated PT [...] 2 weeks. Pt can be reached at [phone]. * Telephone Encounter - Lily Moura MA - 09/15/2017 9:32 AM CDT I [facility] [phone] on identifiable VM for Josee to call [...] her left leg again. Patient phone is [phone] documented in this encounter Plan of Treatment Not on file documented as of this encounter Visit Diagnoses Not on filedocumented in this encounter Care Teams Nutrition Specialist Relationship Specialty Start Date End Date Jose Martin Diamond MD [address] [facility] [address] [address] PCP - General 07/11/17 10/14/21 documented as of this encounter
--- OUTSIDE RECORDS SUMMARY | 2024-02-21 15:25 | XMS_ITS | Encounter Summary ---
Author Organization [facility] Address [address] [place] [address] Phone Care Team Providers Care Art Instructor Name Role Phone Jose Martin Diamond MD Primary Care [facility] Encounter Details Date Type Department Care Team (Late st Contact Info) Description 01/28/[address] 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 Patient phone is [phone] GATION SYSTEM INSTALLER documented in this encounter Plan of Treatment Not on file documented as of this encounter Visit Diagnoses Not on filedocumented in this encounter Care Teams Art Instructor Relationship Specialty Start Date End Date Jose Martin Diamond MD [address] [address] PCP - General 07/11/17 10/14/21 documented as of this encounter
--- OUTSIDE RECORDS SUMMARY | 2024-02-21 15:25 | XMS_ITS | Encounter Summary ---
Author Organization 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 us Historical Provider Final Res ult * SCAN - LABS (02/19/2018 12:00 AM EDUCATION CONSULTANT) Narrative 02/19/2018 12:00 AM EDUCATION CONSULTANT Ordered by an unspecified provider. Historical Provider Final Res ult * CARDIOLOGY REPORT (02/19/2018 12:00 AM EDUCATION CONSULTANT) Anatomical Region Laterality Modality Other Narrative 02/19/2018 12:00 AM EDUCATION CONSULTANT Ordered by an unspecified provider. Historical Provider CV CARDIAC SERVICES PROCE DURES Final Result documented in this encounter Visit Diagnoses Not on filedocumented in this encounter Care Teams Cancer Program Consultant Relationship Specialty Start Date End Date Jose Martin Diamond MD [address] [place] [address] PCP - General 07/11/17 10/14/21 Dante Avelar PA [address] [place] [address] PCP - General Family Medicine 10/15/21 documented as of this encounter
--- OUTSIDE RECORDS SUMMARY | 2024-02-21 15:25 | XMS_ITS | Encounter Summary ---
Author Organization 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 us Historical Provider CV CARDIAC SERVICES PROCE DURES Final Result * CARDIOLOGY REPORT (04/01/2018 12:00 AM AMPOULE EXAMINER) Anatomical Region Laterality Modality Other Narrative 04/01/2018 12:00 AM AMPOULE EXAMINER Ordered by an unspecified provider. us Historical Provider CV CARDIAC SERVICES PROCE DURES Final Result documented in this encounter Visit Diagnoses Not on filedocumented in this encounter Care Teams Gravity Prospecting Observer Relationship Specialty Start Date End Date Jose Martin Diamond MD [address] [place] [address] PCP - General 07/11/17 10/14/21 Dante Avelar PA [address] [place] [address] PCP - General Family Medicine 10/15/21 documented as of this encounter
--- OUTSIDE RECORDS SUMMARY | 2024-02-21 15:25 | XMS_ITS | Encounter Summary ---
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
--- OUTSIDE RECORDS SUMMARY | 2024-02-21 15:25 | XMS_ITS | Encounter Summary ---
Author Organization [facility] Address [address] [place] [address] Phone Care Team Providers Care Muffler Installer Name Role Phone Jose Martin Diamond MD Primary Care Provi [facility] Reason for Referral * Diagnostic Imaging (Routine) - Closed Specialty Diagnoses / Procedures Referred By Contac t Referred To Contact Radiology Diagnoses Lumbar radiculopathy Procedures IR Transforaminal Epidural Injection Lumbar Sacral 1 Level Left Amy Degroot NP Phone: tel: fax: [facility] Referral ID Status Reason Start Date Expiration Date Visits Re quested Visits Authorized [id number] Closed 05/14/2018 11/23/2019 2 2 Encounter Details Date Type Department Care Team (Late st Contact Info) Description 05/14/[address] 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 Amy Degroot SURGERY AIDE IMG IR PROCEDURES Final Resul t [facility] documented in this encounter Visit Diagnoses Diagnosis Lumbar radiculopathy- Primary Thoracic or lumbosacral neuritis or radiculitis, unspecified Lumbar radiculopathy Thoracic or lumbosacral neuritis or radiculitis, unspecified documented in this encounter Care Teams Muffler Installer Relationship Specialty Start Date End Date Jose Martin Diamond MD [address] [address] PCP - General 07/11/17 10/14/21 documented as of this encounter
--- OUTSIDE RECORDS SUMMARY | 2024-02-21 15:25 | XMS_ITS | Encounter Summary ---
Author Organization [facility] Address [address] [place] [address] Phone Care Team Providers Care Spa Concierge Name Role Phone Jose Martin Diamond MD Primary Care [facility] Encounter Details Date Type Department Care Team (Late st Contact Info) Description 05/08/2018 Telephone [facility] Orthopaedic Surgery [address] [place] [address] Amy Degroot NP [address] [facility] [address] [place], [place] [phone] Social History Tobacco Use Types Packs/Day Years [...] 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 * Telephone Encounter - mAy Degroot NP - 05/08/2018 2:43 PM CDT RPV to eval / arrange injection * Telephone Encounter - Humphrey Ireland B.A. - 05/08/2018 11:31 AM CDT Pt requesting an INJ. Last INJ, 09/30, Left L5-S1 TESI. Pt is at [phone] documented in this encounter Plan of Treatment Not on file documented as of this encounter Visit Diagnoses Not on filedocumented in this encounter Care Teams Spa Concierge Relationship Specialty Start Date End Date Jose Martin Diamond MD [address] [address] PCP - General 07/11/17 10/14/21 documented as of this encounter
--- OUTSIDE RECORDS SUMMARY | 2024-02-21 15:26 | XMS_ITS | Encounter Summary ---
Author Organization [facility] Facility Care Team Providers Care Security Inspector Name Role Phone Jose Martin Diamond MD Primary Care Provi [facility] Encounter Details Date Type Department Care Team (Latest Contact Info) Description 07/23/2017 Orders Only [facility] CLINCONV Amy Degroot, AUTOMATION CONTROLS SPECIALIST [address] [place] [address] Social History Tobacco Use Types Packs/Day Years [...] Narrative 07/23/2017 9:30 PM CDT OUTSIDE IMAGES HOUSE WIRER HELPER, FINAL REPORT ACC# ??Date Time ??Exam [id number] July 23, 2017 16:07:00 [id number] [facility] Plain Film Reference EXAMINATION: ?? Images For Reference Purposes Only IMPRESSION: ?? These images are for Reference purposes only and have not been reviewed by [facility]. There will be no report generated by a [facility]iologist. Requested By: AMY DEGROOT ??ANP ? Dictated By: ?? OUTSIDE IMAGES HOUSE WIRER HELPER, ?? on Jul 23 2017 ??4:29P This document has been electronically signed by: OUTSIDE IMAGES HOUSE WIRER HELPER, ??on Jul 23 2017 ??4:30P [id number] IMAGES HOUSE WIRER HELPER, FINAL REPORT Attending: ??CHANA, ??YENI Requesting: ??DAMASO, ??AMY Requesting Fax: ?? Attending Fax: ?? Attending ID: ??[id number] Requesting ID: ??[id number] Report To 1 ID: ? Report To 1 Name: ??, ?? Report To 1 FAX: ?? NextGen Order #: ?? Procedure Note Miscellaneous, Not In File - 07/23/2017 OUTSIDE IMAGES HOUSE WIRER HELPER, FINAL REPORT ACC# Date Time Exam [id number] July 23, 2017 16:07:00 [id number] [facility] Plain Film Reference EXAMINATION: Images For Reference Purposes Only IMPRESSION: These images are for Reference purposes only and have not been reviewed by [facility]. There will be no report generated by a [facility]iologist. Requested By: AMY DEGROOT Dictated By: OUTSIDE IMAGES HOUSE WIRER HELPER, on Jul 23 2017 4:29P This document has been electronically signed by: OUTSIDE IMAGES HOUSE WIRER HELPER, on Jul 23 2017 4:30P [id number] IMAGES HOUSE WIRER HELPER, FINAL REPORT Attending: YENI ZAYAS Requesting: AMY DEGROOT Requesting Fax: Attending Fax: Attending ID: [id number] Requesting ID: [id number] Report To 1 ID: Report To 1 Name: , Report To 1 FAX: NextGen Order #: us Amy Degroot AUTOMATION CONTROLS SPECIALIST IMG XR PROCEDURES Final Resul t documented in this encounter Visit Diagnoses Not on filedocumented in this encounter Care Teams Security Inspector Relationship Specialty Start Date End Date Jose Martin Diamond MD [address] [address] PCP - General 07/11/17 10/14/21 documented as of this encounter
--- OUTSIDE RECORDS SUMMARY | 2024-02-21 15:26 | XMS_ITS | Encounter Summary ---
Author Organization [facility] Healthcare Address [address] [place] [address] Care Team Providers Care Eating Disorder Psychologist Name Role Phone Unavailable Primary Care Provider Unavailabl e Encounter Details Date Type Department Care Team (Latest Contact Info) Description 06/20/2017 6:48 AM CDT Hospital Encounter [facility] Dante Avelar, [place] [address] [facility] [address] [place], [place] [address] Low back pain with left-sided sciatica; Other [...] AM T: ??06/20/2017 11:48 AM Report ID: [id number] Reading Location: ??[id number] [EOD] Narrative 06/20/2017 11:51 AM CDT EXAM [...] Joann Kang M.D. LC: ROBERT Report ID: [id number] Reading Location: [place] [address] [EOD] Dante DAMIAN IMG MRI PROCEDURES Final Re sult documented in this encounter Visit Diagnoses Diagnosis Low back pain with left-sided sciatica Other intervertebral disc degeneration, lumbar region Spinal stenosis of lumbar region without neurogenic claudication documented in this encounter
--- OUTSIDE RECORDS SUMMARY | 2024-02-21 15:26 | XMS_ITS | Encounter Summary ---
Author Organization [facility] Healthcare Address [address] [place] [address] Care Team Providers Care Tool And Die Technician Name Role Phone Unavailable Primary Care Provider Unavailabl e Encounter Details Date Type Department Care Team (Latest Contact Info) Description 06/17/2017 11:32 AM CDT Hospital Encounter [facility] Dante Avelar, [place] [address] [facility] [address] [place], [place] [address] Urinary tract infection; Pain in right knee; [...] Laterality Modality Lower Extremities, Knee Right [facility] 06/17/2017 11:3 3 AM CDT Impressions 06/17/2017 7:53 PM CDT ??Mild osteoarthritis without acute finding. THIS IS AN ELECTRONICALLY VERIFIED FINAL REPORT 06/17/2017 7:50 PM - Electronically signed by Norman Dexter D.O. KH: PILAR D: ??06/17/2017 7:50 PM T: ??06/17/2017 7:50 PM Report ID: [id number] Reading Location: ??[id number] [EOD] Narrative 06/17/2017 7:53 PM CDT EXAM [...] Norman Dexter D.O. KH: PILAR Report ID: [id number] Reading Location: [place] [address] [EOD] Dante DAMIAN IMG XR PROCEDURES Final Res ult * Microbiology Specimen Report (Converted) (06/17/2017 10:30 AM CDT) 06/17/2017 10:3 0 AM CDT 06/17/2017 5:02 PM CDT [facility] HISTORICAL RESULTS - 06/17/2017 10:30 AM CDT Microbiology Specimen Report (Converted) SPECIMEN [id number] ?? COLLECTED: 2017-06-17 10:30:00 NDS ?? REQ#: [id number] REQUESTING DR: Dante Avelar ?? SOURCE: URINE ?? SP DESC: CLEAN CATC --- PROCEDURE --- ?--- RESULT --- ?? CULTURE URINE ??(Final) ??- ??Performed at [facility] ?* COLONY COUNT: 3,000 CFU/ml ?* [...] ?? N/R=No Report ?SILVA =Beta Lactamase - [facility] ? [address] [facility] ? [place] [address] ? Basim Dior MD Procedure Note 05/16/2018 Microbiology Specimen Report (Converted) SPECIMEN [id number] COLLECTED: 2017-06-17 10:30:00 NDS REQ#:[id number] REQUESTING DR: Dante Avelar SOURCE: URINE SP DESC: CLEAN CATC --- PROCEDURE --- --- RESULT --- CULTURE URINE (Final) - Performed at [facility] * COLONY COUNT: 3,000 CFU/ml * [...] Dependent N/R=No Report SILVA =[place] [address] Basim Dior MD Dante DAMIAN LAB BLOOD ORDERABLES Final Result [facility] HISTORICAL RESULTS documented in this encounter Visit Diagnoses Diagnosis Urinary tract infection Urinary tract infection, site not specified Pain in right knee Primary osteoarthritis of right knee documented in this encounter
--- OUTSIDE RECORDS SUMMARY | 2024-02-21 15:27 | XMS_ITS | Encounter Summary ---
Author Organization [facility] Healthcare Address [address] [place] [address] Care Team Providers Care Package Drier Name Role Phone Unavailable Primary Care Provider Unavailabl e Encounter Details Date Type Department Care Team (Latest Contact Info) Description 06/12/2017 10:26 AM CDT Hospital Encounter [facility] Dante Avelar, [place] [address] [facility] [address] [place] [address] Radiculopathy of lumbar region; Spondylosis of lumbar [...] PM T: ??06/12/2017 2:25 PM Report ID: [id number] Reading Location: ??[id number] [EOD] Narrative 06/12/2017 2:28 PM CDT EXAM DESCRIPTION: ??Lumbar Spine 2 or 3 View COMPLETED DATE/TIME: ??06/12/2017 10:52 am REASON FOR STUDY: ??LUMBAR RADICULOPATHY PER ORDERING PA. PT STATES LOWER BACK STIFFNESS, PAIN RADIATING DOWN LEFT LEG X 2 MONTHS. NO TRAUMA. TECHNIQUE: ??Three radiographic views acquired of the lumbar spine. COMPARISON: ??None FINDINGS: ALIGNMENT: There are 5 [id number] lumbar vertebral bodies. ??There is levoconvex curvature [...] COMPARISON: None FINDINGS: ALIGNMENT: There are 5 [id number] lumbar vertebral bodies. There is levoconvex curvature [...] Nadiya Angel M.D. TB: TB Report ID: [id number] Reading Location: [id number] [EOD] us Dante DAMIAN IMG XR PROCEDURES Final Res ult documented in this encounter Visit Diagnoses Diagnosis Radiculopathy of lumbar region Spondylosis of lumbar region without myelopathy or radiculopathy documented in this encounter
--- OUTSIDE RECORDS SUMMARY | 2024-02-21 15:27 | XMS_ITS | Encounter Summary ---
Author Organization [facility] Healthcare Address [address] [place] [address] Care Team Providers Care Hide House Supervisor Name Role Phone Unavailable Primary Care Provider Unavailabl e Encounter Details Date Type Department Care Team (Latest Contact Info) Description 07/19/2016 7:12 AM CDT Hospital Encounter [facility] Dante Avelar, [place] [address] [address] Essential (primary) hypertension; Hyperlipidemia Social History Tobacco [...] urine, random (07/19/2016 9:20 AM CDT) Pathologist [facility] Ur Random Creatinine 87.0 mg/dL Comment: Reference Range First morning urine: Females 28 - 217 mg/dLRandom Specimen: ??No reference ranges U Random Total Protein 6 0 - 12 mg/dL Ur Random Microalbumin < 12.0 0.0 - 19.9 mg/L Comment: Microalbumin is <12. Microalb/creat will not be calculated Citizen Of [place] Diabetes Association Guidelines Microalbuminuria: 30-300 ug albumin /mg creatinine Clinical Albuminuria: >300 ug albumin /mg creatinine 07/19/2016 9:20 AM CDT 07/19/2016 3:35 PM CDT Dante DAMIAN LAB URINE ORDERABLES Final Result Performing Organization Address [facility] Co de Phone Number [facility] HISTORICAL RESULTS * TSH reflex to free T4 (07/19/2016 7:16 AM CDT) [facility] TSH W REFLEX TO FT4 2.12 0.27 - 4.20 uIU/mL 07/19/2016 7:16 AM CDT 07/19/2016 3:23 PM CDT Narrative [facility] HISTORICAL RESULTS - 07/19/2016 4:11 PM CDT PT FASTING FOR 12HRS Dante DAMIAN LAB BLOOD ORDERABLES Final Result [facility] HISTORICAL RESULTS * (ABNORMAL) Lipid panel (07/19/2016 7:16 AM CDT) [facility] Triglycerides 99 0 - 199 mg/dL Comment:12 hr pc highly lainey mmended for Triglyceride Cholesterol 266(H) 0 - 199 mg/dL Comment: Borderline: ??200-239 High Risk: ?? >239 HDL Cholesterol 58 40 - 60 mg/dL Comment: Major Risk ?< 40 mg/dL Moderate Risk ?40-60 mg/dL Negative Risk ?? > 60 mg/dL LDL Cholesterol, Calc 188(H) 0 - 130 mg/dL Comment:High Risk > 159 mg/d L Cholesterol/HDL Ratio 4.6 Comment: Cholesterol / HDL Ratio 3.5:1 or less is desirable. Cholesterol / HDL Ratio greater than 5:1 is considered higher risk for developing heart disease. 07/19/2016 7:16 AM CDT 07/19/2016 3:23 PM CDT Narrative [facility] HISTORICAL RESULTS - 07/19/2016 4:06 PM CDT PT FASTING FOR 12HRS us Dante DAMIAN LAB BLOOD ORDERABLES Final Result [facility] HISTORICAL RESULTS * (ABNORMAL) Comprehensive metabolic panel (07/19/2016 7:16 AM CDT) Sodium 140 135 - 145 mmol/L Potassium 3.9 3.3 - 5.1 mmol/L Chloride 101 96 - 108 mmol/L Carbon Dioxide 25 22 - 32 mmol/L Anion Gap 14 7 - 16 Glucose 91 70 - 100 mg/dL BUN 21(H) 6 - 20 mg/dL Creatinine [...] gm/dL Albumin/Globulin Ratio 1.8 1.1 - 1.8 Total Bilirubin 0.2 0.0 - 1.2 mg/dL AST 27 0 - 32 U/L ALT 21 0 - 33 U/L Alkaline Phosphatase 60 35 - 104 U/L 07/19/2016 7:16 AM CDT 07/19/2016 3:23 PM CDT Narrative [facility] HISTORICAL RESULTS - 07/19/2016 4:06 PM CDT PT FASTING FOR 12HRS us Dante DAMIAN LAB BLOOD ORDERABLES Final Result [facility] HISTORICAL RESULTS documented in this encounter Visit Diagnoses Diagnosis Essential (primary) hypertension Unspecified essential hypertension Hyperlipidemia Other and unspecified hyperlipidemia documented in this encounter
--- OUTSIDE RECORDS SUMMARY | 2024-02-21 15:27 | XMS_ITS | Encounter Summary ---
Author Organization [facility] Healthcare Address [address] [place] [address] Care Team Providers Care Email Marketing Coordinator Name Role Phone Unavailable Primary Care Provider Unavailabl e Encounter Details Date Type Department Care Team (Late st Contact Info) Description 02/20/2017 7:09 AM TILE SETTER SUPERVISOR Hospital Encounter [facility] OP Jose Martin Diamond MD [address] [address] Cystitis without hematuria Social History Tobacco Use [...] MICROSCOPIC AND CULTURE Routine 02/20/2017 7:15 AM TILE SETTER SUPERVISOR documented in this encounter Results * (ABNORMAL) Urinalysis reflex to microscopic and culture (02/20/2017 7:15 AM TILE SETTER SUPERVISOR) Ur Collection Type CLEAN CATCH 02/20/2017 4:49 PM TILE SETTER SUPERVISOR [facility] HISTORICAL RESULTS Ur Culture Indicated? C&S NOT INDICATED 02/20/2017 4:49 PM TILE SETTER SUPERVISOR [facility] HISTORICAL RESULTS Urine Color YELLOW YELLOW Urine Clarity CLEAR CLEAR Urine Glucose (UA) NORMAL NORMAL mg/dL Urine Bilirubin NEGATIVE NEGATIVE mg/dl Urine Ketones NEGATIVE NEGATIVE mg/dL Ur Specific [place] 1.010 1.005 - 1.025 02/20/2017 4:49 PM TILE SETTER SUPERVISOR [facility] HISTORICAL RESULTS Urine Blood 0.2(H) NEGATIVE mg/dl Urine pH 6.0 5.0 - 8.0 Urine Protein NEGATIVE NEGATIVE mg/dL Urine Urobilinogen NORMAL NORMAL mg/dL Urine Nitrite POSITIVE(H) NEGATIVE Ur Leukocyte Esterase NEGATIVE NEGATIVE Tati/ul Ur Microscopic Review Indicated or Ordered Urine RBC 2 0 - 2 /HPF Urine WBC 2 0 - 2 /HPF Ur Squamous Epith Cells Rare /HPF 02/20/2017 7:1 5 AM TILE SETTER SUPERVISOR 02/20/2017 4:40 PM [facility] us Jose Martin Diamond MD LAB MICROBIOLOGY - GENERAL ORDERABLES Final Result [facility] HISTORICAL RESULTS documented in this encounter Visit Diagnoses Diagnosis Cystitis without hematuria documented in this encounter
--- OUTSIDE RECORDS SUMMARY | 2024-02-21 15:27 | XMS_ITS | Encounter Summary ---
Author Organization [facility] Healthcare Address [address] [place] [address] Care Team Providers Care Bench Patternmaker Metal Name Role Phone Unavailable Primary Care Provider Unavailabl e Encounter Details Date Type Department Care Team (Latest Contact Info) Description 12/05/2015 8:28 AM CDT Hospital Encounter [facility] Dante Avelar, [place] [address] [address] Frequency of micturition; Dysuria; Hyperlipidemia; Essential (primary) [...] 6 AM CDT 12/05/2015 5:14 PM CDT [facility] HISTORICAL RESULTS - 12/05/2015 10:06 AM CDT Microbiology Specimen Report (Converted) SPECIMEN [id number] ?? COLLECTED: 2015-12-05 10:06:00 PT ?? REQ#: [id number] REQUESTING DR: Dante Avelar ?? SOURCE: URINE ?? SP DESC: CLEAN CATC --- PROCEDURE --- ?--- RESULT --- ?? CULTURE URINE ??(Final) ??- ??Performed at [facility] ?* COLONY COUNT: 10,000 CFU/ml ?* [...] ?? N/R=No Report ?SILVA =Beta Lactamase - [facility] ? [address] ? [place] [address] ? Basim Dior MD Procedure Note 05/16/2018 Microbiology Specimen Report (Converted) SPECIMEN [id number] COLLECTED: 2015-12-05 10:06:00 PT REQ#:[id number] REQUESTING DR: Dante Avelar SOURCE: URINE SP DESC: CLEAN CATC --- PROCEDURE --- --- RESULT --- CULTURE URINE (Final) - Performed at [facility] * COLONY COUNT: 10,000 CFU/ml * [...] Dependent N/R=No Report SILVA =[place] [address] Basim Dior MD Dante DAMIAN LAB BLOOD ORDERABLES Final Result [facility] HISTORICAL RESULTS * (ABNORMAL) Microalbumin, urine, random (12/05/2015 8:29 AM CDT) Ur Random Creatinine 21.0 mg/dL Comment: Reference Range First morning urine: Females 28 - 217 mg/dLRandom Specimen: ??No reference ranges U Random Total Protein 14(H) 0 - 12 mg/dL 12/05/2015 5:25 PM [facility] Ur Random Microalbumin 61.7(H) 0.0 - 19.9 mg/L 12/05/2015 5:25 PM T [facility] H[facility]OR[facility] RES[facility] Comment: [place] Diabetes Association Guidelines Microalbuminuria: 30-300 ug albumin /mg creatinine Clinical Albuminuria: >300 ug albumin /mg creatinine Microalb/Creat Ratio 293.8(H) 0.0 - 19.9 ug/mg 12/05/2015 8:29 AM CDT 12/05/2015 4:42 PM CDT Dante DAMIAN LAB URINE ORDERABLES Final Result Performing Organization Address [facility] de Phone Number [facility] HISTORICAL RESULTS * (ABNORMAL) Lipid panel (12/05/2015 [...] BLOOD ORDERABLES Final Result Performing Organization Address [facility] Co de Phone Number [facility] HISTORICAL RESULTS * (ABNORMAL) Comprehensive metabolic panel (12/05/2015 8:29 AM CDT) [facility] Sodium 140 135 - 145 mmol/L Potassium [...] - 10.0 mg/dL 12/05/2015 5:34 PM T [facility] HISTOR[facility] RESULTS Total Protein 6.8 6.4 - 8.3 g/dL 12/05/2015 5:34 PM T [facility] HISTORICAL RESULTS Albumin 4.6 3.5 - 5.2 g/dL 12/05/2015 5:34 PM T [facility] HISTORICAL RESULTS Globulin 2.2(L) 2.3 - 3.5 gm/dL 12/05/2015 5:34 PM [facility] HISTORICAL RESULTS Albumin/Globulin Ratio 2.1(H) 1.1 - 1.8 12/05/2015 5:34 PM [facility] HISTOR[facility] RESULTS Total Bilirubin 0.3 0.0 - 1.2 mg/dL 12/05/2015 5:34 PM T [facility] [employer] [facility] HISTOR[facility] RESULTS AST 33(H) 0 - 32 U/L 12/05/2015 5:34 PM [facility] HISTOR[facility] RESULTS ALT 25 0 - 33 U/L 12/05/2015 5:34 PM [facility] Alkaline Phosphatase 63 35 - 104 U/L 12/05/2015 5:34 PM [facility] 12/05/2015 8:29 AM CDT 12/05/2015 4:42 PM CDT Dante DAMIAN LAB BLOOD ORDERABLES Final Result [facility] HISTORICAL RESULTS documented in this encounter Visit Diagnoses Diagnosis Frequency of micturition Urinary frequency Dysuria Hyperlipidemia Other and unspecified hyperlipidemia Essential (primary) hypertension Unspecified essential hypertension documented in this encounter
--- OUTSIDE RECORDS SUMMARY | 2024-02-21 15:27 | XMS_ITS | Encounter Summary ---
Author Organization [facility] Facility Care Team Providers Care Tool Inspector Name Role Phone Jose Martin Diamond MD Primary Care Provi jasmyn Dante Avelar Primary Care Provider [phone] Encounter Details Date Type Department Care Team (Latest Contact Info) Description 05/16/2015 Orders Only [facility] CLINCONV ProviderYuri MD [address] [place] [id number] Social History Tobacco Use Types Packs/Day [...] on filedocumented in this encounter Care Teams Tool Inspector Relationship Specialty Start Date End Date Jose Martin Diamond MD [address] [place] [address] PCP - General 07/11/17 10/14/21 Dante Avelar PA [address] [place] [address] PCP - General Family Medicine 10/15/21 documented as of this encounter
--- OUTSIDE RECORDS SUMMARY | 2024-02-21 15:27 | XMS_ITS | Encounter Summary ---
Author Organization [facility] Healthcare Address [address] [place] [address] Care Team Providers Care Corrections Identification Technician Name Role Phone Unavailable Primary Care Provider Unavailabl e Encounter Details Date Type Department Care Team (Latest Contact Info) Description 02/04/2017 9:58 AM VOICE OVER ANNOUNCER Hospital Encounter [facility] Dante Avelar, [place] [address] [address] Hyperglycemia; Personal history of urinary infection Social [...] Comments HEMOGLOBIN A1C Routine 02/04/2017 10:10 AM VOICE OVER ANNOUNCER MICROBIOLOGY SPECIMEN REPORT (CONVERTED) Routine 02/04/2017 10:05 AM VOICE OVER ANNOUNCER URINALYSIS AND REFLEX TO MICROSCOPIC AND CULTURE Routine 02/04/2017 10:05 AM VOICE OVER ANNOUNCER documented in this encounter Results * Hemoglobin A1c (02/04/2017 10:10 AM VOICE OVER ANNOUNCER) Hemoglobin A1c % 5.4 4.8 - 5.9 % 02/04/2017 5:28 PM VOICE OVER ANNOUNCER [facility] HISTORICAL RESULTS Comment: [place] Diabetes [employer] recommends that the goal of therapy should be an A1C hemoglobin of <7%. Reevaluate the treatment regimen in patients with an A1C >8%. 02/04/2017 10:1 0 AM VOICE OVER ANNOUNCER 02/04/2017 5:07 PM VOICE OVER ANNOUNCER Dante DAMIAN LAB BLOOD ORDERABLES Final Result [facility] HISTORICAL RESULTS * Microbiology Specimen Report (Converted) (02/04/2017 10:05 AM VOICE OVER ANNOUNCER) 02/04/2017 10:0 5 AM VOICE OVER ANNOUNCER 02/04/2017 4:50 PM VOICE OVER ANNOUNCER Narrative [facility] HISTORICAL RESULTS - 02/04/2017 10:05 AM VOICE OVER ANNOUNCER Microbiology Specimen Report (Converted) SPECIMEN [id number] ?? COLLECTED: 2017-02-04 10:05:00 PT ?? REQ#: [id number] REQUESTING DR: Dante Avelar ?? SOURCE: URINE ?? SP DESC: CLEAN CATC --- PROCEDURE --- ?--- RESULT --- ?? CULTURE URINE ??(Final) ??- ??Performed at [facility] ?* COLONY COUNT: 20,000 CFU/ml ?* MIXED [...] ?? N/R=No Report ?SILVA =Beta Lactamase - [facility] ? [address] [place] [address] ? [place] [address] ? Basim Dior MD Procedure Note 05/16/2018 Microbiology Specimen Report (Converted) SPECIMEN [id number] COLLECTED: 2017-02-04 10:05:00 PT REQ#:[id number] REQUESTING DR: Dante Avelar SOURCE: URINE SP DESC: CLEAN CATC --- PROCEDURE --- --- RESULT --- CULTURE URINE (Final) - Performed at [facility] * COLONY COUNT: 20,000 CFU/ml * MIXED [...] Dependent N/R=No Report SILVA =[place] [address] Basim Dior MD Dante DAMIAN LAB BLOOD ORDERABLES Final Result [facility] HISTORICAL RESULTS * (ABNORMAL) Urinalysis reflex to microscopic and culture (02/04/2017 10:05 AM VOICE OVER ANNOUNCER) Ur Collection Type CLEAN CATCH Ur Culture Indicated? C&S INDICATED Comment:Culture report to bailey mendoza. Urine Color YELLOW YELLOW Urine Clarity CLOUDY CLEAR Urine Glucose (UA) NORMAL NORMAL mg/dL Urine Bilirubin NEGATIVE NEGATIVE mg/dl Urine Ketones NEGATIVE NEGATIVE mg/dL Ur Specific [place] 1.021 1.005 - 1.025 Urine Blood 0.2(H) [...] Oxalate Crystal Few /HPF 02/04/2017 5:04 PM VOICE OVER ANNOUNCER [facility] HISTORICAL RESULTS 02/04/2017 10:0 5 AM VOICE OVER ANNOUNCER 02/04/2017 4:50 PM VOICE OVER ANNOUNCER Narrative [facility] HISTORICAL RESULTS - 02/04/2017 5:04 PM VOICE OVER ANNOUNCER us Dante DAMIAN LAB MICROBIOLOGY - GENERAL ORDERABLES Final Result [facility] HISTORICAL RESULTS documented in this encounter Visit Diagnoses Diagnosis Hyperglycemia Other abnormal glucose Personal history of urinary infection documented in this encounter
--- OUTSIDE RECORDS SUMMARY | 2024-02-21 15:27 | XMS_ITS | Encounter Summary ---
Author Organization [facility] Healthcare Address [address] [place] [address] Care Team Providers Care Integrated Circuit Design Engineer Name Role Phone Unavailable Primary Care Provider Unavailabl e Encounter Details Date Type Department Care Team (Latest Contact Info) Description 06/10/2017 2:23 PM CDT Hospital Encounter [facility] Dante Avelar, [place] [address] [address] Urinary tract infection Social History Tobacco Use [...]
--- OUTSIDE RECORDS SUMMARY | 2024-02-21 15:27 | XMS_ITS | Encounter Summary ---
Author Organization [facility] Healthcare Address [address] [place] [address] Care Team Providers Care Drinking Water Technician Name Role Phone Unavailable Primary Care Provider Unavailabl e Encounter Details Date Type Department Care Team (Latest Contact Info) Description 01/30/2017 7:07 AM GENERAL ADMINISTRATOR Hospital Encounter [facility] Dante Avelar, [place] [address] [address] Essential (primary) hypertension; Hyperlipidemia Social History Tobacco [...] THYROID FUNCTION CASCADE Routine 01/30/2017 7:14 AM GENERAL ADMINISTRATOR CHOLESTEROL, LDL, DIRECT Routine 01/30/2017 7:14 AM GENERAL ADMINISTRATOR LIPID PANEL Routine 01/30/2017 7:14 AM GENERAL ADMINISTRATOR COMPREHENSIVE METABOLIC PANEL Routine 01/30/2017 7:14 AM GENERAL ADMINISTRATOR documented in this encounter Results * (ABNORMAL) Cholesterol, LDL, direct (01/30/2017 7:14 AM GENERAL ADMINISTRATOR) LDL Cholesterol Measurd 139(H) 0 - 99 mg/dL Comment: Reference Ranges: Optimal ?0 - 99 ??mg/dL Near Optimal/Above Optimal ?? 100-129 mg/dL Borderline High ?130-159 mg/dL High ? 160-189 mg/dL Very High ? >=190 ??mg/dL 01/30/2017 7:14 AM GENERAL ADMINISTRATOR 01/30/2017 4:51 PM GENERAL ADMINISTRATOR [facility] HISTORICAL RESULTS - 01/30/2017 6:24 PM GENERAL ADMINISTRATOR 12 HRS FASTING ?? Dante DAMIAN LAB BLOOD ORDERABLES Final Result Performing Organization Address [facility] de Phone Number [facility] HISTORICAL RESULTS * TSH reflex to free T4 (01/30/2017 7:14 AM GENERAL ADMINISTRATOR) Pathologist [facility] TSH W REFLEX TO FT4 2.48 0.27 - 4.20 uIU/mL 01/30/2017 7:14 AM GENERAL ADMINISTRATOR 01/30/2017 4:51 PM [facility] HISTORICAL RESULTS - 01/30/2017 5:55 PM GENERAL ADMINISTRATOR 12 HRS FASTING ?? Dante DAMIAN LAB BLOOD ORDERABLES Final Result Performing Organization Address [facility] de Phone Number [facility] HISTORICAL RESULTS * (ABNORMAL) Lipid panel (01/30/2017 7:14 AM GENERAL ADMINISTRATOR) Pathologist [facility] Triglycerides 440(H) 0 - 199 mg/dL Comment: [...] for developing heart disease. 01/30/2017 7:14 AM GENERAL ADMINISTRATOR 01/30/2017 4:51 PM [facility] Narrative [facility] HISTORICAL RESULTS - 01/30/2017 5:51 PM GENERAL ADMINISTRATOR 12 HRS FASTING ?? us Dante DAMIAN LAB BLOOD ORDERABLES Final Result [facility] HISTORICAL RESULTS * (ABNORMAL) Comprehensive metabolic panel (01/30/2017 7:14 AM GENERAL ADMINISTRATOR) Sodium 136 135 - 145 mmol/L Potassium 4.6 3.3 - 5.1 mmol/L Chloride 96 96 - 108 mmol/L Carbon Dioxide 26 22 - 32 mmol/L Anion Gap 14 7 - 16 Glucose 124(H) 70 - 100 mg/dL BUN 19 6 - 20 mg/dL Creatinine 1.0 0.5 - 1.1 mg/dL 01/30/2017 5:51 PM [facility] HISTORICAL RESULTS Comment: NOTE: Estimated GFR (Cockroft-Gault) will NOT be calculated unless patient Height and Weight were entered. Also, Kidney Disease Stage (GFR) and Estimated GFR (Cockroft-Gault) will NOT be calculated if Creatinine result is <0.2. Kidney Disease Stage 61 mL/MIN 01/30/2017 5:51 PM [facility] HISTORICAL RESULTS Comment: NOTE; ??The GFR is [...] 8.6 - 10.0 mg/dL 01/30/2017 5:51 PM [facility] HISTORICAL RESULTS Total Protein 7.0 6.4 - 8.3 g/dL 01/30/2017 5:51 PM [facility] HISTORICAL RESULTS Albumin 4.4 3.5 - 5.2 g/dL 01/30/2017 5:51 PM [facility] HISTORICAL RESULTS Globulin 2.6 2.3 - 3.5 gm/dL 01/30/2017 5:51 PM [facility] HISTORICAL RESULTS Albumin/Globulin Ratio 1.7 1.1 - 1.8 01/30/2017 5:51 PM [facility] HISTORICAL RESULTS Total Bilirubin 0.2 0.0 - 1.2 mg/dL 01/30/2017 5:51 PM GENERAL ADMINISTRATOR [facility] HISTORICAL RESULTS AST 33(H) 0 - 32 U/L 01/30/2017 5:51 PM GENERAL ADMINISTRATOR [facility] HISTORICAL RESULTS ALT 29 0 - 33 U/L 01/30/2017 5:51 PM GENERAL ADMINISTRATOR [facility] HISTORICAL RESULTS Alkaline Phosphatase 74 35 - 104 U/L 01/30/2017 5:51 PM GENERAL ADMINISTRATOR [facility] HISTORICAL RESULTS 01/30/2017 7:14 AM GENERAL ADMINISTRATOR 01/30/2017 4:51 PM GENERAL ADMINISTRATOR Narrative [facility] HISTORICAL RESULTS - 01/30/2017 5:51 PM GENERAL ADMINISTRATOR 12 HRS FASTING ?? us Dante DAMIAN LAB BLOOD ORDERABLES Final Result [facility] HISTORICAL RESULTS documented in this encounter Visit Diagnoses Diagnosis Essential (primary) hypertension Unspecified essential hypertension Hyperlipidemia Other and unspecified hyperlipidemia documented in this encounter
== END 2024-02-14 12:35 | disposition home or self-care (01) ==
PROVIDERS: Emergency Provider Nurse Practitioner Family
DX: B34.9 Viral infection, unspecified (principal); I10 Essential (primary) hypertension; E78.5 Hyperlipidemia, unspecified
CPT/HCPCS: 99213; G0463

== ENCOUNTER 2024-10-20 13:04 | Emergency (ER) | payer OTHER, SELFPAY ==
--- NOTE | 2024-10-20 13:10 | ED.GENADULT ---
HPI - General Adult General Chief complaint: Upper Respiratory Infection Stated complaint: SORE THROAT/SORES IN THROAT Time Seen by Provider: 10/20/24 13:04 Source: patient Mode of arrival: ambulatory Limitations: no limitations History of Present Illness HPI narrative: Pt is a 64 y/o female presenting with c/o sore throat. Additional sx reported include postnasal drip, throat sores. Sx began last night. No tx initiated MANAGEMENT LIAISON. No known exposure to COVID, flu, strep, PNA. No additional complaints. Related Data Home Medications ?Medication ?Instructions ?Recorded ?Confirmed ?Last Taken ?Type alprazolam 0.5 mg tablet 0.5 mg PO PRN PRN anxiety 11/26/21 10/20/24 12/09/21 History escitalopram oxalate 20 mg tablet 20 mg PO DAILY 11/26/21 10/20/24 12/09/21 History losartan 100 1 tablet PO DAILY 11/26/21 10/20/24 12/09/21 History mg-hydrochlorothiazide 25 mg tablet simvastatin 20 mg tablet 20 mg PO DAILY 11/26/21 10/20/24 12/09/21 History Allergies Allergy/AdvReac Type Severity Reaction Status Date / Time Penicillins Allergy Mild Hives Verified 10/20/24 13:06 Sulfa (Sulfonamide Allergy Mild Hives Verified 10/20/24 13:06 Antibiotics) Review of Systems Review of Systems: CONSTITUTIONAL: Denies body aches, fever, chills, or sweats. EYES: Denies visual changes, redness, or discharge. ENT: Reports sore throat, mouth sores, postnasal dripDenies rhinorrhea, congestion or otalgia. CARDIOVASCULAR: Denies chest pain, palpitations, or edema. RESPIRATORY: Denies cough or dyspnea. GASTROINTESTINAL: Denies abdominal pain, nausea, vomiting, or diarrhea. GENITOURINARY: Denies dysuria or hematuria. SKIN: Denies rash, itching, or wounds. MUSCULOSKELETAL: Denies back pain, joint pain, or myalgia. NEUROLOGIC: Denies headache, numbness, tingling, or weakness. PSYCH: Denies depression or anxiety. All systems reviewed & are unremarkable except as noted in HPI and below Endocrine: Endocrine: Denies excessive sweating and Denies fatigue Hematologic/Lymphatic: Hematologic/Lymphatic: Denies easy bleeding and Denies easy bruising Allergic/Immunologic: Allergic/Immunologic: Denies lip swelling, Denies throat swelling and Denies tongue swelling PMFSH Past Medical History Medical History Screening for breast cancer Hyperlipidemia Degenerative disc disease Arthritis Hypertension Anxiety Depression Surgical History Surgical History H/O breast augmentation History of tubal ligation Social History Social History Smoking status: Never smoker Alcohol intake: current Drinks per week: 2 Substance use: never Substance use type: does not use Lack of Transportation: No Lack of Food: Never True Current Housing: I Have Housing Concerned About Future Housing: No Difficulty Paying Gas/Electric Bills: No Difficulty Paying for Meds: No Currently Unemployed: No Education: High School Diploma/GED Difficulty w/ Childcare or Family Care: No Living arrangements: with family Spiritual care concerns: No Exam Narrative: GENERAL: Well-appearing, well-nourished, and in no acute distress. HEAD: Normocephalic, atraumatic. EYES: EOMI. No redness or drainage. Conjunctivae normal. ENT: Mucous membranes pink and moist. Nares clear. No rhinorrhea. TMs normal bilaterally. Posterior pharynx is pink without edema. Single, shallow ulceration noted to the L. tonsil. Uvula midline. NECK: Normal AROM. Supple. No lymphadenopathy. CHEST: No respiratory distress. Clear to auscultation. HEART: Regular rate and rhythm. No murmur appreciated. Normal peripheral pulses. ABDOMEN: Soft, nontender, nondistended, normal active bowel sounds. MUSCULOSKELETAL: No bony tenderness. EXTREMITIES: Normal range of motion. No edema. SKIN: Warm, dry, no rash. Capillary refill normal. Normal skin turgor. NEURO: No focal deficits. Alert and oriented x3. Gait steady. PSYCH: Normal affect. No signs of depression or anxiety. Course Course Emergency Course: former smoker--quit a long time ago. Rec'd f/u with PCP for further diagnostic work up if ulcer is still present in 2 weeks. Discussed elevated blood pressure readings with patient and advised daily BP monitoring and f/u with PCP if persisting. Level of Care: Express Care Visit Vital Signs Vital signs: Vital Signs Temperature 97.7 F 10/20/24 13:16 Pulse Rate 76 10/20/24 13:16 Respiratory Rate 16 10/20/24 13:16 Blood Pressure 141/76 H 10/20/24 13:16 Pulse Oximetry 100 10/20/24 13:16 Temperature 97.7 F 10/20/24 13:16 Pulse Rate 76 10/20/24 13:16 Respiratory Rate 16 10/20/24 13:16 Blood Pressure 141/76 H 10/20/24 13:16 Pulse Oximetry 100 10/20/24 13:16 Medical Decision Making Vital Signs Vital Signs: Vital Signs Temperature 97.7 F 10/20/24 13:16 Pulse Rate 76 10/20/24 13:16 Respiratory Rate 16 10/20/24 13:16 Blood Pressure 141/76 H 10/20/24 13:16 Pulse Oximetry 100 10/20/24 13:16 Temperature 97.7 F 10/20/24 13:16 Pulse Rate 76 10/20/24 13:16 Respiratory Rate 16 10/20/24 13:16 Blood Pressure 141/76 H 10/20/24 13:16 Pulse Oximetry 100 10/20/24 13:16 Lab Data Lab results reviewed: Yes I reviewed the patient's lab results. Labs: rapid strep neg Discharge Plan Discharge Clinical Impression: Pharyngitis Qualifiers: Pharyngitis/tonsillitis etiology: unspecified etiology Qualified Code(s): J02.9 - Acute pharyngitis, unspecified HTN (hypertension) Qualifiers: Hypertension type: unspecified Qualified Code(s): I10 - Essential (primary) hypertension Patient Disposition: Home Condition: Stable Instructions: Gingivostomatitis (ED) Additional Instructions: Go straight to ER should your symptoms become worse or should any new symptoms develop Patient Language: Divehi Prescriptions: No Action losartan-hydrochlorothiazide 100-25 mg tablet 1 tablet PO DAILY alprazolam 0.5 mg tablet 0.5 mg PO PRN PRN (Reason: anxiety) simvastatin 20 mg tablet 20 mg PO DAILY escitalopram oxalate 20 mg tablet 20 mg PO DAILY Follow-up/Referrals: Candido,Lula Silvestre NP [Primary Care Provider, Unknown] - 10/21/24 Stand Alone Forms: Work/School Release IP Time of Disposition: 13:37
[2024-10-20 13:16] VITALS: BP 141/76; PULSE 76; RESP 16; TEMP 36.5; O2SAT 100
[2024-10-20 13:41] LABS: EDSTREPNEGPOS1 Negative (Negative)
== END 2024-10-20 13:38 | disposition home or self-care (01) ==
PROVIDERS: Emergency Provider Registered Nurse; PCP Nurse Practitioner Family
DX: J02.9 Acute pharyngitis, unspecified (principal); I10 Essential (primary) hypertension; E78.5 Hyperlipidemia, unspecified; Z79.899 Other long term (current) drug therapy
CPT/HCPCS: 87880; 99212; G0463

== ENCOUNTER 2024-11-10 12:50 | Outpatient (CLI) | payer OTHER, SELFPAY ==
--- OUTSIDE RECORDS SUMMARY | 2024-11-10 13:00 | XMS_ITS | Clinical Summary ---
Author Organization [facility] Address [facility] [place] [address] Care Team Providers Care Biology Manager Name Role Phone Unavailable Primary Care Provider [...] Screening with HPV 02/17/1992 Mammogram Screening 2002 Pneumococcal Vaccine: 50+ Ye ars (1 of 1 - PCV) 02/17/2012 Zoster Vaccines (1 of 2) 02/17/2012 COVID-19 Vaccine ( - 2023-2 5 season) 2024 RSV Immunization or 60+ Years (1 - 1-dose 75+ series) 2037 Meningococcal B Vaccine Aged Out No l onger eligible based on patient's age to complete this topic Meningococcal Vaccine Aged Out No yan aria eligible based on patient's age to complete this topic RSV Immunizations Under 20 Months Aged Out No longer eligible based on patient's age to complete this topic
--- OUTSIDE RECORDS SUMMARY | 2024-11-10 13:00 | XMS_ITS | Clinical Summary ---
Author Organization [facility] Address [address] [place] [address] Care Team Providers Care Car Filler Name Role Phone Dante Avelar Primary Care [...] 04/06/2019 Assessment & Plan (04/06/2019 10:50 AM CROP AND SOIL TECHNICIAN): -Check in 1 year. Recommend Pap smears at least every 3 years starting at age 21, unless otherwise indicated. recommend flu shot yearly. Recommend heart healthy diet and 30 minutes of exercise daily. Recommend mammogram yearly starting at 40 y/o. Colon cancer screening starting at 50. Dyslipidemia 03/11/2018 Assessment & Plan (04/06/2019 10:51 AM CROP AND SOIL TECHNICIAN): Recommend Continue statin therapy. NO myalgias, or concerns with statin therapy at this time. Recommend heart healthy diet and exercise 30 minutes a day Recommend weight loss Situational anxiety 02/19/2018 Assessment & Plan (04/06/2019 10:51 AM CROP AND SOIL TECHNICIAN): Uses,risks,se's discussed Lumbosacral radiculopathy 09/17/2017 Chronic pain of right knee 09/17/2017 Overweight (BMI 25.0-29.9) 08/12/2017 Assessment & Plan (04/06/2019 10:51 AM CROP AND SOIL TECHNICIAN): BMI Follow-up includes: nutrition counseling, exercise counseling and education provided. Low back pain 07/18/2017 Primary osteoarthritis of right knee 07/01/2017 Essential tremor 12/06/2015 Hyperlipidemia 12/06/2015 Assessment & Plan (04/06/2019 10:51 AM CROP AND SOIL TECHNICIAN): Recommend Continue statin therapy. NO myalgias, or concerns with statin therapy at this time. Recommend heart healthy diet and exercise 30 minutes a day Recommend weight loss HTN (hypertension) 11/20/2015 Assessment & Plan (04/06/2019 10:50 AM CROP AND SOIL TECHNICIAN): DASH diet. CCT. Recommend diet and exercise. Recommend compliance with medications. 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 Not on file Not on file Obstetrics History Last Filed Vital Signs Vital Sign Reading Time Taken Comments Blood Pressure 155/95 10/28/2019 2:11 PM CDT Pulse 94 10/28/2019 2:11 PM CDT Temperature 36.7 C (98.1 F) 05/03/2019 1:22 PM CDT Respiratory Rate 16 10/28/2019 12:58 PM CDT Oxygen Saturation 97% 10/28/2019 2:11 PM CDT Inhaled Oxygen Concentration - - Weight 68 kg (150 lb) 09/10/2019 10:13 AM CDT Height 162.6 cm (5' 4) 09/10/2019 10:13 AM CDT Body Mass Index 25.75 09/10/2019 10:13 AM CDT Plan of Treatment Health Maintenance Due Date Last Done Comments Breast Cancer Screening-Mammogram 1962 Cervical Cancer Screening 1962 Colon Cancer Screening-Colonoscopy 1960 Hepatitis C Screening 1962 DTaP/Tdap/Td Vaccine (1 - Tdap) 1973 Zoster Vaccine (1 of 2) 02/17/2012 Depression Screening 08/27/2019 08/26/2018 Regular Well Visit/Exam 18-64 03/15/2020 03/15/2019 Influenza Vaccine (#1) 2024 Hepatitis B Screening Completed 01/25/2004 , 12/07/2003 Pneumococcal vaccine <65 Aged Out No longer eligible based on patient's age to complete this topic Insurance [facility]O Address: [address] [address] [place] [address] [facility] CHOICE [place] [facility]O Address: [address] [address] [place] [address] Care Teams Car Filler Relationship Specialty Start Date End Date Dante Avelar PA [address] [place] [address] PCP - General Family Medicine 10/15/21
--- OUTSIDE RECORDS SUMMARY | 2024-11-10 13:00 | XMS_ITS | Encounter Summary ---
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 us Historical Provider Final Res ult * SCAN - LABS (02/19/2018 12:00 AM DRESS DRAPER) Narrative 02/19/2018 12:00 AM DRESS DRAPER Ordered by an unspecified provider. Historical Provider Final Res ult * CARDIOLOGY REPORT (02/19/2018 12:00 AM DRESS DRAPER) Anatomical Region Laterality Modality Other Narrative 02/19/2018 12:00 AM DRESS DRAPER Ordered by an unspecified provider. Historical Provider [facility] PROCE DURES Final Result documented in this encounter Visit Diagnoses Not on filedocumented in this encounter Care Teams Medical Bill Processor Relationship Specialty Start Date End Date Jose Martin Diamond MD [address] [place] [address] PCP - General 07/11/17 10/14/21 Dante Avelar PA [address] [place] [address] PCP - General Family Medicine 10/15/21 documented as of this encounter
--- OUTSIDE RECORDS SUMMARY | 2024-11-10 13:00 | XMS_ITS | Encounter Summary ---
Author Organization [facility] Facility Care Team Providers Care Transformer Inspector Name Role Phone Jose Martin Diamond MD Primary Care Provi jasmyn Dante Avelar Primary Care Provider Encounter Details Date Type Department Care Team (Latest Contact Info) Description 05/16/2015 Orders Only [facility]G CLINCONV ProviderYuri MD [address] [place] [phone] Social History Tobacco Use Types Packs/Day Years [...] on filedocumented in this encounter Care Teams Transformer Inspector Relationship Specialty Start Date End Date Jose Martin Diamond MD [address] [place] [address] PCP - General 07/11/17 10/14/21 Dante Avelar PA [address] [place] [address] PCP - General Family Medicine 10/15/21 documented as of this encounter
--- OUTSIDE RECORDS SUMMARY | 2024-11-10 13:00 | XMS_ITS | Encounter Summary ---
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 Historical Provider [facility] HAYES RAMOS Final Result documented in this encounter Visit Diagnoses Not on filedocumented in this encounter Care Teams Copyright Expert Relationship Specialty Start Date End Date Jose Martin Diamond MD [address] [place] [address] PCP - General 07/11/17 10/14/21 Dante Avelar PA [address] [place] [address] PCP - General Family Medicine 10/15/21 documented as of this encounter
--- OUTSIDE RECORDS SUMMARY | 2024-11-10 13:00 | XMS_ITS | Encounter Summary ---
Author Organization 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 us Historical Provider [facility] CARDIAC SERVICES PROCE DURES Final Result * CARDIOLOGY REPORT (04/01/2018 12:00 AM IRRIGATIONIST) Anatomical Region Laterality Modality Other Narrative 04/01/2018 12:00 AM IRRIGATIONIST Ordered by an unspecified provider. us Historical Provider [facility] CARDIAC SERVICES PROCE DURES Final Result documented in this encounter Visit Diagnoses Not on filedocumented in this encounter Care Teams Greenstone Polisher Operator Relationship Specialty Start Date End Date Jose Martin Diamond MD [address] [place] [address] PCP - General 07/11/17 10/14/21 Dante Avelar PA [address] [place] [address] PCP - General Family Medicine 10/15/21 documented as of this encounter
[2024-11-10 13:25] LABS: Hematocrit 40.7 % (37.0-47.0); Hemoglobin 14.0 g/dL (12.0-15.0); Immature Granulocyte Percent A 0.2 % (0-0.5); Lymphocytes Absolute Auto 1.48 K/mm3 (0.9-3.2); Mean Corpuscular HGB Conc 34.4 g/dl (32-36); Mean Corpuscular Hemoglobin 27.8 pg (26-34); Mean Corpuscular Volume 80.9 fl (80-100); Nucleated Red Blood Cells Absolute Auto 0.000 K/mm3 (0.0-0.012); Nucleated Red Blood Cells Perc 0.0 % (0.0-0.2); Platelet Count Result 297 k/mm3 (150-375); Red Blood Count 5.03 M/mm3 (4.2-5.4); White Blood Count 4.9 K/mm3 (4.5-10.0)
[2024-11-10 13:41] LABS: Hemoglobin A1C 5.7 % (<5.7)
[2024-11-10 13:44] LABS: Alanine Aminotransferase 39 U/L (6-35); Albumin Level 4.8 g/dL (3.5-5.1); Alkaline Phosphatase 66 U/L (38-126); Anion Gap 4 mmol/L (4-12); Aspartate Amino Transferase 48 U/L (14-36); Bilirubin,Total 0.8 mg/dL (0.2-1.3); Blood Urea Nitrogen 20 mg/dL (7-17); Calcium 9.6 mg/dL (8.4-10.2); Carbon Dioxide 33 mmol/L (22-30); Chloride 94 mmol/L (98-107); Estimated Glomerular Filt Rate > 60; Glucose 97 mg/dL (65-110); Potassium 3.6 mmol/L (3.4-5.0); Sodium 131 mmol/L (137-145); Total Protein 8.0 g/dL (6.3-8.2)
[2024-11-10 13:52] LABS: Free T4 Free Thyroxine 1.45 ng/dL (0.78-2.19)
[2024-11-10 14:15] LABS: Thyroid Stimulating Hormone 1.790 uIU/mL (0.465-4.680)
[2024-11-12 05:08] LABS: Cocaine (Metab.), Urine Negative ng/mL (Cutoff=300)
== END 2024-11-10 12:51 | disposition home or self-care (01) ==
LOC: ANHLAB 12:54
PROVIDERS: PCP Nurse Practitioner Family; Visit Provider Nurse Practitioner Family
DX: E78.5 Hyperlipidemia, unspecified (principal); Z13.29 Encounter for screening for other suspected endocrine disorder; Z13.1 Encounter for screening for diabetes mellitus; I10 Essential (primary) hypertension; E55.9 Vitamin D deficiency, unspecified; Z79.899 Other long term (current) drug therapy
CPT/HCPCS: 36415; 80053; 80307; 82306; 83036; 84439; 84443; 85025